=== PATIENT | female | born 1945 | race Caucasian/White ===

== ENCOUNTER 2016-04-30 20:26 | Emergency (ER) | payer OTHER, MEDICAID ==
[~2016-04-30] VITALS: Ht 157.5 cm; Wt 81.6 kg
[~2016-04-30 20:26] MED LIST: AMLO5TAB4 PO; ASPI-1047 PO; BUDE6HFA INH; CANA300T PO; COLC0.6T67 PO; CYAN10009 PO; DICL50TA9 PO; DICY10SO PO; ESOM40CA PO; FERR-57 PO; FURO20TA4 PO; GABA300S PO; GLIP10TA74 PO; INSU10VI2 SQ; LISI10TA PO; LORA-673 PO; MAGN400C PO; METF-305 PO; METO50TA3 PO; MONT10TA22 PO; MULT-1159 PO; ONDA8TAB9 SL; PRAV10TA37 PO
[2016-04-30 20:30] VITALS: BP 141/49; PULSE 76; RESP 16; TEMP 97.5; O2SAT 98
[2016-04-30] MEDS ORDERED: NACL 0.9% 1,000 ML IV ONE (21:06)
[2016-04-30] MEDS ORDERED: MAG HYDROX/AL HYDROX/SIMETH 30 ML, BELLADONNA ALKALOIDS/PHENOBARB 10 ML, LIDOCAINE VISC... PO ONE ×3 (21:15)
[2016-04-30] MEDS ORDERED: KETOROLAC TROMETHAMINE 30 MG VIAL IVP ONE (21:15)
[2016-04-30] MEDS ORDERED: ONDANSETRON HCL 4 MG/2 ML VIAL IVP ONE (21:15)
[2016-04-30 21:23] LABS: BILIRUBIN,URINE NEGATIVE (NEGATIVE); BLOOD, URINE NEGATIVE (NEGATIVE); CLARITY/URINE CLEAR (CLEAR); COLOR,URINE YELLOW (YELLOW); GLUCOSE,URINE 3+ (NEGATIVE); KETONES,URINE 1+ (NEGATIVE); LEUKOCYTE ESTERASE ,URINE NEGATIVE (NEGATIVE); NITRITE, URINE NEGATIVE (NEGATIVE); PH,URINE 5.5 (5.0-8.0); PROTEIN URINE NEGATIVE (NEGATIVE); UROBILINOGEN,URINE 0.2 (0.2-1.0)
[2016-04-30 21:29] LABS: BASOPHILS % (AUTO) 0.5 % (0.0-2.0); EOSINOPHILS # (AUTO) 0.1 K/uL (0.0-0.4); EOSINOPHILS % (AUTO) 1.6 % (0.0-4.0); HEMATOCRIT 32.8 % (36-48); HEMOGLOBIN 11.1 g/dL (12.0-16.0); LYMPHOCYTES # (AUTO) 1.4 K/uL (1.0-5.5); LYMPHOCYTES % (AUTO) 25.9 % (20.5-51.5); MEAN CORPUSCULAR HEMOGLOBIN 33 pg (27-31); MEAN CORPUSCULAR HGB CONC 34 % (32-36); MEAN CORPUSCULAR VOLUME 99 fL (79.0-98.0); MONOCYTES # (AUTO) 0.6 K/uL (0.0-1.0); MONOCYTES % (AUTO) 10.9 % (1.7-9.3); NEUTROPHILS # (AUTO) 3.4 K/uL (1.8-7.7); NEUTROPHILS % (AUTO) 61.1 % (40.0-70.0); PLATELET COUNT (AUTO) 222 K/uL (130-430); RED BLOOD CELL COUNT(AUTO) 3.33 MIL/uL (4.2-6.2); WHITE BLOOD COUNT (AUTO) 5.5 K/uL (4.8-10.8)
[2016-04-30 21:34] LABS: CALCIUM 8.5 mg/dL (8.4-11.0); CREATININE 0.78 mg/dL (0.55-1.30)
[2016-04-30 21:38] LABS: ALBUMIN 3.6 g/dL (3.4-4.8); TOTAL BILIRUBIN 0.6 mg/dL (0.0-1.0); TOTAL PROTEIN, SERUM 7.9 g/dL (6.4-8.3)
[2016-04-30 21:44] LABS: PROTHROMBIN TIME 11.2 SECS (9.5-12.5)
[2016-04-30 21:54] LABS: RBC,URINE 0-3 /HPF (0-3)
[2016-04-30 21:55] LABS: BACTERIA,URINE FEW /HPF (None Seen); MUCUS,URINE None Seen /LPF (None Seen); YEAST,URINE Moderate /HPF (None Seen)
[2016-04-30 22:30] VITALS: BP 125/50; PULSE 80; RESP 16; TEMP 97.5; O2SAT 98
== END 2016-04-30 22:30 | disposition home or self-care (01) ==
LOC: SED 20:26
DX: K29.70 Gastritis, unspecified, without bleeding (principal); J45.909 Unspecified asthma, uncomplicated; J44.9 Chronic obstructive pulmonary disease, unspecified; E11.9 Type 2 diabetes mellitus without complications; I10 Essential (primary) hypertension; E78.00 Pure hypercholesterolemia, unspecified; M10.9 Gout, unspecified; Z79.899 Other long term (current) drug therapy; Z95.9 Presence of cardiac and vascular implant and graft, unspecified; Z86.79 Personal history of other diseases of the circulatory system
CPT/HCPCS: 36415; 71010; 80053; 81000; 83690; 85025; 85610; 93005; 96361; 96374; 96375; 99285; J1885; J2001; J2405; J7030

== ENCOUNTER 2016-08-18 20:04 | Inpatient (IN) | payer OTHER, MEDICAID ==
[~2016-08-18] VITALS: Ht 162.6 cm; Wt 82.6 kg
[2016-08-18 20:05] VITALS: BP_SYST 178
--- NOTE | 2016-08-18 20:05 | NUR ---
ED MD Lucia at bedside for medical evaluation.
--- NOTE | 2016-08-18 20:05 | NUR ---
Placed in room 1. Placed on threat monitoring analyst, blood pressure machine and pulse oximeter. To gown for exam. Side rails up. Report given to Jasmeet TURNER.
--- NOTE | 2016-08-18 20:10 | NUR ---
Patient arrived to ED a/o x 4 with complaint of sharp chest pain radiating to the right shoulder and right side of back. Patient reports onset of pain occurred around 1800. Reports 8/10 sharp pain. Reports new onset nausea without vomiting. Skin warm, pink and dry. Denies SOB. Lung sounds clear bilaterally. SpO2 99% on room air. Patient appears in acute distress. Daughter at bedside. Will continue to monitor.
[2016-08-18] MEDS ORDERED: ASPIRIN 325 MG TABLET (ECOTRIN) PO ONE (20:15)
[2016-08-18] MEDS ORDERED: NITROGLYCERIN 0.4 MG TAB.SUBL SL ONE (20:15)
[2016-08-18 20:25] LABS: BASOPHILS # (AUTO) 0.1 K/uL (0.0-0.2); BASOPHILS % (AUTO) 0.4 % (0.0-2.0); EOSINOPHILS # (AUTO) 0.1 K/uL (0.0-0.4); EOSINOPHILS % (AUTO) 0.6 % (0.0-4.0); HEMATOCRIT 35.7 % (36-48); HEMOGLOBIN 12.1 g/dL (12.0-16.0); LYMPHOCYTES # (AUTO) 2.5 K/uL (1.0-5.5); LYMPHOCYTES % (AUTO) 16.8 % (20.5-51.5); MEAN CORPUSCULAR HEMOGLOBIN 32 pg (27-31); MEAN CORPUSCULAR HGB CONC 34 % (32-36); MEAN CORPUSCULAR VOLUME 94 fL (79.0-98.0); MONOCYTES # (AUTO) 1.2 K/uL (0.0-1.0); MONOCYTES % (AUTO) 8.2 % (1.7-9.3); PLATELET COUNT (AUTO) 209 K/uL (130-430); RED BLOOD CELL COUNT(AUTO) 3.82 MIL/uL (4.2-6.2); RED CELL DISTRIBUTION WIDTH 14.6 % (9.0-15.0); WHITE BLOOD COUNT (AUTO) 14.9 K/uL (4.8-10.8)
[2016-08-18] MEDS ORDERED: DIPH25TA62 PO (20:30)
[2016-08-18] MEDS ORDERED: CYAN100T PO (20:30)
[2016-08-18] MEDS ORDERED: [UNRECOGNIZED DRUG - CODE] MC (20:30)
[2016-08-18] MEDS ORDERED: INSU10VI2 SQ (20:30)
[2016-08-18] MEDS ORDERED: APIX5TAB PO (20:30)
[2016-08-18] MEDS ORDERED: PRAV10TA PO (20:30)
[2016-08-18] MEDS ORDERED: LEVO50TA77 PO (20:30)
[2016-08-18] MEDS ORDERED: MORPHINE 2 MG/ML INJ. SYRINGE IVP ONE (20:30)
[2016-08-18] MEDS ORDERED: OMEG300C3 PO (20:30)
[2016-08-18] MEDS ORDERED: LOSA1TAB36 PO (20:30)
[2016-08-18] MEDS ORDERED: ESCI10TA PO (20:30)
[2016-08-18] MEDS ORDERED: AMI200 PO (20:30)
--- NOTE | 2016-08-18 20:34 | NUR ---
Medication reconciliation completed with information provided by Daughter. Any prior medication reconciliation on file was reviewed and corrected.
[2016-08-18 20:35] LABS: CREATININE 0.97 mg/dL (0.55-1.30); POTASSIUM 4.2 mmol/L (3.5-5.1)
[2016-08-18 20:39] LABS: ALBUMIN 3.7 g/dL (3.4-4.8); TOTAL BILIRUBIN 1.8 mg/dL (0.0-1.0); TOTAL PROTEIN, SERUM 7.9 g/dL (6.4-8.3)
[2016-08-18] MEDS ORDERED: METOCLOPRAMIDE HCL 10 MG/2 ML VIAL IVP ONE (20:45)
[2016-08-18] MEDS ORDERED: PIPERACILLIN/TAZO 3.375 GM in NS 50 ML IV ONE (21:00)
[2016-08-18] MEDS ORDERED: VANCOMYCIN HCL 1,000 MG in NS 250 ML IV ONE (21:00)
[2016-08-18] MEDS ORDERED: NACL 0.9% 1,000 ML IV ONE ×2 (21:00→22:45)
[2016-08-18] MEDS ORDERED: PIPERACILLIN/TAZOBACTAM 3.375 GM/VIAL (ZOSYN) IV ONE (21:07)
[2016-08-18] MEDS ORDERED: VANCOMYCIN HCL 1000 MG/VIAL IV ONE (21:07)
[2016-08-18] MEDS ORDERED: roPINIRole HCL 0.25 MG ( REQUIP )TABLET PO ONE (21:15)
--- NOTE | 2016-08-18 21:30 | NUR ---
Patient transported off unit for CT via wheelchair by radiology staff.
[2016-08-18 21:43] LABS: BILIRUBIN,URINE NEGATIVE (NEGATIVE); BLOOD, URINE NEGATIVE (NEGATIVE); CLARITY/URINE SL HAZY (CLEAR); COLOR,URINE YELLOW (YELLOW); GLUCOSE,URINE 3+ (NEGATIVE); KETONES,URINE NEGATIVE (NEGATIVE); LEUKOCYTE ESTERASE ,URINE TRACE (NEGATIVE); NITRITE, URINE NEGATIVE (NEGATIVE); PROTEIN URINE NEGATIVE (NEGATIVE); UROBILINOGEN,URINE 0.2 (0.2-1.0)
[2016-08-18 21:52] LABS: BACTERIA,URINE FEW /HPF (None Seen); RBC,URINE NONE SEEN /HPF (0-3)
[2016-08-18 21:53] LABS: MUCUS,URINE None Seen /LPF (None Seen)
--- NOTE | 2016-08-18 22:00 | NUR ---
Patient returned to unit from CT. Patient stable. No acute distress noted at this time.
[2016-08-18] MEDS ORDERED: roPINIRole HCL 0.25 MG ( REQUIP )TABLET ONE (22:01)
[2016-08-18] MEDS ORDERED: IOHEXOL 100 ML IV ONE (22:10)
--- NOTE | 2016-08-18 22:40 | NUR ---
ED MD Lucia at bedside for reassessment.
[2016-08-18] MEDS ORDERED: ACETAMINOPHEN 325 MG TABLET PO PRN (22:45)
[2016-08-18] MEDS ORDERED: NS 250 ML IV ONE (22:45)
[2016-08-18] MEDS ORDERED: ONDANSETRON HCL 4 MG/2 ML VIAL IVP PRN (22:45)
--- NOTE | 2016-08-18 23:12 | NUR ---
ADMIT NOTE Received pt from ER to the floor with a diagnosis of sepsis. Admission process initiated. patient oriented to pain management, safety and call light-teach back done.
--- NOTE | 2016-08-18 23:20 | NUR ---
Patient will be admitted to care of Dr. Stephens. Admitted to telemetry unit. Will go to room 134A. Belongings list completed. Summary report printed. Report will be given at bedside. Transfer to telemetry via ACLS protocol. Licensed nurse present. IV present no signs or symptoms of infiltration.
[2016-08-18 23:33] VITALS: BP_SYST 145
[2016-08-18] MEDS: LR 1,000 ML IV SCH (23:42)
[2016-08-18] MEDS ORDERED: MORPHINE SULFATE 10 MG/ML VIAL IVP PRN (23:45)
--- NOTE | 2016-08-18 23:54 | NUR ---
BELONGINGS Pt.'s daughter Kirti states pt. only has upper partial dentures on, pair of black pants, underwear and brown slippers.
[2016-08-19] VITALS (8 sets, daily range): BP systolic 118–146
--- NOTE | 2016-08-19 00:05 | NUR ---
PAGING MD TO CLARIFY MORPHINE DOSE FOR SEVERE PAIN Paging Dr. Stephens to clarify Morphine dose. Will wait for MD to call back.
--- NOTE | 2016-08-19 00:08 | NUR ---
paged paged for Dr Stephens, dialed . s/w Kendrick.
--- NOTE | 2016-08-19 00:15 | NUR ---
SPOKE TO DR. WELLS Clarified current Morphine 12mg IVP every twelve hours as needed for severe "7-10" pain; Dr. Wells gave orders to change current order to Morphine 4mg IVP to be given every 4 hours as needed for severe "7-10" pain. Will carry out.
[2016-08-19] MEDS: MORPHINE 2 MG/ML INJ. SYRINGE IVP PRN ×2 (00:22→22:48)
--- NOTE | 2016-08-19 00:25 | NUR ---
PAIN Pt. c/o "08/18" pain to abdomen. Pt. medicated with Morphine 2mg IVP as ordered PRN for moderate pain. See EMAR. Educated pt. regarding medication and s/e. Encouraged pt. to use call light due to fall risk. Pt. verbalized understanding. Call light placed to right hand. Bed alarm on. Will continue to monitor.
--- NOTE | 2016-08-19 00:40 | NUR ---
paged paged for Dr Stephens, dialed . s/w Kendrick.
--- NOTE | 2016-08-19 01:12 | NUR ---
paged second page for Dr Stephens, dialed . s/w Kendrick.
--- NOTE | 2016-08-19 01:13 | NUR ---
SECOND PAGE TO DR. WELLS Paging Dr. Wells to clarify orders regarding IV antibiotics and to notify that pt. is requesting sleeping pill. Will wait for MD to call back.
--- NOTE | 2016-08-19 01:57 | NUR ---
THIRD PAGE OUT TO DR. WELLS Will wait for MD to call back.
--- NOTE | 2016-08-19 01:57 | NUR ---
paged third page for Dr Stephens, dialed . s/w Kendrick.
[2016-08-19] MEDS ORDERED: TEMAZEPAM 15 MG CAPSULE PO ONE (02:00)
--- NOTE | 2016-08-19 02:03 | NUR ---
SPOKE TO DR. WELLS Reported to Dr. Wells pt.'s requesting sleeping pill. Dr. Wells ordered Restoril 30mg PO QHS with one dose to be given now. Also reported to Dr. Wells pt. received vanco and zosyn in ER. Dr. Wells ordered to continue Zosyn 3.375mg IVPB every six hours. Will carry out.
[2016-08-19] MEDS ORDERED: PIPERACILLIN/TAZOBACTAM 3.375 GM/VIAL (ZOSYN) IV ONE (02:20)
[2016-08-19] MEDS: PIPERACILLIN/TAZO 3.375/DEX-IS 50 ML IV SCH ×5 (02:40→23:06)
--- NOTE | 2016-08-19 03:27 | NUR ---
RESTORIL/ZOSYN/RESTING Pt. appears to be resting quietly with eyes closed. Respirations are even and unlabored with visible chest rise and fall. No s/s of acute distress. Pt. was given Restoril and Zosyn dose by resource nurse, Shawn Bolaños RN. Safety and fall precautions in place. Bed alarm on. Will continue to monitor.
--- NOTE | 2016-08-19 04:23 | NUR ---
RESTING Pt. appears to be resting with her eyes closed. Respirations are even and unlabored with visible chest rise and fall. No s/s of acute distress. HR is 71 on tele monitor. Safety and fall precautions in place. Bed alarm on. Call light to right hand. Will continue to monitor.
--- NOTE | 2016-08-19 06:59 | NUR ---
ACCUCHECK/CLOSING NOTES Late entry due to pt. care. Blood sugar 142; no insulin was given per sliding scale order. IVF infusing as ordered to left a/c. All needs met throughout shift. Safety and fall precautions in place. Call light to right hand. Bed alarm on. Will endorse care to oncoming day shift nurse.
--- NOTE | 2016-08-19 08:00 | NUR ---
OPENING NOTE PT IS SITTING UP IN BED PREPARING TO EAT DINNER. SHE IS ALERT AND ORIENTED X 4 AND SPEAKS FLUENT LATVIAN (VERY LITTLE CROATIAN). PT VS ARE STABLE BUT SHE IS COMPLAINING OF PAIN 10/10, SO I WILL ADMINISTER PAIN MEDICATION MARCO ANTONIO. LUNG SOUNDS ARE CLEAR, PULSES PRESENT AND EQUAL, NO S/S OF DISORDER
[2016-08-19] MEDS: MORPHINE 4 MG/ML INJ. SYRINGE IVP PRN ×2 (08:18→15:16)
[2016-08-19] MEDS: LR 1,000 ML IV SCH ×2 (09:27→18:28)
--- NOTE | 2016-08-19 10:12 | NUR ---
ROUNDS PT IS SITTING UP IN BED AND STATES SHE IS COMFORTABLE. PT IS AT BEDSIDE
[2016-08-19 10:14] LABS: BASOPHILS % (AUTO) 0.5 % (0.0-2.0); EOSINOPHILS # (AUTO) 0.1 K/uL (0.0-0.4); HEMATOCRIT 29.2 % (36-48); HEMOGLOBIN 9.6 g/dL (12.0-16.0); LYMPHOCYTES # (AUTO) 1.9 K/uL (1.0-5.5); LYMPHOCYTES % (AUTO) 27.4 % (20.5-51.5); MEAN CORPUSCULAR HEMOGLOBIN 31 pg (27-31); MEAN CORPUSCULAR HGB CONC 33 % (32-36); MEAN CORPUSCULAR VOLUME 94 fL (79.0-98.0); MONOCYTES # (AUTO) 0.7 K/uL (0.0-1.0); MONOCYTES % (AUTO) 10.3 % (1.7-9.3); NEUTROPHILS # (AUTO) 4.3 K/uL (1.8-7.7); NEUTROPHILS % (AUTO) 59.8 % (40.0-70.0); PLATELET COUNT (AUTO) 171 K/uL (130-430); RED BLOOD CELL COUNT(AUTO) 3.12 MIL/uL (4.2-6.2); RED CELL DISTRIBUTION WIDTH 14.8 % (9.0-15.0)
[2016-08-19 10:23] LABS: POTASSIUM 4.3 mmol/L (3.5-5.1)
[2016-08-19 10:24] LABS: CALCIUM 8.2 mg/dL (8.4-11.0); CREATININE 0.69 mg/dL (0.55-1.30)
[2016-08-19 10:35] LABS: TOTAL BILIRUBIN 0.6 mg/dL (0.0-1.0)
[2016-08-19 10:36] LABS: ALBUMIN 2.9 g/dL (3.4-4.8); TOTAL PROTEIN, SERUM 6.3 g/dL (6.4-8.3)
[2016-08-19] MEDS: INSULIN REGULAR, HUMAN 100 UNITS/ML, 10 ML VIAL (novoLIN R) SUBCUT PRN ×2 (12:37→18:28)
--- NOTE | 2016-08-19 12:45 | NUR ---
consul was called doctor randall the reason for , cp and spoke with nash [phone]
[2016-08-19] MEDS ORDERED: DIPHENHYDRAMINE HCL 25 MG CAPSULE PO PRN (14:45)
[2016-08-19] MEDS ORDERED: IPRATROPIUM/ALBUTEROL SULFATE 3 ML AMPUL.NEB INH PRN (14:45)
[2016-08-19] MEDS ORDERED: ESCITALOPRAM OXALATE 10 MG TABLET PO SCH (14:45)
[2016-08-19] MEDS ORDERED: PRAVASTATIN SODIUM 10 MG TABLET (PRAVACHOL) PO SCH ×2 (14:45)
[2016-08-19] MEDS ORDERED: COLCHICINE 0.6 MG TABLET PO SCH (15:00)
[2016-08-19] MEDS ORDERED: INSULIN LISPRO SQ SCH ×2 (15:00)
[2016-08-19] MEDS ORDERED: INSULIN LISPRO PROTAMINE SQ SCH ×2 (15:00)
[2016-08-19] MEDS ORDERED: AMIODARONE HCL 200 MG TABLET PO ONE (15:00)
--- NOTE | 2016-08-19 15:13 | NUR ---
ENDOCRINE CONSULT Spoke with Kamilah regarding request for consultation with Dr. Kay ([phone]) for reason: DM
[2016-08-19] MEDS ORDERED: ASPIRIN 81 MG TABLET(ECOTRIN) PO ONE (15:15)
[2016-08-19] MEDS ORDERED: FERROUS SULFATE 325 MG TABLET.DR PO ONE (15:15)
--- NOTE | 2016-08-19 15:25 | NUR ---
complaint of chest pain Pt is complaining of new-onset pain 8/10 focussed on left lateral ribs at approximately T7 and mild shortness of breath. pt alert and oriented x 4 with equal, regular radial and pedal pulses. vs stable (T 98.3, BP 133/62, HR 63 RR 24. SPO2 97% room air). Pt is asymptomatic for angina/[place] at this time but I will continue to monitor. I administered 81 mg aspirin, the scheduled amiodarone, and 4mg morphine.
[2016-08-19] MEDS ORDERED: METOPROLOL TARTRATE 50 MG TABLET PO ONE (15:45)
[2016-08-19] MEDS ORDERED: FUROSEMIDE 20 MG TABLET PO ONE (15:45)
--- NOTE | 2016-08-19 15:45 | NUR ---
PAIN FOLLOW-UP PT IS RESTING IN BED AND STATES SHE IS COMFORTABLE AND FREE OF PAIN, VS STABLE, NO S/S OF DISTRESS. I WILL CONTINUE TO MONITOR
[2016-08-19] MEDS: COLCHICINE 0.6 MG TABLET PO SCH (15:59)
[2016-08-19] MEDS ORDERED: LISINOPRIL 10 MG TABLET (PRINIVIL) PO ONE (16:45)
[2016-08-19] MEDS: INSULIN NPH/REGULAR 70-30, 100 UNITS/ML, 10 ML VIAL SUBCUT SCH (16:59)
--- NOTE | 2016-08-19 18:00 | NUR ---
ROUNDS PT SITTING UP IN BED, EATING DINNER AND TALKING WITH HER SEVERAL FAMILY MEMBERS WHO ARE AT BED SIDE. PT IS IN GOOD SPIRITS AND SAID SHE IS HAPPY WITH THE CARE SHE HAS RECEIVED HERE BY BOTH HER NURSES WELL DR. WELLS.
[2016-08-19] MEDS: metFORMIN HCL 500 MG TABLET PO SCH (18:03)
[2016-08-19] MEDS: DICLOFENAC SODIUM 25 MG TABLET.DR PO SCH (18:04)
[2016-08-19] MEDS: SIMVASTATIN 10 MG TABLET PO SCH (18:04)
--- NOTE | 2016-08-19 19:00 | NUR ---
CLOSING NOTE PT IS RESTING IN BED AND STATES SHE IS COMFORTABLE AND FREE OF PAIN. VS STABLE, BED ALARM SET, AND REPORT ENDORSED AT BEDSIDE
--- NOTE | 2016-08-19 20:11 | NUR ---
OPENING NOTES PATIENT IS A/OX4. NO COMPLAINTS OF PAIN. VITAL SIGNS ARE STABLE. BREATHING IS ON LABORED. NO SIGNS OF DISTRESS. IV WAS SITE WAS CLEANED AND ASSESSED. IV IS PATENT AND SHOWS NO SIGNS OF COMPLICATIONS. PATIENT INSTRUCTED TO CALL FOR ASSISTED PATIENT VERBALIZED UNDERSTANDING THROUGH TRANSLATION OF DAUGHTER. PATIENT IS KYRGYZ SPEAKING. WILL CONTINUE TO MONITOR.
[2016-08-19] MEDS: GABAPENTIN 300 MG CAPSULE PO SCH (20:31)
[2016-08-19] MEDS: DICYCLOMINE HCL 10 MG CAPSULE PO SCH (20:31)
[2016-08-19] MEDS: TEMAZEPAM 15 MG CAPSULE PO SCH (20:31)
[2016-08-19] MEDS: MONTELUKAST 10 MG TABLET PO SCH (20:32)
[2016-08-19] MEDS: MAGNESIUM OXIDE 400 MG TABLET PO SCH (20:32)
--- NOTE | 2016-08-19 22:45 | NUR ---
PAIN PATIENT HAS COMPLAINTS OF PAIN. WILL GIVE PRN PAIN MEDICATION.
--- NOTE | 2016-08-20 00:35 | NUR ---
ROUNDS PATIENT IS IN BED SLEEPING. NO SIGNS OF DISTRESS. BREATHING IS NON LABORED. BED ALARM IS ON. WILL CONTINUE TO MONITOR.
[2016-08-20 01:27] VITALS: BP_SYST 108
--- NOTE | 2016-08-20 01:51 | NUR ---
PATIENT CARE PATIENT WAS ASSISTED ON AND OFF THE BEDSIDE COMMODE. PATIENT IS IN BED RESTING COMFORTABLY. BED ALARM IS ON. CALL LIGHT IS WITHIN REACH. WILL CONTINUE TO MONITOR.
--- NOTE | 2016-08-20 04:04 | NUR ---
ROUNDS PATIENT IS IN BED SLEEPING. NO SIGNS OF DISTRESS. BREATHING IS NON LABORED. BED ALARM IS ON. WILL CONTINUE TO MONITOR.
[2016-08-20 04:40] VITALS: BP_SYST 112
[2016-08-20] MEDS: LR 1,000 ML IV SCH ×2 (06:24→14:12)
[2016-08-20] MEDS: LEVOTHYROXINE SODIUM 0.05 MG TABLET PO SCH (06:25)
[2016-08-20] MEDS: PIPERACILLIN/TAZO 3.375/DEX-IS 50 ML IV SCH ×4 (06:25→23:34)
[2016-08-20] MEDS: MORPHINE 2 MG/ML INJ. SYRINGE IVP PRN ×4 (06:26→22:21)
[2016-08-20 06:35] LABS: BASOPHILS % (AUTO) 0.6 % (0.0-2.0); EOSINOPHILS # (AUTO) 0.2 K/uL (0.0-0.4); EOSINOPHILS % (AUTO) 2.5 % (0.0-4.0); HEMATOCRIT 29.2 % (36-48); HEMOGLOBIN 9.5 g/dL (12.0-16.0); LYMPHOCYTES # (AUTO) 2.4 K/uL (1.0-5.5); LYMPHOCYTES % (AUTO) 30.2 % (20.5-51.5); MEAN CORPUSCULAR HEMOGLOBIN 30 pg (27-31); MEAN CORPUSCULAR HGB CONC 32 % (32-36); MEAN CORPUSCULAR VOLUME 93 fL (79.0-98.0); MONOCYTES # (AUTO) 0.9 K/uL (0.0-1.0); MONOCYTES % (AUTO) 10.7 % (1.7-9.3); NEUTROPHILS # (AUTO) 4.6 K/uL (1.8-7.7); PLATELET COUNT (AUTO) 186 K/uL (130-430); RED BLOOD CELL COUNT(AUTO) 3.13 MIL/uL (4.2-6.2); RED CELL DISTRIBUTION WIDTH 15.3 % (9.0-15.0); WHITE BLOOD COUNT (AUTO) 8.1 K/uL (4.8-10.8)
[2016-08-20] MEDS: INSULIN NPH/REGULAR 70-30, 100 UNITS/ML, 10 ML VIAL SUBCUT SCH ×2 (06:41→17:05)
[2016-08-20] MEDS: ONDANSETRON 4 MG ODT TAB PO PRN (06:46)
[2016-08-20] MEDS ORDERED: CANAGLIFLOZIN 300 MG TABLET PO SCH (07:00)
[2016-08-20 07:01] LABS: CALCIUM 8.4 mg/dL (8.4-11.0); CREATININE 0.77 mg/dL (0.55-1.30); POTASSIUM 4.1 mmol/L (3.5-5.1)
--- NOTE | 2016-08-20 07:15 | NUR ---
CLOSING NOTES PATIENT IS IN BED RESTING COMFORTABLY. NO SIGNS OF DISTRESS. BREATHING IS NON LABORED. NO COMPLAINTS OF PAIN. IV IS PATENT. BED ALARM IS ON. REPORT GIVEN TO JOHNNY SHAVER.
--- NOTE | 2016-08-20 07:45 | NUR ---
AM ROUNDS PATIENT RESTING IN BED, AWAKE, ALERT AND ORIENTED X4, DENIES PAIN, EDUCATED AUTOMOTIVE FINANCE MANAGER LIGHT SYSTEM AND TO CALL FOR ANY ASSISTANCE, PATIENT VERBALIZED UNDERSTANDING, PATIENT DENIES DIFFICULTY BREATHING AT THIS TIME, BED IN LOWEST POSITION, THREE SIDE RAILS UP, BED ALARM ON, BED CLOSE TO NURSE'S STATION, FALL AND ASPIRATION PRECAUTIONS IN PLACE.
--- NOTE | 2016-08-20 08:03 | NUR ---
Nutrition Update David Scale 18 noted. Pt admitted for Sepsis. Diet: [facility] diet. BMI: 31.2 kg/m2 RD to follow per nutrition care standards.
[2016-08-20 08:11] VITALS: BP_SYST 120
[2016-08-20] MEDS: metFORMIN HCL 500 MG TABLET PO SCH ×2 (08:30→17:01)
[2016-08-20] MEDS ORDERED: CYANOCOBALAMIN 1000 MCG PO SCH (09:00)
[2016-08-20] MEDS ORDERED: NON-FORMULARY MEDICATION (Esomeprazole Mag Trihydrate (Nexium) 40 MG) PO SCH (09:00)
[2016-08-20] MEDS ORDERED: DEXTROSE 50% JECT 50 ML DISP.SYRIN IVP PRN (09:15)
--- NOTE | 2016-08-20 09:51 | NUR ---
ABDOMINAL ULTRASOUND AT THIS TIME, PATIENT IS TOLERATING WELL.
[2016-08-20] MEDS: FUROSEMIDE 20 MG TABLET PO SCH (10:23)
[2016-08-20] MEDS: AMIODARONE HCL 200 MG TABLET PO SCH (10:24)
[2016-08-20] MEDS: DICLOFENAC SODIUM 25 MG TABLET.DR PO SCH ×2 (10:24→17:15)
[2016-08-20] MEDS: LISINOPRIL 10 MG TABLET (PRINIVIL) PO SCH (10:26)
[2016-08-20] MEDS: LORATADINE 10 MG TABLET PO SCH (10:26)
[2016-08-20] MEDS: APIXABAN 2.5 MG TABLET PO SCH (10:26)
[2016-08-20] MEDS: DICYCLOMINE HCL 10 MG CAPSULE PO SCH ×2 (10:27→21:18)
[2016-08-20] MEDS: amLODIPine BESYLATE 5 MG TABLET PO SCH (10:27)
[2016-08-20] MEDS: FERROUS SULFATE 325 MG TABLET.DR PO SCH (10:27)
[2016-08-20] MEDS: MULTIVITS,CA,MINERALS/IRON/FA 1 TABLET PO SCH (10:27)
[2016-08-20] MEDS: ASPIRIN 81 MG TABLET(ECOTRIN) PO SCH (10:27)
[2016-08-20] MEDS: PANTOPRAZOLE SODIUM 40 MG TAB PO SCH (10:27)
[2016-08-20] MEDS: CITALOPRAM HYDROBROMIDE 20 MG TABLET PO SCH (10:27)
[2016-08-20] MEDS: MAGNESIUM OXIDE 400 MG TABLET PO SCH ×2 (10:27→21:17)
[2016-08-20] MEDS: CYANOCOBALAMIN 1000 mCg TABLET PO SCH (10:27)
[2016-08-20] MEDS: GABAPENTIN 300 MG CAPSULE PO SCH ×2 (10:27→21:17)
[2016-08-20] MEDS: METOPROLOL TARTRATE 50 MG TABLET PO SCH (10:28)
--- NOTE | 2016-08-20 10:30 | NUR ---
RN ROUNDS PATIENT SITTING AT BEDSIDE, FAMILY AT BEDSIDE, DISCUSSED PLAN OF CARE, EDUCATED THE PATIENT ON MEDICATIONS AND POTENTIAL SIDE EFFECTS, PATIENT VERBALIZED UNDERSTANDING AND TOLERATED WELL, NO OTHER NEEDS AT THIS TIME, BED IN LOWEST POSITION, THREE SIDE RAILS UP, BED ALARM ON, BED CLOSE TO NURSE'S STATION, FALL AND ASPIRATION PRECAUTIONS IN PLACE.
[2016-08-20] MEDS: INSULIN ASPART 100 UNITS/ML, 10 ML VIAL (NovoLOG) SUBCUT PRN (11:37)
--- NOTE | 2016-08-20 11:46 | NUR ---
RN ROUNDS PATIENT RESTING IN BED, DENIES PAIN, EDUCATED ON IV ANTIBIOTIC AND POTENTIAL SIDE EFFECTS, PATIENT VERBALIZED UNDERSTANDING, IV SITE IS PATENT AND INFUSING WELL, BLOOD GLUCOSE CHECK AND INSULIN ADMINISTRATION COMPLETE PER MD ORDERS, NO OTHER NEEDS AT THIS TIME, BED IN LOWEST POSITION, THREE SIDE RAILS UP, BED ALARM ON, BED CLOSE TO NURSE'S STATION, FALL AND ASPIRATION PRECAUTIONS IN PLACE.
[2016-08-20 12:28] VITALS: BP_SYST 130
--- NOTE | 2016-08-20 13:22 | NUR ---
RN ROUNDS PATIENT SITTING ON BEDSIDE, SPEAKING WITH FAMILY, PATIENT DENIES PAIN, NO OTHER NEEDS NEEDS AT THIS TIME, BED IN LOWEST POSITION, THREE SIDE RAILS UP, BED ALARM ON, CALL LIGHT IN THE PATIENT'S HAND, FALL PRECAUTIONS IN PLACE.
--- NOTE | 2016-08-20 13:45 | NUR ---
PAIN MEDICATION PATIENT CALLING AT THIS TIME, COMPLAINING OF 6/10 ABDOMINAL PAIN, EDUCATED ON PAIN MEDICATION AND POTENTIAL SIDE EFFECTS, PATIENT VERBALIZED UNDERSTANDING AND TOLERATED WELL, IV SITE IS PATENT WITH NO SIGNS OF INFILTRATION, BED IN LOWEST POSITION, THREE SIDE RAILS UP, BED ALARM ON, BED CLOSE TO NURSE'S STATION, CALL LIGHT IN THE PATIENT'S HAND, FALL AND ASPIRATION PRECAUTIONS IN PLACE.
--- NOTE | 2016-08-20 15:15 | NUR ---
RN ROUNDS PATIENT RESTING IN BED, EYES CLOSED, BREATHING IS EVEN AND UNLABORED, NO SIGNS OF DISTRESS, BED IN LOWEST POSITION, THREE SIDE RAILS UP, BED ALARM ON, BED CLOSE TO NURSE'S STATION, FALL PRECAUTIONS IN PLACE, CALL LIGHT NEXT TO THE PATIENT'S HAND.
[2016-08-20 16:18] VITALS: BP_SYST 109
--- NOTE | 2016-08-20 16:30 | NUR ---
RN ROUNDS ASSISTED PATIENT TO THE RESTROOM, PATIENT HAS STEADY GAIT WITH ASSISTANCE, ASSISTED BACK INTO BED, BED IN LOWEST POSITION, THREE SIDE RAILS UP, BED ALARM ON, CALL LIGHT WITHIN REACH, FAMILY IS AT BEDSIDE.
[2016-08-20] MEDS: SIMVASTATIN 10 MG TABLET PO SCH (17:01)
--- NOTE | 2016-08-20 17:20 | NUR ---
RN ROUNDS/BLOOD GLUCOSE PATIENT SITTING AT BEDSIDE, STATES PAIN LEVEL IS 6/10 ACHING ABDOMINAL PAIN AT THIS TIME, EDUCATED THE PATIENT AND FAMILY ON MEDICATION AND POTENTIAL SIDE EFFECTS, ALL VERBALIZED UNDERSTANDING, PATIENT TOLERATED WELL, IV SITE IS PATENT AND INFUSING WELL, EDUCATED THE PATIENT ON IV ANTIBIOTIC AND POTENTIAL SIDE EFFECTS, PATIENT AND FAMILY VERBALIZED UNDERSTANDING AT THIS TIME, BLOOD GLUCOSE CHECK AND SCHEDULED ADMINISTRATION OF INSULIN COMPLETE, PATIENT WAS ALSO GIVEN EVENING MEDICATIONS, EDUCATION WAS GIVEN ON MEDICATIONS AND POTENTIAL SIDE EFFECTS, PATIENT AND FAMILY VERBALIZED UNDERSTANDING, PATIENT TOLERATED WELL, NO OTHER NEEDS AT THIS TIME, BED IN LOWEST POSITION, TWO SIDE RAILS UP, BED ALAMRM ON, FALL PRECAUTIONS IN PLACE, CALL LIGHT ON BEDSIDE TABLE WITHIN REACH, FAMILY REMAINING AT BEDSIDE AT THIS TIME. Addendum: 08/20/16 at 1747 by Roscoe Gutierres RN INFORMED PATIENT AND FAMILY OF NEW ORDERS FOR STOOL SAMPLE, INSTRUCTED PATIENT TO CALL NURSE OR HOUSEHOLD REFRIGERATOR MECHANIC WHEN READY TO USE THE RESTROOM SO COLLECTION CAN BE MADE, PATIENT AND FAMILY VERBALIZED UNDERSTANDING.
--- NOTE | 2016-08-20 18:45 | NUR ---
CLOSING NOTES PATIENT RESTING IN BED, EYES CLOSED, BREATHING IS EVEN AND UNLABORED, NO SIGNS OF DISTRESS, FAMILY IS AT THE BEDSIDE, ALL NEEDS MET, WILL ENDORSE REPORT TO NOC SHIFT NURSE, BED IN LOWEST POSITION, THREE SIDE RAILS UP, BED CLOSE TO NURSE'S STATION, FALL AND ASPIRATION PRECAUTIONS IN PLACE, CALL LIGHT WITHIN REACH.
--- NOTE | 2016-08-20 20:00 | NUR ---
ROUNDS PATIENT RESTING COMFORTABLY IN BED, NOT IN DISTRESS, VITALS STABLE. DENIES ANY PAIN AND DISCOMFORT AT THIS TIME. ASSESSMENT DONE AND DOCUMENTED. SEE FLOWSHEET. NEEDS ATTENDED TO. SAFETY AND FALL PRECAUTION MEASURES IN PLACED. BED IN LOW AND LOCKED POSITION. BED ALARM ON . CALL LIGHT PLACED WITHIN REACH.
--- NOTE | 2016-08-20 21:15 | NUR ---
ACCU CHECK ACCU CHECK DONE, BLOOD SUGAR 126, NO INSULIN COVERAGE PER SLIDING SCALE. WILL CONTINUE TO MONITOR.
[2016-08-20] MEDS: MONTELUKAST 10 MG TABLET PO SCH (21:17)
[2016-08-20] MEDS: TEMAZEPAM 15 MG CAPSULE PO SCH (21:20)
--- NOTE | 2016-08-21 00:15 | NUR ---
PATIENT RESTING: Patient resting quietly. No acute distress noted. Vital signs within normal range.
[2016-08-21 01:32] VITALS: BP_SYST 112
--- NOTE | 2016-08-21 02:00 | NUR ---
ROUNDS ASLEEP, NO SOB NOTED, WILL CONTINUE TO MONITOR.
[2016-08-21] MEDS: MORPHINE 2 MG/ML INJ. SYRINGE IVP PRN ×4 (03:29→22:12)
[2016-08-21 04:00] VITALS: BP_SYST 114
--- NOTE | 2016-08-21 04:00 | NUR ---
PATIENT RESTING: Patient resting quietly. No acute distress noted. Vital signs within normal range.
[2016-08-21] MEDS: LEVOTHYROXINE SODIUM 0.05 MG TABLET PO SCH (06:08)
[2016-08-21] MEDS: PIPERACILLIN/TAZO 3.375/DEX-IS 50 ML IV SCH ×4 (06:08→23:15)
[2016-08-21] MEDS: INSULIN NPH/REGULAR 70-30, 100 UNITS/ML, 10 ML VIAL SUBCUT SCH ×2 (06:37→17:22)
--- NOTE | 2016-08-21 06:41 | NUR ---
CLOSING NOTES PATIENT AWAKE, VITALS STABLE, DENIES ANY PAIN AND DISCOMFORT AT THIS TIME. ALL NEEDS ATTENDED TO. SAFETY MEASURES MAINTAINED. CALL LIGHT PLACED WITH PATIENT.
[2016-08-21 07:32] LABS: BASOPHILS % (AUTO) 0.5 % (0.0-2.0); EOSINOPHILS # (AUTO) 0.3 K/uL (0.0-0.4); HEMATOCRIT 27.8 % (36-48); HEMOGLOBIN 9.2 g/dL (12.0-16.0); LYMPHOCYTES # (AUTO) 2.7 K/uL (1.0-5.5); LYMPHOCYTES % (AUTO) 33.5 % (20.5-51.5); MEAN CORPUSCULAR HEMOGLOBIN 31 pg (27-31); MEAN CORPUSCULAR HGB CONC 33 % (32-36); MEAN CORPUSCULAR VOLUME 93 fL (79.0-98.0); MONOCYTES # (AUTO) 0.8 K/uL (0.0-1.0); MONOCYTES % (AUTO) 9.4 % (1.7-9.3); NEUTROPHILS # (AUTO) 4.3 K/uL (1.8-7.7); NEUTROPHILS % (AUTO) 52.6 % (40.0-70.0); PLATELET COUNT (AUTO) 208 K/uL (130-430); RED BLOOD CELL COUNT(AUTO) 2.99 MIL/uL (4.2-6.2); RED CELL DISTRIBUTION WIDTH 15.1 % (9.0-15.0); WHITE BLOOD COUNT (AUTO) 8.1 K/uL (4.8-10.8)
[2016-08-21 07:50] LABS: CALCIUM 8.4 mg/dL (8.4-11.0); CREATININE 0.75 mg/dL (0.55-1.30); POTASSIUM 3.9 mmol/L (3.5-5.1); THYROID STIMULATING HORMONE 1.42 uIu/mL (0.34-4.82)
[2016-08-21 08:00] VITALS: BP_SYST 117
--- NOTE | 2016-08-21 08:00 | NUR ---
RN OPENING NOTE PATIENT LYING ON BED ALERT ORIENTED X4. AMBULATED FOR THE BATHROOM. VITAL SIGNS ARE STABLE, WILL BE GIVEN HER MED AND A STOOL SAMPLE WILL BE SENT FOR C.DIFF
[2016-08-21 09:13] LABS: IRON (SERUM) 84 mcg/dL (37-145); TOTAL IRON BIND. CAPACITY 282 ug/dL (250-450)
[2016-08-21] MEDS: amLODIPine BESYLATE 5 MG TABLET PO SCH (09:42)
[2016-08-21] MEDS: PANTOPRAZOLE SODIUM 40 MG TAB PO SCH (09:42)
[2016-08-21] MEDS: CYANOCOBALAMIN 1000 mCg TABLET PO SCH (09:42)
[2016-08-21] MEDS: CITALOPRAM HYDROBROMIDE 20 MG TABLET PO SCH (09:43)
[2016-08-21] MEDS: METOPROLOL TARTRATE 50 MG TABLET PO SCH (09:43)
[2016-08-21] MEDS: APIXABAN 2.5 MG TABLET PO SCH (09:44)
[2016-08-21] MEDS: MAGNESIUM OXIDE 400 MG TABLET PO SCH ×2 (09:44→21:42)
[2016-08-21] MEDS: LISINOPRIL 10 MG TABLET (PRINIVIL) PO SCH (09:44)
[2016-08-21] MEDS: MULTIVITS,CA,MINERALS/IRON/FA 1 TABLET PO SCH (09:45)
[2016-08-21] MEDS: GABAPENTIN 300 MG CAPSULE PO SCH ×2 (09:45→21:42)
[2016-08-21] MEDS: FERROUS SULFATE 325 MG TABLET.DR PO SCH (09:45)
[2016-08-21] MEDS: FUROSEMIDE 20 MG TABLET PO SCH (09:46)
[2016-08-21] MEDS: DICYCLOMINE HCL 10 MG CAPSULE PO SCH ×2 (09:46→21:41)
[2016-08-21] MEDS: AMIODARONE HCL 200 MG TABLET PO SCH (09:46)
[2016-08-21] MEDS: DICLOFENAC SODIUM 25 MG TABLET.DR PO SCH ×2 (09:46→17:32)
[2016-08-21] MEDS: ASPIRIN 81 MG TABLET(ECOTRIN) PO SCH (09:47)
[2016-08-21] MEDS: LORATADINE 10 MG TABLET PO SCH (09:47)
--- NOTE | 2016-08-21 10:00 | NUR ---
JOHNNY JOHNSTON STOOL SAMPLE WAS SENT TO THE LAB. BUT NOT ENOUGH TO CARRY BOTH C.DIFF AND WBC AND STOOL CULTURE, DR. WELLS WAS INFORMED AND WILL SEND THE REST OF THE STOOL WHEN THE PATIENT HAS ANOTHER BM.
[2016-08-21] MEDS: ONDANSETRON 4 MG ODT TAB PO PRN (10:13)
[2016-08-21] MEDS: metFORMIN HCL 500 MG TABLET PO SCH ×2 (10:15→17:33)
--- NOTE | 2016-08-21 12:00 | NUR ---
RN ROUNDS PATIENT LYING ON BED, DENIES PAIN OR DISCOMFORT. PATIENT WAS GIVEN HER MEDICATION. DR. WELLS WROTE FLAGYL P.O FOR THE PATIENT PATIENT DIDNT HAVE A BM YET.> PATIENT WAS COVERED FOR HER BLOOD SUGAR LEVEL OF 266
[2016-08-21 12:14] VITALS: BP_SYST 124
[2016-08-21] MEDS ORDERED: LOPERAMIDE HCL 2 MG CAPSULE PO PRN (12:15)
[2016-08-21] MEDS: INSULIN ASPART 100 UNITS/ML, 10 ML VIAL (NovoLOG) SUBCUT PRN ×3 (12:16→21:47)
--- NOTE | 2016-08-21 12:32 | NUR ---
CONSULT GI ABDOMINAL PAIN DR WHEATLEY [phone] DR TODD SCLEROSCOPE TESTER S/W ESME EXCHANGE @ [id number]
[2016-08-21] MEDS: COLCHICINE 0.6 MG TABLET PO SCH (15:45)
[2016-08-21] MEDS: metroNIDAZOLE 500 MG TABLET PO SCH ×2 (15:46→21:41)
--- NOTE | 2016-08-21 16:00 | NUR ---
RN ROUNDS PATIENT LYING ON BED, AMBULATING TO THE BATHROOM FOR VOIDING URINE, BUT NOT BM. THE GI DOCTOR WILL ORDER A COLONOSCOPY FOR THE PATIENT, WILL FOLLOW UP
[2016-08-21] MEDS ORDERED: BISACODYL 5 MG TABLET.DR (DULCOLAX) PO ONE (17:00)
[2016-08-21 17:01] VITALS: BP_SYST 117
[2016-08-21] MEDS: SIMVASTATIN 10 MG TABLET PO SCH (17:32)
[2016-08-21] MEDS ORDERED: GOLYTELY / COLYTE SOLUTION 4 LITERS PO ONE (18:00)
--- NOTE | 2016-08-21 18:00 | NUR ---
RN CLOSING NOTES PATIENT LYING ON BED, STARTED 2 CUPS OF HER GOLYTELY. BUT THE LAB CALLED THE PATIENT IS POSITIVE FOR STOOL C.DIFF. i STOPPED THE PREPARATION FOR TOMORROW COLONOSCOPY TRIED TO REACH BOTH DR. WELLS WELL DR. BRIAN WELLS REPLIED BY THE ORDER OF CANCELLING THE COLONOSCOPY IN AM. RESUME THE DIET ORDERS ON THE PATIENT. ORDERS WERE ENTERED AND PATIENT WAS INFORMED, MEANWHILE WE COULD NOT GET HOLD OF DR. TODD WILL ENDORSE THIS TO THE NEXT SHIFT TO FOLLOW UP
--- NOTE | 2016-08-21 19:10 | NUR ---
PAGED: I PAGED DR. TODD @ 1909 I SPOKE WITH SABINE TODD CALLED BACK @ 2024
--- NOTE | 2016-08-21 19:21 | NUR ---
PAGED: I PAGED DR. WELLS @ 1917 I SPOKE WITH TOMASZ WELLS CALLED BACK @ 1919
--- NOTE | 2016-08-21 21:00 | NUR ---
DR. FORD RETURNED CALL AWARE DR. WELLS CANCELED COLONOSCOPY DUE TO POSITIVE FOR C.DIFF. NO NEW ORDERS
[2016-08-21] MEDS: TEMAZEPAM 15 MG CAPSULE PO SCH (21:42)
[2016-08-21] MEDS: MONTELUKAST 10 MG TABLET PO SCH (21:42)
--- NOTE | 2016-08-21 21:45 | NUR ---
Endorsement of Patient Received endorsement of patient @ 2130. Received patient laying in bed, awake, alert, oriented, Lithuanian speaking, family at bedside. Patient denies any acute distress or pain at this time. Breathing is even and unlabored on room air. Re-educated patient and family on use of call light for assistance and fall precautions, both verbalized understanding. Call light in hand, will continue to monitor.
[2016-08-22] VITALS: BP_SYST 117
--- NOTE | 2016-08-22 | NUR ---
Rounds Patient resting in bed with eyes closed, easily aroused. Patient denies any acute distress or pain at this time. Breathing is even and unlabored. Needs addressed. Call light in hand, fall precautions in place. Will continue to monitor.
--- NOTE | 2016-08-22 02:00 | NUR ---
Rounds Patient resting in bed with eyes closed. No acute distress noted, breathing even and unlabored. Call light in hand, will continue to monitor.
[2016-08-22 04:00] VITALS: BP_SYST 118
--- NOTE | 2016-08-22 04:00 | NUR ---
Rounds Patient resting in bed, awake. Assisted patient to restroom. Patient denies any acute distress or pain at this time. Breathing is even and unlabored. Needs addressed. Will continue to monitor.
[2016-08-22] MEDS: LEVOTHYROXINE SODIUM 0.05 MG TABLET PO SCH (06:14)
[2016-08-22] MEDS: metroNIDAZOLE 500 MG TABLET PO SCH ×3 (06:14→22:04)
[2016-08-22] MEDS: PIPERACILLIN/TAZO 3.375/DEX-IS 50 ML IV SCH (06:14)
[2016-08-22] MEDS: INSULIN NPH/REGULAR 70-30, 100 UNITS/ML, 10 ML VIAL SUBCUT SCH ×2 (06:19→17:14)
--- NOTE | 2016-08-22 06:35 | NUR ---
Closing Notes Patient resting in bed, awake. Patient denies any acute distress or pain at this time. Breathing is even and unlabored. IV site patent/clean/dry, no S/S infection/infiltration noted. Needs addressed throughout shift. Call light in hand, fall precautions in place. Will continue to monitor for changes and safety, and endorse all patient care/needs to oncoming nurse.
[2016-08-22 07:51] LABS: BASOPHILS # (AUTO) 0.1 K/uL (0.0-0.2); BASOPHILS % (AUTO) 0.8 % (0.0-2.0); CALCIUM 8.4 mg/dL (8.4-11.0); CREATININE 0.79 mg/dL (0.55-1.30); EOSINOPHILS # (AUTO) 0.2 K/uL (0.0-0.4); EOSINOPHILS % (AUTO) 3.1 % (0.0-4.0); HEMATOCRIT 28.2 % (36-48); HEMOGLOBIN 9.3 g/dL (12.0-16.0); LYMPHOCYTES # (AUTO) 2.4 K/uL (1.0-5.5); LYMPHOCYTES % (AUTO) 33.1 % (20.5-51.5); MEAN CORPUSCULAR HEMOGLOBIN 31 pg (27-31); MEAN CORPUSCULAR HGB CONC 33 % (32-36); MEAN CORPUSCULAR VOLUME 94 fL (79.0-98.0); MONOCYTES # (AUTO) 0.6 K/uL (0.0-1.0); MONOCYTES % (AUTO) 8.9 % (1.7-9.3); NEUTROPHILS # (AUTO) 3.9 K/uL (1.8-7.7); NEUTROPHILS % (AUTO) 54.1 % (40.0-70.0); PLATELET COUNT (AUTO) 226 K/uL (130-430); POTASSIUM 3.8 mmol/L (3.5-5.1); RED BLOOD CELL COUNT(AUTO) 3.01 MIL/uL (4.2-6.2); RED CELL DISTRIBUTION WIDTH 15.3 % (9.0-15.0); WHITE BLOOD COUNT (AUTO) 7.2 K/uL (4.8-10.8)
[2016-08-22 08:00] VITALS: BP_SYST 135
--- NOTE | 2016-08-22 08:00 | NUR ---
NOTE PT SITTING ON SIDE OF BED AND EATING HER BREAKFAST. NO SOB/RESP DISCOMFORT NOTED AT THIS TIME. TELE UNIT ATTACHED AND INTACT AT THIS TIME. ABDOMINAL PAIN TOLERABLE AT THIS TIME. IV IN LEFT AC INTACT AND PATENT.
[2016-08-22 08:35] LABS: PROTHROMBIN TIME 10.7 SECS (9.5-12.5)
[2016-08-22] MEDS: GABAPENTIN 300 MG CAPSULE PO SCH ×2 (08:35→22:02)
[2016-08-22] MEDS: CYANOCOBALAMIN 1000 mCg TABLET PO SCH (08:35)
[2016-08-22] MEDS: CITALOPRAM HYDROBROMIDE 20 MG TABLET PO SCH (08:35)
[2016-08-22] MEDS: DICLOFENAC SODIUM 25 MG TABLET.DR PO SCH ×2 (08:35→17:35)
[2016-08-22] MEDS: ASPIRIN 81 MG TABLET(ECOTRIN) PO SCH (08:35)
[2016-08-22] MEDS: MAGNESIUM OXIDE 400 MG TABLET PO SCH ×2 (08:36→22:03)
[2016-08-22] MEDS: METOPROLOL TARTRATE 50 MG TABLET PO SCH (08:36)
[2016-08-22] MEDS: FERROUS SULFATE 325 MG TABLET.DR PO SCH (08:36)
[2016-08-22] MEDS: amLODIPine BESYLATE 5 MG TABLET PO SCH (08:36)
[2016-08-22] MEDS: PANTOPRAZOLE SODIUM 40 MG TAB PO SCH (08:36)
[2016-08-22] MEDS: DICYCLOMINE HCL 10 MG CAPSULE PO SCH ×2 (08:36→22:04)
[2016-08-22] MEDS: AMIODARONE HCL 200 MG TABLET PO SCH (08:37)
[2016-08-22] MEDS: LORATADINE 10 MG TABLET PO SCH (08:37)
[2016-08-22] MEDS: LISINOPRIL 10 MG TABLET (PRINIVIL) PO SCH (08:37)
[2016-08-22] MEDS: MULTIVITS,CA,MINERALS/IRON/FA 1 TABLET PO SCH (08:37)
[2016-08-22] MEDS: FUROSEMIDE 20 MG TABLET PO SCH (08:38)
[2016-08-22] MEDS: metFORMIN HCL 500 MG TABLET PO SCH ×2 (08:38→17:11)
--- NOTE | 2016-08-22 10:00 | NUR ---
NOTE PT RESTING IN BED. PT'S AT BEDSIDE AT THIS TIME. PT REQUESTING PAIN MEDICATION AT THIS TIME. NO SOB/RESP DISTRESS NOTED. CALL LIGHT WITHIN REACH.
[2016-08-22] MEDS: MORPHINE 2 MG/ML INJ. SYRINGE IVP PRN ×3 (10:16→22:11)
--- NOTE | 2016-08-22 11:06 | NUR ---
ID CONSULT Spoke with Lucy regarding request for consultation with Dr. Wilkinson ([phone]) for reason: C diff Dr. Burch is currently conventional machinist.
[2016-08-22 12:00] VITALS: BP_SYST 120
--- NOTE | 2016-08-22 12:00 | NUR ---
NOTE PT'S 2 DAUGHTERS AND AT BEDSIDE AT THIS TIME. PAIN MANAGEABLE AT THIS TIME. PT ENC. TO DEEP BREATHE AND WALK/SIT UP IN A CHAIR Q1' AND PRN TO KEEP LUNGS AND TEMPERATURE UNDER NORMAL LIMITS. PT DID GET OOB WITH MINIMAL ASSIST TO RESTROOM AT THIS TIME. NO NEEDS NOTED. CALL LIGHT WITHIN REACH.
[2016-08-22] MEDS: INSULIN ASPART 100 UNITS/ML, 10 ML VIAL (NovoLOG) SUBCUT PRN ×2 (12:17→17:16)
[2016-08-22] MEDS ORDERED: LACTOBACILLUS RHAMNOSUS GG 1 CAP CAPSULE PO ONE (14:00)
--- NOTE | 2016-08-22 14:00 | NUR ---
NOTE DR WELLS DID ROUNDS AND ORDERS GIVEN AND CARRIED OUT AT THIS TIME. FAMILY AT BEDSIDE ATTENDING TO PT'S NEEDS. CALL LIGHT WITHIN REACH. PT WAS SITTING UP IN BS CHAIR FOR AN HOUR.
[2016-08-22 16:00] VITALS: BP_SYST 136
--- NOTE | 2016-08-22 16:00 | NUR ---
NOTE PT RESTING IN BED. PT'S DAUGHTER AT BEDSIDE. NO NEEDS NOTED AT THIS TIME. CALL LIGHT WITHIN REACH.
[2016-08-22] MEDS: SIMVASTATIN 10 MG TABLET PO SCH (17:11)
--- NOTE | 2016-08-22 18:30 | NUR ---
NOTE PT SITTING ON SIDE OF BED EATING HER DINNER. PT'S DAUGHTERS ARE AT BEDSIDE ASSISTING PT WITH HER NEEDS. PT DENIES ANY PAIN/DISCOMFORT OR SOB/RESP DISTRESS AT THIS TIME. IV IN LEFT AC INTACT AND PATENT AT THIS TIME. NO NEEDS NOTED. CALL LIGHT WITHIN REACH.
--- NOTE | 2016-08-22 19:00 | NUR ---
NOTE STOOL SPECIMEN WAS SENT TO LAB FOR OCCULT BLOOD AND C-DIFF.
--- NOTE | 2016-08-22 19:30 | NUR ---
CHANGE OF SHIFT: pt. awake, alert , oriented with family at bedside. observed contact isolation for C. diff. pt. family aware of the isolation, instructed to wash hands when they leave the room. denies any discomfort. call light within reach.
[2016-08-22 20:13] VITALS: BP_SYST 126
--- NOTE | 2016-08-22 20:30 | NUR ---
NOTES: pt. resting watching tv. IV lock on left forearm. on room air, denies any shortness of breath, pt. mongolian speaking, with family interpreting. needs attended.
[2016-08-22] MEDS: TEMAZEPAM 15 MG CAPSULE PO SCH (22:03)
[2016-08-22] MEDS: LACTOBACILLUS RHAMNOSUS GG 1 CAP CAPSULE PO SCH (22:03)
[2016-08-22] MEDS: MONTELUKAST 10 MG TABLET PO SCH (22:04)
--- NOTE | 2016-08-22 22:15 | NUR ---
NOTES: scheduled meds and pain med given for c/o abdominal pain.pt. able to reposition herself and able to ambulate to restroom.
--- NOTE | 2016-08-22 23:15 | NUR ---
NOTES: pt. noted some relief of abdominal pain but remains awake. turned off light coz she is bothered , sleeping pill given earlier. will observe and monitor.
[2016-08-23 00:06] VITALS: BP_SYST 113
--- NOTE | 2016-08-23 00:15 | NUR ---
NOTES: charge nurse Shelli informed that pt. is now med-surg, checked order on day time.
--- NOTE | 2016-08-23 02:15 | NUR ---
NOTES: pt. up to the restroom. removed tele box. pt. informed of discontinuation.able to go back to bed.
[2016-08-23] MEDS: MORPHINE 4 MG/ML INJ. SYRINGE IVP PRN ×3 (02:44→11:58)
--- NOTE | 2016-08-23 02:45 | NUR ---
NOTES: pt. called and c/o abdominal pain and medicated as ordered. repositioned self and kept warm with blanket.
--- NOTE | 2016-08-23 03:21 | NUR ---
NOTES: pt. checked , noted relief of pain, sleeping. continue to monitor.
[2016-08-23 04:13] VITALS: BP_SYST 127
--- NOTE | 2016-08-23 04:54 | NUR ---
NOTES: pt. remain sleeping. continue to monitor.
--- NOTE | 2016-08-23 05:30 | NUR ---
NOTES: pt. called asking for pain med already, informed its not time yet and pt. agrees.
[2016-08-23] MEDS: LEVOTHYROXINE SODIUM 0.05 MG TABLET PO SCH (06:31)
[2016-08-23] MEDS: metroNIDAZOLE 500 MG TABLET PO SCH (06:31)
--- NOTE | 2016-08-23 06:55 | NUR ---
CLOSING NOTES: pt. medicated for c/o abdominal pain, abdomen remains distended but soft to touch, no bm. went back to sleep. for further assistance. IV lock intact on left forearm.
[2016-08-23] MEDS: INSULIN NPH/REGULAR 70-30, 100 UNITS/ML, 10 ML VIAL SUBCUT SCH (07:11)
--- NOTE | 2016-08-23 07:35 | NUR ---
AM ROUNDS PT A/O X3 ALGERIAN SPEAKING. AMBULATING IN ROOM...HL TO LAC FLUSHES WELL...PT COMFORTABLE AT THIS TIME...WILL CONT TO MONITOR
[2016-08-23 07:42] LABS: BASOPHILS % (AUTO) 0.4 % (0.0-2.0); EOSINOPHILS # (AUTO) 0.3 K/uL (0.0-0.4); EOSINOPHILS % (AUTO) 3.5 % (0.0-4.0); HEMATOCRIT 28.4 % (36-48); HEMOGLOBIN 9.3 g/dL (12.0-16.0); LYMPHOCYTES % (AUTO) 35.7 % (20.5-51.5); MEAN CORPUSCULAR HEMOGLOBIN 31 pg (27-31); MEAN CORPUSCULAR HGB CONC 33 % (32-36); MEAN CORPUSCULAR VOLUME 94 fL (79.0-98.0); MONOCYTES # (AUTO) 0.8 K/uL (0.0-1.0); NEUTROPHILS # (AUTO) 4.4 K/uL (1.8-7.7); NEUTROPHILS % (AUTO) 51.4 % (40.0-70.0); PLATELET COUNT (AUTO) 254 K/uL (130-430); RED BLOOD CELL COUNT(AUTO) 3.02 MIL/uL (4.2-6.2); RED CELL DISTRIBUTION WIDTH 16.1 % (9.0-15.0); WHITE BLOOD COUNT (AUTO) 8.5 K/uL (4.8-10.8)
--- NOTE | 2016-08-23 07:49 | NUR ---
endorsed pt. to incoming shift with nurse Sellers and also updated nurse Roscoe for coverage. pt. up and walking inside the room.
[2016-08-23 07:55] LABS: CALCIUM 8.3 mg/dL (8.4-11.0); CREATININE 0.9 mg/dL (0.55-1.30); POTASSIUM 4.1 mmol/L (3.5-5.1)
[2016-08-23] MEDS: FUROSEMIDE 20 MG TABLET PO SCH (09:00)
[2016-08-23] MEDS: AMIODARONE HCL 200 MG TABLET PO SCH (09:00)
[2016-08-23] MEDS: amLODIPine BESYLATE 5 MG TABLET PO SCH (09:00)
[2016-08-23] MEDS: LISINOPRIL 10 MG TABLET (PRINIVIL) PO SCH (09:00)
[2016-08-23] MEDS: METOPROLOL TARTRATE 50 MG TABLET PO SCH (09:00)
[2016-08-23] MEDS: LACTOBACILLUS RHAMNOSUS GG 1 CAP CAPSULE PO SCH (09:32)
[2016-08-23] MEDS: DICYCLOMINE HCL 10 MG CAPSULE PO SCH (09:32)
[2016-08-23] MEDS: PANTOPRAZOLE SODIUM 40 MG TAB PO SCH (09:32)
[2016-08-23] MEDS: ASPIRIN 81 MG TABLET(ECOTRIN) PO SCH (09:32)
[2016-08-23] MEDS: DICLOFENAC SODIUM 25 MG TABLET.DR PO SCH (09:32)
[2016-08-23] MEDS: CYANOCOBALAMIN 1000 mCg TABLET PO SCH (09:33)
[2016-08-23] MEDS: metFORMIN HCL 500 MG TABLET PO SCH (09:33)
[2016-08-23] MEDS: MAGNESIUM OXIDE 400 MG TABLET PO SCH (09:33)
[2016-08-23] MEDS: MULTIVITS,CA,MINERALS/IRON/FA 1 TABLET PO SCH (09:33)
[2016-08-23] MEDS: LORATADINE 10 MG TABLET PO SCH (09:33)
[2016-08-23] MEDS: CITALOPRAM HYDROBROMIDE 20 MG TABLET PO SCH (09:34)
[2016-08-23] MEDS: GABAPENTIN 300 MG CAPSULE PO SCH (09:34)
[2016-08-23] MEDS: FERROUS SULFATE 325 MG TABLET.DR PO SCH (09:34)
--- NOTE | 2016-08-23 09:43 | NUR ---
RN ROUNDS PATIENT RESTING IN BED, AWAKE, ALERT AND ORIENTED X4, STATES PAIN IS CONSTANT BUT BECOMES SHARP AND SEVERE AT TIMES, FAMILY IS AT BEDSIDE, ASSESSMENT COMPLETE, EDUCATION GIVEN TO PATIENT AND FAMILY REGARDING ISOLATION PRECAUTIONS, FAMILY AND PATIENT VERBALIZED UNDERSTANDING, EDUCATED ON HOW TO USE PPE AND TO USE HAND HYGIENE WITH SOAP AND WATER WHEN COMING INTO THE ROOM AND WHEN LEAVING THE ROOM, FAMILY VERBALIZED UNDERSTANDING, EDUCATED THE PATIENT ON USE OF CALL LIGHT SYSTEM AND TO CALL FOR ANY ASSISTANCE, PATIENT VERBALIZED UNDERSTANDING, BED IN LOWEST POSITION, TWO SIDE RAILS UP, PATIENT REFUSED BED ALARM ON, CALL LIGHT WITH IN REACH, WILL CONTINUE TO MONITOR.
[2016-08-23] MEDS ORDERED: metroNIDAZOLE 500 MG TABLET PO SCH (12:00)
--- NOTE | 2016-08-23 12:00 | NUR ---
RN ROUNDS/PAIN MEDICATION PATIENT SITTING AT BEDSIDE, STATES 8/10 ABDOMINAL PAIN, STATES THE PAIN IS CONSTANT BUT SHE HAS FLARE UPS OF PAIN, EDUCATED ON PAIN MANAGEMENT AND ON PAIN MEDICATION AND POTENTIAL SIDE EFFECTS, PATIENT VERBALIZED UNDERSTANDING, IV SITE IS PATENT WITH NO SIGNS OF INFILTRATION, BED IN LOWEST POSITION, TWO SIDE RAILS UP, CALL LIGHT WITHIN REACH, FALL PRECAUTIONS IN PLACE.
[2016-08-23] MEDS: INSULIN ASPART 100 UNITS/ML, 10 ML VIAL (NovoLOG) SUBCUT PRN (12:02)
--- NOTE | 2016-08-23 13:00 | NUR ---
PHYSICAL THERAPY CO-SIGN The Physical Therapy Progress Notes documented by Cereal Miller have been reviewed. Reviewed/Co-Signed by: Radha Navas,PT Documentation Done by: Eder Macario PTA I concur with the documentation of this CHIROPRACTIC ASSISTANT. Plan: continue PT as per plan of care if she remains in this hospital. Addendum: 08/23/16 at 1337 by Radha Navas PT Amended: Links added.
[2016-08-23] MEDS ORDERED: L.RH1CAP PO (14:25)
[2016-08-23] MEDS ORDERED: METR500T PO (14:25)
[2016-08-23] MEDS: COLCHICINE 0.6 MG TABLET PO SCH (15:20)
[2016-08-23 15:23] VITALS: BP_SYST 123
[2016-08-23 15:31] VITALS: BP_SYST 123
--- NOTE | 2016-08-23 16:00 | NUR ---
D/C Patient Patient given medication reconciliation form and D/C instructions. Exit Care provided. Patient verbalized understanding. MD discussed with patient the results and treatment provided. Ambulatory with steady gait for discharge to home. Patient in stable condition, ID band removed. IV catheter removed, intact and dressing applied, no active bleeding. Rx of FLAGYL given. Patient educated on pain management. All belongings sent with patient.
[2016-08-23] MEDS ORDERED: INSULIN NPH/REGULAR 70-30, 100 UNITS/ML, 10 ML VIAL SUBCUT SCH (17:00)
== END 2016-08-23 16:00 | disposition home or self-care (01) | DRG 871 ==
LOC: SED 20:04 → STU 22:54 → SMU 08-23 00:54
PROVIDERS: ADMIT Internal Medicine; ATTEND Internal Medicine
DX: A41.9 Sepsis, unspecified organism (principal); K85.90 Acute pancreatitis without necrosis or infection, unspecified; N39.0 Urinary tract infection, site not specified; A04.7 Enterocolitis due to Clostridium difficile; E44.1 Mild protein-calorie malnutrition; D68.59 Other primary thrombophilia; K92.2 Gastrointestinal hemorrhage, unspecified; R71.0 Precipitous drop in hematocrit; E03.9 Hypothyroidism, unspecified; E11.9 Type 2 diabetes mellitus without complications; E66.9 Obesity, unspecified; E78.5 Hyperlipidemia, unspecified; G47.33 Obstructive sleep apnea (adult) (pediatric); I10 Essential (primary) hypertension; E78.00 Pure hypercholesterolemia, unspecified; M10.9 Gout, unspecified; R07.89 Other chest pain; I25.10 Atherosclerotic heart disease of native coronary artery without angina pectoris; I48.0 Paroxysmal atrial fibrillation; J44.9 Chronic obstructive pulmonary disease, unspecified; M19.90 Unspecified osteoarthritis, unspecified site; D64.9 Anemia, unspecified; B95.5 Unspecified streptococcus as the cause of diseases classified elsewhere; Z79.899 Other long term (current) drug therapy; Z68.31 Body mass index [BMI] 31.0-31.9, adult; Z87.891 Personal history of nicotine dependence; Z79.4 Long term (current) use of insulin
CPT/HCPCS: 36415; 71010; 76700-TC; 80048; 80053; 80061; 81000-TC; 82272; 82962; 83036; 83540-TC; 83550-TC; 83605; 83690-TC; 83880; 84443-TC; 84484; 85025; 85610-TC; 87040-TC; 87045-TC; 87046; 87086; 87230-TC; 89055; 93005; 96361; 96365; 96367; 96368; 96375; 97110-GP; 97116-GP; 97530-GP; 99285; J1815; J2270; J2405; J2543; J2765; J3370; J7030; J7050; J7120; Q0162; Q9967

== ENCOUNTER 2016-09-28 14:44 | Emergency (ER) | payer OTHER, MEDICAID ==
[~2016-09-28] VITALS: Ht 160 cm; Wt 83.9 kg
[~2016-09-28 14:44] MED LIST changes: +AMI200 PO; -CANA300T PO; +CYAN100T PO; +DIPH25TA62 PO; +ESCI10TA PO; +L.RH1CAP PO; +LEVO50TA77 PO; +METR500T PO; +OMEG300C3 PO; +PRAV10TA PO; +[UNRECOGNIZED DRUG - CODE] MC
[2016-09-28 14:57] VITALS: BP_SYST 164
[2016-09-28] MEDS ORDERED: ONDANSETRON HCL 4 MG/2 ML VIAL IVP ONE (15:45)
[2016-09-28] MEDS ORDERED: MORPHINE 4 MG/ML INJ. SYRINGE IVP ONE ×2 (15:45→18:00)
[2016-09-28] MEDS ORDERED: NACL 0.9% 1,000 ML IV ONE (15:45)
[2016-09-28 16:08] LABS: BASOPHILS % (AUTO) 0.7 % (0.0-2.0); EOSINOPHILS # (AUTO) 0.1 K/uL (0.0-0.4); HEMATOCRIT 35.8 % (36-48); HEMOGLOBIN 12.1 g/dL (12.0-16.0); LYMPHOCYTES # (AUTO) 1.9 K/uL (1.0-5.5); LYMPHOCYTES % (AUTO) 27.2 % (20.5-51.5); MEAN CORPUSCULAR HEMOGLOBIN 32 pg (27-31); MEAN CORPUSCULAR HGB CONC 34 % (32-36); MEAN CORPUSCULAR VOLUME 94 fL (79.0-98.0); MONOCYTES # (AUTO) 0.6 K/uL (0.0-1.0); MONOCYTES % (AUTO) 9.1 % (1.7-9.3); NEUTROPHILS # (AUTO) 4.3 K/uL (1.8-7.7); RED BLOOD CELL COUNT(AUTO) 3.83 MIL/uL (4.2-6.2); RED CELL DISTRIBUTION WIDTH 13.7 % (9.0-15.0); WHITE BLOOD COUNT (AUTO) 6.9 K/uL (4.8-10.8)
[2016-09-28 16:13] LABS: INR 0.9 (0.8-1.2); PLATELET COUNT (AUTO) 227 K/uL (130-430); PROTHROMBIN TIME 10.3 SECS (9.5-12.5)
[2016-09-28 16:14] LABS: ANION GAP 8 (5-15); CALCIUM 8.6 mg/dL (8.4-11.0); CHLORIDE 97 mmol/L (98-107); GLUCOSE 216 mg/dL (70-99); POTASSIUM 3.7 mmol/L (3.5-5.1); SODIUM SERUM 136 mmol/L (136-145); UREA NITROGEN, BLOOD 11 mg/dL (8-21)
[2016-09-28 16:20] LABS: GFR AFRICAN AMERICAN 106 mL/min (>90)
[2016-09-28 16:22] LABS: ALANINE AMINOTRANSFERASE 55 U/L (12-78); ALBUMIN 3.8 g/dL (3.4-4.8); AMYLASE 31 U/L (0-100); ASPARTATE AMINOTRANSFERASE 49 U/L (10-37); LIPASE 112 U/L (73-393); TOTAL BILIRUBIN 0.3 mg/dL (0.0-1.0); TOTAL PROTEIN, SERUM 7.7 g/dL (6.4-8.3)
[2016-09-28] MEDS ORDERED: HYDROmorphone 1 MG INJ. 1 MG/ML AMPUL IVP ONE (17:45)
[2016-09-28] MEDS ORDERED: IOHEXOL 100 ML IV ONE (17:57)
[2016-09-28 18:05] LABS: BILIRUBIN,URINE NEGATIVE (NEGATIVE); BLOOD, URINE NEGATIVE (NEGATIVE); CLARITY/URINE CLEAR (CLEAR); COLOR,URINE YELLOW (YELLOW); GLUCOSE,URINE 1+ (NEGATIVE); KETONES,URINE NEGATIVE (NEGATIVE); LEUKOCYTE ESTERASE ,URINE TRACE (NEGATIVE); NITRITE, URINE NEGATIVE (NEGATIVE); PH,URINE 6.5 (5.0-8.0); PROTEIN URINE NEGATIVE (NEGATIVE); UROBILINOGEN,URINE 0.2 (0.2-1.0)
[2016-09-28 18:18] LABS: BACTERIA,URINE FEW /HPF (None Seen); MUCUS,URINE None Seen /LPF (None Seen); RBC,URINE 0-3 /HPF (0-3)
[2016-09-28] MEDS ORDERED: NA PHOS,M-B/NA PHOS,DI-BA 118 ML (FLEET ENEMA) RC ONE (19:00)
[2016-09-28 19:52] VITALS: BP_SYST 132
== END 2016-09-28 19:52 | disposition home or self-care (01) ==
LOC: SED 14:44
DX: K59.00 Constipation, unspecified (principal); R11.2 Nausea with vomiting, unspecified; J45.909 Unspecified asthma, uncomplicated; E11.9 Type 2 diabetes mellitus without complications; I10 Essential (primary) hypertension; E78.00 Pure hypercholesterolemia, unspecified; M10.9 Gout, unspecified; Z95.9 Presence of cardiac and vascular implant and graft, unspecified; Z87.891 Personal history of nicotine dependence; Z79.4 Long term (current) use of insulin; Z79.899 Other long term (current) drug therapy
CPT/HCPCS: 36415; 74177; 80053; 81000; 82150; 83605; 83690; 84484; 85025; 85610; 87040; 93005; 96361; 96374; 96375; 96376; 99285; J2270; J2405; J7030; Q9967

== ENCOUNTER 2016-10-14 05:43 | Emergency (ER) | payer OTHER, MEDICAID ==
[~2016-10-14] VITALS: Ht 160 cm; Wt 83.9 kg
[2016-10-14 05:43] VITALS: BP_SYST 165
[2016-10-14] MEDS ORDERED: FLUMAZENIL 0.1 MG/ML IVP ONE (06:15)
[2016-10-14 07:25] VITALS: BP_SYST 130
== END 2016-10-14 07:25 | disposition home or self-care (01) ==
LOC: SED 05:43
DX: S00.03XA Contusion of scalp, initial encounter (principal); T42.4X1A Poisoning by benzodiazepines, accidental (unintentional), initial encounter; J45.909 Unspecified asthma, uncomplicated; E78.00 Pure hypercholesterolemia, unspecified; E11.9 Type 2 diabetes mellitus without complications; I10 Essential (primary) hypertension; M10.9 Gout, unspecified; Z95.9 Presence of cardiac and vascular implant and graft, unspecified; Z79.4 Long term (current) use of insulin; Z79.82 Long term (current) use of aspirin; Z79.899 Other long term (current) drug therapy; W06.XXXA Fall from bed, initial encounter; Y93.89 Activity, other specified; Y92.89 Other specified places as the place of occurrence of the external cause; Y99.8 Other external cause status
CPT/HCPCS: 70450; 96374; 99284; J3490

== ENCOUNTER 2016-10-29 13:51 | Inpatient (IN) | payer OTHER, MEDICAID ==
[~2016-10-29] VITALS: Ht 157.5 cm; Wt 78.0 kg
[2016-10-29] VITALS: BP_SYST 130
[2016-10-29 14:04] VITALS: BP_SYST 137
--- NOTE | 2016-10-29 14:15 | NUR ---
Pt placed to ER bed 06, to gown, to manager monitoring. Pt c/o Left sided C/P, non-radiating, with nausea since last night. Pt also c/o generalized body aches. Denies SOB.
--- NOTE | 2016-10-29 14:30 | NUR ---
Dr. Hernandez at bedside to assess pt.
[2016-10-29 14:47] LABS: HEMOGLOBIN 11.5 g/dL (12.0-16.0); MEAN CORPUSCULAR HEMOGLOBIN 31 pg (27-31); MEAN CORPUSCULAR HGB CONC 34 % (32-36); MEAN CORPUSCULAR VOLUME 90 fL (79.0-98.0); PLATELET COUNT (AUTO) 147 K/uL (130-430); RED BLOOD CELL COUNT(AUTO) 3.76 MIL/uL (4.2-6.2); RED CELL DISTRIBUTION WIDTH 14.3 % (9.0-15.0); WHITE BLOOD COUNT (AUTO) 7.7 K/uL (4.8-10.8)
[2016-10-29 14:54] LABS: CALCIUM 8.8 mg/dL (8.4-11.0); CREATININE 0.83 mg/dL (0.55-1.30)
[2016-10-29 14:59] LABS: ALBUMIN 3.4 g/dL (3.4-4.8); TOTAL BILIRUBIN 0.8 mg/dL (0.0-1.0)
--- NOTE | 2016-10-29 15:00 | NUR ---
Pt resting quietly, family members at bedside. No needs verbalized at this time.
[2016-10-29 15:15] LABS: BASOPHILS % (MANUAL) 0 % (0-2); EOSINOPHILS % (MANUAL) 1 % (0-7); LYMPHOCYTES % (MANUAL) 38 % (20-46); MONOCYTES % (MANUAL) 11 % (0-11)
[2016-10-29] MEDS ORDERED: KETOROLAC TROMETHAMINE 30 MG VIAL IVP ONE (15:30)
[2016-10-29] MEDS ORDERED: NACL 0.9% 1,000 ML IV ONE (15:30)
--- NOTE | 2016-10-29 16:30 | NUR ---
Pt denies c/o C/P or SOB. Pt states that she has Nausea. Dr. Hernandez notified and pt to be medication prior to admit to floor.
[2016-10-29] MEDS ORDERED: ONDANSETRON HCL 4 MG/2 ML VIAL IVP ONE (16:45)
--- NOTE | 2016-10-29 16:49 | NUR ---
ADMISSION: Received from ER on a gurney with the diagnosis of CVA. Patient is alert and oriented. Nauruan speaking only. Patient's and daughter Bertha came with patient. No discomfort at this time.
--- NOTE | 2016-10-29 16:50 | NUR ---
Patient will be admitted to care of Dr. Stephens. Admitted to Tele unit. Will go to room 135. Belongings list completed. Summary report printed. Bedside report given to JOHNNY Miller.
[2016-10-29 17:00] VITALS: BP_SYST 136
--- NOTE | 2016-10-29 17:50 | NUR ---
New pt: Received report from Angela/JOHNNY. Pt was A/o x4, iv at left Ac/hL, skin intact, ambulated well, soft diet, BRP, ambulated with walker, bed at lowest position, call light within reach, family at bed side.
--- NOTE | 2016-10-29 19:15 | NUR ---
CLOSING NOTE: NEW PATIENT WAS RECEIVED FROM ER/HOME, PT IS ON STABLE CONDITION AT THIS TIME. ENDORSE TO METAL LATHER RN FOR CONTINUE CARE.
--- NOTE | 2016-10-29 19:31 | NUR ---
PM Shift Assessment Received patient sitting up in bed, AAO x4, no acute distress noted. Assisted to restroom with walker and 1 person assist, patient tolerated well, safely back to bed. Family members at the bedside. Plan of care discussed with patient, she verbalized understanding. Patient is verbally able to make needs known and encouraged to do so. Call light is within reach, all fall and safety precautions in place, will continue to monitor.
[2016-10-29 20:00] VITALS: BP_SYST 138
[2016-10-29] MEDS ORDERED: PRAVASTATIN SODIUM 10 MG TABLET (PRAVACHOL) PO SCH (21:00)
[2016-10-29 21:20] VITALS: BP_SYST 138
[2016-10-29] MEDS ORDERED: COLCHICINE 0.6 MG TABLET PO SCH (21:30)
[2016-10-29] MEDS ORDERED: ACETAMINOPHEN 325 MG TABLET PO PRN (22:00)
[2016-10-29] MEDS ORDERED: DEXTROSE 50% JECT 50 ML DISP.SYRIN IVP PRN (22:00)
[2016-10-29] MEDS ORDERED: MAGNESIUM CITRATE 300 ML ORAL SOLUTION PO ONE (22:00)
--- NOTE | 2016-10-29 22:08 | NUR ---
ILYA CONS PHY: DATE:10/30/16 TIME:0700 REASON FOR CONSULT:RONNIE PHY REQ:DR.HAKAK Lunsford:MARU
--- NOTE | 2016-10-29 22:11 | NUR ---
ILYA CONS PHY:DR.ARORAS DATE:10/30/16 TIME:0700 REASON FOR CONSULT:ABD PAIN PHY REQ:DR.HAKAK RoyW:MARNIE
[2016-10-29] MEDS ORDERED: MAG-AL HYDROX/SIMETH 30 ML UDC PO PRN (22:15)
[2016-10-29] MEDS ORDERED: BISACODYL 5 MG TABLET.DR (DULCOLAX) PO PRN (22:15)
--- NOTE | 2016-10-29 22:15 | NUR ---
RN Rounds Patient is resting quietly in bed, no acute distress noted, family members at the bedside. Ice packs given earlier for complain of mild shoulder pain, MD paged for PRN orders earlier as well. Dr Stephens is now here to see patient, new orders noted and to be carried out. Encouraged patient to call with all needs, she verbalized understanding. Call light is within reach, all fall and safety precautions in place, will continue to monitor.
--- NOTE | 2016-10-29 22:19 | NUR ---
PHY CONS PHY:Mary NEELY DATE:10/30/16 TIME:0700 REASON FOR CONSULT:SHOULDER PAIN PHY REQ:DR.HAKAK RoyW:MYRNA [phone]
[2016-10-29] MEDS: MINERAL OIL 30 ML UDC PO ONE ×2 (22:22→22:26)
[2016-10-29] MEDS: COLCHICINE 0.6 MG TABLET PO SCH (22:22)
[2016-10-29] MEDS: SIMVASTATIN 10 MG TABLET PO SCH (22:22)
[2016-10-29] MEDS: MORPHINE 2 MG/ML INJ. SYRINGE IVP PRN (23:00)
--- NOTE | 2016-10-29 23:25 | NUR ---
ILYA MARIEE PHY:Sugar KESSLER DATE:10/30/16 TIME:0700 REASON FOR CONSULT:DUANE PHY REQ:DR.HAKAK Lunsford:MARNIE
[2016-10-30] VITALS: BP_SYST 130
--- NOTE | 2016-10-30 00:35 | NUR ---
RN Rounds Patient is resting quietly in bed, no acute distress noted. PRN pain medication administered earlier for complain of shoulder pain, upon reassessment patient verbalized relief of pain to tolerable level on pain scale. Patient assisted up to bedside commode and safely back to bed. Bedtime snack provided. Encouraged patient to call with all needs. Call light is within reach, all fall and safety precautions in place, will continue to monitor.
--- NOTE | 2016-10-30 02:33 | NUR ---
RN Rounds Patient is sleeping, respirations are even and unlabored, no acute distress noted. No non-verbal signs of pain noted at this time. Call light is within reach, all fall and safety precautions in place, will continue to monitor.
[2016-10-30] MEDS: MORPHINE 2 MG/ML INJ. SYRINGE IVP PRN ×3 (02:58→18:35)
[2016-10-30 04:00] VITALS: BP_SYST 142
--- NOTE | 2016-10-30 04:42 | NUR ---
RN Rounds Patient is sleeping, respirations are even and unlabored, no acute distress noted. Sinus rhythm on the monitor. Assisted patient up to bedside commode earlier and safely back to bed. No non-verbal signs of pain noted at this time. Call light is within reach, all fall and safety precautions in place, will continue to monitor.
[2016-10-30] MEDS: LEVOTHYROXINE SODIUM 0.05 MG TABLET PO SCH (06:02)
[2016-10-30] MEDS: INSULIN REGULAR, HUMAN 100 UNITS/ML, 10 ML VIAL (novoLIN R) SUBCUT PRN ×2 (06:11→11:22)
[2016-10-30 06:50] LABS: BASOPHILS % (AUTO) 0.7 % (0.0-2.0); EOSINOPHILS # (AUTO) 0.1 K/uL (0.0-0.4); EOSINOPHILS % (AUTO) 1.6 % (0.0-4.0); HEMATOCRIT 30.4 % (36-48); HEMOGLOBIN 10.1 g/dL (12.0-16.0); LYMPHOCYTES % (AUTO) 30.1 % (20.5-51.5); MEAN CORPUSCULAR HEMOGLOBIN 30 pg (27-31); MEAN CORPUSCULAR HGB CONC 33 % (32-36); MEAN CORPUSCULAR VOLUME 91 fL (79.0-98.0); MONOCYTES # (AUTO) 0.7 K/uL (0.0-1.0); MONOCYTES % (AUTO) 10.9 % (1.7-9.3); NEUTROPHILS % (AUTO) 56.7 % (40.0-70.0); PLATELET COUNT (AUTO) 144 K/uL (130-430); RED BLOOD CELL COUNT(AUTO) 3.32 MIL/uL (4.2-6.2); RED CELL DISTRIBUTION WIDTH 14.4 % (9.0-15.0); WHITE BLOOD COUNT (AUTO) 6.8 K/uL (4.8-10.8)
--- NOTE | 2016-10-30 06:51 | NUR ---
Closing Notes Patient is sleeping but easily arousable, no acute distress noted or complain of pain at this time. Blood sugar was assessed and insulin provided per sliding scale, snack also provided. PRN pain medication was administered as ordered per MD for complain of shoulder pain, will reassess for relief of symptoms. Patient is stable, all needs met throughout shift. Will continue to monitor until endorsed to AM nurse at bedside.
[2016-10-30 07:01] LABS: TOTAL IRON BIND. CAPACITY 243 ug/dL (250-450)
[2016-10-30 07:07] LABS: ALBUMIN 2.9 g/dL (3.4-4.8); CALCIUM 8.4 mg/dL (8.4-11.0); CREATININE 0.86 mg/dL (0.55-1.30); POTASSIUM 4.1 mmol/L (3.5-5.1); THYROID STIMULATING HORMONE 0.4 uIu/mL (0.34-4.82)
[2016-10-30] MEDS: MINERAL OIL 30 ML UDC PO SCH ×2 (08:06→21:06)
[2016-10-30] MEDS: ENOXAPARIN SODIUM 40 MG/0.4 ML SYRINGE SUBCUT SCH (08:06)
[2016-10-30] MEDS: FERROUS SULFATE 325 MG TABLET.DR PO SCH (08:06)
[2016-10-30] MEDS: COLCHICINE 0.6 MG TABLET PO SCH ×2 (08:06→21:07)
[2016-10-30] MEDS: AMIODARONE HCL 200 MG TABLET PO SCH (08:07)
[2016-10-30] MEDS: LISINOPRIL 10 MG TABLET (PRINIVIL) PO SCH (08:07)
[2016-10-30] MEDS: ASPIRIN 81 MG TABLET(ECOTRIN) PO SCH (08:07)
[2016-10-30] MEDS: CITALOPRAM HYDROBROMIDE 20 MG TABLET PO SCH (08:08)
[2016-10-30] MEDS: metroNIDAZOLE 500 MG TABLET PO SCH ×3 (08:08→21:08)
[2016-10-30] MEDS: DICLOFENAC SODIUM 25 MG TABLET.DR PO SCH ×2 (08:08→17:18)
[2016-10-30] MEDS: amLODIPine BESYLATE 5 MG TABLET PO SCH (08:08)
[2016-10-30] MEDS: FUROSEMIDE 20 MG TABLET PO SCH (08:08)
--- NOTE | 2016-10-30 08:10 | NUR ---
AM Rounds Patient resting in bed, awake, alert and oriented x4, states mild but tolerable pain at this time, assessment complete at this time, educated conversion developer light system and to call for any assistance, patient verbalized understanding, educated the patient on morning medications and potential side effects, patient verbalized understanding and tolerated well at this time, assisted the patient to use the bedside commode, patient had one loose bowel movement at this, will continue to monitor this, assisted the patient back into bed, bed in lowest position, two side rails up, bed alarm on, call light placed in the patient's hand fall and aspiration precautions in place.
[2016-10-30 08:12] LABS: ERYTHROCYTE SEDIMENTATION RATE 27 MM/HR (0-20)
[2016-10-30 08:20] VITALS: BP_SYST 143
[2016-10-30] MEDS ORDERED: DICLOFENAC SODIUM 25 MG TABLET.DR PO SCH (08:30)
[2016-10-30] MEDS ORDERED: ESCITALOPRAM OXALATE 10 MG TABLET PO SCH (09:00)
[2016-10-30] MEDS ORDERED: PRAVASTATIN SODIUM 10 MG TABLET (PRAVACHOL) PO SCH (09:00)
[2016-10-30] MEDS ORDERED: METOPROLOL TARTRATE 50 MG TABLET PO SCH (09:00)
[2016-10-30] MEDS: MORPHINE 4 MG/ML INJ. SYRINGE IVP PRN ×3 (09:57→23:19)
--- NOTE | 2016-10-30 10:01 | NUR ---
RN Rounds Patient resting in bed, family at bedside, patient complaining of 10/10 abdominal pain, educated on pain medication and potential side effects, patient verbalized understanding, IV site is patent and infusing well. Bed in lowest position, call light in the patient's hand, fall and aspiration precautions in place, bed alarm on.
[2016-10-30 11:17] VITALS: BP_SYST 151
--- NOTE | 2016-10-30 11:31 | NUR ---
RN Rounds Patient resting in bed, awake, denies pain, family at bedside, updated with plan of care. Blood glucose checked and insulin administered as ordered by MD, no other needs at this time, bed in lowest position, three side rails up, bed alarm on, fall and aspiration precautions in place, call light in the patient's hand.
--- NOTE | 2016-10-30 14:11 | NUR ---
RN Rounds Patient calling at this time, complaining of severe abdominal pain, educated on pain medication and potential side effects, patient verbalized understanding, IV site is patent and infusing well. Also educated the patient on PO ATB and potential side effects, patient verbalized understanding and tolerated well. No other needs at this time, bed in lowest position, three side rails up, bed alarm on, call light within reach, family is at bedside, fall and aspiration precautions in place.
[2016-10-30 15:31] VITALS: BP_SYST 106
[2016-10-30] MEDS ORDERED: DIATR MEGLU/DIATRIZ SOD 30 ML SOLUTION PO ONE (16:34)
--- NOTE | 2016-10-30 16:40 | NUR ---
RN Rounds Patient resting in bed, awake, denies pain, informed of CT scan with oral contrast and instructed to not eat for now, patient verbalized understanding at this time, bed in lowest position, three side rails up, bed alarm on, call light in the patient's hand, fall and aspiration precautions in place.
--- NOTE | 2016-10-30 17:00 | NUR ---
Dr. No Here to see the patient, will follow up with any new orders.
[2016-10-30] MEDS: INSULIN ASPART 100 UNITS/ML, 10 ML VIAL (NovoLOG) SUBCUT PRN ×2 (17:27→21:19)
--- NOTE | 2016-10-30 18:42 | NUR ---
Closing Notes Patient resting in bed, awake, states moderate pain level, educated on pain medication and potential side effects, patient verbalized understanding, IV site is patent and infusing well. Patient and daughters requesting anti-nausea medication and anti-anxiety medication, paged Dr. Stephens for orders. No other needs at this time, bed in lowest position, three side rails up, bed alarm on, call light within reach, fall precautions in place, will endorse report to [facility] shift nurse. Addendum: 10/30/16 at 1847 by Roscoe Gutierres RN Dr. Stephens call back: Zofran 4mg IVP Q4 PRN, Ativan 1mg PO BID PRN.
[2016-10-30 19:30] VITALS: BP_SYST 117
--- NOTE | 2016-10-30 19:30 | NUR ---
notes received the pt from the day nurse.pt a/a/ox4 sitting up at the bedside family are at the bedside .pt speaks chadian only.monitor in place ,pt denies pain at this time.bed alarm is education analyst light within reachdr ali is here.iv to lt arm ,no redness or swelling noted.will continue to monitor.
[2016-10-30] MEDS: SIMVASTATIN 10 MG TABLET PO SCH (21:06)
[2016-10-30] MEDS: MONTELUKAST 10 MG TABLET PO SCH (21:07)
[2016-10-30] MEDS: TEMAZEPAM 15 MG CAPSULE PO SCH (21:07)
[2016-10-30] MEDS: METOPROLOL TARTRATE 50 MG TABLET PO SCH (21:08)
--- NOTE | 2016-10-30 21:49 | NUR ---
NOTES PT WATCHING TV WITH NO COMPLAINTS,FAMILY ARE AT THE BEDSIDE.
--- NOTE | 2016-10-30 23:10 | NUR ---
NOTES PT AWAKE AND ASKING FOR PAIN AND NAUSEA MEDICATION,rn WAS NOTIFIED.
[2016-10-30] MEDS: ONDANSETRON HCL 4 MG/2 ML VIAL IVP PRN (23:19)
--- NOTE | 2016-10-30 23:34 | NUR ---
NOTES PT WAS MEDICATED BY THE RN AND IS FEELING BETTER.
[2016-10-31] VITALS (9 sets, daily range): BP systolic 105–152
--- NOTE | 2016-10-31 01:30 | NUR ---
notes pt sleeping,call light within reach,continue to monitor.
--- NOTE | 2016-10-31 03:15 | NUR ---
NOTES PT SLEEPING,NO DISTRESS NOTED.CONTINUE TO MONITOR.
--- NOTE | 2016-10-31 04:01 | NUR ---
notes pt awake and c/o pain RN was notified.
[2016-10-31] MEDS: MORPHINE 2 MG/ML INJ. SYRINGE IVP PRN ×4 (04:04→21:27)
[2016-10-31] MEDS: ONDANSETRON HCL 4 MG/2 ML VIAL IVP PRN ×3 (04:04→21:26)
--- NOTE | 2016-10-31 05:47 | NUR ---
NOTES RESTING QUIETLY ,NO C/O PAIN AT THIS TIME.CONTINUE TO MONITOR.
[2016-10-31] MEDS: LEVOTHYROXINE SODIUM 0.05 MG TABLET PO SCH (06:09)
[2016-10-31] MEDS: INSULIN ASPART 100 UNITS/ML, 10 ML VIAL (NovoLOG) SUBCUT PRN ×4 (06:19→21:35)
--- NOTE | 2016-10-31 06:32 | NUR ---
CLOSING NOTES ACCUCHECK WAS 214 INSULIN GIVEN PER S/S.WILL ENDORSE THE CARE OF THE PT TO THE DAY NURSE.
[2016-10-31] MEDS ORDERED: INSULIN NPH/REGULAR 70-30, 100 UNITS/ML, 10 ML VIAL SUBCUT SCH (07:00)
[2016-10-31 07:19] LABS: BASOPHILS % (AUTO) 0.7 % (0.0-2.0); EOSINOPHILS # (AUTO) 0.2 K/uL (0.0-0.4); EOSINOPHILS % (AUTO) 3.3 % (0.0-4.0); HEMATOCRIT 29.7 % (36-48); LYMPHOCYTES # (AUTO) 1.7 K/uL (1.0-5.5); LYMPHOCYTES % (AUTO) 26.5 % (20.5-51.5); MEAN CORPUSCULAR HEMOGLOBIN 31 pg (27-31); MEAN CORPUSCULAR HGB CONC 34 % (32-36); MEAN CORPUSCULAR VOLUME 90 fL (79.0-98.0); MONOCYTES # (AUTO) 0.8 K/uL (0.0-1.0); NEUTROPHILS # (AUTO) 3.6 K/uL (1.8-7.7); NEUTROPHILS % (AUTO) 57.5 % (40.0-70.0); PLATELET COUNT (AUTO) 137 K/uL (130-430); RED BLOOD CELL COUNT(AUTO) 3.29 MIL/uL (4.2-6.2); RED CELL DISTRIBUTION WIDTH 14.6 % (9.0-15.0)
[2016-10-31 07:32] LABS: POTASSIUM 4.6 mmol/L (3.5-5.1)
[2016-10-31 07:48] LABS: BILIRUBIN,DIRECT 0.3 mg/dL (0.0-0.3); CALCIUM 8.1 mg/dL (8.4-11.0); CREATININE 1.04 mg/dL (0.55-1.30); TOTAL BILIRUBIN 0.8 mg/dL (0.0-1.0); URIC ACID 7.2 mg/dL (2.4-7.0)
[2016-10-31 08:23] LABS: WHITE BLOOD COUNT (AUTO) 6.3 K/uL (4.8-10.8)
[2016-10-31] MEDS: LISINOPRIL 10 MG TABLET (PRINIVIL) PO SCH (08:54)
[2016-10-31] MEDS: metroNIDAZOLE 500 MG TABLET PO SCH ×3 (08:55→21:22)
[2016-10-31] MEDS: COLCHICINE 0.6 MG TABLET PO SCH ×2 (08:55→21:22)
[2016-10-31] MEDS: AMIODARONE HCL 200 MG TABLET PO SCH ×2 (08:55→09:00)
[2016-10-31] MEDS: METOPROLOL TARTRATE 50 MG TABLET PO SCH ×3 (08:56→21:25)
[2016-10-31] MEDS: CITALOPRAM HYDROBROMIDE 20 MG TABLET PO SCH (08:57)
[2016-10-31] MEDS: ASPIRIN 81 MG TABLET(ECOTRIN) PO SCH (08:58)
[2016-10-31] MEDS: amLODIPine BESYLATE 5 MG TABLET PO SCH (08:58)
[2016-10-31] MEDS: FERROUS SULFATE 325 MG TABLET.DR PO SCH (08:58)
[2016-10-31] MEDS: ENOXAPARIN SODIUM 40 MG/0.4 ML SYRINGE SUBCUT SCH (08:59)
[2016-10-31] MEDS ORDERED: PANTOPRAZOLE SODIUM 40 MG TAB PO SCH (09:00)
[2016-10-31] MEDS: MINERAL OIL 30 ML UDC PO SCH ×2 (09:00→21:00)
--- NOTE | 2016-10-31 09:06 | NUR ---
Nutrition Update David Scale 18 noted. Pt admitted for Possible Cerebrovascular Accident Diet: Mechanical Soft diet BMI: 31.5 kg/m2 RD to follow per nutrition care standards
[2016-10-31] MEDS: FUROSEMIDE 20 MG TABLET PO SCH (09:08)
[2016-10-31] MEDS: DICLOFENAC SODIUM 25 MG TABLET.DR PO SCH ×2 (12:00→17:11)
[2016-10-31] MEDS: LORazepam 1 MG TABLET PO PRN ×2 (14:09→23:19)
[2016-10-31 16:32] LABS: FOLATE (FOLIC ACID) >20.0 ng/mL (>3.0)
[2016-10-31] MEDS ORDERED: INSULIN Aspart Prota/Aspar MIX 70-30, 100 UNITS/ML, 10 ML VIAL SUBCUT SCH (17:00)
[2016-10-31] MEDS: INSULIN NPH/REGULAR 70-30, 100 UNITS/ML, 10 ML VIAL SUBCUT SCH (17:00)
--- NOTE | 2016-10-31 20:00 | NUR ---
Initial PM Notes Pt was received lying in bed fully AAO x4. Speech is clear and pt is able to make her needs known. No neurological deficits noted. Pt is moving all her extremities freely and has good bilateral hand can stacker. Pt is mostly Kosovan speaking, but speaks and understands little Tongan. Pt's daughter is visiting at the bedside. Pt was instructed on nothing by mouth after midnight for Nuclear Medicine Gastric Emptying and EGD and pt/her daughter verbalized understanding. Both pt and her daughter stated MD has not explained the procedures to them, therefore, consents can not be signed tonight. Pt's skin is warm and dry to touch. No signs or symptoms of hypoglycemia or hyperglycemia noted. No c/o pain or discomfort at this time and no acute distress noted. Saline lock is patent in LAC without any signs of infiltration. Call light is with pt and bed alarm is on. Pt was instructed to call for assistance as needed and pt verbalized understanding. Will continue to monitor pt.
[2016-10-31] MEDS: TEMAZEPAM 15 MG CAPSULE PO SCH (21:22)
[2016-10-31] MEDS: MONTELUKAST 10 MG TABLET PO SCH (21:22)
[2016-10-31] MEDS: SIMVASTATIN 10 MG TABLET PO SCH (21:25)
--- NOTE | 2016-10-31 21:27 | NUR ---
Pain Medication Morphine 2mg was given IV per pt's request for c/o abdominal pain with relief.
--- NOTE | 2016-10-31 21:35 | NUR ---
Blood Sugar Accucheck 245 and 4 units NovoLog Insulin was given SQ. Skin remains warm and dry to touch. Pt was offered HS snacks, but pt declined. Pt's daughter is still visiting at the bedside.
--- NOTE | 2016-10-31 23:19 | NUR ---
Anxiety Ativan 1mg was given po per pt's request for c/o anxiety with relief.
--- NOTE | 2016-11-01 02:00 | NUR ---
Rounds Pt is sleeping without any distress noted. Fall and safety precautions are in place.
[2016-11-01 03:36] VITALS: BP_SYST 121
[2016-11-01] MEDS: INSULIN NPH/REGULAR 70-30, 100 UNITS/ML, 10 ML VIAL SUBCUT SCH ×2 (07:00→17:23)
[2016-11-01] MEDS: LEVOTHYROXINE SODIUM 0.05 MG TABLET PO SCH (07:00)
[2016-11-01 08:00] VITALS: BP_SYST 117
[2016-11-01] MEDS: DICLOFENAC SODIUM 25 MG TABLET.DR PO SCH ×2 (08:00→17:16)
--- NOTE | 2016-11-01 08:00 | NUR ---
OPENING NOTE AM MEDICATIONS HELD PENDING PROCEDURES. EGD AND GASTRIC EMPTYING W NUCLEAR MED
[2016-11-01 08:01] LABS: INR 1.1 (0.8-1.2); PROTHROMBIN TIME 12.1 SECS (9.5-12.5)
[2016-11-01] MEDS: ONDANSETRON HCL 4 MG/2 ML VIAL IVP PRN (08:45)
[2016-11-01] MEDS: amLODIPine BESYLATE 5 MG TABLET PO SCH (09:00)
[2016-11-01] MEDS: METOPROLOL TARTRATE 50 MG TABLET PO SCH ×2 (09:00→21:37)
[2016-11-01] MEDS: metroNIDAZOLE 500 MG TABLET PO SCH ×3 (09:00→21:38)
[2016-11-01] MEDS: ASPIRIN 81 MG TABLET(ECOTRIN) PO SCH (09:00)
[2016-11-01] MEDS: AMIODARONE HCL 200 MG TABLET PO SCH (09:00)
[2016-11-01] MEDS: POLYETHYLENE GLYCOL 3350, 17 GM/ POWD.PACK PO SCH (09:00)
[2016-11-01] MEDS: LISINOPRIL 10 MG TABLET (PRINIVIL) PO SCH (09:00)
[2016-11-01] MEDS: FUROSEMIDE 20 MG TABLET PO SCH (09:00)
[2016-11-01] MEDS: MINERAL OIL 30 ML UDC PO SCH ×2 (09:00→21:00)
--- NOTE | 2016-11-01 10:00 | NUR ---
patient medicated for anxiety, scheduled for egd later today, will have gastric emptying test tomorrow.
[2016-11-01] MEDS: ENOXAPARIN SODIUM 40 MG/0.4 ML SYRINGE SUBCUT SCH (10:02)
[2016-11-01] MEDS: LORazepam 1 MG TABLET PO PRN ×3 (10:02→21:37)
[2016-11-01 10:37] LABS: HEMOGLOBIN A1C 6.9 % (4.8-5.6)
--- NOTE | 2016-11-01 11:30 | NUR ---
PATIENT AWOKE FROM NAP, REPORTS SUSTAINED ANXIETY. REPORTS NAUSEA. STATES SHE NEEDS TO USE RESTROOM. ASSISTED PT TO RESTROOM WITH WALKER, BG 217, WILL COVER WITH SHORT ACTING INSULIN ORDERED.
[2016-11-01 12:28] VITALS: BP_SYST 120
[2016-11-01] MEDS: INSULIN ASPART 100 UNITS/ML, 10 ML VIAL (NovoLOG) SUBCUT PRN ×2 (12:28→21:33)
--- NOTE | 2016-11-01 14:30 | NUR ---
PHYSICAL THERAPY CO-SIGN The Physical Therapy Progress Notes documented by Beam Carrier Hauler Pusher have been reviewed. I CONCUR W/TWISTING FRAME CHANGER NOTE; CONT PER TX PLAN Reviewed/Co-Signed by: Jovanna Verma PT Documentation Done by: ASHLEE STEVEN TWISTING FRAME CHANGER Addendum: 11/01/16 at 1431 by Jovanna Verma PT Amended: Links added.
[2016-11-01] MEDS ORDERED: fentaNYL CITRATE/PF 100 MCG/2 ML AMP ONE (14:57)
[2016-11-01] MEDS ORDERED: MIDAZOLAM HCL 5 MG/5 ML VIAL ONE (14:58)
[2016-11-01] MEDS ORDERED: SIMETHICONE 40 MG/0.6 ML ML ONE (14:58)
[2016-11-01] MEDS ORDERED: fentaNYL CITRATE/PF 100 MCG/2 ML AMP IVP ONE ×2 (15:38→15:42)
[2016-11-01] MEDS ORDERED: MIDAZOLAM HCL 5 MG/5 ML VIAL IVP ONE ×2 (15:40→15:44)
--- NOTE | 2016-11-01 16:28 | NUR ---
PATIENT RETURNED FROM GI LA. AWAKE, FAMILY AT BEDSIDE. PATIENT VERBALIZED UNDERSTANDING OF RESULTS AND VERBALIZED UNDERSTANDING OF PROCEDURE SCHEDULED FOR TOMORROW-GASTRIC EMPTYING. AM MEDS HELD GIVEN ONCE NPO STATUS LIFTED.
[2016-11-01 16:33] VITALS: BP_SYST 116
[2016-11-01] MEDS: FERROUS SULFATE 325 MG TABLET.DR PO SCH (16:33)
[2016-11-01] MEDS: COLCHICINE 0.6 MG TABLET PO SCH ×2 (16:35→21:34)
[2016-11-01] MEDS: CITALOPRAM HYDROBROMIDE 20 MG TABLET PO SCH (17:17)
[2016-11-01] MEDS: MORPHINE 2 MG/ML INJ. SYRINGE IVP PRN (18:31)
--- NOTE | 2016-11-01 20:00 | NUR ---
NOTES; Seen Pt sitting up in bed, A/A/O x4, no acute distress noted. Vital signs stable, afebrile. Family at the bedside with good support. IV saline lock to the left AC, patent. No signs of infection noted on IV site. Instructed Pt on the use of call light to call for any need to assist. pt verbalized understanding. Bed locked and in low position, side rails up x3, call light within reach. will continue to monitor.
[2016-11-01 20:02] VITALS: BP_SYST 126
--- NOTE | 2016-11-01 21:34 | NUR ---
NOTES; PT REFUSED SCHEDULED MINERAL OIL FOR CONSTIPATION. INFORMED PT ABOUT THE IMPORTANCE OF THE MEDICATION. PT STILL REFUSED.
[2016-11-01] MEDS: SIMVASTATIN 10 MG TABLET PO SCH (21:35)
[2016-11-01] MEDS: PANTOPRAZOLE SODIUM 40 MG TAB PO SCH (21:36)
[2016-11-01] MEDS: TEMAZEPAM 15 MG CAPSULE PO SCH (21:36)
[2016-11-01] MEDS: MONTELUKAST 10 MG TABLET PO SCH (21:38)
[2016-11-01] MEDS: MORPHINE 4 MG/ML INJ. SYRINGE IVP PRN (22:54)
[2016-11-02] VITALS (7 sets, daily range): BP systolic 106–131
--- NOTE | 2016-11-02 | NUR ---
NOTES; PT APPEARED TO BE SLEEPING, EYES CLOSED. RESPIRATION EVEN AND NONLABORED. SAFETY MEASURES IN PROGRESS.
--- NOTE | 2016-11-02 02:00 | NUR ---
NOTES; PT APPEARED TO BE SLEEPING, EYES CLOSED. RESPIRATION EVEN AND NONLABORED. SAFETY MEASURES IN PROGRESS.
--- NOTE | 2016-11-02 04:15 | NUR ---
NOTES; PT APPEARED TO BE SLEEPING, EYES CLOSED. RESPIRATION EVEN AND NONLABORED. SAFETY MEASURES IN PROGRESS.
[2016-11-02] MEDS: LEVOTHYROXINE SODIUM 0.05 MG TABLET PO SCH (06:43)
[2016-11-02] MEDS ORDERED: D5/0.45 NS 1,000 ML IV SCH ×2 (06:45→20:45)
--- NOTE | 2016-11-02 06:45 | NUR ---
NOTES; BLOOD SUGAR FOUND TO BE 78. PT IS NPO AT THIS TIME FOR NM GASTRIC EMPTYING TEST. PT IS NOT ON ANY IVF, PT IS ALSO ON SCHEDULED NOVOLIN 70/[address] BARRIENTOS CALLED,SPOKE WITH MD AND INFORMED HIM ABOUT PT BLOOD SUGAR LEVEL, NPO, SCHEDULED NOVOLIN 70-30 AT 7AM, AND PT NOT ON IVF. ID DR. BARRIENTOS" OK GIVE THE SCHEDULED INSULIN WHEN THE TEST IS DONE.
--- NOTE | 2016-11-02 07:04 | NUR ---
NOTES; DR. BARRIENTOS CALLED BACK AND GAVE ORDERS FOR D51/2 NS AT 50ML/HR WHILE PT IS NPO. ORDERS ENTERED. WILL ENDORSE TO AM NURSE.
--- NOTE | 2016-11-02 07:55 | NUR ---
NOTES PT WENT TO NUCLEAR MEDS AT THIS TIME.
[2016-11-02] MEDS: DICLOFENAC SODIUM 25 MG TABLET.DR PO SCH ×2 (08:00→17:58)
--- NOTE | 2016-11-02 08:10 | NUR ---
CONSENT; BLUE PHONE WAS USED FOR INTERPRETATION FOR CONSENT FOR GASTRIC EMPTYING WITH SANDI, NM GUARD SERGEANT EXPLANATION, AND NURSE EXPLAINED AND RECEIVED CONSENT FROM PT. ADJUNCT WRITING INSTRUCTOR NUMBER [id number].
[2016-11-02] MEDS: MORPHINE 2 MG/ML INJ. SYRINGE IVP PRN ×3 (08:15→16:14)
[2016-11-02] MEDS: ONDANSETRON HCL 4 MG/2 ML VIAL IVP PRN ×3 (08:19→16:06)
--- NOTE | 2016-11-02 10:04 | NUR ---
notes- back from nuclear meds. will order breakfast and will give morning meds and insulin as ordered.
[2016-11-02] MEDS: COLCHICINE 0.6 MG TABLET PO SCH ×2 (10:25→21:32)
[2016-11-02] MEDS: ASPIRIN 81 MG TABLET(ECOTRIN) PO SCH (10:25)
[2016-11-02] MEDS: ENOXAPARIN SODIUM 40 MG/0.4 ML SYRINGE SUBCUT SCH (10:25)
[2016-11-02] MEDS: FERROUS SULFATE 325 MG TABLET.DR PO SCH (10:25)
[2016-11-02] MEDS: FUROSEMIDE 20 MG TABLET PO SCH (10:26)
[2016-11-02] MEDS: PANTOPRAZOLE SODIUM 40 MG TAB PO SCH ×2 (10:26→21:33)
[2016-11-02] MEDS: metroNIDAZOLE 500 MG TABLET PO SCH ×3 (10:27→21:33)
[2016-11-02] MEDS: METOPROLOL TARTRATE 50 MG TABLET PO SCH ×2 (10:27→21:35)
[2016-11-02] MEDS: CITALOPRAM HYDROBROMIDE 20 MG TABLET PO SCH (10:27)
[2016-11-02] MEDS: AMIODARONE HCL 200 MG TABLET PO SCH (10:28)
[2016-11-02] MEDS: amLODIPine BESYLATE 5 MG TABLET PO SCH (10:28)
[2016-11-02] MEDS: LISINOPRIL 10 MG TABLET (PRINIVIL) PO SCH (10:28)
[2016-11-02] MEDS: POLYETHYLENE GLYCOL 3350, 17 GM/ POWD.PACK PO SCH (10:30)
[2016-11-02] MEDS: MINERAL OIL 30 ML UDC PO SCH ×2 (10:30→21:39)
[2016-11-02] MEDS: INSULIN NPH/REGULAR 70-30, 100 UNITS/ML, 10 ML VIAL SUBCUT SCH ×2 (10:38→16:53)
--- NOTE | 2016-11-02 12:20 | NUR ---
Pain- complain of abdominal pain and nauseated. Medicated as ordered. family at bedside. will monitor.
[2016-11-02] MEDS: INSULIN ASPART 100 UNITS/ML, 10 ML VIAL (NovoLOG) SUBCUT PRN ×2 (12:27→16:53)
--- NOTE | 2016-11-02 16:22 | NUR ---
notes- in bed awake, daughter at bedside. complain of abdominal pain and nauseated. medicated as ordered.
[2016-11-02] MEDS ORDERED: BISACODYL 5 MG TABLET.DR (DULCOLAX) PO ONE (17:00)
--- NOTE | 2016-11-02 17:06 | NUR ---
PHYSICAL THERAPY CO-SIGN The Physical Therapy Progress Notes documented by Bone Drier Operator have been reviewed. Reviewed/Co-Signed by: Verónica Hickey PT Documentation Done by:MIGUELANGEL SALDAÑA SURGICAL SCHEDULER POC REVIEWED W/ SURGICAL SCHEDULER; PROGRESSING W/ GAIT ENDURANCE; 11/02/16 GASTRIC EMPTYING SCAN PER CHART; 11/01/16 EGD, BIOPSY; WILL BENEFIT W/ P.T., EMPHASIS ON SAFE GAIT PROGRESSION, HEP, STRENGTHENING PROGRAM, FALL PREVENTION TECH. Addendum: 11/02/16 at 1707 by Verónica Hickey PT Amended: Links added.
[2016-11-02] MEDS ORDERED: GOLYTELY / COLYTE SOLUTION 4 LITERS PO ONE (18:00)
--- NOTE | 2016-11-02 18:21 | NUR ---
Notes- in bed, family at bedside. Instructed patient and family about golytely to be taken starting now until midnight. Bedside commode provided. Pt and family verbalize understanding. no distress noted. All needs meet through out shift. will endorse
--- NOTE | 2016-11-02 19:30 | NUR ---
NOTES; NM GASTRIC EMPTYING STUDY RESULTS CALLED TO DR MICHAEL AYALA FOR DR. TEAGUE. NO NEW ORDERS RECEIVED.
--- NOTE | 2016-11-02 20:00 | NUR ---
NOTES; Seen Pt sitting up in bed, A/A/O x4, no acute distress noted. Vital signs stable, afebrile. Family at the bedside with good support. Prep for colonoscopy in AM on going, Pt is drinking golytle and tolerating well. IV saline lock to the left AC, patent. No signs of infection noted on IV site. Instructed Pt on the use of call light to call for any need to assist. Pt verbalized understanding. Bed locked and in low position, side rails up x3, bed alarm on, call light within reach. will continue to monitor.
--- NOTE | 2016-11-02 20:49 | NUR ---
NOTES; BLOOD SUGAR FOUND TO BE 116. PT WILL BE NPO AFTER MIDNIGHT FOR COLONOSCOPY IN AM. PT IS NOT ON ANY IVF. DR. BARRIENTOS CALLED,SPOKE WITH MD AND INFORMED HIM ABOUT PT BLOOD SUGAR LEVEL AT THIS TIME, NPO AFTER MIDNIGHT, PT IS NOT ON ANY IVF, AND SCHEDULED NOVOLIN 70-30 FOR 11/03/16,AT 0700. ORDERS RECEIVED TO INFUSE D51/2 NS AT 50ML/HR WHILE PT IS NPO. OK TO GIVE SCHEDULED NOVOLIN 70-30 AT 0700, AND STOP IVF WHEN DIET ORDER RESUME. RN COVERING AND CHARGE NURSE INFORMED.
[2016-11-02] MEDS: SIMVASTATIN 10 MG TABLET PO SCH (21:34)
[2016-11-02] MEDS: MONTELUKAST 10 MG TABLET PO SCH (21:35)
[2016-11-02] MEDS: LORazepam 1 MG TABLET PO PRN (21:36)
--- NOTE | 2016-11-02 21:54 | NUR ---
BLUE PHONE; BLUE PHONE USED. INTERPRETER AND TRANSLATOR CHANTALE # [phone] TO EXPLAIN PLAN OF CARE, ADMINISTRATION OF MEDICATION AND SIDE EFFECTS . SAFETY, CALL LIGHT USE. PT VERBALIZED UNDERSTANDING. Addendum: 11/03/16 at 0452 by Johanny Martinez LVN INTERPRETER AND TRANSLATOR ALSO EXPLAINED TO PT THAT SHE CAN NOT EAT ANY FOOD OR DRINK ANY FLUID AFTER MIDNIGHT FOR COLONOSCOPY TEST.
--- NOTE | 2016-11-02 21:57 | NUR ---
MEDS; PT REFUSED RESTORIL AT THIS TIME. PER PT, SHE WILL LIKE TO TAKE RESTORIL FOR INSOMNIA LATER. ALL SCHEDULED PO MEDICATION ADMINISTERED. PT TOLERATED MEDS WELL.
[2016-11-02] MEDS: TEMAZEPAM 15 MG CAPSULE PO SCH (23:43)
--- NOTE | 2016-11-02 23:46 | NUR ---
NOTES; RESTORIL 15MG PO ADMINISTERED FOR INSOMNIA.
--- NOTE | 2016-11-03 | NUR ---
NOTES; PT COMPLETED GOLYTELY, NPO AT THIS TIME. STOOL ALREADY CLEAR. DENIES ANY PAIN AT THIS TIME. SAFETY MEASURES IN PROGRESS.
--- NOTE | 2016-11-03 02:15 | NUR ---
NOTES; PT APPEARED TO BE SLEEPING, EYES CLOSED. RESPIRATION EVEN AND NONLABORED. SAFETY MEASURES IN PROGRESS.
[2016-11-03 03:06] VITALS: BP_SYST 131
--- NOTE | 2016-11-03 04:05 | NUR ---
NOTES; PT APPEARED TO BE SLEEPING, EYES CLOSED. RESPIRATION EVEN AND NONLABORED. SAFETY MEASURES IN PROGRESS.
[2016-11-03] MEDS: INSULIN NPH/REGULAR 70-30, 100 UNITS/ML, 10 ML VIAL SUBCUT SCH (06:31)
[2016-11-03] MEDS: LEVOTHYROXINE SODIUM 0.05 MG TABLET PO SCH (06:33)
--- NOTE | 2016-11-03 06:54 | NUR ---
NOTES; NPO MAINTAINED. STOOL CLEAR. AWAKE, IN BED. NO ACUTE DISTRESS NOTED. DENIES ANY PAIN AT THIS TIME. ALL NEEDS ATTENDED, SAFETY MEASURES MAINTAINED.
[2016-11-03] MEDS ORDERED: fentaNYL CITRATE/PF 100 MCG/2 ML AMP ONE (07:01)
[2016-11-03] MEDS ORDERED: MIDAZOLAM HCL 5 MG/5 ML VIAL ONE (07:01)
[2016-11-03] MEDS ORDERED: SIMETHICONE 40 MG/0.6 ML ML ONE (07:02)
--- NOTE | 2016-11-03 07:20 | NUR ---
Report: Patient was taken to GI lab for colonoscopy.
[2016-11-03 07:25] LABS: INR 1.2 (0.8-1.2); PROTHROMBIN TIME 12.7 SECS (9.5-12.5)
[2016-11-03] MEDS ORDERED: fentaNYL CITRATE/PF 100 MCG/2 ML AMP IVP ONE ×2 (07:42→07:46)
[2016-11-03] MEDS ORDERED: MIDAZOLAM HCL 5 MG/5 ML VIAL IVP ONE ×2 (07:44→07:48)
[2016-11-03] MEDS: DICLOFENAC SODIUM 25 MG TABLET.DR PO SCH ×2 (08:00→17:49)
[2016-11-03] MEDS: ASPIRIN 81 MG TABLET(ECOTRIN) PO SCH (09:00)
[2016-11-03] MEDS: POLYETHYLENE GLYCOL 3350, 17 GM/ POWD.PACK PO SCH (09:00)
[2016-11-03] MEDS: PANTOPRAZOLE SODIUM 40 MG TAB PO SCH ×2 (09:00→21:07)
[2016-11-03] MEDS: AMIODARONE HCL 200 MG TABLET PO SCH (09:00)
[2016-11-03] MEDS: METOPROLOL TARTRATE 50 MG TABLET PO SCH ×2 (09:00→21:06)
[2016-11-03] MEDS: FERROUS SULFATE 325 MG TABLET.DR PO SCH (09:00)
[2016-11-03] MEDS: CITALOPRAM HYDROBROMIDE 20 MG TABLET PO SCH (09:00)
[2016-11-03] MEDS: COLCHICINE 0.6 MG TABLET PO SCH ×2 (09:00→21:06)
[2016-11-03] MEDS: FUROSEMIDE 20 MG TABLET PO SCH (09:00)
[2016-11-03] MEDS: MINERAL OIL 30 ML UDC PO SCH ×2 (09:00→21:00)
[2016-11-03] MEDS: amLODIPine BESYLATE 5 MG TABLET PO SCH (09:00)
[2016-11-03] MEDS: LISINOPRIL 10 MG TABLET (PRINIVIL) PO SCH (09:00)
[2016-11-03] MEDS: metroNIDAZOLE 500 MG TABLET PO SCH ×3 (09:00→21:05)
--- NOTE | 2016-11-03 09:00 | NUR ---
S/P COLONOSCOPY: Received from GI lab s/p colonoscopy. Awake, denies any discomfort.
[2016-11-03 09:05] VITALS: BP_SYST 135
--- NOTE | 2016-11-03 09:30 | NUR ---
Rounds: Patient is asleep. Will give am meds when patient wakes up.
[2016-11-03] MEDS: ENOXAPARIN SODIUM 40 MG/0.4 ML SYRINGE SUBCUT SCH (10:42)
[2016-11-03] MEDS ORDERED: GASTROGRAFIN 120 ML ONE (10:53)
--- NOTE | 2016-11-03 10:58 | NUR ---
NPO status: Seen by Dr. Stephens, stated to continue on clear liquid. Will keep NPO for now for small bowel follow through. AM PO meds held.
[2016-11-03 11:26] VITALS: BP_SYST 158
--- NOTE | 2016-11-03 11:40 | NUR ---
Accucheck: BS=60mg/dl. Patient is awake but NPO for Small Bowel Follow through. Dt. Stephens is aware. Dextrose 50% 1 amp IVP given Blood sugar recheck is 292. Patient is on D5 1/2NS at 50cc/hr.
--- NOTE | 2016-11-03 13:40 | NUR ---
SBFT Result: Reported to Dr. Stephens, started on [facility] diet, only wanted apple juice and sugar free jelo at this time. Family at bedside.
--- NOTE | 2016-11-03 15:00 | NUR ---
IV fluids: IV fluids of D5 1/2 NS stopped. Patient had a cup of fruits, apple juice and water melon juice.
[2016-11-03] MEDS: MORPHINE 4 MG/ML INJ. SYRINGE IVP PRN (15:28)
[2016-11-03 15:29] VITALS: BP_SYST 148
[2016-11-03] MEDS: ONDANSETRON HCL 4 MG/2 ML VIAL IVP PRN ×2 (15:31→20:26)
--- NOTE | 2016-11-03 15:32 | NUR ---
Nausea: Medicated with Zofran 4mg for nausea and morphine 4 mg for abdominal pain.
[2016-11-03 15:36] VITALS: BP_SYST 148
[2016-11-03] MEDS ORDERED: INSULIN NPH/REGULAR 70-30, 100 UNITS/ML, 10 ML VIAL SUBCUT SCH (17:00)
[2016-11-03] MEDS: INSULIN ASPART 100 UNITS/ML, 10 ML VIAL (NovoLOG) SUBCUT PRN ×2 (17:51→21:10)
--- NOTE | 2016-11-03 18:08 | NUR ---
Diabetic Meds: Novolin 7-/30 and glipizide held per Dr. Carpenter due to poor intake. Patient only had two spoons of mashed potato. Ambulated to the bathroom with family assist.
[2016-11-03 19:44] VITALS: BP_SYST 126
--- NOTE | 2016-11-03 20:00 | NUR ---
NOTES; Seen Pt sitting up in bed, A/A/O x4, no acute distress noted. Vital signs stable, afebrile. Family at bedside with good support. IV saline lock to the left AC, patent. No signs of infection noted on IV site. Instructed Pt on the use of call light to call for any need to assist. pt verbalized understanding. Bed locked and in low position, side rails up x3, call light within reach. will continue to monitor.
[2016-11-03] MEDS: MORPHINE 2 MG/ML INJ. SYRINGE IVP PRN (20:26)
[2016-11-03] MEDS: SIMVASTATIN 10 MG TABLET PO SCH (21:07)
[2016-11-03] MEDS: MONTELUKAST 10 MG TABLET PO SCH (21:07)
[2016-11-03] MEDS: TEMAZEPAM 15 MG CAPSULE PO SCH (21:07)
--- NOTE | 2016-11-03 21:25 | NUR ---
BLUE PHONE; BLUE PHONE USED. ESTATE ATTORNEY RENÉ # [id number] EXPLAINED TO PT PLAN OF CARE, ADMINISTRATION OF MEDICATION AND SIDE EFFECTS . SAFETY, CALL LIGHT USE. PT VERBALIZED UNDERSTANDING.
[2016-11-04 00:16] VITALS: BP_SYST 104
--- NOTE | 2016-11-04 01:21 | NUR ---
NOTES; PT APPEARED TO BE SLEEPING, EYES CLOSED. RESPIRATION EVEN AND NONLABORED. SAFETY MEASURES IN PROGRESS.
[2016-11-04] MEDS: ONDANSETRON HCL 4 MG/2 ML VIAL IVP PRN ×2 (01:50→08:50)
--- NOTE | 2016-11-04 01:54 | NUR ---
NAUSEA PATIENT HAD COMPLAINTS OF NAUSEA. GAVE PRN ZOFRAN. CALL LIGHT IS WITHIN REACH. BED ALARM IS ON. INFORMED CAROLEE YANES.
--- NOTE | 2016-11-04 03:00 | NUR ---
NOTES; Pt appeared to be sleeping, eyes closed. respiration even and unlabored. No acute distress noted. Safety measures in progress.
[2016-11-04 03:14] VITALS: BP_SYST 134
--- NOTE | 2016-11-04 05:26 | NUR ---
NOTES; Pt appeared to be sleeping, eyes closed. respiration even and unlabored. No acute distress noted. Safety measures in progress.
[2016-11-04] MEDS: LEVOTHYROXINE SODIUM 0.05 MG TABLET PO SCH (06:06)
--- NOTE | 2016-11-04 06:38 | NUR ---
NOTES; BLOOD SUGAR FOUND TO 107. NO SIGNS OR SYMPTOMS OF HYPOGLYCEMIA NOTED. PT IS NOT DRINKING OR EATING WELL. PER MD ORDER HOLD INSULIN IF PT IS NOT EATING WELL. SCHEDULED INSULIN HELD. ALL NEEDS ATTENDED. SAFETY MEASURES MAINTAINED.
[2016-11-04] MEDS ORDERED: INSULIN NPH/REGULAR 70-30, 100 UNITS/ML, 10 ML VIAL SUBCUT SCH (07:00)
--- NOTE | 2016-11-04 07:05 | NUR ---
OPENING NOTE RECEIVED REPORT FROM FLEXOGRAPHIC PRESS OPERATOR NURSE. PATIENT RESTING COMFORTABLY, PAIN IS AT A TOLERABLE LEVEL PER PATIENT. PATIENT IS NAUSEATED, WOULD LIKE NAUSEA MEDICATION WHEN AVAILABLE. PATIENT HAS IV RUNNING PER MD ORDERS. PATIENTS BED IN LOWEST POSITION, CALL LIGHT WITHIN REACH, AND SIDE RAILS ARE UP FOR SAFETY. WILL BE EVALUATING EATING STATUS, DISCHARGE ORDERS: MAY DISCHARGE HOME IF TOLERATING DIET WELL.
[2016-11-04] MEDS: PANTOPRAZOLE SODIUM 40 MG TAB PO SCH (08:44)
[2016-11-04] MEDS: COLCHICINE 0.6 MG TABLET PO SCH (08:44)
[2016-11-04] MEDS: metroNIDAZOLE 500 MG TABLET PO SCH (08:44)
[2016-11-04] MEDS: FUROSEMIDE 20 MG TABLET PO SCH (08:45)
[2016-11-04] MEDS: METOPROLOL TARTRATE 50 MG TABLET PO SCH (08:45)
[2016-11-04] MEDS: FERROUS SULFATE 325 MG TABLET.DR PO SCH (08:46)
[2016-11-04] MEDS: LISINOPRIL 10 MG TABLET (PRINIVIL) PO SCH (08:46)
[2016-11-04] MEDS: CITALOPRAM HYDROBROMIDE 20 MG TABLET PO SCH (08:46)
[2016-11-04] MEDS: AMIODARONE HCL 200 MG TABLET PO SCH (08:47)
[2016-11-04] MEDS: amLODIPine BESYLATE 5 MG TABLET PO SCH (08:48)
[2016-11-04] MEDS: ASPIRIN 81 MG TABLET(ECOTRIN) PO SCH (08:48)
[2016-11-04] MEDS: POLYETHYLENE GLYCOL 3350, 17 GM/ POWD.PACK PO SCH (08:49)
[2016-11-04] MEDS: MINERAL OIL 30 ML UDC PO SCH ×2 (08:49→09:00)
[2016-11-04] MEDS: MORPHINE 2 MG/ML INJ. SYRINGE IVP PRN ×2 (08:50→13:47)
[2016-11-04] MEDS: ENOXAPARIN SODIUM 40 MG/0.4 ML SYRINGE SUBCUT SCH (08:50)
--- NOTE | 2016-11-04 08:55 | NUR ---
NOTE VOLTAREN IS UNAVAILABLE AT THIS TIME. NOTIFIED PHARMACY REGARDING MEDICATION. WILL ADMINISTER WHEN AVAILABLE.
[2016-11-04 08:58] VITALS: BP_SYST 141
[2016-11-04] MEDS: DICLOFENAC SODIUM 25 MG TABLET.DR PO SCH (11:27)
--- NOTE | 2016-11-04 11:28 | NUR ---
NOTE VOLTAREN NOT GIVEN, PATIENT STATES SHE IS HAVING NAUSEA AT THIS TIME, SHE WILL WAIT UNTIL NEXT DOSE. PATIENT MEDICATED WITH ZOFRAN WITH MORNING MEDICATION AND PAIN MEDICATION ADMINISTRATION PREVIOUSLY. WILL CONTINUE TO MONITOR.
[2016-11-04] MEDS: INSULIN ASPART 100 UNITS/ML, 10 ML VIAL (NovoLOG) SUBCUT PRN (11:33)
[2016-11-04 12:25] VITALS: BP_SYST 130
--- NOTE | 2016-11-04 13:50 | NUR ---
1400 NOTE PATIENT MEDICATED FOR PAIN, PATIENTS DAUGHTER CONCERNED REGARDING PAIN MANAGEMENT AT HOME. DISCUSSED THAT MD WILL SEND HOME PATIENT WITH NECESSARY PRESCRIPTIONS TO CONTINUE TREATMENT UNTIL FOLLOW UP WITH PCP. DISCHARGE ORDER PLACED IN COMPUTER.
[2016-11-04] MEDS ORDERED: PRO40 PO (14:49)
[2016-11-04] MEDS ORDERED: METO-290 PO (14:51)
[2016-11-04] MEDS ORDERED: TYC3 PO ×2 (14:52→14:53)
[2016-11-04] MEDS ORDERED: LORA-259 PO (14:54)
[2016-11-04 16:01] VITALS: BP_SYST 130
[2016-11-04 16:02] VITALS: BP_SYST 130
--- NOTE | 2016-11-04 16:18 | NUR ---
1600 NOTE PATIENT RESTING COMFORTABLY, FAMILY IS AT BEDSIDE. PATIENT AWAITING DISCHARGE HOME. WILL COMPLETE PAPERWORK FOR DISCHARGE, DISCONTINUE IV, AND PROVIDE EDUCATION. WILL CONTINUE TO MONITOR PATIENT FOR CHANGES IN STATUS.
[2016-11-04] MEDS ORDERED: SUCRALFATE 1 GM TABLET PO SCH (17:00)
--- NOTE | 2016-11-04 17:15 | NUR ---
D/C Patient Patient given medication reconciliation form and D/C instructions. Exit Care provided. Patient verbalized understanding, family verbalized understanding of instructions. MD discussed with patient the results and treatment provided. Ambulatory with steady gait for discharge to home. Patient in stable condition, ID band removed. IV catheter removed, intact and dressing applied, no active bleeding. Rx of protonix, ativan, tylenol #3, reglan given. Patient educated on pain management. All belongings sent with patient. Patient taken to [facility] via wheelchair, placed in personal vehicle for transportation.
--- NOTE | 2016-11-13 11:21 | NUR ---
Discharge Follow Up Phone Call PROJECT COORDINATOR phoned patient, , on 11/06/16, 11/08/16 and 11/13/16 and left voicemail messages with offer of assistance and Social Service contact information. No other phone numbers were available for patient or family. No other calls will be made.
== END 2016-11-04 17:15 | disposition home or self-care (01) | DRG 866 ==
LOC: SED 13:51 → STU 16:09 → SMU 10-31 16:52
PROVIDERS: ADMIT Internal Medicine; ATTEND Internal Medicine
PROC: 0DB68ZX Excision of Stomach, Via Natural or Artificial Opening Endoscopic, Diagnostic (ICD-10-PCS; principal; 2016-11-01 15:46)
PROC: 0DJD8ZZ Inspection of Lower Intestinal Tract, Via Natural or Artificial Opening Endoscopic (ICD-10-PCS; 2016-11-03)
DX: B34.9 Viral infection, unspecified (principal); E11.649 Type 2 diabetes mellitus with hypoglycemia without coma; E11.65 Type 2 diabetes mellitus with hyperglycemia; G45.9 Transient cerebral ischemic attack, unspecified; E03.9 Hypothyroidism, unspecified; E66.01 Morbid (severe) obesity due to excess calories; E78.00 Pure hypercholesterolemia, unspecified; G89.4 Chronic pain syndrome; I48.0 Paroxysmal atrial fibrillation; D63.8 Anemia in other chronic diseases classified elsewhere; K59.09 Other constipation; R07.89 Other chest pain; K29.00 Acute gastritis without bleeding; F41.9 Anxiety disorder, unspecified; I25.10 Atherosclerotic heart disease of native coronary artery without angina pectoris; I10 Essential (primary) hypertension; M19.90 Unspecified osteoarthritis, unspecified site; Z79.01 Long term (current) use of anticoagulants; J44.9 Chronic obstructive pulmonary disease, unspecified; M10.9 Gout, unspecified; K44.9 Diaphragmatic hernia without obstruction or gangrene; K64.8 Other hemorrhoids; Z79.84 Long term (current) use of oral hypoglycemic drugs; Z91.11 Patient's noncompliance with dietary regimen; Z86.73 Personal history of transient ischemic attack (TIA), and cerebral infarction without residual deficits; Z87.891 Personal history of nicotine dependence; Z68.31 Body mass index [BMI] 31.0-31.9, adult
CPT/HCPCS: 36415; 43239; 45378; 70450-TC; 70551; 71010; 73030; 74250-TC; 78264-TC; 80048; 80053; 80076; 82607; 82746; 82962; 83036; 83540-TC; 83550-TC; 84439; 84443-TC; 84484; 84550-TC; 85007; 85025; 85027; 85610-TC; 85651-TC; 85730-TC; 87081; 88305; 88312; 88313; 93005; 96361; 96374; 96375; 97110-GP; 97116-GP; 97530-GP; 99285; A9541; J1650; J1815; J1885; J2250; J2270; J2405; J3010; J7030; Q9963; Q9964

== ENCOUNTER 2016-11-21 13:16 | Inpatient (IN) | payer OTHER, MEDICAID ==
[~2016-11-21] VITALS: Ht 162.6 cm; Wt 78.0 kg
[~2016-11-21 13:16] MED LIST changes: +LORA-259 PO; +METO-290 PO; +PRO40 PO; +TYC3 PO
[2016-11-21 13:25] VITALS: BP_SYST 163
[2016-11-21] MEDS ORDERED: NACL 0.9% 1,000 ML IV ONE (13:49)
[2016-11-21] MEDS ORDERED: ASPIRIN 81 MG TAB.CHEW PO ONE (14:00)
[2016-11-21] MEDS ORDERED: LORazepam 2 MG/ML VIAL IVP ONE (14:00)
[2016-11-21] MEDS ORDERED: LORazepam 2 MG/ML VIAL (FOR ER USE) IVP ONE (14:30)
[2016-11-21 14:38] LABS: BASOPHILS # (AUTO) 0.1 K/uL (0.0-0.2); BASOPHILS % (AUTO) 0.5 % (0.0-2.0); EOSINOPHILS # (AUTO) 0.1 K/uL (0.0-0.4); EOSINOPHILS % (AUTO) 1.3 % (0.0-4.0); HEMATOCRIT 25.3 % (36-48); HEMOGLOBIN 8.5 g/dL (12.0-16.0); LYMPHOCYTES # (AUTO) 2.5 K/uL (1.0-5.5); MEAN CORPUSCULAR HEMOGLOBIN 34 pg (27-31); MEAN CORPUSCULAR HGB CONC 34 % (32-36); MEAN CORPUSCULAR VOLUME 101 fL (79.0-98.0); MONOCYTES % (AUTO) 9.7 % (1.7-9.3); NEUTROPHILS # (AUTO) 6.7 K/uL (1.8-7.7); NEUTROPHILS % (AUTO) 64.5 % (40.0-70.0); PLATELET COUNT (AUTO) 254 K/uL (130-430); RED BLOOD CELL COUNT(AUTO) 2.51 MIL/uL (4.2-6.2); RED CELL DISTRIBUTION WIDTH 18.9 % (9.0-15.0); WHITE BLOOD COUNT (AUTO) 10.4 K/uL (4.8-10.8)
[2016-11-21 14:43] LABS: ANION GAP 11 (5-15); CALCIUM 8.5 mg/dL (8.4-11.0); CHLORIDE 96 mmol/L (98-107); CREATININE 0.73 mg/dL (0.55-1.30); GLUCOSE 177 mg/dL (70-99); POTASSIUM 4.5 mmol/L (3.5-5.1); SODIUM SERUM 132 mmol/L (136-145); UREA NITROGEN, BLOOD 8 mg/dL (8-21)
[2016-11-21 14:45] LABS: GFR AFRICAN AMERICAN 101 mL/min (>90); PROTHROMBIN TIME 10.7 SECS (9.5-12.5)
[2016-11-21 14:51] LABS: ALANINE AMINOTRANSFERASE 25 U/L (12-78); ALBUMIN 3.7 g/dL (3.4-4.8); ASPARTATE AMINOTRANSFERASE 35 U/L (10-37); TOTAL BILIRUBIN 0.5 mg/dL (0.0-1.0)
[2016-11-21 17:03] VITALS: BP_SYST 141
[2016-11-21] MEDS ORDERED: FLU VACC QS 2017-18(36MOS+)/PF 0.5 ML/SYR SYRINGE I.M. PRN (17:15)
[2016-11-21] MEDS ORDERED: DEXTROSE 50% JECT 50 ML DISP.SYRIN IVP PRN (17:30)
[2016-11-21] MEDS ORDERED: ACETAMINOPHEN/CODEINE 300 MG-30 MG TABLET PO PRN (17:30)
[2016-11-21] MEDS ORDERED: LORazepam 1 MG TABLET PO PRN (17:30)
[2016-11-21] MEDS: DICLOFENAC SODIUM 25 MG TABLET.DR PO SCH (19:04)
[2016-11-21] MEDS: LORazepam 1 MG TABLET PO PRN (19:06)
[2016-11-21 20:00] VITALS: BP_SYST 145
[2016-11-21] MEDS ORDERED: metroNIDAZOLE 500 MG TABLET PO SCH (21:00)
[2016-11-21] MEDS ORDERED: BUDESONIDE/FORMOTEROL 160-4.5 mCg, 6 GM INHALER INH SCH (21:00)
[2016-11-21] MEDS: MONTELUKAST 10 MG TABLET PO SCH (21:44)
[2016-11-21] MEDS: DOCUSATE SODIUM 250 MG CAPSULE PO SCH (21:44)
[2016-11-21] MEDS: METOCLOPRAMIDE HCL 10 MG TABLET PO SCH (21:47)
[2016-11-21] MEDS: TEMAZEPAM 15 MG CAPSULE PO PRN (22:42)
[2016-11-22] VITALS: BP_SYST 139
[2016-11-22] MEDS: MORPHINE 2 MG/ML INJ. SYRINGE IVP PRN ×5 (00:56→22:19)
[2016-11-22] MEDS: ACETAMINOPHEN/CODEINE 300 MG-30 MG TABLET PO PRN (03:37)
[2016-11-22 04:00] VITALS: BP_SYST 131
[2016-11-22] MEDS: LEVOTHYROXINE SODIUM 0.05 MG TABLET PO SCH (06:29)
[2016-11-22] MEDS: METOCLOPRAMIDE HCL 10 MG TABLET PO SCH ×4 (06:29→21:53)
[2016-11-22 06:43] LABS: BASOPHILS # (AUTO) 0.1 K/uL (0.0-0.2); BASOPHILS % (AUTO) 0.7 % (0.0-2.0); EOSINOPHILS # (AUTO) 0.4 K/uL (0.0-0.4); EOSINOPHILS % (AUTO) 3.4 % (0.0-4.0); HEMATOCRIT 24.5 % (36-48); HEMOGLOBIN 8.3 g/dL (12.0-16.0); LYMPHOCYTES # (AUTO) 3.4 K/uL (1.0-5.5); LYMPHOCYTES % (AUTO) 32.1 % (20.5-51.5); MEAN CORPUSCULAR HEMOGLOBIN 34 pg (27-31); MEAN CORPUSCULAR HGB CONC 34 % (32-36); MEAN CORPUSCULAR VOLUME 101 fL (79.0-98.0); MONOCYTES # (AUTO) 0.8 K/uL (0.0-1.0); MONOCYTES % (AUTO) 7.9 % (1.7-9.3); NEUTROPHILS % (AUTO) 55.9 % (40.0-70.0); PLATELET COUNT (AUTO) 262 K/uL (130-430); RED BLOOD CELL COUNT(AUTO) 2.42 MIL/uL (4.2-6.2); RED CELL DISTRIBUTION WIDTH 18.6 % (9.0-15.0); WHITE BLOOD COUNT (AUTO) 10.7 K/uL (4.8-10.8)
[2016-11-22 07:08] LABS: ANION GAP 10 (5-15); CALCIUM 8.6 mg/dL (8.4-11.0); CHLORIDE 98 mmol/L (98-107); GLUCOSE 58 mg/dL (70-99); POTASSIUM 4.5 mmol/L (3.5-5.1); SODIUM SERUM 134 mmol/L (136-145); UREA NITROGEN, BLOOD 10 mg/dL (8-21)
[2016-11-22 07:38] LABS: ALANINE AMINOTRANSFERASE 30 U/L (12-78); ALBUMIN 3.4 g/dL (3.4-4.8); ASPARTATE AMINOTRANSFERASE 37 U/L (10-37); TOTAL BILIRUBIN 0.7 mg/dL (0.0-1.0)
[2016-11-22 07:53] LABS: GFR AFRICAN AMERICAN 106 mL/min (>90)
[2016-11-22 08:00] VITALS: BP_SYST 121
[2016-11-22 08:29] LABS: ERYTHROCYTE SEDIMENTATION RATE 63 MM/HR (0-20)
[2016-11-22] MEDS: FERROUS SULFATE 325 MG TABLET.DR PO SCH (08:59)
[2016-11-22] MEDS: CITALOPRAM HYDROBROMIDE 20 MG TABLET PO SCH (08:59)
[2016-11-22] MEDS: DOCUSATE SODIUM 250 MG CAPSULE PO SCH ×2 (08:59→21:54)
[2016-11-22] MEDS ORDERED: ASPIRIN 81 MG TABLET(ECOTRIN) PO SCH (09:00)
[2016-11-22] MEDS ORDERED: AMIODARONE HCL 200 MG TABLET PO SCH (09:00)
[2016-11-22] MEDS ORDERED: PANTOPRAZOLE SODIUM 40 MG TAB PO SCH (09:00)
[2016-11-22] MEDS ORDERED: ESCITALOPRAM OXALATE 10 MG TABLET PO SCH (09:00)
[2016-11-22] MEDS ORDERED: PRAVASTATIN SODIUM 10 MG TABLET (PRAVACHOL) PO SCH ×2 (09:00)
[2016-11-22] MEDS ORDERED: COLCHICINE 0.6 MG TABLET PO SCH (09:00)
[2016-11-22] MEDS: METOPROLOL TARTRATE 50 MG TABLET PO SCH (09:02)
[2016-11-22] MEDS: amLODIPine BESYLATE 5 MG TABLET PO SCH (09:03)
[2016-11-22] MEDS: FUROSEMIDE 20 MG TABLET PO SCH (09:04)
[2016-11-22] MEDS: LISINOPRIL 10 MG TABLET (PRINIVIL) PO SCH (09:04)
[2016-11-22] MEDS: ONDANSETRON HCL 4 MG/2 ML VIAL IVP PRN ×2 (09:10→13:12)
[2016-11-22] MEDS: DICLOFENAC SODIUM 25 MG TABLET.DR PO SCH (09:12)
[2016-11-22] MEDS: SIMVASTATIN 10 MG TABLET PO SCH (09:17)
[2016-11-22 10:46] LABS: CHOLESTEROL 90 mg/dL (<200)
[2016-11-22 10:47] LABS: HDL CHOLESTEROL 12 mg/dL (>55); LDL CHOLESTEROL 55 mg/dL (<100); TRIGLYCERIDES 201 mg/dL (30-150)
[2016-11-22] MEDS: FLUTICASONE/VILANTEROL 1 EACH BLST.W.DEV INH SCH (11:08)
[2016-11-22] MEDS: INSULIN REGULAR, HUMAN 100 UNITS/ML, 10 ML VIAL (novoLIN R) SUBCUT PRN ×2 (12:33→17:55)
[2016-11-22 12:54] VITALS: BP_SYST 127
[2016-11-22] MEDS: LORazepam 1 MG TABLET PO PRN (15:57)
[2016-11-22 16:34] VITALS: BP_SYST 131
[2016-11-22 17:30] LABS: BASOPHILS # (AUTO) 0.1 K/uL (0.0-0.2); BASOPHILS % (AUTO) 0.8 % (0.0-2.0); EOSINOPHILS # (AUTO) 0.5 K/uL (0.0-0.4); EOSINOPHILS % (AUTO) 4.7 % (0.0-4.0); HEMATOCRIT 25.9 % (36-48); HEMOGLOBIN 8.9 g/dL (12.0-16.0); LYMPHOCYTES # (AUTO) 2.2 K/uL (1.0-5.5); LYMPHOCYTES % (AUTO) 22.7 % (20.5-51.5); MEAN CORPUSCULAR HEMOGLOBIN 34 pg (27-31); MEAN CORPUSCULAR HGB CONC 34 % (32-36); MEAN CORPUSCULAR VOLUME 100 fL (79.0-98.0); MONOCYTES # (AUTO) 0.8 K/uL (0.0-1.0); MONOCYTES % (AUTO) 8.5 % (1.7-9.3); NEUTROPHILS # (AUTO) 6.3 K/uL (1.8-7.7); NEUTROPHILS % (AUTO) 63.3 % (40.0-70.0); PLATELET COUNT (AUTO) 289 K/uL (130-430); RED BLOOD CELL COUNT(AUTO) 2.58 MIL/uL (4.2-6.2); RED CELL DISTRIBUTION WIDTH 18.2 % (9.0-15.0); WHITE BLOOD COUNT (AUTO) 9.9 K/uL (4.8-10.8)
[2016-11-22] MEDS ORDERED: PANTOPRAZOLE SODIUM 40 MG in NS 50 ML IV SCH (17:30)
[2016-11-22] MEDS ORDERED: PANTOPRAZOLE SODIUM 80 MG in NS 100 ML IV ONE (17:30)
[2016-11-22 20:00] VITALS: BP_SYST 142
[2016-11-22] MEDS: MONTELUKAST 10 MG TABLET PO SCH (21:54)
[2016-11-22] MEDS: INSULIN ASPART 100 UNITS/ML, 10 ML VIAL (NovoLOG) SUBCUT PRN (22:28)
[2016-11-23] VITALS (8 sets, daily range): BP systolic 142–159
[2016-11-23] MEDS: ONDANSETRON HCL 4 MG/2 ML VIAL IVP PRN ×2 (00:01→10:03)
[2016-11-23] MEDS: TEMAZEPAM 15 MG CAPSULE PO PRN ×2 (01:40→23:03)
[2016-11-23] MEDS: LORazepam 1 MG TABLET PO PRN (01:40)
[2016-11-23] MEDS: LEVOTHYROXINE SODIUM 0.05 MG TABLET PO SCH (06:46)
[2016-11-23] MEDS: METOCLOPRAMIDE HCL 10 MG TABLET PO SCH ×4 (06:46→21:14)
[2016-11-23] MEDS: INSULIN NPH/REGULAR 70-30, 100 UNITS/ML, 10 ML VIAL SUBCUT SCH ×2 (06:50→17:50)
[2016-11-23] MEDS ORDERED: INSULIN Aspart Prota/Aspar MIX 70-30, 100 UNITS/ML, 10 ML VIAL SUBCUT SCH (07:00)
[2016-11-23] MEDS ORDERED: MIDAZOLAM HCL 5 MG/5 ML VIAL ONE (08:10)
[2016-11-23] MEDS ORDERED: fentaNYL CITRATE/PF 100 MCG/2 ML AMP ONE (08:10)
[2016-11-23] MEDS: LISINOPRIL 10 MG TABLET (PRINIVIL) PO SCH (09:00)
[2016-11-23] MEDS: FUROSEMIDE 20 MG TABLET PO SCH (09:00)
[2016-11-23] MEDS: FLUTICASONE/VILANTEROL 1 EACH BLST.W.DEV INH SCH ×2 (09:00→11:46)
[2016-11-23] MEDS: METOPROLOL TARTRATE 50 MG TABLET PO SCH (09:00)
[2016-11-23] MEDS: SIMVASTATIN 10 MG TABLET PO SCH (09:00)
[2016-11-23] MEDS: DOCUSATE SODIUM 250 MG CAPSULE PO SCH ×2 (09:00→21:13)
[2016-11-23] MEDS: amLODIPine BESYLATE 5 MG TABLET PO SCH (09:00)
[2016-11-23] MEDS: CITALOPRAM HYDROBROMIDE 20 MG TABLET PO SCH (09:00)
[2016-11-23] MEDS: FERROUS SULFATE 325 MG TABLET.DR PO SCH (09:00)
[2016-11-23] MEDS ORDERED: traMADol HCL HCL 50 MG TABLET (ULTRAM) PO PRN (15:45)
[2016-11-23] MEDS: DICYCLOMINE HCL 10 MG CAPSULE PO SCH ×2 (15:50→21:13)
[2016-11-23] MEDS: guaiFENesin/D-METHORPHAN HB 118 ML SUGAR FREE PO PRN ×2 (15:51→21:26)
[2016-11-23] MEDS: ALPRAZolam 0.25 MG TABLET PO PRN (16:05)
[2016-11-23 16:32] LABS: BASOPHILS # (AUTO) 0.1 K/uL (0.0-0.2); BASOPHILS % (AUTO) 0.8 % (0.0-2.0); EOSINOPHILS # (AUTO) 0.2 K/uL (0.0-0.4); EOSINOPHILS % (AUTO) 2.3 % (0.0-4.0); HEMATOCRIT 35.2 % (36-48); HEMOGLOBIN 11.9 g/dL (12.0-16.0); LYMPHOCYTES # (AUTO) 1.8 K/uL (1.0-5.5); LYMPHOCYTES % (AUTO) 25.1 % (20.5-51.5); MEAN CORPUSCULAR HEMOGLOBIN 33 pg (27-31); MEAN CORPUSCULAR HGB CONC 34 % (32-36); MONOCYTES # (AUTO) 0.6 K/uL (0.0-1.0); MONOCYTES % (AUTO) 8.3 % (1.7-9.3); NEUTROPHILS # (AUTO) 4.3 K/uL (1.8-7.7); NEUTROPHILS % (AUTO) 63.5 % (40.0-70.0); PLATELET COUNT (AUTO) 292 K/uL (130-430); RED BLOOD CELL COUNT(AUTO) 3.64 MIL/uL (4.2-6.2); RED CELL DISTRIBUTION WIDTH 18.6 % (9.0-15.0)
[2016-11-23 16:34] LABS: MEAN CORPUSCULAR VOLUME 97 fL (79.0-98.0)
[2016-11-23] MEDS: INSULIN ASPART 100 UNITS/ML, 10 ML VIAL (NovoLOG) SUBCUT PRN ×2 (17:58→21:17)
[2016-11-23] MEDS: PANTOPRAZOLE SODIUM 40 MG TAB PO SCH (21:14)
[2016-11-23] MEDS: MONTELUKAST 10 MG TABLET PO SCH (21:14)
[2016-11-23] MEDS: ACETAMINOPHEN/CODEINE 300 MG-30 MG TABLET PO PRN (21:26)
[2016-11-23 23:23] LABS: BILIRUBIN,URINE NEGATIVE (NEGATIVE); BLOOD, URINE NEGATIVE (NEGATIVE); CLARITY/URINE CLEAR (CLEAR); COLOR,URINE YELLOW (YELLOW); GLUCOSE,URINE TRACE (NEGATIVE); KETONES,URINE NEGATIVE (NEGATIVE); LEUKOCYTE ESTERASE ,URINE TRACE (NEGATIVE); NITRITE, URINE NEGATIVE (NEGATIVE); PROTEIN URINE NEGATIVE (NEGATIVE)
[2016-11-23 23:29] LABS: BACTERIA,URINE FEW /HPF (None Seen); RBC,URINE 0-3 /HPF (0-3); WBC,URINE 0-3 /HPF (0-3)
[2016-11-24 03:21] VITALS: BP_SYST 129
[2016-11-24 06:44] LABS: BASOPHILS # (AUTO) 0.1 K/uL (0.0-0.2); BASOPHILS % (AUTO) 0.8 % (0.0-2.0); EOSINOPHILS # (AUTO) 0.2 K/uL (0.0-0.4); EOSINOPHILS % (AUTO) 2.5 % (0.0-4.0); HEMATOCRIT 34.6 % (36-48); HEMOGLOBIN 11.7 g/dL (12.0-16.0); LYMPHOCYTES # (AUTO) 2.7 K/uL (1.0-5.5); LYMPHOCYTES % (AUTO) 33.1 % (20.5-51.5); MEAN CORPUSCULAR HEMOGLOBIN 33 pg (27-31); MEAN CORPUSCULAR HGB CONC 34 % (32-36); MEAN CORPUSCULAR VOLUME 97 fL (79.0-98.0); MONOCYTES # (AUTO) 0.9 K/uL (0.0-1.0); MONOCYTES % (AUTO) 10.6 % (1.7-9.3); NEUTROPHILS # (AUTO) 4.2 K/uL (1.8-7.7); PLATELET COUNT (AUTO) 265 K/uL (130-430); RED BLOOD CELL COUNT(AUTO) 3.56 MIL/uL (4.2-6.2); RED CELL DISTRIBUTION WIDTH 18.6 % (9.0-15.0); WHITE BLOOD COUNT (AUTO) 8.1 K/uL (4.8-10.8)
[2016-11-24] MEDS: METOCLOPRAMIDE HCL 10 MG TABLET PO SCH ×2 (06:49→11:30)
[2016-11-24] MEDS: LEVOTHYROXINE SODIUM 0.05 MG TABLET PO SCH (06:49)
[2016-11-24] MEDS: guaiFENesin/D-METHORPHAN HB 118 ML SUGAR FREE PO PRN (06:49)
[2016-11-24] MEDS: INSULIN NPH/REGULAR 70-30, 100 UNITS/ML, 10 ML VIAL SUBCUT SCH (06:52)
[2016-11-24 06:55] LABS: CALCIUM 8.9 mg/dL (8.4-11.0); CREATININE 0.82 mg/dL (0.55-1.30); POTASSIUM 4.1 mmol/L (3.5-5.1)
[2016-11-24 08:00] VITALS: BP_SYST 123
[2016-11-24] MEDS: ONDANSETRON HCL 4 MG/2 ML VIAL IVP PRN (08:26)
[2016-11-24] MEDS: PANTOPRAZOLE SODIUM 40 MG TAB PO SCH (08:27)
[2016-11-24] MEDS: CITALOPRAM HYDROBROMIDE 20 MG TABLET PO SCH (08:27)
[2016-11-24] MEDS: ALPRAZolam 0.25 MG TABLET PO PRN (08:27)
[2016-11-24] MEDS: FLUTICASONE/VILANTEROL 1 EACH BLST.W.DEV INH SCH (08:27)
[2016-11-24] MEDS: DICYCLOMINE HCL 10 MG CAPSULE PO SCH (08:27)
[2016-11-24] MEDS: FERROUS SULFATE 325 MG TABLET.DR PO SCH (08:28)
[2016-11-24] MEDS: SIMVASTATIN 10 MG TABLET PO SCH (08:28)
[2016-11-24] MEDS: DOCUSATE SODIUM 250 MG CAPSULE PO SCH (08:28)
[2016-11-24] MEDS: amLODIPine BESYLATE 5 MG TABLET PO SCH (08:36)
[2016-11-24] MEDS: LISINOPRIL 10 MG TABLET (PRINIVIL) PO SCH (08:36)
[2016-11-24] MEDS: FUROSEMIDE 20 MG TABLET PO SCH (08:36)
[2016-11-24] MEDS: METOPROLOL TARTRATE 50 MG TABLET PO SCH (08:37)
[2016-11-24] MEDS ORDERED: BISACODYL 10 MG/SUPPOSITORY RC ONE (09:00)
[2016-11-24] MEDS ORDERED: MINERAL OIL 133 ML ENEMA RC ONE (09:00)
[2016-11-24] MEDS ORDERED: POLYETHYLENE GLYCOL 3350, 17 GM/ POWD.PACK PO SCH (09:00)
[2016-11-24 11:02] VITALS: BP_SYST 123
[2016-11-24] MEDS: INSULIN ASPART 100 UNITS/ML, 10 ML VIAL (NovoLOG) SUBCUT PRN (11:22)
[2016-11-24 13:16] VITALS: BP_SYST 129
== END 2016-11-24 12:47 | disposition home or self-care (01) | DRG 183 ==
LOC: SED 13:16 → STU 16:10 → SMU 11-23 18:20
PROVIDERS: ADMIT Internal Medicine; ATTEND Internal Medicine
PROC: 30233N1 Transfusion of Nonautologous Red Blood Cells into Peripheral Vein, Percutaneous Approach (ICD-10-PCS; principal; 2016-11-22)
PROC: 30233N1 Transfusion of Nonautologous Red Blood Cells into Peripheral Vein, Percutaneous Approach (ICD-10-PCS; 2016-11-23)
DX: S22.49XA Multiple fractures of ribs, unspecified side, initial encounter for closed fracture (principal); K25.0 Acute gastric ulcer with hemorrhage; J44.9 Chronic obstructive pulmonary disease, unspecified; I48.0 Paroxysmal atrial fibrillation; I10 Essential (primary) hypertension; E03.9 Hypothyroidism, unspecified; E11.9 Type 2 diabetes mellitus without complications; D50.9 Iron deficiency anemia, unspecified; G25.81 Restless legs syndrome; R07.89 Other chest pain; I25.10 Atherosclerotic heart disease of native coronary artery without angina pectoris; K58.9 Irritable bowel syndrome, unspecified; E78.5 Hyperlipidemia, unspecified; M19.90 Unspecified osteoarthritis, unspecified site; G89.29 Other chronic pain; K29.50 Unspecified chronic gastritis without bleeding; K59.09 Other constipation; M10.9 Gout, unspecified; D63.8 Anemia in other chronic diseases classified elsewhere; K64.8 Other hemorrhoids; K44.9 Diaphragmatic hernia without obstruction or gangrene; E66.9 Obesity, unspecified; Z68.29 Body mass index [BMI] 29.0-29.9, adult; Z79.899 Other long term (current) drug therapy; Z95.5 Presence of coronary angioplasty implant and graft; Z86.73 Personal history of transient ischemic attack (TIA), and cerebral infarction without residual deficits
CPT/HCPCS: 36415; 71010; 71100; 80048; 80053; 80061; 81000-TC; 82272; 82728; 82962; 83735-TC; 83880; 84484; 85025; 85044-TC; 85379; 85610-TC; 85651-TC; 85730-TC; 86886; 86900; 86901; 86920; 87081; 93005; 96361; 96374; 99285; C9113; J1815; J2060; J2250; J2270; J2405; J3010; J7030; J7050; J8597; P9021; Q2037

== ENCOUNTER 2016-11-26 16:41 | Emergency (ER) | payer OTHER, MEDICAID ==
[~2016-11-26] VITALS: Ht 167.6 cm; Wt 78.5 kg
[~2016-11-26 16:41] MED LIST changes: -DICY10SO PO; -LORA-259 PO
[2016-11-26 16:43] VITALS: BP_SYST 193
[2016-11-26] MEDS ORDERED: DIPHENHYDRAMINE INJ 50 MG/ML VIAL IVP ONE (17:15)
[2016-11-26] MEDS ORDERED: HYDROmorphone 1 MG INJ. 1 MG/ML AMPUL IVP ONE ×2 (17:15→20:30)
[2016-11-26] MEDS ORDERED: NACL 0.9% 1,000 ML IV ONE (17:15)
[2016-11-26 17:21] LABS: BASOPHILS % (AUTO) 0.6 % (0.0-2.0); EOSINOPHILS # (AUTO) 0.2 K/uL (0.0-0.4); EOSINOPHILS % (AUTO) 2.4 % (0.0-4.0); HEMOGLOBIN 12.6 g/dL (12.0-16.0); LYMPHOCYTES # (AUTO) 2.1 K/uL (1.0-5.5); LYMPHOCYTES % (AUTO) 31.3 % (20.5-51.5); MEAN CORPUSCULAR HEMOGLOBIN 33 pg (27-31); MEAN CORPUSCULAR HGB CONC 34 % (32-36); MEAN CORPUSCULAR VOLUME 98 fL (79.0-98.0); MONOCYTES # (AUTO) 0.7 K/uL (0.0-1.0); MONOCYTES % (AUTO) 10.1 % (1.7-9.3); NEUTROPHILS # (AUTO) 3.8 K/uL (1.8-7.7); NEUTROPHILS % (AUTO) 55.6 % (40.0-70.0); PLATELET COUNT (AUTO) 274 K/uL (130-430); RED BLOOD CELL COUNT(AUTO) 3.79 MIL/uL (4.2-6.2); RED CELL DISTRIBUTION WIDTH 17.7 % (9.0-15.0); WHITE BLOOD COUNT (AUTO) 6.8 K/uL (4.8-10.8)
[2016-11-26 17:29] LABS: CALCIUM 8.7 mg/dL (8.4-11.0); CREATININE 0.72 mg/dL (0.55-1.30); POTASSIUM 4.3 mmol/L (3.5-5.1)
[2016-11-26 17:34] LABS: ALBUMIN 3.6 g/dL (3.4-4.8)
[2016-11-26] MEDS ORDERED: MAGNESIUM CITRATE 300 ML ORAL SOLUTION PO ONE (17:45)
[2016-11-26] MEDS ORDERED: MINERAL OIL 133 ML ENEMA RC ONE (19:00)
[2016-11-26] MEDS ORDERED: ONDANSETRON HCL 4 MG/2 ML VIAL IVP ONE (19:00)
[2016-11-26 20:45] VITALS: BP_SYST 165
== END 2016-11-26 20:45 | disposition home or self-care (01) ==
LOC: SED 16:41
DX: K56.41 Fecal impaction (principal); I10 Essential (primary) hypertension; E11.9 Type 2 diabetes mellitus without complications; J45.909 Unspecified asthma, uncomplicated; E78.00 Pure hypercholesterolemia, unspecified; M10.9 Gout, unspecified; Z95.9 Presence of cardiac and vascular implant and graft, unspecified; Z79.4 Long term (current) use of insulin; Z79.899 Other long term (current) drug therapy
CPT/HCPCS: 36415; 74176; 80053; 85025; 96361; 96374; 96375; 96376; 99285; J1170; J1200; J2405; J7030

== ENCOUNTER 2017-04-07 21:00 | Emergency (ER) | payer OTHER, MEDICAID ==
[~2017-04-07] VITALS: Ht 157.5 cm; Wt 74.4 kg
[2017-04-07 21:00] VITALS: BP_SYST 142
[~2017-04-07 21:00] MED LIST changes: -AMLO5TAB4 PO; +CALCIUM PO; -COLC0.6T67 PO; -CYAN10009 PO; -DICL50TA9 PO; +DOCU250C PO; -ESCI10TA PO; -ESOM40CA PO; -FURO20TA4 PO; +GABA-531 PO; -GABA300S PO; +HYDR-1189 PO; +ICOS1CAP PO; -INSU10VI2 SQ; +INSU10VI4 SUBCUT; -L.RH1CAP PO; -LISI10TA PO; -LORA-673 PO; +LORA1TAB PO; +LOSA1TAB35 PO; +MAGN250T31 PO; -MAGN400C PO; +MAGNESIUM PO; -METO50TA3 PO; -METR500T PO; +NIAC250T25 PO; -OMEG300C3 PO; +ONDA4TAB22 PO; -ONDA8TAB9 SL; -PRAV10TA PO; +ROPI0.5T PO; -TYC3 PO; -[UNRECOGNIZED DRUG - CODE] MC
--- NOTE | 2017-04-07 21:45 | NUR ---
Patient to ER bed 3 to gown for evaluation. Side rails up. Report given to CONCEPCION TURNER.
--- NOTE | 2017-04-07 21:50 | NUR ---
Pt brought by daughter,A&Ox3,pt presents to ER with weakness,cough ,congestion and bodyaches, afebrile , skin pink and warm, cap refill <3,respirations even and unlabored, pt states she was recently discharged from [facility] for syncope episode.
--- NOTE | 2017-04-07 22:15 | NUR ---
Dr Allison at bedside examining patient
[2017-04-07 22:44] LABS: HEMATOCRIT 26.2 % (36-48); HEMOGLOBIN 8.7 g/dL (12.0-16.0); MEAN CORPUSCULAR HEMOGLOBIN 32 pg (27-31); MEAN CORPUSCULAR HGB CONC 33 % (32-36); MEAN CORPUSCULAR VOLUME 97 fL (79.0-98.0); PLATELET COUNT (AUTO) 173 K/uL (130-430); RED CELL DISTRIBUTION WIDTH 15.1 % (9.0-15.0); WHITE BLOOD COUNT (AUTO) 6.4 K/uL (4.8-10.8)
--- NOTE | 2017-04-07 22:59 | NUR ---
Pt on stable condition, report given to Narcisa TURNER
[2017-04-07 23:11] LABS: BAND % (MANUAL) 5 % (0-6); LYMPHOCYTES % (MANUAL) 23 % (20-46)
[2017-04-07 23:12] LABS: BASOPHILS % (MANUAL) 0 % (0-2); EOSINOPHILS % (MANUAL) 2 % (0-7); MONOCYTES % (MANUAL) 9 % (0-11)
[2017-04-07 23:15] VITALS: BP_SYST 118
--- NOTE | 2017-04-07 23:15 | NUR ---
Patient given written and verbal discharge instructions and verbalizes understanding. ER MD discussed with patient the results and treatment provided. Patient in stable condition. ID arm band removed. Rx of Levaquin and Albuterol given. Patient educated on pain management and to follow up with PMD. Pain Scale 0/10. Opportunity for questions provided and answered.
== END 2017-04-07 23:15 | disposition home or self-care (01) ==
LOC: SED 21:00
DX: J20.9 Acute bronchitis, unspecified (principal); N39.0 Urinary tract infection, site not specified; I10 Essential (primary) hypertension; J45.909 Unspecified asthma, uncomplicated; E11.9 Type 2 diabetes mellitus without complications; E78.00 Pure hypercholesterolemia, unspecified; M10.9 Gout, unspecified; Z95.9 Presence of cardiac and vascular implant and graft, unspecified; Z79.4 Long term (current) use of insulin; Z79.899 Other long term (current) drug therapy
CPT/HCPCS: 36415; 71045; 85007; 85027; 86710; 99285

== ENCOUNTER 2017-04-15 19:19 | Emergency (ER) | payer OTHER, MEDICAID ==
[~2017-04-15] VITALS: Ht 160 cm; Wt 75.3 kg
[2017-04-15 19:20] VITALS: BP_SYST 139
--- NOTE | 2017-04-15 21:26 | NUR ---
Patient to ER bed 8 to gown for evaluation. Side rails up. Report given to JOHNNY HOOPER.
--- NOTE | 2017-04-15 21:28 | NUR ---
Pt ambulated into ED c/o excessive cough x 2 weeks. No cough present during interview. 97% SaO2 vicenta. Daughter at bedside states that they came to the ED last Saturday and was prescribed Albuterol and ABX which has not relieved coughing symptoms. Pt denies N/V/D. No other injuries/complaints per pt/noted.
--- NOTE | 2017-04-15 21:38 | NUR ---
OTIS Hernandez at bedside examining patient.
--- NOTE | 2017-04-15 21:48 | NUR ---
Radiology at bedside
[2017-04-15 22:10] LABS: BASOPHILS # (AUTO) 0.1 K/uL (0.0-0.2); EOSINOPHILS # (AUTO) 0.3 K/uL (0.0-0.4); HEMOGLOBIN 8.8 g/dL (12.0-16.0); MONOCYTES # (AUTO) 0.6 K/uL (0.0-1.0)
[2017-04-15 22:12] LABS: BASOPHILS % (AUTO) 0.7 % (0.0-2.0); EOSINOPHILS % (AUTO) 3.7 % (0.0-4.0); LYMPHOCYTES # (AUTO) 2.5 K/uL (1.0-5.5); LYMPHOCYTES % (AUTO) 30.5 % (20.5-51.5); MEAN CORPUSCULAR HEMOGLOBIN 33 pg (27-31); MEAN CORPUSCULAR HGB CONC 34 % (32-36); MEAN CORPUSCULAR VOLUME 97 fL (79.0-98.0); MONOCYTES % (AUTO) 7.5 % (1.7-9.3); NEUTROPHILS # (AUTO) 4.9 K/uL (1.8-7.7); NEUTROPHILS % (AUTO) 57.6 % (40.0-70.0); PLATELET COUNT (AUTO) 285 K/uL (130-430); RED BLOOD CELL COUNT(AUTO) 2.69 MIL/uL (4.2-6.2); RED CELL DISTRIBUTION WIDTH 14.3 % (9.0-15.0); WHITE BLOOD COUNT (AUTO) 8.4 K/uL (4.8-10.8)
[2017-04-15 22:18] LABS: BILIRUBIN,URINE NEGATIVE (NEGATIVE); BLOOD, URINE NEGATIVE (NEGATIVE); CLARITY/URINE CLEAR (CLEAR); COLOR,URINE YELLOW (YELLOW); GLUCOSE,URINE 1+ (NEGATIVE); KETONES,URINE NEGATIVE (NEGATIVE); LEUKOCYTE ESTERASE ,URINE TRACE (NEGATIVE); NITRITE, URINE NEGATIVE (NEGATIVE); PH,URINE 5.5 (5.0-8.0); PROTEIN URINE NEGATIVE (NEGATIVE); UROBILINOGEN,URINE 0.2 (0.2-1.0)
[2017-04-15 22:29] LABS: BACTERIA,URINE FEW /HPF (None Seen); MUCUS,URINE 1+ /LPF (None Seen); RBC,URINE 0-3 /HPF (0-3)
--- NOTE | 2017-04-15 22:41 | NUR ---
Pt provided water per request.
[2017-04-15 22:43] LABS: CALCIUM 8.8 mg/dL (8.4-11.0); CREATININE 0.74 mg/dL (0.55-1.30); POTASSIUM 4.2 mmol/L (3.5-5.1)
[2017-04-15 22:48] LABS: TOTAL BILIRUBIN 0.2 mg/dL (0.0-1.0)
--- NOTE | 2017-04-15 23:00 | NUR ---
ER Dr. Hernandez at bedside updating patient.
--- NOTE | 2017-04-15 23:13 | NUR ---
Patient given written and verbal discharge instructions and verbalizes understanding. ER MD Hernandez discussed with patient the results and treatment provided. Patient in stable condition. ID arm band removed. Rx of Macrobid, Prednisone given. Patient educated on pain management and to follow up with PMD. Pain Scale 0. Opportunity for questions provided and answered.
[2017-04-15 23:15] VITALS: BP_SYST 135
== END 2017-04-15 23:15 | disposition home or self-care (01) ==
LOC: SED 19:19
DX: J40 Bronchitis, not specified as acute or chronic (principal); D64.9 Anemia, unspecified; N39.0 Urinary tract infection, site not specified; J44.9 Chronic obstructive pulmonary disease, unspecified; E11.9 Type 2 diabetes mellitus without complications; I10 Essential (primary) hypertension; R07.9 Chest pain, unspecified; M19.90 Unspecified osteoarthritis, unspecified site; E78.00 Pure hypercholesterolemia, unspecified; M10.9 Gout, unspecified; Z79.82 Long term (current) use of aspirin; Z79.899 Other long term (current) drug therapy
CPT/HCPCS: 36415; 71045; 80053; 81000-TC; 83880; 85025; 86710; 87086; 99285

== ENCOUNTER 2017-04-29 12:28 | Emergency (ER) | payer OTHER, MEDICAID ==
[~2017-04-29] VITALS: Ht 160 cm; Wt 75.3 kg
[2017-04-29 12:34] VITALS: BP_SYST 144
[2017-04-29 13:40] VITALS: BP_SYST 136
== END 2017-04-29 18:40 | disposition home or self-care (01) ==
LOC: SED 12:28
DX: S60.042A Contusion of left ring finger without damage to nail, initial encounter (principal); J45.909 Unspecified asthma, uncomplicated; I10 Essential (primary) hypertension; E11.40 Type 2 diabetes mellitus with diabetic neuropathy, unspecified; M10.9 Gout, unspecified; E78.00 Pure hypercholesterolemia, unspecified; Z95.9 Presence of cardiac and vascular implant and graft, unspecified; Z79.82 Long term (current) use of aspirin; Z79.899 Other long term (current) drug therapy; W23.1XXA Caught, crushed, jammed, or pinched between stationary objects, initial encounter; Y93.89 Activity, other specified; Y92.89 Other specified places as the place of occurrence of the external cause; Y99.8 Other external cause status
CPT/HCPCS: 99284

== ENCOUNTER 2017-05-26 16:51 | Emergency (ER) | payer OTHER, MEDICAID ==
[~2017-05-26] VITALS: Ht 160 cm; Wt 78.5 kg
[2017-05-26 16:59] VITALS: BP_SYST 165
[2017-05-26] MEDS: MORPHINE 4 MG/ML INJ. SYRINGE IM ONE ×2 (17:05→18:20)
[2017-05-26 17:17] LABS: BILIRUBIN,URINE NEGATIVE (NEGATIVE); CLARITY/URINE CLEAR (CLEAR); COLOR,URINE YELLOW (YELLOW); GLUCOSE,URINE 3+ (NEGATIVE); KETONES,URINE NEGATIVE (NEGATIVE); LEUKOCYTE ESTERASE ,URINE 1+ (NEGATIVE); NITRITE, URINE NEGATIVE (NEGATIVE); PROTEIN URINE NEGATIVE (NEGATIVE); UROBILINOGEN,URINE 0.2 (0.2-1.0)
[2017-05-26 17:18] LABS: BLOOD, URINE TRACE (NEGATIVE)
[2017-05-26 17:32] LABS: BACTERIA,URINE MODERATE /HPF (None Seen); MUCUS,URINE 1+ /LPF (None Seen)
[2017-05-26] MEDS: DIAZEPAM 10 MG/2 ML DISP.SYRIN IM ONE (17:46)
[2017-05-26 18:35] VITALS: BP_SYST 148
== END 2017-05-26 18:35 | disposition home or self-care (01) ==
LOC: SED 16:51
DX: M54.30 Sciatica, unspecified side (principal); N39.0 Urinary tract infection, site not specified; E78.00 Pure hypercholesterolemia, unspecified; J45.909 Unspecified asthma, uncomplicated; E11.40 Type 2 diabetes mellitus with diabetic neuropathy, unspecified; I10 Essential (primary) hypertension; M10.9 Gout, unspecified; Z95.5 Presence of coronary angioplasty implant and graft; Z79.4 Long term (current) use of insulin; Z79.899 Other long term (current) drug therapy
CPT/HCPCS: 81000; 87086; 96372; 99284; J2270; J3360

== ENCOUNTER 2017-05-27 23:56 | Emergency (ER) | payer OTHER, MEDICAID ==
[~2017-05-27] VITALS: Ht 160 cm; Wt 78.5 kg
[2017-05-28 00:30] VITALS: BP_SYST 164
[2017-05-28] MEDS: MORPHINE SULFATE 10 MG/ML VIAL IM ONE (02:11)
[2017-05-28 03:01] VITALS: BP_SYST 164
== END 2017-05-28 03:01 | disposition home or self-care (01) ==
LOC: SED 23:56
DX: M54.30 Sciatica, unspecified side (principal); E11.9 Type 2 diabetes mellitus without complications; I10 Essential (primary) hypertension; E78.00 Pure hypercholesterolemia, unspecified; M10.9 Gout, unspecified; J44.9 Chronic obstructive pulmonary disease, unspecified; E11.40 Type 2 diabetes mellitus with diabetic neuropathy, unspecified; Z86.73 Personal history of transient ischemic attack (TIA), and cerebral infarction without residual deficits; Z95.5 Presence of coronary angioplasty implant and graft; Z79.4 Long term (current) use of insulin; Z79.82 Long term (current) use of aspirin; Z79.899 Other long term (current) drug therapy
CPT/HCPCS: 96372; 99283; J2270

== ENCOUNTER 2017-06-22 23:45 | Emergency (ER) | payer OTHER, MEDICAID ==
[~2017-06-22] VITALS: Ht 162.6 cm; Wt 79.4 kg
[~2017-06-22 23:45] MED LIST changes: +DICL75TA5 PO; -GABA-531 PO; +LYR50 PO; +METH500T PO
[2017-06-22 23:50] VITALS: BP_SYST 177
[2017-06-23] MEDS ORDERED: fentaNYL CITRATE/PF 100 MCG/2 ML AMP IVP ONE (00:15)
[2017-06-23] MEDS ORDERED: ONDANSETRON HCL 4 MG/2 ML VIAL IVP ONE (00:15)
[2017-06-23] MEDS ORDERED: MORPHINE 4 MG/ML INJ. SYRINGE IVP ONE (00:15)
[2017-06-23 01:01] VITALS: BP_SYST 168
== END 2017-06-23 01:01 | disposition home or self-care (01) ==
LOC: SED 23:45
DX: M54.40 Lumbago with sciatica, unspecified side (principal); J45.909 Unspecified asthma, uncomplicated; E11.9 Type 2 diabetes mellitus without complications; I10 Essential (primary) hypertension; E78.00 Pure hypercholesterolemia, unspecified; M10.9 Gout, unspecified; E11.40 Type 2 diabetes mellitus with diabetic neuropathy, unspecified; Z79.4 Long term (current) use of insulin; Z86.79 Personal history of other diseases of the circulatory system; Z79.82 Long term (current) use of aspirin; Z79.899 Other long term (current) drug therapy
CPT/HCPCS: 96374; 96375; 99284; J2270; J2405; J3010

== ENCOUNTER 2017-06-24 07:03 | Emergency (ER) | payer OTHER, MEDICAID ==
[~2017-06-24] VITALS: Ht 167.6 cm; Wt 76.2 kg
[~2017-06-24 07:03] MED LIST changes: -AMI200 PO; -CALCIUM PO; -LOSA1TAB35 PO; -MAGN250T31 PO; -MAGNESIUM PO; -NIAC250T25 PO; -PRAV10TA37 PO
[2017-06-24 07:08] VITALS: BP_SYST 151
[2017-06-24] MEDS ORDERED: MORPHINE 2 MG/ML INJ. SYRINGE IVP ONE (07:45)
[2017-06-24] MEDS ORDERED: ONDANSETRON HCL 4 MG/2 ML VIAL IVP ONE (07:45)
[2017-06-24] MEDS ORDERED: NACL 0.9% 1,000 ML IV ONE (07:45)
[2017-06-24 07:47] LABS: BASOPHILS % (AUTO) 0.5 % (0.0-2.0); EOSINOPHILS # (AUTO) 0.2 K/uL (0.0-0.4); EOSINOPHILS % (AUTO) 2.6 % (0.0-4.0); HEMATOCRIT 26.4 % (36-48); HEMOGLOBIN 8.7 g/dL (12.0-16.0); LYMPHOCYTES # (AUTO) 1.5 K/uL (1.0-5.5); LYMPHOCYTES % (AUTO) 23.5 % (20.5-51.5); MEAN CORPUSCULAR HEMOGLOBIN 32 pg (27-31); MEAN CORPUSCULAR HGB CONC 33 % (32-36); MEAN CORPUSCULAR VOLUME 96 fL (79.0-98.0); MONOCYTES # (AUTO) 0.7 K/uL (0.0-1.0); MONOCYTES % (AUTO) 10.3 % (1.7-9.3); NEUTROPHILS # (AUTO) 3.9 K/uL (1.8-7.7); NEUTROPHILS % (AUTO) 63.1 % (40.0-70.0); PLATELET COUNT (AUTO) 237 K/uL (130-430); RED BLOOD CELL COUNT(AUTO) 2.75 MIL/uL (4.2-6.2); RED CELL DISTRIBUTION WIDTH 13.8 % (9.0-15.0); WHITE BLOOD COUNT (AUTO) 6.4 K/uL (4.8-10.8)
[2017-06-24] MEDS ORDERED: MORPHINE 4 MG/ML INJ. SYRINGE ONE (07:57)
[2017-06-24 08:13] LABS: CREATININE 0.9 mg/dL (0.55-1.30)
[2017-06-24 08:17] LABS: ALBUMIN 3.3 g/dL (3.4-4.8); TOTAL BILIRUBIN 0.5 mg/dL (0.0-1.0)
[2017-06-24] MEDS ORDERED: fentaNYL CITRATE/PF 100 MCG/2 ML AMP IVP ONE ×2 (08:45→10:15)
[2017-06-24] MEDS ORDERED: KETOROLAC TROMETHAMINE 30 MG VIAL IVP ONE (09:45)
[2017-06-24 10:48] VITALS: BP_SYST 129
== END 2017-06-24 10:48 | disposition home or self-care (01) ==
LOC: SED 07:03
DX: M54.30 Sciatica, unspecified side (principal)
CPT/HCPCS: 36415; 74018; 80053; 85025; 96361; 96374; 96375; 99285; J1885; J2270; J2405; J3010; J7030

== ENCOUNTER 2017-06-25 23:35 | Emergency (ER) | payer OTHER, MEDICAID ==
[~2017-06-25] VITALS: Ht 157.5 cm; Wt 76.2 kg
[2017-06-25 23:53] VITALS: BP_SYST 152
[2017-06-26 01:20] LABS: BILIRUBIN,URINE NEGATIVE (NEGATIVE); BLOOD, URINE NEGATIVE (NEGATIVE); CLARITY/URINE CLEAR (CLEAR); COLOR,URINE YELLOW (YELLOW); GLUCOSE,URINE 3+ (NEGATIVE); KETONES,URINE NEGATIVE (NEGATIVE); LEUKOCYTE ESTERASE ,URINE 2+ (NEGATIVE); NITRITE, URINE NEGATIVE (NEGATIVE); PH,URINE 5.5 (5.0-8.0); PROTEIN URINE NEGATIVE (NEGATIVE); UROBILINOGEN,URINE 0.2 (0.2-1.0)
[2017-06-26] MEDS ORDERED: MORPHINE 4 MG/ML INJ. SYRINGE IVP ONE (01:45)
[2017-06-26] MEDS ORDERED: cefTRIAXone 1 GM in D5W 50 ML IV ONE (01:45)
[2017-06-26] MEDS ORDERED: ONDANSETRON HCL 4 MG/2 ML VIAL IVP ONE (01:45)
[2017-06-26] MEDS ORDERED: cefTRIAXone 1 GM VIAL ONE (01:57)
[2017-06-26 01:58] LABS: BACTERIA,URINE MODERATE /HPF (None Seen); MUCUS,URINE 1+ /LPF (None Seen); RBC,URINE 0-3 /HPF (0-3)
[2017-06-26] MEDS ORDERED: fentaNYL CITRATE/PF 100 MCG/2 ML AMP IVP ONE (02:30)
[2017-06-26 03:15] VITALS: BP_SYST 146
== END 2017-06-26 03:15 | disposition home or self-care (01) ==
LOC: SED 23:35
DX: M54.40 Lumbago with sciatica, unspecified side (principal); N39.0 Urinary tract infection, site not specified; J45.909 Unspecified asthma, uncomplicated; J44.9 Chronic obstructive pulmonary disease, unspecified; I10 Essential (primary) hypertension; E07.9 Disorder of thyroid, unspecified; E78.00 Pure hypercholesterolemia, unspecified; E11.40 Type 2 diabetes mellitus with diabetic neuropathy, unspecified; Z79.4 Long term (current) use of insulin; Z95.5 Presence of coronary angioplasty implant and graft
CPT/HCPCS: 81000; 87086; 96365; 96375; 99284; J0696; J2270; J2405; J3010; J7060

== ENCOUNTER 2017-07-03 03:27 | Emergency (ER) | payer OTHER, MEDICAID ==
[~2017-07-03] VITALS: Ht 157.5 cm; Wt 77.1 kg
[~2017-07-03 03:27] MED LIST changes: +MORP15TA60 PO
[2017-07-03 03:30] VITALS: BP_SYST 151
[2017-07-03] MEDS ORDERED: MORPHINE 4 MG/ML INJ. SYRINGE IM ONE (04:15)
[2017-07-03 04:23] LABS: BILIRUBIN,URINE NEGATIVE (NEGATIVE); BLOOD, URINE NEGATIVE (NEGATIVE); CLARITY/URINE CLEAR (CLEAR); COLOR,URINE YELLOW (YELLOW); GLUCOSE,URINE 3+ (NEGATIVE); KETONES,URINE NEGATIVE (NEGATIVE); LEUKOCYTE ESTERASE ,URINE NEGATIVE (NEGATIVE); NITRITE, URINE NEGATIVE (NEGATIVE); PH,URINE 6.5 (5.0-8.0); PROTEIN URINE NEGATIVE (NEGATIVE); UROBILINOGEN,URINE 0.2 (0.2-1.0)
[2017-07-03 05:09] LABS: BACTERIA,URINE FEW /HPF (None Seen); RBC,URINE 0-3 /HPF (0-3); WBC,URINE 0-3 /HPF (0-3)
[2017-07-03 05:30] VITALS: BP_SYST 137
== END 2017-07-03 05:30 | disposition home or self-care (01) ==
LOC: SED 03:27
DX: N39.0 Urinary tract infection, site not specified (principal); R06.02 Shortness of breath; J44.9 Chronic obstructive pulmonary disease, unspecified; I10 Essential (primary) hypertension; M10.9 Gout, unspecified; E78.00 Pure hypercholesterolemia, unspecified; E11.40 Type 2 diabetes mellitus with diabetic neuropathy, unspecified; Z95.5 Presence of coronary angioplasty implant and graft; Z79.4 Long term (current) use of insulin; Z79.82 Long term (current) use of aspirin; Z79.899 Other long term (current) drug therapy
CPT/HCPCS: 81000; 96372; 99283; J2270

== ENCOUNTER 2017-08-10 19:37 | Emergency (ER) | payer OTHER, MEDICAID ==
[~2017-08-10] VITALS: Ht 157.5 cm; Wt 83.9 kg
[2017-08-10 19:37] VITALS: BP_SYST 134
[~2017-08-10 19:37] MED LIST changes: -DICL75TA5 PO; -DIPH25TA62 PO; +DOCU-144 PO; -DOCU250C PO; +FENO48TA4 PO; +FURO-150 PO; +HYDR-3610 PO; +METO25TA6 PO; -MORP15TA60 PO; +SPIR25TA4 PO
[2017-08-10] MEDS ORDERED: NACL 0.9% 1,000 ML IV ONE (20:00)
[2017-08-10] MEDS ORDERED: KETOROLAC TROMETHAMINE 30 MG VIAL IVP ONE (20:00)
[2017-08-10 20:21] LABS: BASOPHILS # (AUTO) 0.1 K/uL (0.0-0.2); BASOPHILS % (AUTO) 1.4 % (0.0-2.0); EOSINOPHILS # (AUTO) 0.2 K/uL (0.0-0.4); EOSINOPHILS % (AUTO) 4.2 % (0.0-4.0); HEMATOCRIT 26.7 % (36-48); HEMOGLOBIN 9.1 g/dL (12.0-16.0); LYMPHOCYTES # (AUTO) 1.4 K/uL (1.0-5.5); LYMPHOCYTES % (AUTO) 32.5 % (20.5-51.5); MEAN CORPUSCULAR HEMOGLOBIN 32 pg (27-31); MEAN CORPUSCULAR HGB CONC 34 % (32-36); MEAN CORPUSCULAR VOLUME 93 fL (79.0-98.0); MONOCYTES # (AUTO) 0.5 K/uL (0.0-1.0); MONOCYTES % (AUTO) 12.8 % (1.7-9.3); NEUTROPHILS # (AUTO) 2.1 K/uL (1.8-7.7); NEUTROPHILS % (AUTO) 49.1 % (40.0-70.0); PLATELET COUNT (AUTO) 434 K/uL (130-430); RED BLOOD CELL COUNT(AUTO) 2.88 MIL/uL (4.2-6.2); RED CELL DISTRIBUTION WIDTH 15.7 % (9.0-15.0); WHITE BLOOD COUNT (AUTO) 4.3 K/uL (4.8-10.8)
[2017-08-10 20:26] LABS: ANION GAP 8 (5-15); CALCIUM 8.4 mg/dL (8.4-11.0); CHLORIDE 88 mmol/L (98-107); CREATININE 1.08 mg/dL (0.55-1.30); GLUCOSE 232 mg/dL (70-99); SODIUM SERUM 121 mmol/L (136-145); UREA NITROGEN, BLOOD 23 mg/dL (8-21)
[2017-08-10 20:31] LABS: ALANINE AMINOTRANSFERASE 19 U/L (12-78); ALBUMIN 3.4 g/dL (3.4-4.8); ASPARTATE AMINOTRANSFERASE 30 U/L (10-37); TOTAL BILIRUBIN 0.3 mg/dL (0.0-1.0)
[2017-08-10 20:33] LABS: POTASSIUM 5.8 mmol/L (3.5-5.1)
[2017-08-10] MEDS ORDERED: CALCIUM CHLORIDE 1 GM in NS 100 ML IV ONE (20:45)
[2017-08-10] MEDS ORDERED: INSULIN REGULAR, HUMAN 10 UNITS/0.1 ML INJ SUBCUT ONE (20:45)
[2017-08-10] MEDS ORDERED: SODIUM POLYSTYRENE SULFONATE 15 GM/60 ML UDBTL PO ONE (20:45)
[2017-08-10 22:21] VITALS: BP_SYST 138
== END 2017-08-10 22:21 | disposition home or self-care (01) ==
LOC: SED 19:37
DX: F41.9 Anxiety disorder, unspecified (principal); E87.1 Hypo-osmolality and hyponatremia; E87.5 Hyperkalemia; J44.9 Chronic obstructive pulmonary disease, unspecified; I10 Essential (primary) hypertension; E11.40 Type 2 diabetes mellitus with diabetic neuropathy, unspecified; M10.9 Gout, unspecified; E78.00 Pure hypercholesterolemia, unspecified; M54.30 Sciatica, unspecified side; Z95.9 Presence of cardiac and vascular implant and graft, unspecified; Z79.4 Long term (current) use of insulin; Z79.899 Other long term (current) drug therapy
CPT/HCPCS: 36415; 80053; 85025; 93005; 96361; 96365; 96375; 99285; J1885; J1815

== ENCOUNTER 2017-09-08 07:43 | Inpatient (IN) | payer OTHER, MEDICAID ==
[~2017-09-08] VITALS: Ht 162.6 cm; Wt 64.0 kg
[2017-09-08] VITALS (9 sets, daily range): BP systolic 103–161
[2017-09-08] MEDS ORDERED: NACL 0.9% 1,000 ML IV ONE (08:15)
[2017-09-08 08:20] LABS: BASOPHILS % (AUTO) 0.4 % (0.0-2.0); EOSINOPHILS # (AUTO) 0.1 K/uL (0.0-0.4); EOSINOPHILS % (AUTO) 0.5 % (0.0-4.0); HEMATOCRIT 32.6 % (36-48); HEMOGLOBIN 11.2 g/dL (12.0-16.0); LYMPHOCYTES # (AUTO) 1.6 K/uL (1.0-5.5); LYMPHOCYTES % (AUTO) 14.7 % (20.5-51.5); MEAN CORPUSCULAR HEMOGLOBIN 32 pg (27-31); MEAN CORPUSCULAR HGB CONC 34 % (32-36); MEAN CORPUSCULAR VOLUME 93 fL (79.0-98.0); MONOCYTES # (AUTO) 0.5 K/uL (0.0-1.0); MONOCYTES % (AUTO) 4.7 % (1.7-9.3); NEUTROPHILS # (AUTO) 8.6 K/uL (1.8-7.7); NEUTROPHILS % (AUTO) 79.7 % (40.0-70.0); PLATELET COUNT (AUTO) 258 K/uL (130-430); RED BLOOD CELL COUNT(AUTO) 3.52 MIL/uL (4.2-6.2); RED CELL DISTRIBUTION WIDTH 15.7 % (9.0-15.0); WHITE BLOOD COUNT (AUTO) 10.8 K/uL (4.8-10.8)
[2017-09-08 08:30] LABS: INR 1.1 (0.8-1.2); PROTHROMBIN TIME 10.8 SECS (9.5-12.5)
[2017-09-08 08:40] LABS: ANION GAP 6 (5-15); CALCIUM 9.5 mg/dL (8.4-11.0); CHLORIDE 97 mmol/L (98-107); CREATININE 1.27 mg/dL (0.55-1.30); GLUCOSE 263 mg/dL (70-99); POTASSIUM 4.5 mmol/L (3.5-5.1); SODIUM SERUM 132 mmol/L (136-145); UREA NITROGEN, BLOOD 29 mg/dL (8-21)
[2017-09-08 08:45] LABS: ALANINE AMINOTRANSFERASE 23 U/L (12-78); ALBUMIN 3.5 g/dL (3.4-4.8); ASPARTATE AMINOTRANSFERASE 19 U/L (10-37); TOTAL BILIRUBIN 0.6 mg/dL (0.0-1.0)
[2017-09-08 09:09] LABS: BILIRUBIN,URINE NEGATIVE (NEGATIVE); BLOOD, URINE NEGATIVE (NEGATIVE); CLARITY/URINE HAZY (CLEAR); COLOR,URINE YELLOW (YELLOW); GLUCOSE,URINE NEGATIVE (NEGATIVE); KETONES,URINE NEGATIVE (NEGATIVE); LEUKOCYTE ESTERASE ,URINE 2+ (NEGATIVE); NITRITE, URINE NEGATIVE (NEGATIVE); PH,URINE 7.5 (5.0-8.0); PROTEIN URINE NEGATIVE (NEGATIVE); UROBILINOGEN,URINE 0.2 (0.2-1.0)
[2017-09-08 09:43] LABS: RBC,URINE 0-3 /HPF (0-3)
[2017-09-08 09:44] LABS: BACTERIA,URINE MANY /HPF (None Seen); WBC,URINE 20-50 /HPF (0-3)
[2017-09-08] MEDS ORDERED: CLINDAMYCIN 900 mg/50mL D5W 50 ML IV ONE (09:45)
[2017-09-08] MEDS ORDERED: ACETAMINOPHEN 500 MG TABLET PO ONE (09:45)
[2017-09-08] MEDS ORDERED: ASPIRIN 81 MG TAB.CHEW PO ONE (10:15)
[2017-09-08] MEDS ORDERED: ICOS1CAP PO (10:16)
[2017-09-08] MEDS ORDERED: LYR50 PO (10:23)
[2017-09-08] MEDS ORDERED: BACL10TA PO (10:23)
[2017-09-08] MEDS ORDERED: MONT10TA22 (10:23)
[2017-09-08] MEDS ORDERED: MORPHINE 2 MG/ML INJ. SYRINGE IVP PRN ×2 (12:00→22:45)
[2017-09-08] MEDS ORDERED: DEXTROSE 50%-WATER 50 ML DISP.SYRIN IVP PRN ×2 (13:00)
[2017-09-08] MEDS ORDERED: GLUCOSE 15 GM GEL (in 37.5 GM TUBE) PO PRN ×2 (13:00)
[2017-09-08] MEDS ORDERED: cefTRIAXone 1 GM in D5W 50 ML IV ONE (15:15)
[2017-09-08] MEDS ORDERED: DOCUSATE SODIUM 100 MG CAPSULE PO ONE (15:15)
[2017-09-08] MEDS ORDERED: BACLOFEN 10 MG TABLET PO ONE (15:15)
[2017-09-08] MEDS ORDERED: ONDANSETRON 4 MG ODT TAB PO ONE (15:30)
[2017-09-08] MEDS ORDERED: PREGABALIN 25 MG CAPSULE (LYRICA) PO ONE (15:30)
[2017-09-08] MEDS ORDERED: SPIRONOLACTONE 25 MG TABLET (ALDACTONE) PO ONE (15:30)
[2017-09-08] MEDS ORDERED: PANTOPRAZOLE SODIUM 40 MG TAB PO ONE (15:30)
[2017-09-08] MEDS ORDERED: ACETAMINOPHEN 325 MG TABLET PO PRN (15:45)
[2017-09-08] MEDS ORDERED: LEVOFLOXACIN 500 MG/D5W 100 ML IV ONE (16:00)
[2017-09-08 16:26] LABS: THYROID STIMULATING HORMONE 1.22 uIu/mL (0.36-3.74)
[2017-09-08] MEDS: NACL 0.9% 1,000 ML IV SCH (17:13)
[2017-09-08] MEDS: INSULIN REGULAR, HUMAN 100 UNITS/ML, 10 ML VIAL (novoLIN R) SUBCUT PRN ×2 (17:16→21:33)
[2017-09-08] MEDS: HYDROcodone/ACETAMIN 10-325 MG TAB PO PRN (18:07)
[2017-09-08] MEDS: SPIRONOLACTONE 25 MG TABLET (ALDACTONE) PO SCH (21:19)
[2017-09-08] MEDS: DOCUSATE SODIUM 100 MG CAPSULE PO SCH (21:20)
[2017-09-08] MEDS: BACLOFEN 10 MG TABLET PO SCH (21:20)
[2017-09-08] MEDS: roPINIRole HCL 0.25 MG ( REQUIP )TABLET PO SCH (21:20)
[2017-09-08] MEDS: METOPROLOL TARTRATE 25 MG TABLET PO SCH (21:34)
[2017-09-08] MEDS ORDERED: MORPHINE 4 MG/ML INJ. SYRINGE IVP PRN (22:30)
[2017-09-09 00:06] VITALS: BP_SYST 106
[2017-09-09] MEDS: HYDROcodone/ACETAMIN 10-325 MG TAB PO PRN ×2 (00:55→13:53)
[2017-09-09] MEDS: LORazepam 1 MG TABLET PO PRN ×2 (00:55→18:59)
[2017-09-09] MEDS: MORPHINE 4 MG/ML INJ. SYRINGE IVP PRN ×4 (04:10→22:45)
[2017-09-09] MEDS: METOPROLOL TARTRATE 25 MG TABLET PO SCH ×3 (06:00→21:40)
[2017-09-09 06:25] LABS: ALANINE AMINOTRANSFERASE 16 U/L (12-78); ALBUMIN 2.8 g/dL (3.4-4.8); ANION GAP 6 (5-15); ASPARTATE AMINOTRANSFERASE 15 U/L (10-37); CALCIUM 8.6 mg/dL (8.4-11.0); CHLORIDE 103 mmol/L (98-107); CREATININE 0.89 mg/dL (0.55-1.30); GLUCOSE 83 mg/dL (70-99); POTASSIUM 3.8 mmol/L (3.5-5.1); SODIUM SERUM 137 mmol/L (136-145); TOTAL BILIRUBIN 0.4 mg/dL (0.0-1.0); UREA NITROGEN, BLOOD 24 mg/dL (8-21)
[2017-09-09 06:37] LABS: BASOPHILS % (AUTO) 0.6 % (0.0-2.0); EOSINOPHILS # (AUTO) 0.1 K/uL (0.0-0.4); EOSINOPHILS % (AUTO) 1.9 % (0.0-4.0); HEMATOCRIT 25.8 % (36-48); HEMOGLOBIN 8.9 g/dL (12.0-16.0); LYMPHOCYTES % (AUTO) 33.1 % (20.5-51.5); MEAN CORPUSCULAR HEMOGLOBIN 32 pg (27-31); MEAN CORPUSCULAR HGB CONC 34 % (32-36); MEAN CORPUSCULAR VOLUME 92 fL (79.0-98.0); MONOCYTES # (AUTO) 0.7 K/uL (0.0-1.0); NEUTROPHILS # (AUTO) 3.4 K/uL (1.8-7.7); NEUTROPHILS % (AUTO) 52.4 % (40.0-70.0); PLATELET COUNT (AUTO) 222 K/uL (130-430); RED CELL DISTRIBUTION WIDTH 15.9 % (9.0-15.0); WHITE BLOOD COUNT (AUTO) 6.2 K/uL (4.8-10.8)
[2017-09-09 08:00] VITALS: BP_SYST 115
[2017-09-09] MEDS: PREGABALIN 25 MG CAPSULE (LYRICA) PO SCH ×2 (08:51→20:50)
[2017-09-09] MEDS: DOCUSATE SODIUM 100 MG CAPSULE PO SCH ×2 (08:51→20:49)
[2017-09-09] MEDS: ASPIRIN 81 MG TABLET(ECOTRIN) PO SCH (08:51)
[2017-09-09] MEDS: ONDANSETRON 4 MG ODT TAB PO SCH (08:52)
[2017-09-09] MEDS: PANTOPRAZOLE SODIUM 40 MG TAB PO SCH (08:52)
[2017-09-09] MEDS: FENOFIBRATE NANOCRYSTALLIZED 48 MG TABLET (TRICOR) PO SCH (08:52)
[2017-09-09] MEDS: BACLOFEN 10 MG TABLET PO SCH ×2 (08:52→20:50)
[2017-09-09] MEDS: cefTRIAXone 1 GM in D5W 50 ML IV SCH (08:53)
[2017-09-09] MEDS: SPIRONOLACTONE 25 MG TABLET (ALDACTONE) PO SCH ×2 (08:53→20:49)
[2017-09-09] MEDS: FERROUS SULFATE 325 MG TABLET.DR PO SCH (08:53)
[2017-09-09] MEDS: NACL 0.9% 1,000 ML IV SCH (09:04)
[2017-09-09] MEDS: LEVOFLOXACIN 500 MG/D5W 100 ML IV SCH (11:08)
[2017-09-09] MEDS: INSULIN REGULAR, HUMAN 100 UNITS/ML, 10 ML VIAL (novoLIN R) SUBCUT PRN (11:14)
[2017-09-09 12:00] VITALS: BP_SYST 112
[2017-09-09 15:16] VITALS: BP_SYST 106
[2017-09-09] MEDS: INSULIN ASPART 100 UNITS/ML, 10 ML VIAL (NovoLOG) SUBCUT PRN ×2 (17:04→20:57)
[2017-09-09 20:10] VITALS: BP_SYST 115
[2017-09-09] MEDS: roPINIRole HCL 0.25 MG ( REQUIP )TABLET PO SCH (20:49)
[2017-09-10 00:20] VITALS: BP_SYST 120
[2017-09-10] MEDS: LORazepam 1 MG TABLET PO PRN ×2 (05:03→23:30)
[2017-09-10] MEDS: INSULIN ASPART 100 UNITS/ML, 10 ML VIAL (NovoLOG) SUBCUT PRN ×3 (06:24→21:47)
[2017-09-10] MEDS: LEVOTHYROXINE SODIUM 0.05 MG TABLET PO SCH (06:24)
[2017-09-10] MEDS: METOPROLOL TARTRATE 25 MG TABLET PO SCH ×3 (06:26→21:32)
[2017-09-10 06:45] LABS: BASOPHILS % (AUTO) 0.6 % (0.0-2.0); EOSINOPHILS # (AUTO) 0.2 K/uL (0.0-0.4); EOSINOPHILS % (AUTO) 2.7 % (0.0-4.0); HEMATOCRIT 26.7 % (36-48); HEMOGLOBIN 9.1 g/dL (12.0-16.0); LYMPHOCYTES # (AUTO) 1.8 K/uL (1.0-5.5); LYMPHOCYTES % (AUTO) 28.9 % (20.5-51.5); MEAN CORPUSCULAR HEMOGLOBIN 31 pg (27-31); MEAN CORPUSCULAR HGB CONC 34 % (32-36); MEAN CORPUSCULAR VOLUME 92 fL (79.0-98.0); MONOCYTES # (AUTO) 0.7 K/uL (0.0-1.0); MONOCYTES % (AUTO) 10.8 % (1.7-9.3); NEUTROPHILS # (AUTO) 3.4 K/uL (1.8-7.7); PLATELET COUNT (AUTO) 245 K/uL (130-430); RED CELL DISTRIBUTION WIDTH 16.4 % (9.0-15.0); WHITE BLOOD COUNT (AUTO) 6.1 K/uL (4.8-10.8)
[2017-09-10 07:42] LABS: ANION GAP 7 (5-15); CALCIUM 8.9 mg/dL (8.4-11.0); CHLORIDE 103 mmol/L (98-107); CREATININE 0.92 mg/dL (0.55-1.30); GLUCOSE 166 mg/dL (70-99); POTASSIUM 4.2 mmol/L (3.5-5.1); SODIUM SERUM 137 mmol/L (136-145); UREA NITROGEN, BLOOD 17 mg/dL (8-21)
[2017-09-10 07:45] VITALS: BP_SYST 124
[2017-09-10] MEDS: POLYETHYLENE GLYCOL 3350, 17 GM/ POWD.PACK PO SCH ×2 (08:50)
[2017-09-10] MEDS: PREGABALIN 25 MG CAPSULE (LYRICA) PO SCH ×2 (08:50→21:26)
[2017-09-10] MEDS: PANTOPRAZOLE SODIUM 40 MG TAB PO SCH (08:51)
[2017-09-10] MEDS: ASPIRIN 81 MG TABLET(ECOTRIN) PO SCH (08:51)
[2017-09-10] MEDS: BACLOFEN 10 MG TABLET PO SCH ×2 (08:51→21:26)
[2017-09-10] MEDS: FENOFIBRATE NANOCRYSTALLIZED 48 MG TABLET (TRICOR) PO SCH (08:51)
[2017-09-10] MEDS: ONDANSETRON 4 MG ODT TAB PO SCH (08:51)
[2017-09-10] MEDS: FERROUS SULFATE 325 MG TABLET.DR PO SCH (08:51)
[2017-09-10] MEDS: SPIRONOLACTONE 25 MG TABLET (ALDACTONE) PO SCH ×2 (08:52→21:32)
[2017-09-10] MEDS: DOCUSATE SODIUM 100 MG CAPSULE PO SCH ×2 (08:52→21:26)
[2017-09-10] MEDS: cefTRIAXone 1 GM in D5W 50 ML IV SCH (08:53)
[2017-09-10] MEDS: MORPHINE 4 MG/ML INJ. SYRINGE IVP PRN ×3 (10:25→21:29)
[2017-09-10] MEDS: LEVOFLOXACIN 500 MG/D5W 100 ML IV SCH (10:26)
[2017-09-10 12:56] VITALS: BP_SYST 118
[2017-09-10] MEDS: FLUCONAZOLE 100 MG TABLET (DIFLUCAN) PO SCH (14:45)
[2017-09-10] MEDS ORDERED: FLUCONAZOLE 100 MG TABLET (DIFLUCAN) PO ONE (16:00)
[2017-09-10 16:06] VITALS: BP_SYST 116
[2017-09-10] MEDS: CLOTRIMAZOLE/BETAMET DIPROP 15 GM TUBE TP SCH ×2 (17:20→21:41)
[2017-09-10] MEDS: HYDROcodone/ACETAMIN 10-325 MG TAB PO PRN (19:35)
[2017-09-10 20:15] VITALS: BP_SYST 111
[2017-09-10] MEDS: roPINIRole HCL 0.25 MG ( REQUIP )TABLET PO SCH (21:27)
[2017-09-10] MEDS ORDERED: KETOROLAC TROMETHAMINE 15 MG VIAL IVP ONE (23:30)
[2017-09-11 00:08] VITALS: BP_SYST 131
[2017-09-11] MEDS: METOPROLOL TARTRATE 25 MG TABLET PO SCH ×3 (06:21→22:35)
[2017-09-11] MEDS: LEVOTHYROXINE SODIUM 0.05 MG TABLET PO SCH (06:22)
[2017-09-11] MEDS: INSULIN ASPART 100 UNITS/ML, 10 ML VIAL SUBCUT SCH ×2 (06:34→11:34)
[2017-09-11] MEDS: HYDROcodone/ACETAMIN 10-325 MG TAB PO PRN ×2 (06:41→12:30)
[2017-09-11 09:00] VITALS: BP_SYST 123
[2017-09-11] MEDS: MORPHINE 4 MG/ML INJ. SYRINGE IVP PRN ×3 (09:54→22:37)
[2017-09-11] MEDS: FENOFIBRATE NANOCRYSTALLIZED 48 MG TABLET (TRICOR) PO SCH (09:58)
[2017-09-11] MEDS: cefTRIAXone 1 GM in D5W 50 ML IV SCH (09:58)
[2017-09-11] MEDS: FERROUS SULFATE 325 MG TABLET.DR PO SCH (09:59)
[2017-09-11] MEDS: BACLOFEN 10 MG TABLET PO SCH ×2 (09:59→20:49)
[2017-09-11] MEDS: PREGABALIN 25 MG CAPSULE (LYRICA) PO SCH ×2 (09:59→21:00)
[2017-09-11] MEDS: FLUCONAZOLE 100 MG TABLET (DIFLUCAN) PO SCH (09:59)
[2017-09-11] MEDS: SPIRONOLACTONE 25 MG TABLET (ALDACTONE) PO SCH ×2 (10:00→20:49)
[2017-09-11] MEDS: DOCUSATE SODIUM 100 MG CAPSULE PO SCH ×2 (10:01→20:47)
[2017-09-11] MEDS: PANTOPRAZOLE SODIUM 40 MG TAB PO SCH (10:01)
[2017-09-11] MEDS: ASPIRIN 81 MG TABLET(ECOTRIN) PO SCH (10:01)
[2017-09-11] MEDS: LEVOFLOXACIN 500 MG/D5W 100 ML IV SCH (10:01)
[2017-09-11] MEDS: POLYETHYLENE GLYCOL 3350, 17 GM/ POWD.PACK PO SCH (10:01)
[2017-09-11] MEDS: ONDANSETRON 4 MG ODT TAB PO SCH (10:12)
[2017-09-11] MEDS: CLOTRIMAZOLE/BETAMET DIPROP 15 GM TUBE TP SCH ×2 (10:12→21:00)
[2017-09-11] MEDS: INSULIN ASPART 100 UNITS/ML, 10 ML VIAL (NovoLOG) SUBCUT PRN ×3 (11:32→21:06)
[2017-09-11 11:57] VITALS: BP_SYST 105
[2017-09-11] MEDS: LORazepam 1 MG TABLET PO PRN (13:28)
[2017-09-11 16:15] VITALS: BP_SYST 103
[2017-09-11] MEDS ORDERED: PREGABALIN 25 MG CAPSULE (LYRICA) PO ONE (16:52)
[2017-09-11] MEDS ORDERED: INSULIN NPH/REGULAR 70-30, 100 UNITS/ML, 10 ML VIAL SUBCUT SCH (17:00)
[2017-09-11] MEDS ORDERED: CILOSTAZOL 50 MG TABLET (PLETAL) PO ONE (17:00)
[2017-09-11 19:05] VITALS: BP_SYST 114
[2017-09-11] MEDS: roPINIRole HCL 0.25 MG ( REQUIP )TABLET PO SCH (20:48)
[2017-09-11] MEDS ORDERED: PREGABALIN 25 MG CAPSULE (LYRICA) ONE ×2 (21:03→22:33)
[2017-09-12 00:16] VITALS: BP_SYST 105
[2017-09-12] MEDS ORDERED: MINERAL OIL 30 ML UDC PO PRN (01:15)
[2017-09-12] MEDS: MORPHINE 4 MG/ML INJ. SYRINGE IVP PRN (04:00)
[2017-09-12] MEDS: LORazepam 1 MG TABLET PO PRN (04:22)
[2017-09-12 06:00] VITALS: BP_SYST 110
[2017-09-12] MEDS: LEVOTHYROXINE SODIUM 0.05 MG TABLET PO SCH (06:10)
[2017-09-12] MEDS: METOPROLOL TARTRATE 25 MG TABLET PO SCH ×3 (06:11→21:14)
[2017-09-12] MEDS: INSULIN ASPART 100 UNITS/ML, 10 ML VIAL (NovoLOG) SUBCUT PRN ×3 (06:51→17:05)
[2017-09-12] MEDS ORDERED: INSULIN NPH/REGULAR 70-30, 100 UNITS/ML, 10 ML VIAL SUBCUT SCH ×2 (07:00→17:00)
[2017-09-12 07:07] LABS: BASOPHILS % (AUTO) 0.6 % (0.0-2.0); EOSINOPHILS # (AUTO) 0.1 K/uL (0.0-0.4); EOSINOPHILS % (AUTO) 1.9 % (0.0-4.0); HEMATOCRIT 25.2 % (36-48); HEMOGLOBIN 8.4 g/dL (12.0-16.0); LYMPHOCYTES # (AUTO) 2.1 K/uL (1.0-5.5); LYMPHOCYTES % (AUTO) 36.3 % (20.5-51.5); MEAN CORPUSCULAR HEMOGLOBIN 31 pg (27-31); MEAN CORPUSCULAR HGB CONC 33 % (32-36); MEAN CORPUSCULAR VOLUME 92 fL (79.0-98.0); MONOCYTES # (AUTO) 0.5 K/uL (0.0-1.0); NEUTROPHILS % (AUTO) 52.2 % (40.0-70.0); PLATELET COUNT (AUTO) 230 K/uL (130-430); RED BLOOD CELL COUNT(AUTO) 2.75 MIL/uL (4.2-6.2); RED CELL DISTRIBUTION WIDTH 16.2 % (9.0-15.0); WHITE BLOOD COUNT (AUTO) 5.7 K/uL (4.8-10.8)
[2017-09-12 07:22] LABS: ANION GAP 9 (5-15); CALCIUM 8.3 mg/dL (8.4-11.0); CHLORIDE 103 mmol/L (98-107); CREATININE 1.07 mg/dL (0.55-1.30); GLUCOSE 224 mg/dL (70-99); POTASSIUM 4.2 mmol/L (3.5-5.1); SODIUM SERUM 137 mmol/L (136-145); UREA NITROGEN, BLOOD 20 mg/dL (8-21)
[2017-09-12 09:00] VITALS: BP_SYST 109
[2017-09-12] MEDS: FENOFIBRATE NANOCRYSTALLIZED 48 MG TABLET (TRICOR) PO SCH (09:00)
[2017-09-12] MEDS ORDERED: CILOSTAZOL 50 MG TABLET (PLETAL) PO SCH (09:00)
[2017-09-12] MEDS: CLOTRIMAZOLE/BETAMET DIPROP 15 GM TUBE TP SCH ×2 (09:04→20:07)
[2017-09-12] MEDS: cefTRIAXone 1 GM in D5W 50 ML IV SCH (09:04)
[2017-09-12] MEDS: DOCUSATE SODIUM 100 MG CAPSULE PO SCH ×2 (09:04→20:04)
[2017-09-12] MEDS: POLYETHYLENE GLYCOL 3350, 17 GM/ POWD.PACK PO SCH (09:04)
[2017-09-12] MEDS: PANTOPRAZOLE SODIUM 40 MG TAB PO SCH (09:04)
[2017-09-12] MEDS: SPIRONOLACTONE 25 MG TABLET (ALDACTONE) PO SCH ×2 (09:05→20:05)
[2017-09-12] MEDS: ASPIRIN 81 MG TABLET(ECOTRIN) PO SCH (09:05)
[2017-09-12] MEDS: FLUCONAZOLE 100 MG TABLET (DIFLUCAN) PO SCH (09:05)
[2017-09-12] MEDS: PREGABALIN 25 MG CAPSULE (LYRICA) PO SCH ×2 (09:05→14:48)
[2017-09-12] MEDS: ONDANSETRON 4 MG ODT TAB PO SCH (09:05)
[2017-09-12] MEDS: FERROUS SULFATE 325 MG TABLET.DR PO SCH (09:05)
[2017-09-12] MEDS: BACLOFEN 10 MG TABLET PO SCH ×3 (09:06→20:04)
[2017-09-12] MEDS ORDERED: LORazepam 2 MG/ML VIAL IVP ONE (10:00)
[2017-09-12 12:38] VITALS: BP_SYST 126
[2017-09-12] MEDS ORDERED: VANCOMYCIN HCL 1,000 MG in NS 250 ML IV SCH (13:00)
[2017-09-12] MEDS: HYDROcodone/ACETAMIN 10-325 MG TAB PO PRN ×2 (16:21→22:23)
[2017-09-12 16:30] VITALS: BP_SYST 113
[2017-09-12] MEDS ORDERED: COMMUNICATION ORDER XX ONE (19:00)
[2017-09-12 20:00] VITALS: BP_SYST 118
[2017-09-12] MEDS: CILOSTAZOL 50 MG TABLET (PLETAL) PO SCH (20:06)
[2017-09-12] MEDS: roPINIRole HCL 0.25 MG ( REQUIP )TABLET PO SCH (20:06)
[2017-09-12] MEDS ORDERED: PREGABALIN 75 MG CAPSULE (LYRICA) PO SCH (21:00)
[2017-09-13 00:40] VITALS: BP_SYST 127
[2017-09-13] MEDS: LEVOTHYROXINE SODIUM 0.05 MG TABLET PO SCH (06:19)
[2017-09-13] MEDS: METOPROLOL TARTRATE 25 MG TABLET PO SCH (06:20)
[2017-09-13] MEDS: HYDROcodone/ACETAMIN 10-325 MG TAB PO PRN ×2 (06:47→12:35)
[2017-09-13] MEDS ORDERED: INSULIN NPH/REGULAR 70-30, 100 UNITS/ML, 10 ML VIAL SUBCUT SCH (07:00)
[2017-09-13] MEDS: PANTOPRAZOLE SODIUM 40 MG TAB PO SCH (08:17)
[2017-09-13] MEDS: SPIRONOLACTONE 25 MG TABLET (ALDACTONE) PO SCH (08:17)
[2017-09-13] MEDS: CILOSTAZOL 50 MG TABLET (PLETAL) PO SCH (08:17)
[2017-09-13] MEDS: ONDANSETRON 4 MG ODT TAB PO SCH (08:17)
[2017-09-13] MEDS: cefTRIAXone 1 GM in D5W 50 ML IV SCH (08:18)
[2017-09-13] MEDS: ASPIRIN 81 MG TABLET(ECOTRIN) PO SCH (08:18)
[2017-09-13] MEDS: POLYETHYLENE GLYCOL 3350, 17 GM/ POWD.PACK PO SCH (08:18)
[2017-09-13] MEDS: FENOFIBRATE NANOCRYSTALLIZED 48 MG TABLET (TRICOR) PO SCH (08:18)
[2017-09-13] MEDS: BACLOFEN 10 MG TABLET PO SCH (08:18)
[2017-09-13] MEDS: FERROUS SULFATE 325 MG TABLET.DR PO SCH (08:18)
[2017-09-13] MEDS: DOCUSATE SODIUM 100 MG CAPSULE PO SCH (08:18)
[2017-09-13] MEDS: CLOTRIMAZOLE/BETAMET DIPROP 15 GM TUBE TP SCH (08:18)
[2017-09-13 08:50] VITALS: BP_SYST 118
[2017-09-13] MEDS ORDERED: ASPIRIN 81 MG TABLET(ECOTRIN) PO SCH (09:00)
[2017-09-13] MEDS ORDERED: PREGABALIN 25 MG CAPSULE (LYRICA) PO SCH (09:00)
[2017-09-13 10:32] LABS: BASOPHILS % (AUTO) 0.6 % (0.0-2.0); EOSINOPHILS # (AUTO) 0.1 K/uL (0.0-0.4); EOSINOPHILS % (AUTO) 1.8 % (0.0-4.0); HEMATOCRIT 26.1 % (36-48); HEMOGLOBIN 8.8 g/dL (12.0-16.0); LYMPHOCYTES # (AUTO) 1.6 K/uL (1.0-5.5); LYMPHOCYTES % (AUTO) 27.3 % (20.5-51.5); MEAN CORPUSCULAR HEMOGLOBIN 31 pg (27-31); MEAN CORPUSCULAR HGB CONC 34 % (32-36); MEAN CORPUSCULAR VOLUME 92 fL (79.0-98.0); MONOCYTES # (AUTO) 0.6 K/uL (0.0-1.0); MONOCYTES % (AUTO) 9.8 % (1.7-9.3); NEUTROPHILS # (AUTO) 3.7 K/uL (1.8-7.7); NEUTROPHILS % (AUTO) 60.5 % (40.0-70.0); PLATELET COUNT (AUTO) 235 K/uL (130-430); RED BLOOD CELL COUNT(AUTO) 2.84 MIL/uL (4.2-6.2); RED CELL DISTRIBUTION WIDTH 16.3 % (9.0-15.0)
[2017-09-13] MEDS: INSULIN ASPART 100 UNITS/ML, 10 ML VIAL (NovoLOG) SUBCUT PRN (12:02)
[2017-09-13 12:40] VITALS: BP_SYST 119
[2017-09-13 14:09] VITALS: BP_SYST 122
== END 2017-09-13 14:40 | disposition home or self-care (01) | DRG 872 ==
LOC: SED 07:43 → STU 09:48 → SMU 09-12 22:33
PROVIDERS: ADMIT Internal Medicine; ATTEND Internal Medicine
DX: A41.9 Sepsis, unspecified organism (principal); N39.0 Urinary tract infection, site not specified; N13.30 Unspecified hydronephrosis; E88.81 Metabolic syndrome and other insulin resistance; E11.42 Type 2 diabetes mellitus with diabetic polyneuropathy; D46.9 Myelodysplastic syndrome, unspecified; E03.9 Hypothyroidism, unspecified; I50.9 Heart failure, unspecified; I11.0 Hypertensive heart disease with heart failure; M10.9 Gout, unspecified; M47.896 Other spondylosis, lumbar region; I48.0 Paroxysmal atrial fibrillation; K57.90 Diverticulosis of intestine, part unspecified, without perforation or abscess without bleeding; D63.8 Anemia in other chronic diseases classified elsewhere; B96.1 Klebsiella pneumoniae [K. pneumoniae] as the cause of diseases classified elsewhere; M16.12 Unilateral primary osteoarthritis, left hip; M54.32 Sciatica, left side; M54.31 Sciatica, right side; G96.19 Other disorders of meninges, not elsewhere classified; R07.89 Other chest pain; J44.9 Chronic obstructive pulmonary disease, unspecified; M43.16 Spondylolisthesis, lumbar region; M51.36 Other intervertebral disc degeneration, lumbar region; G89.4 Chronic pain syndrome; G25.81 Restless legs syndrome; E78.5 Hyperlipidemia, unspecified; Z87.440 Personal history of urinary (tract) infections; Z79.899 Other long term (current) drug therapy; Z79.82 Long term (current) use of aspirin; Z95.5 Presence of coronary angioplasty implant and graft
CPT/HCPCS: 36415; 70450-TC; 71045; 72148; 73700-TC; 74018; 80048; 80053; 81000-TC; 82272; 82962; 83036; 83605; 84443-TC; 84484; 85025; 85610-TC; 85730-TC; 86886; 86900; 86901; 87040-TC; 87086; 87186-TC; 93005; 96365; 97110-GP; 97116-GP; 97530-GP; 99285; J0696; J1815; J1885; J1956; J2060; J2270; J3370; J3490; J7030; J7050; J7060; Q0162

== ENCOUNTER 2017-09-17 08:45 | Inpatient (IN) | payer OTHER, MEDICAID ==
[~2017-09-17] VITALS: Ht 152.4 cm; Wt 72.6 kg
[~2017-09-17 08:45] MED LIST changes: +BACL10TA PO; -BUDE6HFA INH; -CYAN100T PO; -FURO-150 PO; -HYDR-1189 PO; -ICOS1CAP PO; -INSU10VI4 SUBCUT; -LEVO50TA77 PO; -METH500T PO; -METO-290 PO; +MONT10TA22; -MONT10TA22 PO; -MULT-1159 PO
[2017-09-17 08:55] VITALS: BP_SYST 140
[2017-09-17] MEDS ORDERED: ONDANSETRON 4 MG ODT TAB PO ONE (09:30)
[2017-09-17] MEDS ORDERED: MORPHINE 2 MG/ML INJ. SYRINGE IM ONE (09:30)
[2017-09-17 10:02] LABS: HEMOGLOBIN 8.4 g/dL (12.0-16.0)
[2017-09-17 10:18] LABS: HEMATOCRIT 24.6 % (36-48); MEAN CORPUSCULAR HEMOGLOBIN 32 pg (27-31); MEAN CORPUSCULAR HGB CONC 34 % (32-36); MEAN CORPUSCULAR VOLUME 93 fL (79.0-98.0); PLATELET COUNT (AUTO) 350 K/uL (130-430); RED CELL DISTRIBUTION WIDTH 17.1 % (9.0-15.0); WHITE BLOOD COUNT (AUTO) 8.8 K/uL (4.8-10.8)
[2017-09-17 10:22] LABS: RED BLOOD CELL COUNT(AUTO) 2.67 MIL/uL (4.2-6.2)
[2017-09-17] MEDS ORDERED: MECLIZINE HCL 25 MG TABLET (ANITVERT) PO ONE (10:45)
[2017-09-17] MEDS ORDERED: NACL 0.9% 1,000 ML IV ONE (11:45)
[2017-09-17] MEDS ORDERED: MORPHINE 2 MG/ML INJ. SYRINGE IVP ONE (12:15)
[2017-09-17 12:38] VITALS: BP_SYST 146
[2017-09-17 12:43] VITALS: BP_SYST 146
[2017-09-17 14:15] LABS: ATYPICAL LYMPHOCYTES % 0 % (0-0); BAND % (MANUAL) 6 % (0-6); BASOPHILS % (MANUAL) 0 % (0-2); EOSINOPHILS % (MANUAL) 2 % (0-7); LYMPHOCYTES % (MANUAL) 30 % (20-46); MONOCYTES % (MANUAL) 2 % (0-11)
[2017-09-17] MEDS ORDERED: ONDANSETRON HCL 4 MG/2 ML VIAL IVP PRN (14:15)
[2017-09-17] MEDS: MORPHINE 4 MG/ML INJ. SYRINGE IVP PRN (14:29)
[2017-09-17] MEDS ORDERED: CEPH250C PO (14:56)
[2017-09-17] MEDS ORDERED: HYDROcodone/ACETAMIN 10-325 MG TAB PO PRN (15:00)
[2017-09-17] MEDS ORDERED: BACLOFEN 10 MG TABLET PO ONE (16:00)
[2017-09-17] MEDS ORDERED: PREGABALIN 25 MG CAPSULE (LYRICA) PO ONE (16:00)
[2017-09-17 16:09] VITALS: BP_SYST 112
[2017-09-17] MEDS: INSULIN ASPART 100 UNITS/ML, 10 ML VIAL (NovoLOG) SUBCUT PRN ×2 (17:08→21:55)
[2017-09-17] MEDS: INSULIN NPH/REGULAR 70-30, 100 UNITS/ML, 10 ML VIAL SUBCUT SCH (17:10)
[2017-09-17 19:35] LABS: BASOPHILS % (AUTO) 0.6 % (0.0-2.0); EOSINOPHILS # (AUTO) 0.1 K/uL (0.0-0.4); EOSINOPHILS % (AUTO) 1.3 % (0.0-4.0); HEMATOCRIT 27.4 % (36-48); HEMOGLOBIN 9.4 g/dL (12.0-16.0); LYMPHOCYTES # (AUTO) 2.2 K/uL (1.0-5.5); LYMPHOCYTES % (AUTO) 31.2 % (20.5-51.5); MEAN CORPUSCULAR HEMOGLOBIN 32 pg (27-31); MEAN CORPUSCULAR HGB CONC 34 % (32-36); MEAN CORPUSCULAR VOLUME 92 fL (79.0-98.0); MONOCYTES # (AUTO) 0.7 K/uL (0.0-1.0); MONOCYTES % (AUTO) 10.2 % (1.7-9.3); NEUTROPHILS # (AUTO) 3.9 K/uL (1.8-7.7); NEUTROPHILS % (AUTO) 56.7 % (40.0-70.0); PLATELET COUNT (AUTO) 271 K/uL (130-430); RED BLOOD CELL COUNT(AUTO) 2.97 MIL/uL (4.2-6.2); WHITE BLOOD COUNT (AUTO) 6.9 K/uL (4.8-10.8)
[2017-09-17 21:16] LABS: ANION GAP 8 (5-15); CALCIUM 8.7 mg/dL (8.4-11.0); CHLORIDE 108 mmol/L (98-107); CREATININE 0.91 mg/dL (0.55-1.30); GLUCOSE 152 mg/dL (70-99); POTASSIUM 5.3 mmol/L (3.5-5.1); SODIUM SERUM 141 mmol/L (136-145); UREA NITROGEN, BLOOD 20 mg/dL (8-21)
[2017-09-17] MEDS: PREGABALIN 25 MG CAPSULE (LYRICA) PO SCH (21:50)
[2017-09-17] MEDS: DOCUSATE SODIUM 100 MG CAPSULE PO SCH (21:50)
[2017-09-17] MEDS: SPIRONOLACTONE 25 MG TABLET (ALDACTONE) PO SCH (21:50)
[2017-09-17] MEDS: BACLOFEN 10 MG TABLET PO SCH (21:51)
[2017-09-17] MEDS: roPINIRole HCL 0.25 MG ( REQUIP )TABLET PO SCH (21:51)
[2017-09-17] MEDS: METOPROLOL TARTRATE 25 MG TABLET PO SCH (21:52)
[2017-09-18 00:10] VITALS: BP_SYST 150
[2017-09-18] MEDS: LORazepam 1 MG TABLET PO PRN (01:02)
[2017-09-18 01:36] LABS: BILIRUBIN,URINE NEGATIVE (NEGATIVE); BLOOD, URINE NEGATIVE (NEGATIVE); CLARITY/URINE CLEAR (CLEAR); COLOR,URINE YELLOW (YELLOW); GLUCOSE,URINE NEGATIVE (NEGATIVE); KETONES,URINE NEGATIVE (NEGATIVE); LEUKOCYTE ESTERASE ,URINE NEGATIVE (NEGATIVE); NITRITE, URINE NEGATIVE (NEGATIVE); PH,URINE 6.5 (5.0-8.0); PROTEIN URINE NEGATIVE (NEGATIVE); UROBILINOGEN,URINE 0.2 (0.2-1.0)
[2017-09-18] MEDS: METOPROLOL TARTRATE 25 MG TABLET PO SCH ×3 (06:00→22:00)
[2017-09-18] MEDS: PANTOPRAZOLE SODIUM 40 MG TAB PO SCH (06:45)
[2017-09-18] MEDS: LEVOTHYROXINE SODIUM 0.05 MG TABLET PO SCH (06:45)
[2017-09-18 07:25] LABS: BASOPHILS # (AUTO) 0.1 K/uL (0.0-0.2); BASOPHILS % (AUTO) 0.6 % (0.0-2.0); EOSINOPHILS # (AUTO) 0.1 K/uL (0.0-0.4); EOSINOPHILS % (AUTO) 1.1 % (0.0-4.0); HEMATOCRIT 28.4 % (36-48); HEMOGLOBIN 9.5 g/dL (12.0-16.0); LYMPHOCYTES # (AUTO) 2.1 K/uL (1.0-5.5); LYMPHOCYTES % (AUTO) 25.5 % (20.5-51.5); MEAN CORPUSCULAR HEMOGLOBIN 31 pg (27-31); MEAN CORPUSCULAR HGB CONC 33 % (32-36); MEAN CORPUSCULAR VOLUME 92 fL (79.0-98.0); MONOCYTES # (AUTO) 0.7 K/uL (0.0-1.0); MONOCYTES % (AUTO) 8.7 % (1.7-9.3); NEUTROPHILS # (AUTO) 5.4 K/uL (1.8-7.7); NEUTROPHILS % (AUTO) 64.1 % (40.0-70.0); PLATELET COUNT (AUTO) 277 K/uL (130-430); RED CELL DISTRIBUTION WIDTH 17.2 % (9.0-15.0); WHITE BLOOD COUNT (AUTO) 8.4 K/uL (4.8-10.8)
[2017-09-18 07:53] LABS: ALANINE AMINOTRANSFERASE 20 U/L (12-78); ALBUMIN 2.8 g/dL (3.4-4.8); ANION GAP 8 (5-15); ASPARTATE AMINOTRANSFERASE 28 U/L (10-37); CHLORIDE 110 mmol/L (98-107); CREATININE 0.78 mg/dL (0.55-1.30); GLUCOSE 127 mg/dL (70-99); POTASSIUM 5.5 mmol/L (3.5-5.1); SODIUM SERUM 143 mmol/L (136-145); TOTAL BILIRUBIN 0.6 mg/dL (0.0-1.0); UREA NITROGEN, BLOOD 17 mg/dL (8-21)
[2017-09-18] MEDS: INSULIN NPH/REGULAR 70-30, 100 UNITS/ML, 10 ML VIAL SUBCUT SCH ×2 (07:59→17:07)
[2017-09-18 08:00] VITALS: BP_SYST 113
[2017-09-18] MEDS: FERROUS SULFATE 325 MG TABLET.DR PO SCH (08:43)
[2017-09-18] MEDS: DOCUSATE SODIUM 100 MG CAPSULE PO SCH ×2 (08:43→22:19)
[2017-09-18] MEDS: ONDANSETRON 4 MG ODT TAB PO SCH (08:44)
[2017-09-18] MEDS: ASPIRIN 81 MG TABLET(ECOTRIN) PO SCH (08:44)
[2017-09-18] MEDS: FENOFIBRATE NANOCRYSTALLIZED 48 MG TABLET (TRICOR) PO SCH (08:44)
[2017-09-18] MEDS: SPIRONOLACTONE 25 MG TABLET (ALDACTONE) PO SCH ×2 (08:45→22:19)
[2017-09-18] MEDS: PREGABALIN 25 MG CAPSULE (LYRICA) PO SCH (08:45)
[2017-09-18] MEDS: BACLOFEN 10 MG TABLET PO SCH ×2 (08:45→22:12)
[2017-09-18] MEDS: HYDROcodone/ACETAMIN 10-325 MG TAB PO PRN ×2 (13:13→22:11)
[2017-09-18 13:22] VITALS: BP_SYST 120
[2017-09-18] MEDS: MORPHINE 2 MG/ML INJ. SYRINGE IVP PRN (16:51)
[2017-09-18 16:57] VITALS: BP_SYST 117
[2017-09-18] MEDS: INSULIN ASPART 100 UNITS/ML, 10 ML VIAL (NovoLOG) SUBCUT PRN ×2 (17:09→22:39)
[2017-09-18 18:37] LABS: ANION GAP 8 (5-15); CALCIUM 9.2 mg/dL (8.4-11.0); CHLORIDE 103 mmol/L (98-107); CREATININE 1.02 mg/dL (0.55-1.30); GLUCOSE 250 mg/dL (70-99); POTASSIUM 5.4 mmol/L (3.5-5.1); SODIUM SERUM 137 mmol/L (136-145); UREA NITROGEN, BLOOD 17 mg/dL (8-21)
[2017-09-18] MEDS: MORPHINE 4 MG/ML INJ. SYRINGE IVP PRN ×2 (18:59→23:26)
[2017-09-18 19:00] VITALS: BP_SYST 117
[2017-09-18 20:00] VITALS: BP_SYST 117
[2017-09-18] MEDS: PREGABALIN 75 MG CAPSULE (LYRICA) PO SCH (22:13)
[2017-09-18] MEDS: roPINIRole HCL 0.25 MG ( REQUIP )TABLET PO SCH (22:19)
[2017-09-19] MEDS ORDERED: SODIUM POLYSTYRENE SULFONATE 15 GM/60 ML UDBTL PO ONE (00:15)
[2017-09-19 00:58] VITALS: BP_SYST 122
[2017-09-19] MEDS: MORPHINE 4 MG/ML INJ. SYRINGE IVP PRN ×4 (03:00→20:39)
[2017-09-19 06:30] VITALS: BP_SYST 120
[2017-09-19] MEDS: METOPROLOL TARTRATE 25 MG TABLET PO SCH ×3 (06:52→21:59)
[2017-09-19] MEDS: PANTOPRAZOLE SODIUM 40 MG TAB PO SCH (06:52)
[2017-09-19] MEDS: LEVOTHYROXINE SODIUM 0.05 MG TABLET PO SCH (06:53)
[2017-09-19] MEDS: INSULIN NPH/REGULAR 70-30, 100 UNITS/ML, 10 ML VIAL SUBCUT SCH ×2 (06:58→17:32)
[2017-09-19] MEDS: INSULIN ASPART 100 UNITS/ML, 10 ML VIAL (NovoLOG) SUBCUT PRN ×4 (06:59→21:50)
[2017-09-19] MEDS: HYDROcodone/ACETAMIN 10-325 MG TAB PO PRN ×2 (07:01→23:35)
[2017-09-19 07:10] LABS: ANION GAP 6 (5-15); CALCIUM 9.1 mg/dL (8.4-11.0); CHLORIDE 102 mmol/L (98-107); CREATININE 1.02 mg/dL (0.55-1.30); GLUCOSE 206 mg/dL (70-99); POTASSIUM 4.4 mmol/L (3.5-5.1); SODIUM SERUM 137 mmol/L (136-145); UREA NITROGEN, BLOOD 19 mg/dL (8-21)
[2017-09-19 08:00] VITALS: BP_SYST 122
[2017-09-19] MEDS: BACLOFEN 10 MG TABLET PO SCH ×3 (09:56→21:42)
[2017-09-19] MEDS: ASPIRIN 81 MG TABLET(ECOTRIN) PO SCH (09:56)
[2017-09-19] MEDS: DOCUSATE SODIUM 100 MG CAPSULE PO SCH ×2 (09:58→21:42)
[2017-09-19] MEDS: PREGABALIN 25 MG CAPSULE (LYRICA) PO SCH ×2 (09:58→16:03)
[2017-09-19] MEDS: SPIRONOLACTONE 25 MG TABLET (ALDACTONE) PO SCH (09:59)
[2017-09-19] MEDS: ONDANSETRON 4 MG ODT TAB PO SCH (09:59)
[2017-09-19] MEDS: FERROUS SULFATE 325 MG TABLET.DR PO SCH (09:59)
[2017-09-19] MEDS: FENOFIBRATE NANOCRYSTALLIZED 48 MG TABLET (TRICOR) PO SCH (10:09)
[2017-09-19 12:20] VITALS: BP_SYST 114
[2017-09-19 16:15] VITALS: BP_SYST 111
[2017-09-19] MEDS ORDERED: NA PHOS,M-B/NA PHOS,DI-BA 118 ML (FLEET ENEMA) RC PRN (17:15)
[2017-09-19] MEDS ORDERED: BISACODYL 5 MG TABLET.DR (DULCOLAX) PO PRN (17:15)
[2017-09-19] MEDS ORDERED: BISACODYL 5 MG TABLET.DR (DULCOLAX) PO ONE (18:00)
[2017-09-19] MEDS: LORazepam 1 MG TABLET PO PRN (18:57)
[2017-09-19 20:00] VITALS: BP_SYST 125
[2017-09-19] MEDS: PREGABALIN 75 MG CAPSULE (LYRICA) PO SCH (21:42)
[2017-09-19] MEDS: roPINIRole HCL 0.25 MG ( REQUIP )TABLET PO SCH (21:47)
[2017-09-20 00:03] VITALS: BP_SYST 118
[2017-09-20] MEDS: MORPHINE 2 MG/ML INJ. SYRINGE IVP PRN (02:29)
[2017-09-20] MEDS: METOPROLOL TARTRATE 25 MG TABLET PO SCH ×2 (06:00→14:43)
[2017-09-20] MEDS: LEVOTHYROXINE SODIUM 0.05 MG TABLET PO SCH (06:52)
[2017-09-20] MEDS: PANTOPRAZOLE SODIUM 40 MG TAB PO SCH (06:53)
[2017-09-20] MEDS: INSULIN NPH/REGULAR 70-30, 100 UNITS/ML, 10 ML VIAL SUBCUT SCH (06:55)
[2017-09-20 07:04] LABS: BASOPHILS % (AUTO) 0.5 % (0.0-2.0); EOSINOPHILS # (AUTO) 0.2 K/uL (0.0-0.4); EOSINOPHILS % (AUTO) 2.7 % (0.0-4.0); HEMATOCRIT 28.1 % (36-48); HEMOGLOBIN 9.5 g/dL (12.0-16.0); LYMPHOCYTES # (AUTO) 2.2 K/uL (1.0-5.5); LYMPHOCYTES % (AUTO) 28.1 % (20.5-51.5); MEAN CORPUSCULAR HEMOGLOBIN 31 pg (27-31); MEAN CORPUSCULAR HGB CONC 34 % (32-36); MEAN CORPUSCULAR VOLUME 93 fL (79.0-98.0); MONOCYTES # (AUTO) 0.8 K/uL (0.0-1.0); MONOCYTES % (AUTO) 10.7 % (1.7-9.3); NEUTROPHILS # (AUTO) 4.5 K/uL (1.8-7.7); PLATELET COUNT (AUTO) 244 K/uL (130-430); RED BLOOD CELL COUNT(AUTO) 3.04 MIL/uL (4.2-6.2); RED CELL DISTRIBUTION WIDTH 17.7 % (9.0-15.0); WHITE BLOOD COUNT (AUTO) 7.7 K/uL (4.8-10.8)
[2017-09-20 07:15] LABS: ANION GAP 6 (5-15); CALCIUM 8.5 mg/dL (8.4-11.0); CHLORIDE 106 mmol/L (98-107); CREATININE 0.86 mg/dL (0.55-1.30); GLUCOSE 172 mg/dL (70-99); POTASSIUM 4.5 mmol/L (3.5-5.1); SODIUM SERUM 140 mmol/L (136-145); UREA NITROGEN, BLOOD 19 mg/dL (8-21)
[2017-09-20 08:02] VITALS: BP_SYST 126
[2017-09-20] MEDS: ONDANSETRON 4 MG ODT TAB PO SCH (08:13)
[2017-09-20] MEDS: DOCUSATE SODIUM 100 MG CAPSULE PO SCH (08:14)
[2017-09-20] MEDS: BACLOFEN 10 MG TABLET PO SCH ×2 (08:14→14:37)
[2017-09-20] MEDS: FERROUS SULFATE 325 MG TABLET.DR PO SCH (08:14)
[2017-09-20] MEDS: ASPIRIN 81 MG TABLET(ECOTRIN) PO SCH (08:14)
[2017-09-20] MEDS: HYDROcodone/ACETAMIN 10-325 MG TAB PO PRN ×2 (08:14→16:28)
[2017-09-20] MEDS: PREGABALIN 25 MG CAPSULE (LYRICA) PO SCH ×2 (08:15→14:37)
[2017-09-20] MEDS: FENOFIBRATE NANOCRYSTALLIZED 48 MG TABLET (TRICOR) PO SCH (08:17)
[2017-09-20] MEDS: INSULIN ASPART 100 UNITS/ML, 10 ML VIAL (NovoLOG) SUBCUT PRN ×2 (11:30→17:42)
[2017-09-20 12:00] VITALS: BP_SYST 107
[2017-09-20] MEDS: MORPHINE 4 MG/ML INJ. SYRINGE IVP PRN ×2 (13:08→17:41)
[2017-09-20] MEDS ORDERED: CLOTRIMAZOLE/BETAMETHASONE 45 GM TOPICAL CREAM TP SCH (15:15)
[2017-09-20 16:31] VITALS: BP_SYST 116
[2017-09-20] MEDS ORDERED: INSULIN NPH/REGULAR 70-30, 100 UNITS/ML, 10 ML VIAL SUBCUT SCH (17:00)
[2017-09-20 18:34] VITALS: BP_SYST 116
[2017-09-21] MEDS ORDERED: INSULIN NPH/REGULAR 70-30, 100 UNITS/ML, 10 ML VIAL SUBCUT SCH (07:00)
== END 2017-09-20 19:35 | DRG 69 ==
LOC: SED 08:45 → SMU 11:43
PROVIDERS: ADMIT Internal Medicine; ATTEND Internal Medicine
PROC: 30233N1 Transfusion of Nonautologous Red Blood Cells into Peripheral Vein, Percutaneous Approach (ICD-10-PCS; principal; 2017-09-17)
DX: G45.9 Transient cerebral ischemic attack, unspecified (principal); N39.0 Urinary tract infection, site not specified; R33.9 Retention of urine, unspecified; K57.90 Diverticulosis of intestine, part unspecified, without perforation or abscess without bleeding; E03.9 Hypothyroidism, unspecified; E78.5 Hyperlipidemia, unspecified; D46.9 Myelodysplastic syndrome, unspecified; D63.8 Anemia in other chronic diseases classified elsewhere; G89.4 Chronic pain syndrome; I11.0 Hypertensive heart disease with heart failure; I50.9 Heart failure, unspecified; J44.9 Chronic obstructive pulmonary disease, unspecified; E11.42 Type 2 diabetes mellitus with diabetic polyneuropathy; M47.896 Other spondylosis, lumbar region; I48.2 Chronic atrial fibrillation; J45.909 Unspecified asthma, uncomplicated; E66.9 Obesity, unspecified; G25.81 Restless legs syndrome; K59.00 Constipation, unspecified; Z79.4 Long term (current) use of insulin; Z79.890 Hormone replacement therapy; Z79.899 Other long term (current) drug therapy; Z68.31 Body mass index [BMI] 31.0-31.9, adult
CPT/HCPCS: 36415; 70450-TC; 80048; 80053; 81003; 82962; 85007; 85025; 85027; 86886; 86900; 86901; 86920; 87081; 87086; 93005; 96372; 96374; 97116-GP; 97530-GP; 99285; J1815; J2270; J7030; J7040; J8597; P9021; Q0162

== ENCOUNTER 2017-10-15 00:13 | Inpatient (IN) | payer OTHER, MEDICAID ==
[2017-10-15] VITALS (8 sets, daily range): BP systolic 109–145
[~2017-10-15] VITALS: Ht 157.5 cm; Wt 88.9 kg
[~2017-10-15 00:13] MED LIST changes: +CEPH250C PO; +GLIP10TA3 PO; -GLIP10TA74 PO; -METF-305 PO; +METF10004 PO; -SPIR25TA4 PO; +SPIR25TA6 PO
--- NOTE | 2017-10-15 00:13 | NUR ---
Patient to ER bed 1 to gown for evaluation. Side rails up. Report given to JOHNNY YUNG.
--- NOTE | 2017-10-15 00:15 | NUR ---
Patient arrived private auto with family. Patient is unable to respond to verbal stimuli. Patient assisted to wheelchair from vehicle. Daughter reports that patient was discharged from [facility] this morning with diagnosis of Diverticulitis and discharged with levaquin PO. Daughter reports that patient has been running low grade fevers and blood sugar has been in the 70s. Patient arrives diaphoretic and pale. Denies any pain at this time. Patient also arrives with elena catheter and leg bag in place. Family states that it was changed on Saturday. Abdomen is round and distended with purple discoloration on abdomen. Bilateral lower extremity edema noted. No other complaints per patient or family or as noted. Will continue to monitor.
--- NOTE | 2017-10-15 00:30 | NUR ---
# 20 gauge angiocath placed to RAC and #18 guage angiocath placed in LAC. Use of asceptic technique. Opsite placed over site. Blood return noted. Blood for lab drawn from site. Flushed with 10 cc of normal saline. No evidence of infiltration noted. Patient tolerated well.
--- NOTE | 2017-10-15 00:32 | NUR ---
Blood cultures drawn, prior to administration of antibiotic.
--- NOTE | 2017-10-15 00:40 | NUR ---
ER Dr. Joyce at bedside examining patient.
[2017-10-15] MEDS ORDERED: ACETAMINOPHEN 500 MG TABLET PO ONE (00:45)
[2017-10-15] MEDS ORDERED: PIPERACILLIN/TAZO 3.375 GM in NS 50 ML IV ONE (00:45)
[2017-10-15] MEDS ORDERED: NACL 0.9% 2,400 ML IV ONE (00:45)
[2017-10-15] MEDS ORDERED: PIPERACILLIN/TAZOBACTAM 3.375 GM/VIAL (ZOSYN) IV ONE (00:50)
[2017-10-15 00:56] LABS: WHITE BLOOD COUNT (AUTO) 7.7 K/uL (4.8-10.8)
--- NOTE | 2017-10-15 01:00 | NUR ---
Medicated per MD orders. IVF infusing with no s/s of infiltration at this time. Will cont to monitor
[2017-10-15 01:04] LABS: HEMATOCRIT 34.5 % (36-48); HEMOGLOBIN 11.8 g/dL (12.0-16.0); MEAN CORPUSCULAR HEMOGLOBIN 31 pg (27-31); MEAN CORPUSCULAR HGB CONC 34 % (32-36); MEAN CORPUSCULAR VOLUME 90 fL (79.0-98.0); RED BLOOD CELL COUNT(AUTO) 3.85 MIL/uL (4.2-6.2); RED CELL DISTRIBUTION WIDTH 17.6 % (9.0-15.0)
[2017-10-15 01:27] LABS: ANION GAP 10 (5-15); CALCIUM 8.5 mg/dL (8.4-11.0); CHLORIDE 107 mmol/L (98-107); CREATININE 0.81 mg/dL (0.55-1.30); GLUCOSE 83 mg/dL (70-99); POTASSIUM 4.9 mmol/L (3.5-5.1); SODIUM SERUM 138 mmol/L (136-145); UREA NITROGEN, BLOOD 12 mg/dL (8-21)
[2017-10-15 01:33] LABS: ALANINE AMINOTRANSFERASE 16 U/L (12-78); ALBUMIN 2.3 g/dL (3.4-4.8); ASPARTATE AMINOTRANSFERASE 57 U/L (10-37); TOTAL BILIRUBIN 2.9 mg/dL (0.0-1.0)
[2017-10-15 01:34] LABS: PLATELET COUNT (AUTO) 76 K/uL (130-430)
[2017-10-15 01:42] LABS: INR 1.2 (0.8-1.2); PROTHROMBIN TIME 12.1 SECS (9.5-12.5)
[2017-10-15 02:03] LABS: ATYPICAL LYMPHOCYTES % 0 % (0-0); BAND % (MANUAL) 7 % (0-6); LYMPHOCYTES % (MANUAL) 10 % (20-46)
[2017-10-15 02:04] LABS: BASOPHILS % (MANUAL) 0 % (0-2); EOSINOPHILS % (MANUAL) 0 % (0-7); MONOCYTES % (MANUAL) 4 % (0-11)
--- NOTE | 2017-10-15 02:11 | NUR ---
# 16 FR Elena catheter with use of sterile technique. Immediate return of 30 cc clear yellow urine noted. Bedside drainage bag placed below level of bladder. Urine sample collected and sent to lab. Pt tolerated procedure well. Patient arrived with elena in place, changed due to standard of practice prior to admission. Patient unable to toilet self.
--- NOTE | 2017-10-15 02:29 | NUR ---
Patient's code status is Full code paperwork completed and placed in chart.
[2017-10-15 02:45] LABS: BILIRUBIN,URINE NEGATIVE (NEGATIVE); BLOOD, URINE 2+ (NEGATIVE); CLARITY/URINE CLEAR (CLEAR); COLOR,URINE YELLOW (YELLOW); GLUCOSE,URINE NEGATIVE (NEGATIVE); KETONES,URINE NEGATIVE (NEGATIVE); LEUKOCYTE ESTERASE ,URINE TRACE (NEGATIVE); NITRITE, URINE NEGATIVE (NEGATIVE); PH,URINE 5.5 (5.0-8.0); PROTEIN URINE TRACE (NEGATIVE); UROBILINOGEN,URINE 0.2 (0.2-1.0)
[2017-10-15 02:54] LABS: AMYLASE 23 U/L (0-100); LIPASE 113 U/L (73-393)
[2017-10-15] MEDS ORDERED: BACL10TA PO (03:02)
--- NOTE | 2017-10-15 03:03 | NUR ---
Medication reconciliation completed with information provided by Patient. Any prior medication reconciliation on file was reviewed and corrected.
--- NOTE | 2017-10-15 03:04 | NUR ---
Patient will be admitted to care of Dr. Stephens. Admitted to Telemetry unit. Will go to room 121 A. Belongings list completed. Summary report printed. Report will be given at bedside.
[2017-10-15 03:09] LABS: BACTERIA,URINE FEW /HPF (None Seen); MUCUS,URINE 1+ /LPF (None Seen); RBC,URINE 20-50 /HPF (0-3)
[2017-10-15] MEDS ORDERED: MAGNESIUM CITRATE 300 ML ORAL SOLUTION PO ONE (03:15)
--- NOTE | 2017-10-15 03:21 | NUR ---
ADMISSION NOTE Received patient from ER via gurney. Patient admitted with diagnosis ALOC. Patient oriented to hospital room, call light, toileting, pain management and safety-teach back done. Patient informed that Liliana will be her nurse and that their room number is 121A. Personal belongings checked and Belongings List documented. Call light within reach. Bed alarm on. Bed is locked and at lowest position.
[2017-10-15 03:56] LABS: BILIRUBIN,URINE NEGATIVE (NEGATIVE); BLOOD, URINE 3+ (NEGATIVE); CLARITY/URINE CLEAR (CLEAR); COLOR,URINE YELLOW (YELLOW); GLUCOSE,URINE NEGATIVE (NEGATIVE); KETONES,URINE NEGATIVE (NEGATIVE); LEUKOCYTE ESTERASE ,URINE NEGATIVE (NEGATIVE); NITRITE, URINE NEGATIVE (NEGATIVE); PH,URINE 5.5 (5.0-8.0); PROTEIN URINE NEGATIVE (NEGATIVE); UROBILINOGEN,URINE 0.2 (0.2-1.0)
[2017-10-15 04:14] LABS: BACTERIA,URINE RARE /HPF (None Seen); RBC,URINE 20-50 /HPF (0-3); WBC,URINE 0-3 /HPF (0-3)
[2017-10-15 04:15] LABS: MUCUS,URINE 1+ /LPF (None Seen)
--- NOTE | 2017-10-15 04:21 | NUR ---
Patient is sleeping, resting comfortably in bed. No SOB, no acute distress, no complaints of pain at this time. Call light is within reach. Daughter is at the bedside. Bed is locked, in the lowest position, 2x side rails up, bed alarm is on.
[2017-10-15] MEDS ORDERED: PIPERACILLIN/TAZOBACTAM 2.25 GM in NS 50 ML IV SCH (06:00)
[2017-10-15] MEDS ORDERED: PIPERACILLIN/TAZOBACTAM 2.25 GM VIAL IV ONE (06:19)
--- NOTE | 2017-10-15 07:40 | NUR ---
AM ROUNDS: PATIENT ON THE BED,STEAM TUNNEL FEEDER CLEANING ,WITH DAUGHTER AT THE BEDSIDE. REPORT GIVEN BY NIGHT NURSE MICHELINE.IV SALINE LOCK AT LEFT ARM,CLEAN AND DRY.NO DISTRESS. CONTINUE TO MONITOR. BED LOCKED AT LOWEST POSITION. BED ALARM ON. Addendum: 10/15/17 at 1500 by Azucena Steward RN DOUBLE CHARTING: DISREGARD ABOVE NOTES.
--- NOTE | 2017-10-15 07:45 | NUR ---
AM ROUNDS; PATIENT AWAKE AND DAUGHTER AT THE BEDSIDE. BEDSIDE REPORT GIVEN BY NIGHT NURSE MICHELINE.CALL LIGHT WITH IN REACH. BED LOCKED AT LOWEST POSITION. BED ALARM ON. COMMISSIONED DEFENCE FORCE OFFICER CLEANING THE PATIENT. Addendum: 10/15/17 at 1501 by Azucnea Steward RN CORRECTED ABOVE NOTES: DISREGARD ABOVE NOTES.
--- NOTE | 2017-10-15 08:00 | NUR ---
Paged Dr Stephens for orders. Spoke to exchange. Awaiting call back. Patients latest blood glucose level is 62 after providing orange juice. Patient does not have any sliding scale orders. Also, family is requesting for a breathing treatment.
--- NOTE | 2017-10-15 08:06 | NUR ---
Closing Notes Handoff report given to Lilo-RN at the bedside. Patient is awake and alert, resting comfortably in bed eating breakfast. Daughter at the bedside to assist in feeding the patient. No SOB, no acute distress. Bed is locked, in the lowest position, 2x side rails up, bed alarm is on. Call light is within reach. Fall and safety precautions maintained. All needs have been met during this shift.
--- NOTE | 2017-10-15 08:06 | NUR ---
Nutrition Update David Scale 17 noted. Pt admitted for Sepsis Diet: clear liquid diet BMI: 35.9 kg/m2 RD to follow per nutrition care standards.
[2017-10-15] MEDS: ACETAMINOPHEN 325 MG TABLET PO PRN ×3 (08:26→20:16)
--- NOTE | 2017-10-15 08:44 | NUR ---
BLOOD SUGAR: BLOOD SUGAR RECHECKED 91MG/DL AFTER BREAKFAST,VERY SLEEPY BUT AROUSED,DAUGHTER AT THE BEDSIDE.
[2017-10-15] MEDS ORDERED: PREGABALIN 25 MG CAPSULE (LYRICA) PO ONE (11:45)
[2017-10-15] MEDS ORDERED: PANTOPRAZOLE SODIUM 40 MG TAB PO ONE (11:45)
--- NOTE | 2017-10-15 11:45 | NUR ---
PAGED: SPOKE WITH DR WELLS AND MEDS RECONCILED EXCEPT FOR GLIPIZIDE AND AWARE BLOOD SUGAR WAS 69MG/DL THEN 75MG/DL TODAY.
[2017-10-15] MEDS ORDERED: FUROSEMIDE 40 MG/4 ML VIAL IVP ONE (12:15)
--- NOTE | 2017-10-15 12:27 | NUR ---
Discharge Planning Discharge Plan Assessment completed. CLINICAL TRIAL HEAD met with patient's daughter, Shanna, at bedside. Other family members were present. Patient was coughing frequently. Patient had just been discharged from [facility] unit yesterday, 10/14/17. Patient was ALOC and brought to [facility] ED. Bertha stated they want to bring patient back home upon dc where she lives with her daughters and has a lot of family support. She does not want to continue home health services with [facility] as it seems not much is done, but they will accept if Dr Stephens orders it. Shanna stated they have all needed DME. CLINICAL TRIAL HEAD has discussed [facility] in the past with the family. They have not signed up yet. CLINICAL TRIAL HEAD provided paper with [facility] details and contact information. Patient attended the previously scheduled appointment with a neurologist at [facility] on 09/23/17; surgery and intervention was not recommended as per Shanna. Seismometer Operator/Case Management will remain available.
[2017-10-15] MEDS ORDERED: cefTRIAXone 1 GM in D5W 50 ML IV ONE (12:30)
--- NOTE | 2017-10-15 13:06 | NUR ---
RECHECKED BLOOD SUGAR: AFTER TAKING 1 CUP OF ORANGE JUICE BLOOD SUGAR TO 75MG//DL.DAUGHTER GAVE JELLO FOR ADDITIONAL SUGAR AND ORANGE JUICE WELL.
[2017-10-15] MEDS ORDERED: metroNIDAZOLE 250 mg/NS 50 ML IV SCH (14:00)
--- NOTE | 2017-10-15 14:25 | NUR ---
RN ROUNDS: PO MEDS GIVEN FOR TEMP 100.5 FAHRENHEIT,COOLING MEASURES RENDERED BY REAL TIME TRADER.DUE IV ANTIBIOTICS GIVEN BY DEJA AN.NO COMPLICATIONS NOTED.
[2017-10-15] MEDS ORDERED: BACLOFEN 10 MG TABLET PO ONE (14:30)
[2017-10-15] MEDS: METOPROLOL TARTRATE 25 MG TABLET PO SCH ×2 (14:30→21:40)
--- NOTE | 2017-10-15 15:12 | NUR ---
DC Planing: Refer to EMISSIONS REPAIR TECHNICIAN note by Kirti: SERVANDO met with pt's dtr/Bertha regarding dc plan. Bertha requested out patient PT for more aggressive therapy rather than home PT. She will requested the service from dr. Stephens's office. Bertha agreed with snf transfer as needed and will let me know about the snf of choice tomorrow.
[2017-10-15] MEDS ORDERED: IPRATROPIUM/ALBUTEROL SULFATE 3 ML AMPUL.NEB INH PRN (16:45)
--- NOTE | 2017-10-15 16:55 | NUR ---
Hematology consult: for Dr. Anaya, regarding thrombocytopenia, ordered by Dr. Stephens, spoke with Kenya.
--- NOTE | 2017-10-15 16:56 | NUR ---
GI consult called: for Dr. Rodríguez (Dr. Culp ammunition assembly laborer), regarding abnormal LFT, ordered by Dr. Stephens, spoke with Ellie.
--- NOTE | 2017-10-15 17:00 | NUR ---
SCD'S: PATIENT'S FAMILY REFUSED SCD'S ON LE AND DR WELLS AWARE.
--- NOTE | 2017-10-15 17:02 | NUR ---
Pain consult called: for Dr. Dooley, regarding pain, ordered by Dr. Stephens, spoke Faby.
--- NOTE | 2017-10-15 17:04 | NUR ---
Pulmo consult called: for Dr. Sr (Dr. Black oracle ascp consultant), regarding SOB, ordered by Dr. Stephens, spoke with Richelle.
--- NOTE | 2017-10-15 17:15 | NUR ---
Endocrine consult called: for Dr. No, regarding DM, ordered by Dr. Stephens, spoke with Yenny.
[2017-10-15 17:18] LABS: LYMPHOCYTES # (AUTO) 1.7 K/uL (1.0-5.5); MEAN CORPUSCULAR VOLUME 89 fL (79.0-98.0); MONOCYTES # (AUTO) 0.6 K/uL (0.0-1.0); WHITE BLOOD COUNT (AUTO) 6.2 K/uL (4.8-10.8)
--- NOTE | 2017-10-15 17:20 | NUR ---
Cardiac consult called: for Dr. Matthews (Dr. Stokes subcontracts manager), regarding tachycardia, ordered by Dr. Stephens, spoke with Richelle.
[2017-10-15 17:22] LABS: BASOPHILS % (AUTO) 0.3 % (0.0-2.0); EOSINOPHILS # (AUTO) 0.1 K/uL (0.0-0.4); EOSINOPHILS % (AUTO) 0.9 % (0.0-4.0); HEMATOCRIT 30.3 % (36-48); HEMOGLOBIN 10.2 g/dL (12.0-16.0); LYMPHOCYTES % (AUTO) 27.5 % (20.5-51.5); MEAN CORPUSCULAR HEMOGLOBIN 30 pg (27-31); MEAN CORPUSCULAR HGB CONC 34 % (32-36); MONOCYTES % (AUTO) 9.5 % (1.7-9.3); NEUTROPHILS # (AUTO) 3.8 K/uL (1.8-7.7); NEUTROPHILS % (AUTO) 61.8 % (40.0-70.0); RED BLOOD CELL COUNT(AUTO) 3.42 MIL/uL (4.2-6.2); RED CELL DISTRIBUTION WIDTH 18.3 % (9.0-15.0)
--- NOTE | 2017-10-15 17:22 | NUR ---
BLOOD SUGAR: BLOOD SUGAR TAKEN,NO INSULIN COVERAGE GIVEN PER SLIDING SCALE.
[2017-10-15 17:29] LABS: ANION GAP 9 (5-15); CALCIUM 8.1 mg/dL (8.4-11.0); CHLORIDE 105 mmol/L (98-107); CREATININE 0.71 mg/dL (0.55-1.30); GLUCOSE 112 mg/dL (70-99); POTASSIUM 4.3 mmol/L (3.5-5.1); SODIUM SERUM 134 mmol/L (136-145); UREA NITROGEN, BLOOD 11 mg/dL (8-21)
--- NOTE | 2017-10-15 17:30 | NUR ---
GI: SPOKE WITH DR TEAGUE AND AWARE OF THE CONSULTS,ORDERED LFT'S IN AM.
[2017-10-15 17:33] LABS: ALANINE AMINOTRANSFERASE 12 U/L (12-78); ALBUMIN 1.9 g/dL (3.4-4.8); ASPARTATE AMINOTRANSFERASE 42 U/L (10-37); PHOSPHORUS 3.2 mg/dL (2.7-4.5); TOTAL BILIRUBIN 0.5 mg/dL (0.0-1.0); URIC ACID 3.7 mg/dL (2.4-7.0)
[2017-10-15 17:35] LABS: PLATELET COUNT (AUTO) 82 K/uL (130-430)
--- NOTE | 2017-10-15 17:55 | NUR ---
PULMO ROUNDS: DR DOWNEY SEEN PATIENT AND SAW ABG RESULTS.
[2017-10-15] MEDS: metroNIDAZOLE 250 MG TABLET PO SCH ×2 (18:28→23:42)
--- NOTE | 2017-10-15 18:37 | NUR ---
END OF SHIFT: PATIENT MORE AWAKE,FAMILY AT THE BEDSIDE. NEEDS ATTENDED BY THERAPIST RESPIRATORY. CALL LIGHT WITH IN REACH. BED LOCKED AT LOWEST POSITION.BED ALARM ON.
--- NOTE | 2017-10-15 19:54 | NUR ---
INITIAL NOTES RECEIVED HANDOFF REPORT FROM OFFGOING NURSE AT THE BEDSIDE. PATIENT IS AWAKE AND ALERT, RESTING COMFORTABLY IN BED. NO SOB, NO ACUTE DISTRESS. CALL LIGHT IS WITHIN REACH. FAMILY IS AT THE BEDSIDE. BED IS LOCKED, IN THE LOWEST POSITION, 2X SIDE RAILS UP, BED ALARM IS ON. ENCOURAGED PATIENT AND FAMILY TO CALL FOR ASSISTANCE. WILL CONTINUE WITH PLAN OF CARE.
--- NOTE | 2017-10-15 20:04 | NUR ---
FAMILY AND PATIENT REFUSES TO APPLY SCDS ON BILATERAL LOWER EXTREMITIES. EXPLAINED RISKS AND BENEFITS. PATIENT STILL REFUSES.
[2017-10-15] MEDS: IPRATROPIUM/ALBUTEROL SULFATE 3 ML AMPUL.NEB INH SCH ×2 (20:08→23:46)
[2017-10-15] MEDS: PREGABALIN 25 MG CAPSULE (LYRICA) PO SCH (20:14)
[2017-10-15] MEDS: DOCUSATE SODIUM 100 MG CAPSULE PO SCH (20:15)
[2017-10-15] MEDS: roPINIRole HCL 0.25 MG ( REQUIP )TABLET PO SCH (20:15)
[2017-10-15] MEDS: BACLOFEN 10 MG TABLET PO SCH (20:16)
[2017-10-15] MEDS: SPIRONOLACTONE 25 MG TABLET (ALDACTONE) PO SCH (20:16)
[2017-10-15] MEDS: DULoxetine HCL 30 MG CAPSULE.DR (CYMBALTA) PO SCH (20:17)
--- NOTE | 2017-10-15 21:17 | NUR ---
FAMILY IS COMPLAINING THAT THE PATIENT HAS A FEVER. PREVIOUS TEMPERATURE TAKEN AT 1999 WAS 99.1F, SEE SPREADSHEETS. CURRENTLY, THE TEMPERATURE IS STILL 99.1. TYLENOL HAS ALREADY BEEN GIVEN PREVIOUSLY, SEE EMAR. PROVIDED COOLING MEASURES, ICE PACKS, WET CLOTHS FOR THE PATIENT. WILL REEVALUATE TEMPERATURE.
[2017-10-15] MEDS: PROMETHAZINE 6.25 MG/ CODEINE 10 MG/ 5 ML PO PRN (21:40)
--- NOTE | 2017-10-15 21:40 | NUR ---
Patient is complaining of a dry cough. Provided phenergan PRN per MD order, see eMAR for details.
--- NOTE | 2017-10-15 22:26 | NUR ---
Patient had BM. SKEIN WINDING OPERATOR at the bedside to assist patient with incontinence care. Stool sample collected for occult blood testing.
--- NOTE | 2017-10-16 00:09 | NUR ---
Patient is awake and alert, resting comfortably in bed. No SOB, no acute distress, no complaints of pain at this time. Daughter is at the bedside sleeping. Call light is within reach. Encouraged patient to call for assistance.
[2017-10-16 01:13] VITALS: BP_SYST 116
--- NOTE | 2017-10-16 02:58 | NUR ---
Patient is resting comfortably in bed with eyes closed. Daughter is at the bedside sleeping. No SOB, no acute distress, no signs of pain. call light is within reach. encouraged patient to call for assistance.
[2017-10-16] MEDS: IPRATROPIUM/ALBUTEROL SULFATE 3 ML AMPUL.NEB INH SCH ×5 (03:00→21:22)
--- NOTE | 2017-10-16 04:27 | NUR ---
Patient is resting comfortably in bed with eyes closed. No sob, no acute distress, no signs of pain or facial grimacing. Breathing even and unlabored with visible chest rise and fall noted. Call light is within reach. Bed is locked, in the lowest position, 3x side rails are up, bed alarm is on. Call light is within reach. Daughter is at the bedside sleeping.
--- NOTE | 2017-10-16 05:03 | NUR ---
Patient stated that she doesnt feel comfortably, assisted patient to reposition. Patient also stated that she is thirsty, provided orange juice.
--- NOTE | 2017-10-16 06:00 | NUR ---
Patient is complaining of nausea. Dr Stephens called and notified. Dr Stephens ordered Zofran 4mg IVP Q4h PRN for N/V. Also notified Dr Stephens that the patient has had a bowel movement today, since he asked.
[2017-10-16] MEDS: PANTOPRAZOLE SODIUM 40 MG TAB PO SCH (06:11)
[2017-10-16] MEDS: ONDANSETRON HCL 4 MG/2 ML VIAL IVP PRN (06:11)
[2017-10-16] MEDS: metroNIDAZOLE 250 MG TABLET PO SCH ×3 (06:11→17:38)
[2017-10-16] MEDS: METOPROLOL TARTRATE 25 MG TABLET PO SCH (06:12)
[2017-10-16] MEDS: INSULIN REGULAR, HUMAN 100 UNITS/ML, 10 ML VIAL (novoLIN R) SUBCUT PRN ×2 (06:18→12:05)
[2017-10-16 06:36] LABS: ANION GAP 9 (5-15); CHLORIDE 107 mmol/L (98-107); CREATININE 0.74 mg/dL (0.55-1.30); GLUCOSE 207 mg/dL (70-99); POTASSIUM 4.5 mmol/L (3.5-5.1); SODIUM SERUM 137 mmol/L (136-145); UREA NITROGEN, BLOOD 14 mg/dL (8-21)
[2017-10-16 06:43] LABS: EOSINOPHILS % (AUTO) 0.5 % (0.0-4.0); LYMPHOCYTES # (AUTO) 1.4 K/uL (1.0-5.5); MONOCYTES # (AUTO) 0.7 K/uL (0.0-1.0)
[2017-10-16 06:47] LABS: ALANINE AMINOTRANSFERASE 12 U/L (12-78); ASPARTATE AMINOTRANSFERASE 39 U/L (10-37); LIPASE 92 U/L (73-393); TOTAL BILIRUBIN 0.6 mg/dL (0.0-1.0)
[2017-10-16 06:54] LABS: BASOPHILS % (AUTO) 0.3 % (0.0-2.0); HEMATOCRIT 30.9 % (36-48); HEMOGLOBIN 10.5 g/dL (12.0-16.0); INR 1.2 (0.8-1.2); LYMPHOCYTES % (AUTO) 23.7 % (20.5-51.5); MEAN CORPUSCULAR HEMOGLOBIN 30 pg (27-31); MEAN CORPUSCULAR HGB CONC 34 % (32-36); MEAN CORPUSCULAR VOLUME 89 fL (79.0-98.0); MONOCYTES % (AUTO) 11.3 % (1.7-9.3); NEUTROPHILS # (AUTO) 3.7 K/uL (1.8-7.7); NEUTROPHILS % (AUTO) 64.2 % (40.0-70.0); PLATELET COUNT (AUTO) 97 K/uL (130-430); PROTHROMBIN TIME 12.1 SECS (9.5-12.5); RED BLOOD CELL COUNT(AUTO) 3.47 MIL/uL (4.2-6.2); RED CELL DISTRIBUTION WIDTH 18.4 % (9.0-15.0); WHITE BLOOD COUNT (AUTO) 5.8 K/uL (4.8-10.8)
[2017-10-16 07:24] LABS: TOTAL IRON BIND. CAPACITY 175 ug/dL (250-450)
--- NOTE | 2017-10-16 07:37 | NUR ---
Closing Notes Handoff report given to Carrie at the bedside. Patient is awake and alert, resting comfortably in bed. No SOB, no acute distress, no complaints of pain. Bed is locked, in the lowest position, 2x side rails up, bed alarm is on. Call light is within reach. Fall and safety precautions maintained. All needs have been met during this shift. Assisted patient to turn and reposition for comfort.
[2017-10-16 08:00] VITALS: BP_SYST 121
--- NOTE | 2017-10-16 08:00 | NUR ---
AM NOTES Pt in bed, awake. family at bedside. Pain is controlled at this time. denies any chest pain or shortness of breath. Plan of care discussed with family Dave) at bedside. safety precaution observed. will monitor.
[2017-10-16] MEDS ORDERED: METOPROLOL SUCCINATE 50 MG TAB.SR.24H (TOPROL XL) PO ONE (10:00)
[2017-10-16] MEDS: FERROUS SULFATE 325 MG TABLET.DR PO SCH (10:09)
[2017-10-16] MEDS: PREGABALIN 25 MG CAPSULE (LYRICA) PO SCH ×2 (10:09→22:49)
[2017-10-16] MEDS: LUBIPROSTONE 24 MCG CAPSULE PO SCH ×4 (10:09→23:00)
[2017-10-16] MEDS: BACLOFEN 10 MG TABLET PO SCH ×2 (10:10→22:47)
[2017-10-16] MEDS: POLYETHYLENE GLYCOL 3350, 17 GM/ POWD.PACK PO SCH (10:11)
[2017-10-16] MEDS: FENOFIBRATE NANOCRYSTALLIZED 48 MG TABLET (TRICOR) PO SCH (10:11)
[2017-10-16] MEDS: DOCUSATE SODIUM 100 MG CAPSULE PO SCH ×2 (10:12→22:47)
[2017-10-16] MEDS: SPIRONOLACTONE 25 MG TABLET (ALDACTONE) PO SCH ×2 (10:12→22:43)
--- NOTE | 2017-10-16 10:29 | NUR ---
notes pt went to Cat scan
[2017-10-16] MEDS: ONDANSETRON 4 MG ODT TAB PO SCH (10:36)
[2017-10-16] MEDS: cefTRIAXone 1 GM in D5W 50 ML IV SCH (10:36)
[2017-10-16] MEDS: ACETAMINOPHEN 325 MG TABLET PO PRN ×2 (10:37→17:50)
--- NOTE | 2017-10-16 11:24 | NUR ---
notes Resting at this time. family at bedside. no acute distress noted.
--- NOTE | 2017-10-16 11:45 | NUR ---
Dietitian Recommendations *Recommend continuing clear liquid diet per MD orders. *Recommend advance diet when medically appropriate. (CCHO 2gm Na High fiber diet) Please see Nutritional Assessment for details. GWEN, RD
--- NOTE | 2017-10-16 12:15 | NUR ---
notes- Patient's daughter wants to re take patient temperature again. PT'S body feel warm. oral temperature done and its 98.1
[2017-10-16 12:39] VITALS: BP_SYST 111
--- NOTE | 2017-10-16 14:30 | NUR ---
Notes- Has an incontinent of stool. Cleaned and changedm patient. repositioned for comfort. no distress noted.
[2017-10-16 16:22] VITALS: BP_SYST 113
[2017-10-16] MEDS: INSULIN ASPART 100 UNITS/ML, 10 ML VIAL (NovoLOG) SUBCUT PRN ×2 (17:40→23:02)
--- NOTE | 2017-10-16 22:30 | NUR ---
REPORT report received from Sabino TURNER. patient awake, alert oriented x4, patient's daughter at bedside. IV on right antecubital 20G, flushed with NS, no infiltration noted. IV on left antecubital, 18G, patient complains of pain when flushed with NS. physical assessment performed. plan of care discussed and advised to call PRN. patient verbalized understanding. call light within reach, bed alarm on. will continue to monitor.
[2017-10-16 22:35] VITALS: BP_SYST 108
[2017-10-16] MEDS: METOPROLOL SUCCINATE 50 MG TAB.SR.24H (TOPROL XL) PO SCH (22:50)
[2017-10-16] MEDS: roPINIRole HCL 0.25 MG ( REQUIP )TABLET PO SCH (22:50)
[2017-10-16] MEDS: DULoxetine HCL 30 MG CAPSULE.DR (CYMBALTA) PO SCH (22:50)
[2017-10-16] MEDS: PROMETHAZINE 6.25 MG/ CODEINE 10 MG/ 5 ML PO PRN (22:51)
[2017-10-17 00:14] VITALS: BP_SYST 121
--- NOTE | 2017-10-17 00:15 | NUR ---
ROUNDS patient sleeping comfortably, no distress noted. will continue to monitor.
[2017-10-17] MEDS: IPRATROPIUM/ALBUTEROL SULFATE 3 ML AMPUL.NEB INH SCH ×7 (00:31→23:13)
[2017-10-17] MEDS: metroNIDAZOLE 250 MG TABLET PO SCH ×5 (00:52→23:50)
--- NOTE | 2017-10-17 01:55 | NUR ---
MD ARINA arango for clarification on order. need to clarify if he wanted patient to have colonoscopy done, or why patient needs tap water enema. Addendum: 10/17/17 at 0245 by Monse Rincon RN per clay house worker, no scheduled colonoscopy for patient. has not spoken with material crew supervisor regarding scheduling patient for GI service. there is also no order for consent. will endorse to dayshift to clarify with Dr. Herman.
--- NOTE | 2017-10-17 02:20 | NUR ---
ROUNDS patient sleeping, easily aroused. no distress noted. will continue to monitor.
[2017-10-17] MEDS: ACETAMINOPHEN 325 MG TABLET PO PRN ×2 (04:43→15:01)
--- NOTE | 2017-10-17 04:45 | NUR ---
ROUNDS patient complaining of headache and leg pain, administered Tylenol per order. advised patient to call PRN. patient verbalized understanding. will continue to monitor.
--- NOTE | 2017-10-17 05:55 | NUR ---
ENEMA tap water enema performed until stool clear. patient tolerated well. will continue to monitor.
[2017-10-17] MEDS: INSULIN ASPART 100 UNITS/ML, 10 ML VIAL (NovoLOG) SUBCUT PRN ×4 (06:25→21:33)
[2017-10-17] MEDS: LORazepam 1 MG TABLET PO PRN (06:26)
[2017-10-17] MEDS: LEVOTHYROXINE SODIUM 0.05 MG TABLET PO SCH (06:26)
[2017-10-17] MEDS: PANTOPRAZOLE SODIUM 40 MG TAB PO SCH (06:26)
[2017-10-17 06:44] LABS: BASOPHILS % (AUTO) 0.6 % (0.0-2.0); EOSINOPHILS # (AUTO) 0.1 K/uL (0.0-0.4); HEMATOCRIT 29.2 % (36-48); HEMOGLOBIN 9.7 g/dL (12.0-16.0); LYMPHOCYTES # (AUTO) 1.3 K/uL (1.0-5.5); MEAN CORPUSCULAR HEMOGLOBIN 30 pg (27-31); MEAN CORPUSCULAR HGB CONC 33 % (32-36); MEAN CORPUSCULAR VOLUME 90 fL (79.0-98.0); MONOCYTES # (AUTO) 0.7 K/uL (0.0-1.0); NEUTROPHILS # (AUTO) 3.1 K/uL (1.8-7.7); NEUTROPHILS % (AUTO) 60.4 % (40.0-70.0); PLATELET COUNT (AUTO) 114 K/uL (130-430); RED BLOOD CELL COUNT(AUTO) 3.26 MIL/uL (4.2-6.2); RED CELL DISTRIBUTION WIDTH 18.6 % (9.0-15.0); WHITE BLOOD COUNT (AUTO) 5.2 K/uL (4.8-10.8)
--- NOTE | 2017-10-17 07:05 | NUR ---
MD CALLED Dr. Herman returned call. asked if he wanted patient to have enema for colonoscopy. he states that he was doing it because patient was constipated. informed him that patient has refused Amitiza due to having loose stool and informed him that enema was performed. order received for KUB. order read back and verified.
[2017-10-17 07:18] LABS: ANION GAP 7 (5-15); CALCIUM 8.3 mg/dL (8.4-11.0); CHLORIDE 105 mmol/L (98-107); CREATININE 0.68 mg/dL (0.55-1.30); GLUCOSE 205 mg/dL (70-99); POTASSIUM 4.2 mmol/L (3.5-5.1); SODIUM SERUM 134 mmol/L (136-145); UREA NITROGEN, BLOOD 11 mg/dL (8-21)
--- NOTE | 2017-10-17 07:39 | NUR ---
END OF SHIFT care endorsed to dayshift RN. no distress noted with patient.
--- NOTE | 2017-10-17 07:45 | NUR ---
AM rounds patient resting in bed, a/ox3-4 periods of forgetfulness, denies pain, assessment complete, educated the patient and her , on plan of care and car light system and to call for any assistance, they verbalized understanding, IV line is patent and infusing well, bed in lowest position, three side rails up, bed alarm on, bed close to nurse's station, fall and aspiration precautions in place, call light placed within reach.
[2017-10-17 08:11] VITALS: BP_SYST 119
[2017-10-17] MEDS: cefTRIAXone 1 GM in D5W 50 ML IV SCH (08:43)
[2017-10-17] MEDS: POLYETHYLENE GLYCOL 3350, 17 GM/ POWD.PACK PO SCH (08:43)
[2017-10-17] MEDS: FENOFIBRATE NANOCRYSTALLIZED 48 MG TABLET (TRICOR) PO SCH (08:44)
[2017-10-17] MEDS: PREGABALIN 25 MG CAPSULE (LYRICA) PO SCH ×2 (08:44→21:26)
[2017-10-17] MEDS: LUBIPROSTONE 24 MCG CAPSULE PO SCH ×4 (08:45→21:00)
[2017-10-17] MEDS: BACLOFEN 10 MG TABLET PO SCH ×2 (08:45→21:23)
[2017-10-17] MEDS: FERROUS SULFATE 325 MG TABLET.DR PO SCH (08:45)
[2017-10-17] MEDS: DOCUSATE SODIUM 100 MG CAPSULE PO SCH ×2 (08:45→21:00)
[2017-10-17] MEDS: METOPROLOL SUCCINATE 50 MG TAB.SR.24H (TOPROL XL) PO SCH ×2 (08:45→21:26)
--- NOTE | 2017-10-17 08:45 | NUR ---
Medications patient resting in bed, awake, denies pain, educated on all medications, uses and potential side effects, patient and her verbalized understanding, patient tolerated well, continuing to monitor her, no other needs at this time, bed in lowest position, three side rails up, bed alarm on, bed close to nurse's station, fall and aspiration precautions in place.
[2017-10-17] MEDS: ONDANSETRON 4 MG ODT TAB PO SCH (08:46)
[2017-10-17] MEDS: SPIRONOLACTONE 25 MG TABLET (ALDACTONE) PO SCH ×2 (08:46→21:23)
[2017-10-17 09:15] LABS: HEPATITIS A AB, IgM Negative (Negative); HEPATITIS B CORE AB, IgM Negative (Negative); HEPATITIS B SURFACE AG Negative (Negative)
--- NOTE | 2017-10-17 09:15 | NUR ---
Dr. Herman rounds assessed patient at bedside, will follow up with any new orders.
--- NOTE | 2017-10-17 10:32 | NUR ---
RN rounds patient in bed, experiencing frequent stools due to medication, patient being assisted by CLINICAL EDUCATION CONSULTANT and family at this time, patient in stable condition, PT waiting to work with the patient, continuing to monitor her.
--- NOTE | 2017-10-17 10:45 | NUR ---
Dr. Guillen rounds assessed patient at bedside, spoke with him regarding patient's Abraham Catheter, recommended to monitor urine output for a few hours and if there is minimal drainage keep the Abraham if not remove and speak with Dr. Stephens regarding this, will follow up.
--- NOTE | 2017-10-17 10:46 | NUR ---
Dr. Anaya rounds assessed patient at bedside, will follow up with any new orders.
[2017-10-17 11:07] LABS: FOLATE (FOLIC ACID) 8.9 ng/mL (>3.0)
--- NOTE | 2017-10-17 11:40 | NUR ---
Physical therapy/Blood glucose patient out of bed with PT in wheelchair at this time, patient is tolerating well so far, bed linen changed by Liseth HOWARD as well, patient continuing to have multiple loose BM's, continuing to monitor this, blood glucose checked and insulin coverage provided per MD orders, continuing to monitor the patient.
[2017-10-17] MEDS ORDERED: FUROSEMIDE 20 MG/2 ML VIAL IVP ONE (11:45)
--- NOTE | 2017-10-17 12:00 | NUR ---
Dr. Stephens rounds assessed patient at bedside, will follow up with any new orders.
[2017-10-17 13:17] VITALS: BP_SYST 153
--- NOTE | 2017-10-17 13:39 | NUR ---
IV lasix patient resting in bed, eyes closed, breathing is even and unlabored, no signs of distress, easy to wake, educated the patient and family on IV lasix, uses and potential side effects and expected outcomes, they verbalized understanding, IV line is patent and infusing well, continuing to monitor the patient, bed in lowest position, two side rails up, bed alarm on, bed close to nurse's station, fall and aspiration precautions in place, continuing to monitor.
--- NOTE | 2017-10-17 13:50 | NUR ---
Dr. Sr rounds assessed patient at bedside, will follow up with any new orders.
--- NOTE | 2017-10-17 14:35 | NUR ---
PHYSICAL THERAPY CO-SIGN The Physical Therapy Progress Notes documented by Group Exercise Manager have been reviewed. I concur with the documentation of this TRANSCRIBING OPERATOR HEAD. Patient made some slight improvement today with ability to make steps. Plan: continue as per plan of care if she remains in this hospital. Reviewed/Co-Signed by: Radha NavasPT Documentation Done by: Brett Terry PTA Addendum: 10/17/17 at 1439 by Radha Navas PT Amended: Links added.
--- NOTE | 2017-10-17 15:03 | NUR ---
Tylenol patient complaining of feeling warm, temperature checked, 98.4 at this time, patient also complaining of generalized pain, mild pain level, patient tolerated well, aspiration precautions in place, bed in lowest position, three side rails up, bed alarm on, bed close to nursing station, fall precautions also in place, call light within reach, patient's daughter at bedside.
--- NOTE | 2017-10-17 16:15 | NUR ---
Fever cooling measures applied, Tylenol administered already, patient denies pain however, continuing to monitor.
[2017-10-17 16:44] VITALS: BP_SYST 116
[2017-10-17] MEDS: EPOETIN ALFA 10,000 UNITS/ML VIAL SUBCUT SCH (17:14)
--- NOTE | 2017-10-17 17:37 | NUR ---
Blood glucose/Rounds patient resting in bed, being assisted by CARAMEL CANDY MAKER, patient had multiple BM's today, patient tolerated cleaning well, educated the patient and her daughter on new medication uses and potential side effects, they verbalized understanding, blood glucose checked and insulin administered per MD orders, patient tolerated all medications well, no other needs at this time, bed in lowest position, three side rails up, bed alarm on, bed close to nursing station, fall and aspiration precautions in place, call light within reach. Addendum: 10/17/17 at 1740 by Roscoe Gutierres RN patient temperature now 99.2, cooling measures still in place.
--- NOTE | 2017-10-17 18:15 | NUR ---
Closing note patient resting in bed, assisted FORM GRADER to clean the patient again, patient had BM, all needs met, will endorse report to NOC shift nurse, patient bed in lowest position, three side rails up, bed alarm on, bed close to nursing station, call light within reach, fall and aspiration precautions in place, patient's daughter is at bedside.
[2017-10-17 20:00] VITALS: BP_SYST 128
--- NOTE | 2017-10-17 20:00 | NUR ---
OPENING SHIFT NOTE patient is alert oriented x4. IV on right antecubital 20G, flushed with NS, no infiltration noted. Abraham catheter secured on leg, draining yellow urine to gravity. patient's daughters and son at bedside. plan of care discussed and advised to call PRN. call light within reach, bed alarm on. bed in lowest position. will continue to monitor.
[2017-10-17] MEDS: DULoxetine HCL 30 MG CAPSULE.DR (CYMBALTA) PO SCH (21:24)
[2017-10-17] MEDS: roPINIRole HCL 0.25 MG ( REQUIP )TABLET PO SCH (21:26)
--- NOTE | 2017-10-17 21:30 | NUR ---
ROUNDS Patient sleeping but easily aroused. administered scheduled medications. patient denies pain or shortness of breath. will continue to monitor.
[2017-10-18 00:37] VITALS: BP_SYST 128
--- NOTE | 2017-10-18 00:38 | NUR ---
ROUNDS patient sleeping comfortably, no distress noted. will continue to monitor.
--- NOTE | 2017-10-18 01:44 | NUR ---
ROUNDS patient sleeping but easily aroused. patient denies pain or shortness of breath. patient turned to her left side. will continue to monitor.
[2017-10-18] MEDS: IPRATROPIUM/ALBUTEROL SULFATE 3 ML AMPUL.NEB INH SCH ×6 (03:18→23:15)
[2017-10-18 03:45] VITALS: BP_SYST 133
[2017-10-18] MEDS: ACETAMINOPHEN 325 MG TABLET PO PRN ×3 (03:49→21:57)
[2017-10-18] MEDS: ONDANSETRON HCL 4 MG/2 ML VIAL IVP PRN (04:20)
--- NOTE | 2017-10-18 04:22 | NUR ---
ROUNDS patient complaining of nausea, administered Zofran per order. patient turned to her right side. patient tolerated well. will continue to monitor.
[2017-10-18] MEDS: PANTOPRAZOLE SODIUM 40 MG TAB PO SCH (06:05)
[2017-10-18] MEDS: LEVOTHYROXINE SODIUM 0.05 MG TABLET PO SCH (06:05)
[2017-10-18] MEDS: INSULIN ASPART 100 UNITS/ML, 10 ML VIAL (NovoLOG) SUBCUT PRN ×4 (06:05→21:37)
[2017-10-18] MEDS: metroNIDAZOLE 250 MG TABLET PO SCH ×4 (06:09→23:36)
--- NOTE | 2017-10-18 06:10 | NUR ---
ROUNDS patient sleeping, easily aroused. patient denies pain or shortness of breath. will continue to monitor.
[2017-10-18 06:50] LABS: ANION GAP 9 (5-15); CALCIUM 8.2 mg/dL (8.4-11.0); CHLORIDE 102 mmol/L (98-107); CREATININE 0.63 mg/dL (0.55-1.30); GLUCOSE 165 mg/dL (70-99); SODIUM SERUM 133 mmol/L (136-145); UREA NITROGEN, BLOOD 10 mg/dL (8-21)
[2017-10-18 06:58] LABS: HEMATOCRIT 27.4 % (36-48); HEMOGLOBIN 9.2 g/dL (12.0-16.0); MEAN CORPUSCULAR HEMOGLOBIN 30 pg (27-31); MEAN CORPUSCULAR HGB CONC 34 % (32-36); MEAN CORPUSCULAR VOLUME 89 fL (79.0-98.0); PLATELET COUNT (AUTO) 111 K/uL (130-430); RED BLOOD CELL COUNT(AUTO) 3.09 MIL/uL (4.2-6.2); RED CELL DISTRIBUTION WIDTH 18.7 % (9.0-15.0); WHITE BLOOD COUNT (AUTO) 5.1 K/uL (4.8-10.8)
--- NOTE | 2017-10-18 07:22 | NUR ---
END OF SHIFT care endorsed to dayshift RN. no distress noted with patient.
[2017-10-18 08:28] VITALS: BP_SYST 113
[2017-10-18] MEDS: ONDANSETRON 4 MG ODT TAB PO SCH (09:00)
[2017-10-18] MEDS: LUBIPROSTONE 24 MCG CAPSULE PO SCH ×4 (09:00→21:28)
[2017-10-18] MEDS: POLYETHYLENE GLYCOL 3350, 17 GM/ POWD.PACK PO SCH (09:00)
[2017-10-18 09:30] LABS: BAND % (MANUAL) 0 % (0-6); BASOPHILS % (MANUAL) 0 % (0-2); EOSINOPHILS % (MANUAL) 4 % (0-7); LYMPHOCYTES % (MANUAL) 18 % (20-46); MONOCYTES % (MANUAL) 15 % (0-11)
[2017-10-18] MEDS: cefTRIAXone 1 GM in D5W 50 ML IV SCH (09:43)
[2017-10-18] MEDS: DOCUSATE SODIUM 100 MG CAPSULE PO SCH ×2 (09:43→21:28)
[2017-10-18] MEDS: METOPROLOL SUCCINATE 50 MG TAB.SR.24H (TOPROL XL) PO SCH ×2 (09:44→21:30)
[2017-10-18] MEDS: FERROUS SULFATE 325 MG TABLET.DR PO SCH (09:44)
[2017-10-18] MEDS: PREGABALIN 25 MG CAPSULE (LYRICA) PO SCH ×2 (09:45→21:30)
[2017-10-18] MEDS: BACLOFEN 10 MG TABLET PO SCH ×2 (09:46→21:30)
[2017-10-18] MEDS: SPIRONOLACTONE 25 MG TABLET (ALDACTONE) PO SCH ×2 (09:47→21:28)
[2017-10-18] MEDS: FENOFIBRATE NANOCRYSTALLIZED 48 MG TABLET (TRICOR) PO SCH (09:47)
--- NOTE | 2017-10-18 09:50 | NUR ---
Medications patient resting in recliner chair, post PT, awake, denies pain, educated on all medications, uses and potential side effects, patient and her verbalized understanding, patient tolerated well, temperature assessed to be 99.9 at this time, cooling measures applied at this time, continuing to monitor her, no other needs at this time, bed in lowest position, three side rails up, bed alarm on, bed close to nurse's station, fall and aspiration precautions in place.
--- NOTE | 2017-10-18 11:19 | NUR ---
RN rounds/Blood glucose patient resting in bed, being assisted by MICROGRAPHICS SERVICES SUPERVISOR, no temp at this time, 98.4, blood glucose checked and insulin coverage provided per MD orders, no other needs at this time, bed in lowest position, three side rails up, bed alarm on, bed close to nurse's station, fall and aspiration precautions in place, call light within reach.
--- NOTE | 2017-10-18 12:30 | NUR ---
Dr. Stephens rounds assessed patient at bedside, will follow up with any new orders.
[2017-10-18 12:40] VITALS: BP_SYST 111
[2017-10-18] MEDS ORDERED: FUROSEMIDE 20 MG TABLET PO ONE (13:00)
[2017-10-18] MEDS ORDERED: POLYETHYLENE GLYCOL 3350, 17 GM/ POWD.PACK PO PRN (13:30)
--- NOTE | 2017-10-18 13:54 | NUR ---
DISCHARGE PLANNING - Outpatient PT Spoke with daughter Shanna @ bedside. She wants pt/mother discharged home and not SNF. She did not want Home PT, she wants pt/mom to have Outpt PT because "they do more". She is requesting PT with [facility] They used them 3 months ago and her mom did better with. C/S @[facility] ph: [phone]. . Confirmed pt has been there for PT and his Physical Therapist is Jasmeet. All they need is a PT order from the Physician faxed to them and they will continue her therapy. An appoint was made in anticipation of pt's discharge. Appt scheduled : October 23, @ 7535. [place] : [place] [address].
--- NOTE | 2017-10-18 14:27 | NUR ---
RN rounds/medication patient resting in bed, complaining of 3/10 pain, Tylenol administered, temp check, afebrile at this time, educated the patient and family on Lasix Po uses, potential side effects and expected outcomes, they verbalized understanding, patient tolerated well, no other needs at this time, bed in lowest position, three side rails up, bed alarm on, family at bedside, continuing to monitor, call light within reach, fall and aspiration precautions in place.
--- NOTE | 2017-10-18 16:16 | NUR ---
Family education family wants patient to walk to restroom, educated them that the patient requires 2-3 person assist and is not very successful with physical therapy still at this time, they are insisting to at least get her up to sit in a chair, ADVERTISING EDITOR stood by for assistance, family got the patient up out of bed, patient in stable condition, fall precautions in place.
--- NOTE | 2017-10-18 16:16 | NUR ---
Dr. Wilmer mobley assessed patient at bedside, updates given.
[2017-10-18 16:40] VITALS: BP_SYST 108
[2017-10-18] MEDS: PROMETHAZINE 6.25 MG/ CODEINE 10 MG/ 5 ML PO PRN ×2 (17:00→21:33)
--- NOTE | 2017-10-18 17:16 | NUR ---
RN rounds/Medication patient resting in bed, provided ice packs to help with pain per patient request, patient requested cough medication, medication was scanned but patient changed her mind and said that she wants it tonight instead, will inform NOC shift nurse, educated the patient on PO antibiotic, uses and potential side effects, patient verbalized understanding and tolerated well, blood glucose assessed and insulin coverage provided per MD orders, continuing to monitor, bed in lowest position, two side rails up, call light within reach, fall and aspiration precautions in place, her family is at bedside.
--- NOTE | 2017-10-18 18:47 | NUR ---
Closing note patient resting in bed, stable condition, family is at bedside, all needs met, will endorse report to NOC shift nurse, patient bed in lowest position, three side rails up, bed alarm on, bed close to nursing station, call light within reach, fall and aspiration precautions in place.
[2017-10-18 20:00] VITALS: BP_SYST 133
--- NOTE | 2017-10-18 20:00 | NUR ---
Initial PM Note: Late Entry due to Pt Care Pt was received lying in bed fully awake, alert and oriented x4. Pt is Beninese Speaking and able to make her needs known in Beninese. Speech is clear. No c/o of pain or discomfort at this time and several family members are visiting at the bedside. Saline lock in RAC is without any signs of infiltration. Skin is warm and dry to touch. No signs or symptoms of hypoglycemia or hyperglycemia noted. Abraham Cath to gravity drainage is patent with clear yellowish urine. Fall and safety precautions are in place. Call light is with pt and bed alarm is on.
[2017-10-18] MEDS: roPINIRole HCL 0.25 MG ( REQUIP )TABLET PO SCH (21:27)
[2017-10-18] MEDS: DULoxetine HCL 30 MG CAPSULE.DR (CYMBALTA) PO SCH (21:28)
--- NOTE | 2017-10-18 21:33 | NUR ---
Cough Medication Pt c/o coughing and was given Phenergan W/ Codeine 5ml po per her request with good effect. Call light is with pt and bed alarm is on. Pt's daughter is at the bedside.
--- NOTE | 2017-10-18 21:37 | NUR ---
Blood Sugar Accucheck 221 and 4 units NovoLog Insulin was given SQ. Skin remains warm and dry to touch. Pt was offered HS snacks, but pt declined.
[2017-10-18] MEDS: FUROSEMIDE 20 MG TABLET PO SCH (21:53)
--- NOTE | 2017-10-18 21:57 | NUR ---
Pain Medication Pt c/o generalized body aches and was given Tylenol 650mg po per her request with good relief.
--- NOTE | 2017-10-19 | NUR ---
Rounds Pt is sleeping comfortably in bed. Pt's daughter is sleeping at the bedside. Call light is with pt and bed alarm is on.
[2017-10-19] MEDS: LORazepam 1 MG TABLET PO PRN (00:16)
--- NOTE | 2017-10-19 00:20 | NUR ---
ATIVAN: NOTICED THAT PT IS VERY ANXIOUS , MEDICATED WITH ATIVAN PER ORDER , PT SWALLOWED MEDICATION , NO S/S OF ANY ASPIRATION NOTED ; FAMILY AT BEDSIDE .
[2017-10-19 00:30] VITALS: BP_SYST 116
--- NOTE | 2017-10-19 01:15 | NUR ---
ROUND Patient resting on the bed with eyes closed. No acute distress. Daughter at bedside. F/C intact, drain gravity with yellow urine. Safety measure maintained. Call light within reached. Bed locked in low position, side rail up, bed alarm on. Continue to monitor. Addendum: 10/20/17 at 0519 by Savita Garrido RN WRONG DATE SHOULD BE 10/20/17
--- NOTE | 2017-10-19 02:00 | NUR ---
Rounds Pt is sleeping comfortably in bed without any distress noted. Pt's daughter is sleeping at the bedside. Call light is with pt and bed alarm is on.
[2017-10-19] MEDS: IPRATROPIUM/ALBUTEROL SULFATE 3 ML AMPUL.NEB INH SCH ×6 (03:00→23:00)
--- NOTE | 2017-10-19 04:00 | NUR ---
Rounds Pt is sleeping without any respiratory distress noted. Call light is with pt and bed alarm is on. Daughter is sleeping at the bedside. Will continue to monitor pt.
[2017-10-19 06:32] LABS: ANION GAP 7 (5-15); CALCIUM 7.9 mg/dL (8.4-11.0); CHLORIDE 99 mmol/L (98-107); CREATININE 0.65 mg/dL (0.55-1.30); GLUCOSE 155 mg/dL (70-99); POTASSIUM 3.6 mmol/L (3.5-5.1); SODIUM SERUM 133 mmol/L (136-145); UREA NITROGEN, BLOOD 7 mg/dL (8-21)
[2017-10-19 06:33] LABS: BASOPHILS % (AUTO) 0.5 % (0.0-2.0); EOSINOPHILS # (AUTO) 0.1 K/uL (0.0-0.4); EOSINOPHILS % (AUTO) 1.2 % (0.0-4.0); HEMATOCRIT 29.4 % (36-48); LYMPHOCYTES # (AUTO) 1.5 K/uL (1.0-5.5); LYMPHOCYTES % (AUTO) 28.6 % (20.5-51.5); MEAN CORPUSCULAR HEMOGLOBIN 30 pg (27-31); MEAN CORPUSCULAR HGB CONC 34 % (32-36); MEAN CORPUSCULAR VOLUME 89 fL (79.0-98.0); MONOCYTES # (AUTO) 0.7 K/uL (0.0-1.0); MONOCYTES % (AUTO) 12.7 % (1.7-9.3); NEUTROPHILS # (AUTO) 2.9 K/uL (1.8-7.7); PLATELET COUNT (AUTO) 122 K/uL (130-430); RED BLOOD CELL COUNT(AUTO) 3.31 MIL/uL (4.2-6.2); RED CELL DISTRIBUTION WIDTH 18.8 % (9.0-15.0); WHITE BLOOD COUNT (AUTO) 5.2 K/uL (4.8-10.8)
[2017-10-19] MEDS: PANTOPRAZOLE SODIUM 40 MG TAB PO SCH (06:47)
[2017-10-19] MEDS: LEVOTHYROXINE SODIUM 0.05 MG TABLET PO SCH (06:47)
[2017-10-19] MEDS: metroNIDAZOLE 250 MG TABLET PO SCH ×3 (06:47→18:04)
--- NOTE | 2017-10-19 06:50 | NUR ---
Closing Note Pt is resting comfortably in bed. Accucheck 149 this AM and pt's daughter wants Levemir Insulin given after breakfast. Pt's skin remains warm and dry to touch. No acute distress noted at this time. Will endorse to day shift nurse.
--- NOTE | 2017-10-19 07:25 | NUR ---
AM ROUNDS: PATIENT LYING ON THE BED SLEEPING. DAUGHTER AND AT THE BEDSIDE. NO DISTRESS. CALL LIGHT WITH IN REACH. BED LOCKED AT LOWEST POSITION. HUYNH DRAINING TO YELLOW URINE.NO NEEDS THIS TIME.
--- NOTE | 2017-10-19 08:00 | NUR ---
LEVEMIR: PATIENT'S DAUGHTER NOT WANTING LEVEMIR GIVEN AT 7AM EARLIER WITHOUT BREAKFAST.
[2017-10-19] MEDS: ONDANSETRON HCL 4 MG/2 ML VIAL IVP PRN ×2 (08:03→18:21)
[2017-10-19] MEDS: cefTRIAXone 1 GM in D5W 50 ML IV SCH (08:11)
[2017-10-19 08:15] VITALS: BP_SYST 125
[2017-10-19 08:35] VITALS: BP_SYST 125
[2017-10-19] MEDS: LUBIPROSTONE 24 MCG CAPSULE PO SCH ×4 (09:00→21:00)
[2017-10-19] MEDS: ONDANSETRON 4 MG ODT TAB PO SCH (09:00)
--- NOTE | 2017-10-19 09:00 | NUR ---
REFUSED LEVEMIR: PATIENT'S DAUGHTER REFUSED LEVEMIR TO BE GIVEN THIS TIME BECAUSE PATIENT ONLY EAT LITTLE,WANTS TO WAIT LATER WHEN EAT ENOUGH MEAL.WILL NOTIFY ENDO. Addendum: 10/19/17 at 1604 by Azucena Steward RN NOTIFIED.
[2017-10-19] MEDS: METOCLOPRAMIDE HCL 10 MG/2 ML VIAL IVP SCH ×2 (09:45→21:01)
[2017-10-19] MEDS: DOCUSATE SODIUM 100 MG CAPSULE PO SCH ×2 (09:46→20:59)
[2017-10-19] MEDS: PREGABALIN 25 MG CAPSULE (LYRICA) PO SCH ×2 (09:46→21:01)
[2017-10-19] MEDS: FERROUS SULFATE 325 MG TABLET.DR PO SCH (09:47)
[2017-10-19] MEDS: SPIRONOLACTONE 25 MG TABLET (ALDACTONE) PO SCH ×2 (09:47→21:06)
[2017-10-19] MEDS: FENOFIBRATE NANOCRYSTALLIZED 48 MG TABLET (TRICOR) PO SCH (09:48)
[2017-10-19] MEDS: METOPROLOL SUCCINATE 50 MG TAB.SR.24H (TOPROL XL) PO SCH ×2 (09:49→20:59)
[2017-10-19] MEDS: BACLOFEN 10 MG TABLET PO SCH ×2 (09:50→21:00)
[2017-10-19] MEDS: FUROSEMIDE 20 MG TABLET PO SCH ×2 (09:50→21:00)
[2017-10-19 11:10] VITALS: BP_SYST 123
--- NOTE | 2017-10-19 11:25 | NUR ---
LEVEMIR: PATIENT'S DAUGHTER AGREED TO GIVE LEVEMIR SUBQ THIS TIME.NO COMPLICATIONS NOTED.
--- NOTE | 2017-10-19 11:30 | NUR ---
BLOOD SUGAR: BLOOD SUGAR TAKEN,WITH INSULIN COVERAGE GIVEN PER SLIDING SCALE.NO COMPLICATIONS NOTED.
[2017-10-19] MEDS: ACETAMINOPHEN 325 MG TABLET PO PRN ×2 (11:41→21:06)
[2017-10-19] MEDS: INSULIN ASPART 100 UNITS/ML, 10 ML VIAL (NovoLOG) SUBCUT PRN (11:44)
[2017-10-19] MEDS ORDERED: POTASSIUM CHLORIDE 10 MEQ TAB.PRT.SR PO ONE (14:00)
--- NOTE | 2017-10-19 14:30 | NUR ---
RN ROUNDS: PATIENT ASSISTED TO SIT AT THE EDGE OF THE BED,DANGLED HER FEET,DAUGHTER AND AT THE BEDSIDE. CONTINUE TO MONITOR.
[2017-10-19 15:15] VITALS: BP_SYST 110
--- NOTE | 2017-10-19 15:22 | NUR ---
PHYSICAL THERAPY CO-SIGN The Physical Therapy Progress Notes documented by Psychology Associate have been reviewed. I CONCUR W/HYDRAULIC MINER BLASTING NOTE; CONT PER TX PLAN Reviewed/Co-Signed by: Jovanna Verma PT Documentation Done by: SAMUEL BENEDICT PTA Addendum: 10/19/17 at 1522 by Jovanna Verma PT Amended: Links added.
--- NOTE | 2017-10-19 15:27 | NUR ---
Nutrition F/U Admitting Diagnosis Sepsis Reviewed Pertinent Medical/Surgical Hx Medical Record Patient Family Member Medical History Comment: Pt found w/: Sepsis, serocolitis, acute asthmatic bronchitis, MDS w/ anemia ant thrombocytopenia, old CVA, urinary retention, neurogenic bladder, DM-II, Diabetic polyneuropathy, B/L sciatica and lumbago, DJD of the lumbar spine, moderate DJD of L hip, chronic pain syndrome, asthma, constipation, Tarlov cysts, hyperbilirubinemia per MD notes. Per Pulmonology Consultation notes: Anasarca, COPD. Subjective Information Pt seen sleeping w/ daughter and at bedside. Family reports that pt continues w/ poor appetite, but that she seemed to eat a little bit more when food from home was provided yesterday. Pt has been having diarrhea. Evidence of lunch tray untouched at bedside. RD encouraged family to continue to offer foods to pt when she is awake and alert. Pt is not meeting optimal nutritional needs. Current Diet Order/Nutrition Support CCHO, Durga BID x1 day Patient/Significant Other Able To Verbalize Education Provided Not Indicated Pertinent Medications Reviewed Pertinent Labs Na 133 L, BG 155 H, ALB 2 L, H/H 10 L/29.4 L, Ca 7.9 L Height (Feet) 5 feet Height (Inches) 2.00 inches Weight (Pounds) 196 pounds (10/16/17) Weight (Calculated Kilograms) 88.181027 kilograms Patient Weight 88.904 kg Body Mass Index 35.84 kg/m2 %IBW 178 [place]/Adjusted Body Weight 110 lb, 50 kg; Adj IBW Obesity 132 lb, 60 kg Recent Weight Change No - per pt Weight Status Obese Gastrointestinal Symptoms None Last BM 10/19/17 -- x7 (diarrhea) Difficulty With: Swallowing Food Allergies No - per daughter Usual Diet At Home Low carb, home cooked meals, chicken and vegetables per daughter Skin Integrity Comment: David scale: 16; per nursing notes, perineal: denuded Current % PO Negligible <25% Estimated Energy Expenditure (kcals/day) 9625-0568 kcal/day (30-35 kcal/kg Adj IBW for Sepsis) Estimated Protein Required (g/day) 90-120 g/day (1.5-2g/kg Adj IBW for Sepsis) Estimated Fluid Required (l/day) 1.5 L/day (25ml/kg Adj IBW for Geriatric maintenance) Problem/Etiology/Signs/Symptoms Increased nutritional needs related to metabolic demands as evidenced by estimated calorie and protein needs for Sepsis. *ongoing Altered nutrition-related labs related to endocrine dysfunction as evidenced by elevated BG lab values. *ongoing Compromised GI function related to BM irregularity as evidenced by family report of chronic constipation. *not applicable Expected Outcomes/Goals Monitor advancement of diet and PO intake w/ goal of pt meeting at least 75% of estimated nutritional needs, labs trending WNL, normal GI function, skin integrity/wt maintenance. Dietitian Recommendations * Recommend CCHO diet, Glucerna TID (oral supplement provides an additional 660 kcal/day and 30 gm protein/day) Follow Up High Risk: F/U in 2-3 days
--- NOTE | 2017-10-19 15:33 | NUR ---
Dietitian Recommendations * Recommend CCHO diet, Glucerna TID (oral supplement provides an additional 660 kcal/day and 30 gm protein/day) LP, RD Please refer to Nutrition F/U for details.
[2017-10-19] MEDS: EPOETIN ALFA 10,000 UNITS/ML VIAL SUBCUT SCH (17:05)
--- NOTE | 2017-10-19 17:14 | NUR ---
BLOOD SUGAR: BLOOD [id number]/DL,NO INSULIN COVERAGE PER SLIDING SCALE.
--- NOTE | 2017-10-19 18:25 | NUR ---
NAUSEA/VOMITING: PATIENT C/O NAUSEA AND DUE IV ZOFRAN GIVEN PER REQUEST. NO COMPLICATIONS NOTED.
--- NOTE | 2017-10-19 18:57 | NUR ---
end of shift: patient resting. family at the bedside. elena intact. continue to monitor. no distress.
--- NOTE | 2017-10-19 19:25 | NUR ---
INITIAL NOTE Patient resting on the bed. No acute distress. Respiration even and unlabored. Denied of pain at this time. Skin warm and dry to touch. SL intact to RAC, no redness, no swelling, patent. Family at bedside. Discussed the safety issue, use call light when needs help, and plan of care, verbally understanding. F/C intact, drain gravity with yellow urine, no hematuria noted. Safety measure maintained. Bed locked in low position, side rails up. Call light within reached. Will continue to monitor.
[2017-10-19 19:55] VITALS: BP_SYST 117
[2017-10-19] MEDS: DULoxetine HCL 30 MG CAPSULE.DR (CYMBALTA) PO SCH (21:00)
[2017-10-19] MEDS: POTASSIUM CHLORIDE 10 MEQ TAB.PRT.SR PO SCH (21:00)
[2017-10-19] MEDS: roPINIRole HCL 0.25 MG ( REQUIP )TABLET PO SCH (21:01)
--- NOTE | 2017-10-19 21:08 | NUR ---
TYLENOL GIVEN Patient c/o bilateral foot pain 05/18, Tylenol 650mg PO given as ordered. No acute distress. Daughter at bedside. Safety measure maintained. Bed locked in low position, side rails up, bed alarm on. Call light within reached. Continue to monitor.
[2017-10-19] MEDS: PROMETHAZINE 6.25 MG/ CODEINE 10 MG/ 5 ML PO PRN (21:28)
--- NOTE | 2017-10-19 23:00 | NUR ---
ROUND Patient resting on the bed with eyes closed. No acute distress. Respiration even and unlabored. F/C intact, drain gravity. Safety measure maintained. Bed locked in low position, side rails up, bed alarm on. Call light within reached. Continue to monitor.
[2017-10-20] MEDS: metroNIDAZOLE 250 MG TABLET PO SCH ×5 (00:20→22:47)
[2017-10-20 00:30] VITALS: BP_SYST 112
--- NOTE | 2017-10-20 01:15 | NUR ---
ROUND Patient resting on the bed with eyes closed. No acute distress. Daughter at bedside. F/C intact, drain gravity with yellow urine. Safety measure maintained. Call light within reached. Bed locked in low position, side rail up, bed alarm on. Continue to monitor.
[2017-10-20] MEDS: IPRATROPIUM/ALBUTEROL SULFATE 3 ML AMPUL.NEB INH SCH ×6 (03:00→23:23)
--- NOTE | 2017-10-20 03:30 | NUR ---
ROUND Patient resting on the bed with eyes closed. No acute distress. No SOB. Daughter at bedside. F/C intact, drain gravity. Safety measure maintained. Call light within reached. Bed locked in low position, side rail up, bed alarm on. Continue to monitor.
[2017-10-20] MEDS: ACETAMINOPHEN 325 MG TABLET PO PRN ×3 (04:51→16:42)
--- NOTE | 2017-10-20 04:51 | NUR ---
TYLENOL GIVEN Patient c/o headache 05/18, Tylenol 650mg PO given as ordered. No acute distress. Daughter at bedside. Safety measure maintained. Bed locked in low position, side rails up, bed alarm on. Call light within reached. Continue to monitor.
[2017-10-20] MEDS: PANTOPRAZOLE SODIUM 40 MG TAB PO SCH (06:11)
--- NOTE | 2017-10-20 06:38 | NUR ---
CLOSING NOTE Patient resting on the bed. No acute distress. Respiration even and unlabored. No c/o pain at this time. Skin warm and dry to touch. SL intact to RAC, no redness, no swelling, patent. Daughter at bedside. F/C intact, drain gravity with yellow urine, no hematuria noted. All needs met. Hourly rounding during shift. Safety measure maintained. Bed locked in low position, side rails up, bed alarm on. Call light within reached. Will endorse to morning shift nurse.
[2017-10-20] MEDS: LEVOTHYROXINE SODIUM 0.05 MG TABLET PO SCH (06:56)
--- NOTE | 2017-10-20 07:41 | NUR ---
Opening note pt and report received from NOC shift nurse, Pt resting in bed, breathing even and unlabored, family at bedside. Abraham draining to gravity, bed and safety check completed, bed alarm on and bed in low position. Call light within reach.
[2017-10-20 08:01] VITALS: BP_SYST 125
[2017-10-20] MEDS: PREGABALIN 25 MG CAPSULE (LYRICA) PO SCH ×3 (09:34→22:25)
[2017-10-20] MEDS: FENOFIBRATE NANOCRYSTALLIZED 48 MG TABLET (TRICOR) PO SCH (09:35)
[2017-10-20] MEDS: LUBIPROSTONE 24 MCG CAPSULE PO SCH ×2 (09:36→22:22)
[2017-10-20] MEDS: SPIRONOLACTONE 25 MG TABLET (ALDACTONE) PO SCH ×2 (09:37→22:21)
[2017-10-20] MEDS: FERROUS SULFATE 325 MG TABLET.DR PO SCH (09:38)
[2017-10-20] MEDS: DOCUSATE SODIUM 100 MG CAPSULE PO SCH ×2 (09:38→22:23)
[2017-10-20] MEDS: ONDANSETRON 4 MG ODT TAB PO SCH (09:38)
[2017-10-20] MEDS: POTASSIUM CHLORIDE 10 MEQ TAB.PRT.SR PO SCH ×2 (09:38→22:24)
[2017-10-20] MEDS: FUROSEMIDE 20 MG TABLET PO SCH ×2 (09:39→22:25)
[2017-10-20] MEDS: METOPROLOL SUCCINATE 50 MG TAB.SR.24H (TOPROL XL) PO SCH ×2 (09:39→22:27)
[2017-10-20] MEDS: METOCLOPRAMIDE HCL 10 MG/2 ML VIAL IVP SCH (09:40)
[2017-10-20] MEDS: BACLOFEN 10 MG TABLET PO SCH ×3 (09:40→22:23)
[2017-10-20] MEDS: cefTRIAXone 1 GM in D5W 50 ML IV SCH (09:41)
--- NOTE | 2017-10-20 10:16 | NUR ---
Rounding note Pt resting in bed with family at bedside, no issues with taking medication, no s/s of SOB or distress, c/o mild pain, family refused medication at this time, will check back in a bit to reassess pain.
[2017-10-20 12:00] VITALS: BP_SYST 129
--- NOTE | 2017-10-20 12:05 | NUR ---
Rounding pt resting in bed, daughter feeding her, no s/s of SOB or distress, pt refuses to eat independently although able.
--- NOTE | 2017-10-20 14:30 | NUR ---
Rounding Pt sitting in bed, visiting w/ a lot of family members, no s/s of SOB or distress, no c/o pain at this time. pt refused turning earlier. bed in low locked position with call light wtihin reach.
--- NOTE | 2017-10-20 15:11 | NUR ---
DISCHARGE PLANNING - Per dgShanna felipe, they want to continue Outpt PT with [facility] ph: [phone]. . Pt's Physical Therapist is Jasmeet. Faxed PT order from . An appoint was made in anticipation of pt's discharge. Appt scheduled : October 23, @ 6592. Address : [address] [place] [id number].
--- NOTE | 2017-10-20 15:38 | NUR ---
Spoke with pt's daughters, Bertha and Charles at the bedside. They refused HH for Disease Management. They want the Outpt PT. A schedule has been made with [facility]. They have been with them and like their services. They stated HH with nurse do not help their mom/pt because they can also do what they do - take BP/check pulse and respiration, give her baths, give her meds, and everything else. Received call from Shanna singh. She affirms to her sisters' decision. She also thinks her mom will not benefit much from HH vs Outpt PT. Assured her that she can refuse HH and that is okay. Her mom still can have Outpt PT. She was thankful.
[2017-10-20 16:00] VITALS: BP_SYST 122
--- NOTE | 2017-10-20 16:03 | NUR ---
Rounding Pt sitting in bed, visiting w/ family at bedside, no s/s of SOB or distress, no c/o pain or discomfort at this time. Addendum: 10/20/17 at 1605 by Divine Becerra RN Pt self turned when asked
[2017-10-20] MEDS: INSULIN ASPART 100 UNITS/ML, 10 ML VIAL (NovoLOG) SUBCUT PRN ×2 (16:52→22:29)
--- NOTE | 2017-10-20 17:45 | NUR ---
Pyxis issue/pt rounding/difficulty managing pain Administered flagyl due at 1800, not listed in pyxis for that time but listed in profile meds, to be given Q hours, last administration 1220. Pain reassessment completed pt family c/o pain although pt sleeping soundly. Family indicates that Dr Parsons discussed pain management previously with them during this stay. Pt resting, breathing even and unlabored, aroused only to administer medication. Pt awaiting dinner tray when I left the room.
[2017-10-20 19:00] VITALS: BP_SYST 119
--- NOTE | 2017-10-20 19:20 | NUR ---
change of shift.pt.presents language barrier;divehi.dtr:@bedside;fluent ghanaian.pt.presents hx;chronic pain;hips/lower extremities.pt.is bedrest.pt.presents activity;bedrest.pt.presents elena catheter,.general; status stable.respiratory status stable@seema air.call light/telephone w/in the pt's reach:dtr presents 24hs.
--- NOTE | 2017-10-20 19:37 | NUR ---
Physician changed medication schedule/order entered Dr Herman asked to have reglan switched from schedule every 12 hours to a prn as needed BID/entered and checked by charge
--- NOTE | 2017-10-20 19:38 | NUR ---
Closing note Pt lying in bed, visiting with family at bedside. Pt care and report given to NOC shift nurse. Asked NOC shift to check with day shift tomorrow for clarification about possible nystatin for pt. Noted in additional nursing orders but not in pharmacy orders. Also endorsed that pain management has been challenging intermittently over the shift. Physician not called as he has discussed this with family. Bed and safety check completed, bed in low locked position with bed alarm on and call light within reach. Pt located adjacent to nurses station for ease in monitoring.
--- NOTE | 2017-10-20 20:10 | NUR ---
pt.assessed.v/s assessed.values w/in normal;limits.pt.presents hsx;chronic pain:lower extremities/hips. i inquired if the pt. pain level pt.states the pain is present but comfortable/tolerable.pt.repositioned.language barrier extant.general status stable.respiratory status stable.call light/telephone w/in the pt's reach.
[2017-10-20] MEDS ORDERED: METOCLOPRAMIDE HCL 10 MG/2 ML VIAL IVP SCH (21:00)
[2017-10-20] MEDS ORDERED: METOCLOPRAMIDE HCL 10 MG/2 ML VIAL IVP PRN (21:00)
--- NOTE | 2017-10-20 21:00 | NUR ---
i inquired if i could administer the pt's medications.pt.stated she preferred the medication administration@2200p. dtr.presents/agreed w/pt.i inquired if the pt.presents additional requests pt.stated no she is fine@the moment.call light/telephone placed w/in the pt's reach.
[2017-10-20] MEDS: DULoxetine HCL 30 MG CAPSULE.DR (CYMBALTA) PO SCH (22:23)
--- NOTE | 2017-10-20 22:25 | NUR ---
the 2100p medications administered per the pt's requests@this hour.i have assessed the blood glucose;value;154mg/dl. i have administered 2units;novolog insulin.pt.has been cleaned.pt,has been repositioned.i inquired if the pt. presents requests pt.stated a blanket.i have provided the blanket;warmed.call light/telephone placed w/in the pt's reach.
[2017-10-20] MEDS: roPINIRole HCL 0.25 MG ( REQUIP )TABLET PO SCH (22:26)
[2017-10-21] MEDS: LORazepam 1 MG TABLET PO PRN
[2017-10-21] MEDS: ACETAMINOPHEN 325 MG TABLET PO PRN ×4 (00:06→20:29)
--- NOTE | 2017-10-21 00:15 | NUR ---
pt.assessed.v/s assessed.values w/in normal limits.pt.requested ativan;i have administered ativan:1mg po.dtr apprised me that the pt.should receive the administration of tylenol:q-4hrs.tylenol 650mg po q-4hrs/p:i have administered the tylenol:650mg po per the dtr's requests.pt.cleaned,pt.repositioned.call light/telephone placed w/in the pt's reach.
[2017-10-21 00:30] VITALS: BP_SYST 130
--- NOTE | 2017-10-21 02:00 | NUR ---
pt.assessed.pt.presents quiescent affect;calm,somnolent.general status stable.respiratory status stable.pt.repositioned.call light/telephone placed w/in the pt's reach.
[2017-10-21] MEDS: IPRATROPIUM/ALBUTEROL SULFATE 3 ML AMPUL.NEB INH SCH ×6 (03:00→22:30)
--- NOTE | 2017-10-21 04:15 | NUR ---
p.assessed.pt.presents quiescent affect;calm somnolent,general status stable.respiratory status stable. pt.repositioned.no requests.no c/o pain,nausea.call light/telephone placed w/in the pt's reach.
--- NOTE | 2017-10-21 06:30 | NUR ---
pt.assessed.blood glucose assessed;value;169mg/dl.i have administered the 0700a medications;protonix,synthroid,flagyl. i have administer tylenol;650mg po per the requests dtr.i have administered levemir;15-units;scheduled dose.i have administered 2-units;novolog insulin per the sliding scale. @bedside inquired of the medications i have administered i have provided the indications of the respective medications;libyan.pt.repositioned.call light/telephone placed w/in the pt's reach.
[2017-10-21] MEDS: metroNIDAZOLE 250 MG TABLET PO SCH ×4 (06:31→22:23)
[2017-10-21] MEDS: PANTOPRAZOLE SODIUM 40 MG TAB PO SCH (06:31)
[2017-10-21] MEDS: LEVOTHYROXINE SODIUM 0.05 MG TABLET PO SCH (06:32)
[2017-10-21] MEDS: INSULIN ASPART 100 UNITS/ML, 10 ML VIAL (NovoLOG) SUBCUT PRN ×2 (06:43→18:35)
[2017-10-21 06:57] LABS: BASOPHILS % (AUTO) 0.6 % (0.0-2.0); EOSINOPHILS % (AUTO) 0.6 % (0.0-4.0); HEMATOCRIT 29.9 % (36-48); HEMOGLOBIN 10.4 g/dL (12.0-16.0); LYMPHOCYTES # (AUTO) 1.5 K/uL (1.0-5.5); LYMPHOCYTES % (AUTO) 25.5 % (20.5-51.5); MEAN CORPUSCULAR HEMOGLOBIN 31 pg (27-31); MEAN CORPUSCULAR HGB CONC 35 % (32-36); MEAN CORPUSCULAR VOLUME 90 fL (79.0-98.0); MONOCYTES # (AUTO) 0.8 K/uL (0.0-1.0); MONOCYTES % (AUTO) 13.5 % (1.7-9.3); NEUTROPHILS # (AUTO) 3.6 K/uL (1.8-7.7); NEUTROPHILS % (AUTO) 59.8 % (40.0-70.0); PLATELET COUNT (AUTO) 146 K/uL (130-430); RED BLOOD CELL COUNT(AUTO) 3.34 MIL/uL (4.2-6.2); RED CELL DISTRIBUTION WIDTH 18.7 % (9.0-15.0); WHITE BLOOD COUNT (AUTO) 5.9 K/uL (4.8-10.8)
[2017-10-21 07:01] LABS: ANION GAP 8 (5-15); CALCIUM 8.3 mg/dL (8.4-11.0); CHLORIDE 97 mmol/L (98-107); CREATININE 0.62 mg/dL (0.55-1.30); GLUCOSE 179 mg/dL (70-99); POTASSIUM 3.3 mmol/L (3.5-5.1); SODIUM SERUM 131 mmol/L (136-145); UREA NITROGEN, BLOOD 6 mg/dL (8-21)
[2017-10-21 07:41] VITALS: BP_SYST 131
--- NOTE | 2017-10-21 07:47 | NUR ---
Opening notes, Received pt in bed, pt is aaox3, family at bedside. denies pain, no sob, no respiratory distress. breathing even and unlabored, no fever. if access on r. ac intact and patent, saline lock. no s/s of infiltration and swelling. safety precaution in place. bed alarm on room near nurse station. pt and family encouraged to call for assist and pain medications or any concerns. will cont to monitor.
--- NOTE | 2017-10-21 08:07 | NUR ---
Nutrition Update David Scale 15 noted. Pt admitted for Sepsis Diet: [facility] diet BMI: 35.8 kg/m2 RD to follow per nutrition care standards.
[2017-10-21] MEDS: cefTRIAXone 1 GM in D5W 50 ML IV SCH (09:00)
[2017-10-21] MEDS: SPIRONOLACTONE 25 MG TABLET (ALDACTONE) PO SCH ×2 (09:00→22:14)
[2017-10-21] MEDS: BACLOFEN 10 MG TABLET PO SCH ×3 (09:00→22:18)
[2017-10-21] MEDS: FUROSEMIDE 20 MG TABLET PO SCH ×2 (09:01→22:20)
[2017-10-21] MEDS: LUBIPROSTONE 24 MCG CAPSULE PO SCH ×2 (09:02→22:18)
[2017-10-21] MEDS: FENOFIBRATE NANOCRYSTALLIZED 48 MG TABLET (TRICOR) PO SCH (09:02)
[2017-10-21] MEDS: DOCUSATE SODIUM 100 MG CAPSULE PO SCH ×2 (09:02→22:18)
[2017-10-21] MEDS: METOPROLOL SUCCINATE 50 MG TAB.SR.24H (TOPROL XL) PO SCH ×2 (09:02→22:22)
[2017-10-21] MEDS: POTASSIUM CHLORIDE 10 MEQ TAB.PRT.SR PO SCH ×2 (09:02→21:00)
[2017-10-21] MEDS: FERROUS SULFATE 325 MG TABLET.DR PO SCH (09:03)
[2017-10-21] MEDS: PREGABALIN 25 MG CAPSULE (LYRICA) PO SCH ×3 (09:03→22:21)
[2017-10-21] MEDS: ONDANSETRON 4 MG ODT TAB PO SCH (09:08)
[2017-10-21] MEDS ORDERED: POTASSIUM CHLORIDE 20 MEQ TAB.PRT.SR PO ONE (10:15)
--- NOTE | 2017-10-21 11:30 | NUR ---
pt blood sugar was 147. no coverage needed. pt in bed, no c/o pain.
[2017-10-21 12:34] VITALS: BP_SYST 130
--- NOTE | 2017-10-21 12:39 | NUR ---
pt given tylenol for pain, pt c/o of pain after walking with P.T., family at bedside. pt sitting on chair. will cont to monitor.
--- NOTE | 2017-10-21 14:52 | NUR ---
PHYSICAL THERAPY CO-SIGN The Physical Therapy Progress Notes documented by Pluck Trimmer have been reviewed. I CONCUR W/DAIRY NUTRITIONIST NOTE; Pt CONT TO REQUIRE 2PA FOR ALL MOBILITY DUE TO WEAKNESS, CONT PER TX PLAN Reviewed/Co-Signed by: Jovanna Verma, PT Documentation Done by: ASHLEE STEVEN, DAIRY NUTRITIONIST Addendum: 10/21/17 at 1453 by Jovanna Verma PT Amended: Links added.
--- NOTE | 2017-10-21 15:05 | NUR ---
pt in bed, aao, denies pain, given 1500 medications. family at bedside. safety precaution in place.
--- NOTE | 2017-10-21 15:25 | NUR ---
DC PLANNING Per ID progress notes pt needs IV abx x7d. Spoke w dtr Shanna @ bedside states prefers no home health taking pt outpt rehab, if can be po abx. States does not want SNF. Called & verified w Dr Nolasco, pt needs 7days IV Rocephin 1gm, cannot be po. If family insist on no HH can go to outpt infusions center in [place] daily. Called & informed Shanna, states agreeable w home health for IV abx & for home PT, wants [facility] who was following pt in past. Called & informed Dr Stephens, gave ph order for dc plan for home w HH w IV abx & PT.
--- NOTE | 2017-10-21 15:44 | NUR ---
Discharge Planning: SERVANDO asked [facility] to fax pt's home health order to [facility] ([phone] f.[phone]). [facility] has faxed order for IV antibiotics and home PT to [facility]. Addendum: 10/21/17 at 1633 by Josefina Varela LCSW ENVIRONMENTAL DIRECTOR received call from Santiago at [facility] who states that [facility] cannot accommodate pt due to pt not having PICC or Midline. [facility] has faxed the order to [facility] ([phone] p.[phone]) to see if they can accommodate pt.
--- NOTE | 2017-10-21 15:46 | NUR ---
pt receiving breathing treatment, no c/o pain. no sob. family at bedside. safety precaution in place. will cont to monitor.
[2017-10-21 16:08] VITALS: BP_SYST 120
--- NOTE | 2017-10-21 18:50 | NUR ---
Closing notes, Pt has been stable the whole shift, tylenol given prn for pain, all med offered and taken. pt walked with PT for s short distance. DC planning for home. order for midline for home antibiotics. order given to house sup. safety precaution in place at all times, will endorse to night rn.
[2017-10-21 19:00] VITALS: BP_SYST 119
--- NOTE | 2017-10-21 19:00 | NUR ---
change of shift.pt.presents stable status.pt.presents general status stable.respiratory status stable@room air.dtr@bedside. i was apprised that the pt.is scheduled for mid-line placement:11/01/17.consent signed per the dtr:day shift nsg requested if could attempt a peripheral iv access.call light/telephone w/in the pt's reach.
--- NOTE | 2017-10-21 19:27 | NUR ---
DAUGHTER YEISON BUNN SIGNED CONSENT FOR PICC/MIDLINE INSERTION.
--- NOTE | 2017-10-21 19:55 | NUR ---
pt.assessed.v/s assessed;values w/in normal limits.pt.has requested medication;pain.i am to f/u review emar. pt.has requested repositioning .pt.repositioned.pt.presents elena catheter.general status stable.respiratory status call light/telephone placed w/in the pt's reach.
[2017-10-21 20:00] VITALS: BP_SYST 118
--- NOTE | 2017-10-21 20:30 | NUR ---
i have administered tylenol:650mg pop.to f/u re;pain efficacy.per pain mgx protocol. no additional requests.
--- NOTE | 2017-10-21 21:00 | NUR ---
i have assessed the blood glucose;value;143mg/dl.pt.has requested 2100p medications to be administered @2200p. to aquiesce to pt's requests.pt.requested repositioning;pt.repositioned.
[2017-10-21] MEDS: DULoxetine HCL 30 MG CAPSULE.DR (CYMBALTA) PO SCH (22:19)
[2017-10-21] MEDS: roPINIRole HCL 0.25 MG ( REQUIP )TABLET PO SCH (22:21)
--- NOTE | 2017-10-21 22:25 | NUR ---
2100p medications administered per the pt's requests.i have re-established the iv access line;located rt.hand;#24g. pt.requested re-positioning.pt.repositioned.no additional requests.call light/telephone placed w/in the pt's reach.
[2017-10-21] MEDS: POTASSIUM CHLORIDE 20 MEQ TAB.PRT.SR PO SCH (22:30)
--- NOTE | 2017-10-22 | NUR ---
pt.assessed.v/s assessed;values w/in normal limits.pt.presents quiescent affect;calm,somnolent. general status stable.respiratory status stable.pt.repositioned.call light/telephone placed w/in the pt's reach.
[2017-10-22 01:00] VITALS: BP_SYST 106
--- NOTE | 2017-10-22 02:10 | NUR ---
pt.assessed.pt.presents quiesen5 affect;calm,somnolent.pt.repositioned.general status stable. respiratory status stable.call light/telephone placed w/in the pt's reach.
[2017-10-22] MEDS: IPRATROPIUM/ALBUTEROL SULFATE 3 ML AMPUL.NEB INH SCH ×6 (03:00→23:00)
--- NOTE | 2017-10-22 04:05 | NUR ---
pt.assessed.pt.presents quiescent,affect;calm,somnolent.pt.repositioned.no requests@this hour.call light/telephone placed w/in the pt's reach.
[2017-10-22] MEDS: ACETAMINOPHEN 325 MG TABLET PO PRN ×3 (04:30→14:18)
--- NOTE | 2017-10-22 04:30 | NUR ---
pt.requested pain medication.i have administered tylenol;650mg po.i inquired if the pt.requires stronger dose medication;pain.dtr stated is recluctant;to order pt.becomes very somnolent receiving stronger medication;pain.
[2017-10-22 06:22] LABS: ANION GAP 6 (5-15); CALCIUM 8.2 mg/dL (8.4-11.0); CHLORIDE 97 mmol/L (98-107); CREATININE 0.71 mg/dL (0.55-1.30); GLUCOSE 94 mg/dL (70-99); POTASSIUM 4.3 mmol/L (3.5-5.1); SODIUM SERUM 129 mmol/L (136-145); UREA NITROGEN, BLOOD 7 mg/dL (8-21)
--- NOTE | 2017-10-22 06:31 | NUR ---
pty.aassessed.pt.presents quiescent affect;calm,somnolent.i have administered the 0700a medication.i have assessed the blood glucose. pt.repositioned.no c/o pain/nausea.call light/telephone placed w/in the pt's reach.general status stable.respiratory status stable.
[2017-10-22 06:36] LABS: BASOPHILS % (AUTO) 0.5 % (0.0-2.0); EOSINOPHILS % (AUTO) 0.7 % (0.0-4.0); HEMATOCRIT 34.1 % (36-48); HEMOGLOBIN 11.5 g/dL (12.0-16.0); LYMPHOCYTES # (AUTO) 1.8 K/uL (1.0-5.5); MEAN CORPUSCULAR HEMOGLOBIN 30 pg (27-31); MEAN CORPUSCULAR HGB CONC 34 % (32-36); MEAN CORPUSCULAR VOLUME 90 fL (79.0-98.0); MONOCYTES # (AUTO) 0.9 K/uL (0.0-1.0); MONOCYTES % (AUTO) 12.8 % (1.7-9.3); PLATELET COUNT (AUTO) 158 K/uL (130-430); RED BLOOD CELL COUNT(AUTO) 3.81 MIL/uL (4.2-6.2); RED CELL DISTRIBUTION WIDTH 19.2 % (9.0-15.0); WHITE BLOOD COUNT (AUTO) 6.7 K/uL (4.8-10.8)
[2017-10-22] MEDS: PANTOPRAZOLE SODIUM 40 MG TAB PO SCH (06:43)
[2017-10-22] MEDS: metroNIDAZOLE 250 MG TABLET PO SCH ×2 (06:43→14:14)
[2017-10-22] MEDS: LEVOTHYROXINE SODIUM 0.05 MG TABLET PO SCH (06:44)
--- NOTE | 2017-10-22 06:51 | NUR ---
blood glucose;value;94mg/dl.i havehedl the levemir;15 units insulin./i have administer synthroid,protonix,flagyl po w/aple juice to raise the blood glucose.
--- NOTE | 2017-10-22 07:50 | NUR ---
OPENING NOTES, RECEIVED PT IN BED, PT IS SLEEPY BUT WAKES UP TO VOICE, DENIES PAIN, NO SOB, NO RESP DISTRESS. VITALS WNL. AFEBRILE. SL ON R. HAND #24, INTACT AND PATENT, NO S/S OF INFILTRATION. SAFETY PRECAUTION IN PLACE. FAMILY AT BEDSIDE. BED ALARM ON. CALL LIGHT IN REACH. ENCOURAGED TO CALL FOR ASSIST AND PAIN MEDS AND ANY CONCERNS. WILL CONT TO MONITOR.
[2017-10-22 08:09] VITALS: BP_SYST 120
[2017-10-22] MEDS: FERROUS SULFATE 325 MG TABLET.DR PO SCH (08:53)
[2017-10-22] MEDS: BACLOFEN 10 MG TABLET PO SCH ×3 (08:53→22:26)
[2017-10-22] MEDS: LUBIPROSTONE 24 MCG CAPSULE PO SCH ×2 (08:54→22:24)
[2017-10-22] MEDS: FENOFIBRATE NANOCRYSTALLIZED 48 MG TABLET (TRICOR) PO SCH (08:54)
[2017-10-22] MEDS: SPIRONOLACTONE 25 MG TABLET (ALDACTONE) PO SCH ×2 (08:55→22:26)
[2017-10-22] MEDS: FUROSEMIDE 20 MG TABLET PO SCH ×2 (08:56→22:26)
[2017-10-22] MEDS: PREGABALIN 25 MG CAPSULE (LYRICA) PO SCH ×3 (08:56→22:25)
[2017-10-22] MEDS: POTASSIUM CHLORIDE 20 MEQ TAB.PRT.SR PO SCH ×2 (08:57→22:26)
[2017-10-22] MEDS: METOPROLOL SUCCINATE 50 MG TAB.SR.24H (TOPROL XL) PO SCH ×2 (08:57→22:25)
[2017-10-22] MEDS: DOCUSATE SODIUM 100 MG CAPSULE PO SCH ×2 (08:58→22:25)
[2017-10-22] MEDS ORDERED: cefTRIAXone 1 GM in D5W 50 ML IV SCH (09:00)
[2017-10-22] MEDS: POTASSIUM CHLORIDE 10 MEQ TAB.PRT.SR PO SCH ×2 (09:00→22:26)
[2017-10-22] MEDS: ONDANSETRON 4 MG ODT TAB PO SCH (09:01)
--- NOTE | 2017-10-22 09:47 | NUR ---
ALBERTO PLANNING Late Entry-10/21/17: Per Josefina HAQUE [facility] cannot follow pt, need different HH. Called & left msg for dtr Shanna, , need different HH company that [facility] cannot follow. 10/22/17--Called & spoke w Shanna, siennaable w different home health no preference, agreeable w [email or web address].
--- NOTE | 2017-10-22 10:04 | NUR ---
PT GIVEN TYLENOL FOR PAIN AFTER WORKING WITH P.T. FAMILY AT BEDSIDE. PT ASSISTED BACK TO BED BY PHector AND KIAH HONG. SAFETY PRECAUTION IN PLACE. WILL CONT TO MONITOR.
--- NOTE | 2017-10-22 11:22 | NUR ---
Discharge Planning: GARLAND spoke to Guille from [facility] ([phone]); [facility] has given the case to [facility] ([phone]); start of care will be tomorrow, 10/23/17. Guille is asking for a time when pt will be at home for the antibiotics to be delivered; GARLAND will check with pt's family and call Guille back. Addendum: 10/22/17 at 1139 by Josefina Varela LCSW GARLAND received a call from Damian at [facility] who states that she has spoken to pt's dtr and confirmed the delivery arrangements. GARLAND spoke with Guille to let him know that the delivery of antibiotics has been confirmed with the pt's dtr and pharmacy.
--- NOTE | 2017-10-22 12:00 | NUR ---
PHYSICAL THERAPY CO-SIGN The Physical Therapy Progress Notes documented by Surgical Coordinator have been reviewed. I concur with the documentation of this YIELD IMPROVEMENT ENGINEER. Plan: continue as per plan of care as she continues to make some slow but good and steady progress with PT. Reviewed/Co-Signed by: Radha Navas, PT Documentation Done by: Eder Macario, YIELD IMPROVEMENT ENGINEER Addendum: 10/22/17 at 1316 by Radha Navas PT Amended: Links added.
--- NOTE | 2017-10-22 12:10 | NUR ---
Nutrition F/U Admitting Diagnosis Sepsis Reviewed Pertinent Medical/Surgical Hx Medical Record Patient Family Member Medical History Comment: Pt found w/: Sepsis, serocolitis, acute asthmatic bronchitis, MDS w/ anemia ant thrombocytopenia, old CVA, urinary retention, neurogenic bladder, DM-II, Diabetic polyneuropathy, B/L sciatica and lumbago, DJD of the lumbar spine, moderate DJD of L hip, chronic pain syndrome, asthma, constipation, Tarlov cysts, hyperbilirubinemia per MD notes. Per Pulmonology Consultation notes: Anasarca, COPD. Subjective Information Pt seen sleeping w/ daughter and at bedside. Pt's daughter reported that her sister continues to bring home-cooked soups for pt such as lentil soup and chicken noodle soup, but that pt drinks less than 20-30% of each. Pt also continues w/ loose stool. RD educated pt's family about affects of banana flakes (Banatrol) provided daily as ordered by attending MD. Pt does not have any IVF orders. Pt is not meeting optimal nutritional needs. Current Diet Order/Nutrition Support CCHO, Banana Flakes daily x0 days Patient/Significant Other Able To Verbalize Education Provided Not Indicated Pertinent Medications k-dur, lasix, synthroid, insulin aspart, amitiza, zofran, ferrous sulfate, zofran, protonix, aldactone, flagyl Pertinent Labs Na 129 L, BG 94 WNL, POC BG 94 WNL, ALB 2 L, H/H 11.5 L/34.1 L, Ca 8.2 L Height (Feet) 5 feet Height (Inches) 2.00 inches Weight (Pounds) 196 pounds (10/16/17) Weight (Calculated Kilograms) 88.598498 kilograms Patient Weight 88.904 kg Body Mass Index 35.84 kg/m2 %IBW 178 [place]/Adjusted Body Weight 110 lb, 50 kg; Adj IBW Obesity 132 lb, 60 kg Recent Weight Change No - per pt Weight Status Obese Gastrointestinal Symptoms None Last BM 10/22/17 -- x9 (diarrhea); abd is soft w/ active bowel sounds per EMR Difficulty With: Swallowing Food Allergies No - per daughter Usual Diet At Home Low carb, home cooked meals, chicken and vegetables per daughter Skin Integrity Comment: David scale: 13; per nursing notes, perineal w/ intertriginous dermatitis/redness; generalized 1+ pitting edema Current % PO Poor -- 26% average x5 meals Estimated Energy Expenditure (kcals/day) 1329-8522 kcal/day (30-35 kcal/kg Adj IBW for Sepsis) Estimated Protein Required (g/day) 90-120 g/day (1.5-2g/kg Adj IBW for Sepsis) Estimated Fluid Required (l/day) 1.5 L/day (25ml/kg Adj IBW for Geriatric maintenance) Problem/Etiology/Signs/Symptoms (modified) Increased nutritional needs related to metabolic demands as evidenced by estimated calorie and protein needs for Sepsis. *ongoing Altered nutrition-related labs related to endocrine dysfunction as evidenced by elevated BG lab values. *ongoing Compromised GI function related to BM irregularity as evidenced by diarrhea. *ongoing Expected Outcomes/Goals Monitor advancement of diet and PO intake w/ goal of pt meeting at least 75% of estimated nutritional needs, labs trending WNL, normal GI function, skin integrity/wt maintenance. Dietitian Recommendations * Recommend CCHO diet, Banatrol daily * Consider IVF w/ dextrose Follow Up High Risk: F/U in 2-3 days
--- NOTE | 2017-10-22 12:21 | NUR ---
Dietitian Recommendations * [facility], Banatrol daily * Consider IVF w/ dextrose JASMIN JONAS Please refer to Nutrition Assessment for details. Addendum: 10/22/17 at [address] CORRECTION: Please refer to Nutrition F/U for details.
[2017-10-22] MEDS ORDERED: LOPERAMIDE HCL 2 MG CAPSULE PO ONE ×2 (13:45→15:45)
[2017-10-22] MEDS ORDERED: cefTRIAXone 1 GM in D5W 50 ML IV ONE (14:00)
[2017-10-22 15:33] VITALS: BP_SYST 121
[2017-10-22] MEDS ORDERED: LOPERAMIDE HCL 2 MG CAPSULE PO PRN (15:45)
--- NOTE | 2017-10-22 16:10 | NUR ---
DC PLANNING Discussed dc planning w Dr Stephens in [facility], states pt having diarrhea that will need LTAC. Discussed w Cindy, CM Director, & ON AWAKE COUNSELOR Dr Sands. Discussed again w Dr Stephens in [facility] & ordering SNF. Spoke w dtr Bertha @ bedside & informed, then we discussed w Dr Stephens in [facility]. Family prefers home w IV abx, have plenty of help @ home & can handle her care @ home. Dr Stephens plans for dc home tomorrow w IV abx as already set up along w po prescription. Dr Stephens states discussed w Dr Sands. Addendum: 10/22/17 at 1614 by Monica Ramsey RN Updated pt's nurse Calvin
[2017-10-22] MEDS ORDERED: MEGESTROL ACETATE 400 MG/10 ML UDC PO ONE (16:15)
[2017-10-22] MEDS: metroNIDAZOLE 500 mg/NS 100 ML IV SCH ×2 (17:15→22:27)
[2017-10-22] MEDS: EPOETIN ALFA 10,000 UNITS/ML VIAL SUBCUT SCH (17:23)
[2017-10-22] MEDS: INSULIN ASPART 100 UNITS/ML, 10 ML VIAL (NovoLOG) SUBCUT PRN ×2 (17:35→22:39)
--- NOTE | 2017-10-22 19:39 | NUR ---
CLOSING NOTES, PT HAS BEEN STABLE, PT WORKED WITH PT. PT STILL HAS POOR PO INTAKE, MD AWARE, MEGACE ORDERED. PT HAS DIARRHEA 6X, MD ORDERED IMODIUM. MID LINE PLACED ORDERED FOR HOME IV ABX. PT'S DTR AT BEDSIDE. DTR IS AWARE THAT PT IS GOING HOME IN THE MORNING. HUYNH HAS BEEN INTACT. DR WELLS ORDERED NOT TO DC HUYNH FOR NEUROGENIC BLADDER. PT ENDORSED TO NIGHT JOHNNY FRAGA.
[2017-10-22 21:00] VITALS: BP_SYST 135
[2017-10-22] MEDS ORDERED: MIRTAZAPINE 15 MG TABLET PO SCH (21:00)
--- NOTE | 2017-10-22 21:55 | NUR ---
DIABETES MELLITUS DM BSG @ 269 MG DL , 6 UNITS OF NOVOLOG INSULIN SUB Q. ADMINISTER PER SLIDING SCALE .
[2017-10-22] MEDS: DULoxetine HCL 30 MG CAPSULE.DR (CYMBALTA) PO SCH (22:26)
[2017-10-22] MEDS: roPINIRole HCL 0.25 MG ( REQUIP )TABLET PO SCH (22:26)
--- NOTE | 2017-10-22 23:35 | NUR ---
APPLE SAUCE PO GIVEN WITH MEDICATION , PATIENT KEPT UP RIGHT POSITION & TOLERATED / .
--- NOTE | 2017-10-23 | NUR ---
HUYNH CATHETER FOR URINE PATENT FREE FLOW OF YELLOW CLEAR URINE NOTED TO BSDB SIPS OF WATER ALSO TOLERATED / .
[2017-10-23 00:20] VITALS: BP_SYST 135
--- NOTE | 2017-10-23 02:52 | NUR ---
Hourly Rounding patient resting assist for position change family @ the bedside call posada with patient no complaints made .
[2017-10-23] MEDS: IPRATROPIUM/ALBUTEROL SULFATE 3 ML AMPUL.NEB INH SCH ×4 (03:00→15:33)
--- NOTE | 2017-10-23 06:17 | NUR ---
Resting this hour family @ the bedside fall measures effective assist as needed .
[2017-10-23] MEDS: metroNIDAZOLE 500 mg/NS 100 ML IV SCH ×2 (06:36→13:05)
[2017-10-23] MEDS: LEVOTHYROXINE SODIUM 0.05 MG TABLET PO SCH (06:36)
[2017-10-23] MEDS: PANTOPRAZOLE SODIUM 40 MG TAB PO SCH (06:37)
[2017-10-23] MEDS: INSULIN ASPART 100 UNITS/ML, 10 ML VIAL (NovoLOG) SUBCUT PRN ×3 (06:39→18:11)
[2017-10-23 06:45] LABS: HEMATOCRIT 33.5 % (36-48); MEAN CORPUSCULAR HEMOGLOBIN 31 pg (27-31); WHITE BLOOD COUNT (AUTO) 5.3 K/uL (4.8-10.8)
[2017-10-23 06:57] LABS: ANION GAP 10 (5-15); CALCIUM 8.6 mg/dL (8.4-11.0); CHLORIDE 98 mmol/L (98-107); CREATININE 0.85 mg/dL (0.55-1.30); GLUCOSE 266 mg/dL (70-99); HEMOGLOBIN 11.5 g/dL (12.0-16.0); MEAN CORPUSCULAR HGB CONC 34 % (32-36); MEAN CORPUSCULAR VOLUME 90 fL (79.0-98.0); PLATELET COUNT (AUTO) 179 K/uL (130-430); POTASSIUM 4.3 mmol/L (3.5-5.1); RED BLOOD CELL COUNT(AUTO) 3.72 MIL/uL (4.2-6.2); RED CELL DISTRIBUTION WIDTH 19.3 % (9.0-15.0); SODIUM SERUM 133 mmol/L (136-145); UREA NITROGEN, BLOOD 10 mg/dL (8-21)
--- NOTE | 2017-10-23 07:45 | NUR ---
INITIAL NOTE RECEIVED PATIENT FROM COSMETIC SALES ASSISTANT. PATIENT SITTING UP IN BED RECEIVING BREATHING TREATMENT, NILE WELL. NO ACUTE DISTRESS. NO SOB. RESPIRATION EVEN AND UNLABORED. SKIN WARM AND DRY TO TOUCH. IV INTACT AND PATENT. BED IN LOW AND LOCKED POSITION. SIDERAIL UP x3. BED ALARM ON. FAMILY AT BEDSIDE. ORIENTED PATIENT AND FAMILY TO CALL LIGHT TO USE FOR ASSIST; VERBALIZED UNDERSTANDING. ROOM NEAR NURSES STATION. ALL NEEDS MET. CALL LIGHT IN REACH. CONT TO MONITOR.
[2017-10-23 08:00] VITALS: BP_SYST 113
[2017-10-23 08:31] LABS: BAND % (MANUAL) 1 % (0-6); LYMPHOCYTES % (MANUAL) 27 % (20-46); MONOCYTES % (MANUAL) 8 % (0-11)
[2017-10-23 08:32] LABS: BASOPHILS % (MANUAL) 0 % (0-2); EOSINOPHILS % (MANUAL) 1 % (0-7)
[2017-10-23] MEDS ORDERED: MEGESTROL ACETATE 400 MG/10 ML UDC PO SCH (09:00)
[2017-10-23] MEDS ORDERED: cefTRIAXone 1 GM in D5W 50 ML IV SCH (09:00)
--- NOTE | 2017-10-23 09:00 | NUR ---
PT SEEN BY PHYSICAL THERAPY. PHYSICAL THERAPY ASSISTED PATIENT TO RECLINING CHAIR, NILE WELL. ALL NEEDS MET. CONT TO MONITOR. CALL LIGHT IN REACH.
[2017-10-23] MEDS: ACETAMINOPHEN 325 MG TABLET PO PRN ×2 (09:02→16:36)
[2017-10-23] MEDS: LUBIPROSTONE 24 MCG CAPSULE PO SCH (09:05)
[2017-10-23] MEDS: FENOFIBRATE NANOCRYSTALLIZED 48 MG TABLET (TRICOR) PO SCH (09:05)
[2017-10-23] MEDS: METOPROLOL SUCCINATE 50 MG TAB.SR.24H (TOPROL XL) PO SCH (09:06)
[2017-10-23] MEDS: FERROUS SULFATE 325 MG TABLET.DR PO SCH (09:06)
[2017-10-23] MEDS: FUROSEMIDE 20 MG TABLET PO SCH (09:06)
[2017-10-23] MEDS: ONDANSETRON 4 MG ODT TAB PO SCH (09:06)
[2017-10-23] MEDS: DOCUSATE SODIUM 100 MG CAPSULE PO SCH (09:06)
[2017-10-23] MEDS: BACLOFEN 10 MG TABLET PO SCH ×2 (09:07→14:53)
[2017-10-23] MEDS: PREGABALIN 25 MG CAPSULE (LYRICA) PO SCH ×2 (09:07→14:53)
[2017-10-23] MEDS: SPIRONOLACTONE 25 MG TABLET (ALDACTONE) PO SCH (09:07)
[2017-10-23] MEDS: POTASSIUM CHLORIDE 10 MEQ TAB.PRT.SR PO SCH (10:12)
--- NOTE | 2017-10-23 11:00 | NUR ---
NOTES PATIENT RESTING IN BED. PAIN IS MANAGEABLE AT THIS TIME AND DOES NOT WANT ANYTHING AT THIS TIME. NO ACUTE DISTRESS. NO SOB. RESPIRATION EVEN AND UNLABORED. SKIN WARM AND DRY TO TOUCH. ALL NEEDS MET. CONT TO MONITOR. CALL LIGHT IN REACH. ROOM NEAR NURSES STATION.
[2017-10-23 11:15] VITALS: BP_SYST 118
--- NOTE | 2017-10-23 13:07 | NUR ---
blood sugar PATIENT BLOOD SUGAR WAS 333 WITH 8 UNITS OF INSULIN ADMINISTERED ORDERED, NILE WELL. NO S/SX HYPERGLYCEMIA NOTED. DIABETIC TEACHING DONE. FAMILY AT BEDSIDE. ALL NEEDS MET. CONT TO MONITOR.
--- NOTE | 2017-10-23 15:00 | NUR ---
NOTES PATIENT RESTING. VITAL SIGN STABLE. NOTED RISE AND FALL OF CHEST. ALL NEEDS MET. CONT TO MONITOR. CALL LIGHT IN REACH.
[2017-10-23 15:01] VITALS: BP_SYST 125
--- NOTE | 2017-10-23 15:30 | NUR ---
PHYSICAL THERAPY CO-SIGN The Physical Therapy Progress Notes documented by Building Stonecutter have been reviewed. I CONCUR W/DRYWALL WORKER NOTE Reviewed/Co-Signed by: Jovanna Verma, PT Documentation Done by: ASHLEE STEVEN PTA PT WEEKLY SUMMARY Pt CONT TO DEMO WEAKNESS AND GAIT INSTABILITY, REQUIRING MAX ASSIST X 2 IN MOST MOBILITY; WILL BENEFIT TO CONT WITH CURRENT POC; ONCE DAILY 5X/WK X1 WEEK, DRYWALL WORKER UPDATED. Addendum: 10/23/17 at 1532 by Jovanna Verma PT Amended: Links added.
--- NOTE | 2017-10-23 16:40 | NUR ---
TYLENOL PATIENT C/O BILAT LEG PAIN; REFUSED ICE PACKS, REPOSITIONED FOR COMFORT AND MEDICATED ORDERED; NILE WELL. ALL NEEDS MET. CALL LIGHT IN REACH. CONT TO MONITOR.
--- NOTE | 2017-10-23 16:40 | NUR ---
DC planning: Nurse Zoe made aware home health and home IV abx for Rocephin has already been arranged for pt per GARLAND Rocha. Home Health agency is [facility]. IDA TURNER
--- NOTE | 2017-10-23 17:35 | NUR ---
PATIENT SEEN AND EXAMINED BY AT BEDSIDE. WILL DISCHARGE PATIENT. WENT OVER HOME MEDICATIONS AND DISCHARGE MEDICATIONS WITH PATIENT AND PATIENTS DAUGHTER. ALL NEEDS MET. CONT TO MONITOR. CALL LIGHT IN REACH
[2017-10-23 17:59] VITALS: BP_SYST 129
--- NOTE | 2017-10-23 18:11 | NUR ---
BLOOD SUGAR PATIENT BLOOD SUGAR WAS 330 WITH 8 UNITS OF INSULIN ADMINISTERED ORDERED, NILE WELL. NO S/SX HYPER/HYPOGLYCEMIA NOTED. ALL NEEDS MET. CONT TO MONITOR. CALL LIGHT IN REACH.
--- NOTE | 2017-10-23 19:00 | NUR ---
D/C Patient Patient given medication reconciliation form and D/C instructions. Exit Care provided. Patient verbalized understanding. MD discussed with patient the results and treatment provided. Ambulatory with steady gait for discharge to home. Patient in stable condition, ID band removed. Midline to right upper arm in place due to continuing with IV Rocephin at home with home health; Midline in place and flushes freely covered with clean, dry transparent dressing. Abraham cath intact per for neurogenic bladder. Rx of Doxycycline, Remeron and Levemir given. Patient educated on pain management. All belongings sent with patient. Teaching to patient and daughter done at bedside regarding Midline, Abraham catheter and f/u PCP; verbalized understanding. Addendum: 10/23/17 at 1938 by Zoe Carreno RN Patient is not "ambulatory with steady gait". Patient is weak and is ambulatory with assist.
== END 2017-10-23 19:00 | disposition home health service (06) | DRG 871 ==
LOC: SED 00:13 → STU 03:04 → SMU 10-20 09:33
PROVIDERS: ADMIT Internal Medicine; ATTEND Internal Medicine
PROC: 05HY33Z Insertion of Infusion Device into Upper Vein, Percutaneous Approach (ICD-10-PCS; principal; 2017-10-22)
DX: A41.9 Sepsis, unspecified organism (principal); G92 Toxic encephalopathy; E43 Unspecified severe protein-calorie malnutrition; N39.0 Urinary tract infection, site not specified; D68.59 Other primary thrombophilia; I10 Essential (primary) hypertension; G89.4 Chronic pain syndrome; D46.9 Myelodysplastic syndrome, unspecified; D69.6 Thrombocytopenia, unspecified; E03.9 Hypothyroidism, unspecified; E11.40 Type 2 diabetes mellitus with diabetic neuropathy, unspecified; E66.9 Obesity, unspecified; J44.9 Chronic obstructive pulmonary disease, unspecified; K52.89 Other specified noninfective gastroenteritis and colitis; M54.42 Lumbago with sciatica, left side; M54.41 Lumbago with sciatica, right side; M47.896 Other spondylosis, lumbar region; M16.12 Unilateral primary osteoarthritis, left hip; E88.09 Other disorders of plasma-protein metabolism, not elsewhere classified; D63.8 Anemia in other chronic diseases classified elsewhere; I49.1 Atrial premature depolarization; F32.9 Major depressive disorder, single episode, unspecified; G93.0 Cerebral cysts; K57.90 Diverticulosis of intestine, part unspecified, without perforation or abscess without bleeding; G25.81 Restless legs syndrome; E80.6 Other disorders of bilirubin metabolism; E78.5 Hyperlipidemia, unspecified; M10.9 Gout, unspecified; I25.10 Atherosclerotic heart disease of native coronary artery without angina pectoris; I48.0 Paroxysmal atrial fibrillation; K59.00 Constipation, unspecified; N31.9 Neuromuscular dysfunction of bladder, unspecified; Z87.440 Personal history of urinary (tract) infections; Z87.891 Personal history of nicotine dependence; Z79.899 Other long term (current) drug therapy; Z79.82 Long term (current) use of aspirin; Z95.5 Presence of coronary angioplasty implant and graft; Z86.73 Personal history of transient ischemic attack (TIA), and cerebral infarction without residual deficits; Z68.35 Body mass index [BMI] 35.0-35.9, adult
CPT/HCPCS: 36415; 36600; 71045; 71250-TC; 74018; 80048; 80053; 80074; 81000-TC; 82150-TC; 82272; 82607; 82728; 82746; 82803-TC; 82962; 83036; 83540-TC; 83550-TC; 83605; 83690-TC; 83735-TC; 84100-TC; 84443-TC; 84550-TC; 85007; 85025; 85027; 85384-TC; 85610-TC; 85730-TC; 87040-TC; 87081; 87086; 87449; 93005; 93306; 93970; 94640; 94760; 96365; 97110-GP; 97116-GP; 97530-GP; 97535-GP; 99291; C1751; J0696; J0885; J1815; J1940; J2405; J2543; J2765; J3490; J7030; J7040; J7060; J7620; Q0162

== ENCOUNTER 2017-11-28 09:22 | Inpatient (IN) | payer OTHER, MEDICAID ==
[~2017-11-28] VITALS: Ht 157.5 cm; Wt 65.8 kg
[2017-11-28 09:22] VITALS: BP_SYST 96
[~2017-11-28 09:22] MED LIST changes: -BACL10TA PO; -CEPH250C PO; -DOCU-144 PO; -HYDR-3610 PO; -METF10004 PO; -MONT10TA22
[2017-11-28] MEDS ORDERED: KETOROLAC TROMETHAMINE 15 MG VIAL IVP ONE (10:15)
[2017-11-28] MEDS ORDERED: NACL 0.9% 1,000 ML IV ONE (10:15)
[2017-11-28 10:37] LABS: ANION GAP 8 (5-15); BASOPHILS % (AUTO) 0.8 % (0.0-2.0); CALCIUM 8.8 mg/dL (8.4-11.0); CHLORIDE 89 mmol/L (98-107); CREATININE 0.44 mg/dL (0.55-1.30); EOSINOPHILS # (AUTO) 0.1 K/uL (0.0-0.4); EOSINOPHILS % (AUTO) 1.6 % (0.0-4.0); GLUCOSE 114 mg/dL (70-99); HEMATOCRIT 29.2 % (36-48); HEMOGLOBIN 9.4 g/dL (12.0-16.0); LYMPHOCYTES # (AUTO) 1.9 K/uL (1.0-5.5); MEAN CORPUSCULAR HEMOGLOBIN 31 pg (27-31); MEAN CORPUSCULAR HGB CONC 32 % (32-36); MEAN CORPUSCULAR VOLUME 95 fL (79.0-98.0); MONOCYTES # (AUTO) 0.7 K/uL (0.0-1.0); NEUTROPHILS # (AUTO) 3.4 K/uL (1.8-7.7); NEUTROPHILS % (AUTO) 55.6 % (40.0-70.0); PLATELET COUNT (AUTO) 230 K/uL (130-430); POTASSIUM 3.8 mmol/L (3.5-5.1); RED BLOOD CELL COUNT(AUTO) 3.07 MIL/uL (4.2-6.2); RED CELL DISTRIBUTION WIDTH 14.7 % (9.0-15.0); SODIUM SERUM 122 mmol/L (136-145); UREA NITROGEN, BLOOD 8 mg/dL (8-21); WHITE BLOOD COUNT (AUTO) 6.1 K/uL (4.8-10.8)
[2017-11-28 10:42] LABS: ALANINE AMINOTRANSFERASE 17 U/L (12-78); ALBUMIN 3.1 g/dL (3.4-4.8); ASPARTATE AMINOTRANSFERASE 27 U/L (10-37); TOTAL BILIRUBIN 1.5 mg/dL (0.0-1.0)
[2017-11-28] MEDS ORDERED: BACL10TA PO (12:07)
[2017-11-28] MEDS ORDERED: INSNLG7030 SUBCUT (12:07)
[2017-11-28] MEDS ORDERED: FLUT16SP16 NS (12:07)
[2017-11-28] MEDS ORDERED: LEVO50TA8 PO (12:07)
[2017-11-28 12:52] VITALS: BP_SYST 131
[2017-11-28] MEDS ORDERED: SODIUM CHLORIDE 3% *HI-ALERT* 300 ML IV ONE (14:15)
[2017-11-28] MEDS ORDERED: DEXTROSE 50% JECT 50 ML DISP.SYRIN IVP PRN (14:15)
[2017-11-28] MEDS ORDERED: FLUTICASONE PROPIONATE 50 mCg/SPRAY 16 GM NS PRN (14:15)
[2017-11-28] MEDS ORDERED: INSULIN REGULAR, HUMAN 100 UNITS/ML, 10 ML VIAL (novoLIN R) SUBCUT PRN (14:15)
[2017-11-28] MEDS: ACETAMINOPHEN 325 MG TABLET PO PRN (14:22)
[2017-11-28] MEDS: BACLOFEN 10 MG TABLET PO SCH ×2 (14:33→21:01)
[2017-11-28] MEDS ORDERED: PREGABALIN 25 MG CAPSULE (LYRICA) PO ONE (14:45)
[2017-11-28 16:54] VITALS: BP_SYST 130
[2017-11-28 17:34] LABS: BILIRUBIN,URINE 1+ (NEGATIVE); BLOOD, URINE NEGATIVE (NEGATIVE); CLARITY/URINE CLEAR (CLEAR); COLOR,URINE YELLOW (YELLOW); GLUCOSE,URINE NEGATIVE (NEGATIVE); KETONES,URINE TRACE (NEGATIVE); LEUKOCYTE ESTERASE ,URINE TRACE (NEGATIVE); NITRITE, URINE NEGATIVE (NEGATIVE); PROTEIN URINE 2+ (NEGATIVE); UROBILINOGEN,URINE 0.2 (0.2-1.0)
[2017-11-28 17:42] LABS: BACTERIA,URINE MODERATE /HPF (None Seen); RBC,URINE 0-3 /HPF (0-3)
[2017-11-28 19:55] VITALS: BP_SYST 133
[2017-11-28] MEDS: METOPROLOL TARTRATE 25 MG TABLET PO SCH (21:01)
[2017-11-28] MEDS: PREGABALIN 25 MG CAPSULE (LYRICA) PO SCH (21:02)
[2017-11-28] MEDS: roPINIRole HCL 0.25 MG ( REQUIP )TABLET PO SCH (21:02)
[2017-11-28] MEDS: PROMETHAZINE-DM 6.25 MG-15 MG/5 ML UDC PO SCH (21:03)
[2017-11-28 23:20] VITALS: BP_SYST 144
[2017-11-29] MEDS: ACETAMINOPHEN 325 MG TABLET PO PRN (06:09)
[2017-11-29] MEDS: LEVOTHYROXINE SODIUM 0.05 MG TABLET PO SCH (06:09)
[2017-11-29 06:34] LABS: EOSINOPHILS # (AUTO) 0.1 K/uL (0.0-0.4); HEMATOCRIT 25.5 % (36-48); LYMPHOCYTES # (AUTO) 1.5 K/uL (1.0-5.5)
[2017-11-29 06:48] LABS: ANION GAP 7 (5-15); CALCIUM 8.4 mg/dL (8.4-11.0); CHLORIDE 96 mmol/L (98-107); CREATININE 0.44 mg/dL (0.55-1.30); GLUCOSE 136 mg/dL (70-99); POTASSIUM 4.2 mmol/L (3.5-5.1); SODIUM SERUM 128 mmol/L (136-145); UREA NITROGEN, BLOOD 5 mg/dL (8-21)
[2017-11-29 06:50] LABS: BASOPHILS % (AUTO) 0.8 % (0.0-2.0); EOSINOPHILS % (AUTO) 2.9 % (0.0-4.0); HEMOGLOBIN 8.4 g/dL (12.0-16.0); LYMPHOCYTES % (AUTO) 32.3 % (20.5-51.5); MEAN CORPUSCULAR HEMOGLOBIN 31 pg (27-31); MEAN CORPUSCULAR HGB CONC 33 % (32-36); MEAN CORPUSCULAR VOLUME 95 fL (79.0-98.0); MONOCYTES # (AUTO) 0.4 K/uL (0.0-1.0); MONOCYTES % (AUTO) 9.1 % (1.7-9.3); NEUTROPHILS # (AUTO) 2.8 K/uL (1.8-7.7); NEUTROPHILS % (AUTO) 54.9 % (40.0-70.0); PLATELET COUNT (AUTO) 228 K/uL (130-430); RED CELL DISTRIBUTION WIDTH 14.5 % (9.0-15.0); WHITE BLOOD COUNT (AUTO) 4.8 K/uL (4.8-10.8)
[2017-11-29 08:09] VITALS: BP_SYST 141
[2017-11-29] MEDS: BACLOFEN 10 MG TABLET PO SCH ×3 (08:50→20:05)
[2017-11-29] MEDS: ASPIRIN 81 MG TAB.CHEW PO SCH (08:50)
[2017-11-29] MEDS: PREGABALIN 25 MG CAPSULE (LYRICA) PO SCH ×2 (08:51→20:05)
[2017-11-29] MEDS: FENOFIBRATE NANOCRYSTALLIZED 48 MG TABLET (TRICOR) PO SCH (08:51)
[2017-11-29] MEDS: PANTOPRAZOLE SODIUM 40 MG TAB PO SCH (08:51)
[2017-11-29] MEDS: FERROUS SULFATE 325 MG TABLET.DR PO SCH (08:51)
[2017-11-29] MEDS: METOPROLOL TARTRATE 25 MG TABLET PO SCH ×2 (08:52→20:06)
[2017-11-29] MEDS: PROMETHAZINE-DM 6.25 MG-15 MG/5 ML UDC PO SCH ×3 (08:53→20:07)
[2017-11-29] MEDS ORDERED: MENTHOL/ZINC OXIDE 113 GM OINT. TP PRN (12:00)
[2017-11-29 12:22] VITALS: BP_SYST 127
[2017-11-29] MEDS ORDERED: SODIUM CHLORIDE 3% *HI-ALERT* 200 ML IV ONE (13:45)
[2017-11-29] MEDS: SODIUM CHLORIDE 500 MG TABLET PO SCH ×2 (14:31→20:05)
[2017-11-29 17:03] VITALS: BP_SYST 133
[2017-11-29 20:00] VITALS: BP_SYST 155
[2017-11-29] MEDS: roPINIRole HCL 0.25 MG ( REQUIP )TABLET PO SCH (20:05)
[2017-11-29] MEDS: INSULIN ASPART 100 UNITS/ML, 10 ML VIAL (NovoLOG) SUBCUT PRN (20:10)
[2017-11-30] MEDS: ACETAMINOPHEN 325 MG TABLET PO PRN ×3 (00:34→14:21)
[2017-11-30 03:21] VITALS: BP_SYST 142
[2017-11-30] MEDS: LEVOTHYROXINE SODIUM 0.05 MG TABLET PO SCH (06:06)
[2017-11-30 07:13] LABS: BASOPHILS % (AUTO) 0.7 % (0.0-2.0); EOSINOPHILS # (AUTO) 0.2 K/uL (0.0-0.4); EOSINOPHILS % (AUTO) 3.8 % (0.0-4.0); HEMATOCRIT 25.6 % (36-48); HEMOGLOBIN 8.7 g/dL (12.0-16.0); LYMPHOCYTES # (AUTO) 1.5 K/uL (1.0-5.5); LYMPHOCYTES % (AUTO) 35.3 % (20.5-51.5); MEAN CORPUSCULAR HEMOGLOBIN 32 pg (27-31); MEAN CORPUSCULAR HGB CONC 34 % (32-36); MEAN CORPUSCULAR VOLUME 95 fL (79.0-98.0); MONOCYTES # (AUTO) 0.5 K/uL (0.0-1.0); MONOCYTES % (AUTO) 12.1 % (1.7-9.3); NEUTROPHILS % (AUTO) 48.1 % (40.0-70.0); PLATELET COUNT (AUTO) 237 K/uL (130-430); RED CELL DISTRIBUTION WIDTH 14.7 % (9.0-15.0); WHITE BLOOD COUNT (AUTO) 4.2 K/uL (4.8-10.8)
[2017-11-30 07:19] LABS: ANION GAP 8 (5-15); CHLORIDE 93 mmol/L (98-107); CREATININE 0.39 mg/dL (0.55-1.30); GLUCOSE 124 mg/dL (70-99); POTASSIUM 3.8 mmol/L (3.5-5.1); SODIUM SERUM 125 mmol/L (136-145); UREA NITROGEN, BLOOD 3 mg/dL (8-21)
[2017-11-30 08:12] VITALS: BP_SYST 131
[2017-11-30] MEDS: PREGABALIN 25 MG CAPSULE (LYRICA) PO SCH ×2 (09:23→21:29)
[2017-11-30] MEDS: SODIUM CHLORIDE 500 MG TABLET PO SCH ×3 (09:23→21:29)
[2017-11-30] MEDS: BACLOFEN 10 MG TABLET PO SCH ×3 (09:24→21:30)
[2017-11-30] MEDS: ASPIRIN 81 MG TAB.CHEW PO SCH (09:25)
[2017-11-30] MEDS: FENOFIBRATE NANOCRYSTALLIZED 48 MG TABLET (TRICOR) PO SCH (09:25)
[2017-11-30] MEDS: PANTOPRAZOLE SODIUM 40 MG TAB PO SCH (09:26)
[2017-11-30] MEDS: FERROUS SULFATE 325 MG TABLET.DR PO SCH (09:26)
[2017-11-30] MEDS: METOPROLOL TARTRATE 25 MG TABLET PO SCH ×2 (09:26→21:29)
[2017-11-30] MEDS: PROMETHAZINE-DM 6.25 MG-15 MG/5 ML UDC PO SCH ×3 (09:31→21:30)
[2017-11-30 11:27] VITALS: BP_SYST 126
[2017-11-30] MEDS ORDERED: SODIUM CHLORIDE 3% *HI-ALERT* 300 ML IV ONE (14:00)
[2017-11-30 15:28] VITALS: BP_SYST 128
[2017-11-30] MEDS ORDERED: ERTAPENEM SODIUM 1 GM in NS 50 ML IV ONE (18:00)
[2017-11-30 20:00] VITALS: BP_SYST 153
[2017-11-30] MEDS: roPINIRole HCL 0.25 MG ( REQUIP )TABLET PO SCH (21:30)
[2017-11-30] MEDS: INSULIN ASPART 100 UNITS/ML, 10 ML VIAL (NovoLOG) SUBCUT PRN (21:37)
[2017-12-01] MEDS: ACETAMINOPHEN 325 MG TABLET PO PRN ×4 (00:31→23:23)
[2017-12-01] MEDS: LEVOTHYROXINE SODIUM 0.05 MG TABLET PO SCH (06:10)
[2017-12-01 07:25] LABS: EOSINOPHILS # (AUTO) 0.2 K/uL (0.0-0.4); EOSINOPHILS % (AUTO) 4.8 % (0.0-4.0); HEMATOCRIT 30.1 % (36-48); HEMOGLOBIN 10.6 g/dL (12.0-16.0); LYMPHOCYTES # (AUTO) 1.3 K/uL (1.0-5.5); MEAN CORPUSCULAR HEMOGLOBIN 33 pg (27-31); MEAN CORPUSCULAR HGB CONC 35 % (32-36); MONOCYTES # (AUTO) 0.4 K/uL (0.0-1.0); MONOCYTES % (AUTO) 10.9 % (1.7-9.3); NEUTROPHILS % (AUTO) 49.3 % (40.0-70.0); PLATELET COUNT (AUTO) 197 K/uL (130-430); RED BLOOD CELL COUNT(AUTO) 3.23 MIL/uL (4.2-6.2); RED CELL DISTRIBUTION WIDTH 15.3 % (9.0-15.0); WHITE BLOOD COUNT (AUTO) 3.9 K/uL (4.8-10.8)
[2017-12-01 07:27] LABS: MEAN CORPUSCULAR VOLUME 93 fL (79.0-98.0)
[2017-12-01 07:37] LABS: ANION GAP 10 (5-15); CALCIUM 8.4 mg/dL (8.4-11.0); CHLORIDE 93 mmol/L (98-107); CREATININE 0.43 mg/dL (0.55-1.30); GLUCOSE 128 mg/dL (70-99); POTASSIUM 3.6 mmol/L (3.5-5.1); SODIUM SERUM 127 mmol/L (136-145); UREA NITROGEN, BLOOD 2 mg/dL (8-21)
[2017-12-01 08:05] VITALS: BP_SYST 156
[2017-12-01] MEDS: ASPIRIN 81 MG TAB.CHEW PO SCH (09:36)
[2017-12-01] MEDS: PREGABALIN 25 MG CAPSULE (LYRICA) PO SCH ×2 (09:36→20:58)
[2017-12-01] MEDS: SODIUM CHLORIDE 500 MG TABLET PO SCH ×3 (09:36→20:57)
[2017-12-01] MEDS: BACLOFEN 10 MG TABLET PO SCH ×3 (09:36→20:58)
[2017-12-01] MEDS: FERROUS SULFATE 325 MG TABLET.DR PO SCH (09:37)
[2017-12-01] MEDS: PANTOPRAZOLE SODIUM 40 MG TAB PO SCH (09:37)
[2017-12-01] MEDS: FENOFIBRATE NANOCRYSTALLIZED 48 MG TABLET (TRICOR) PO SCH (09:37)
[2017-12-01] MEDS: METOPROLOL TARTRATE 25 MG TABLET PO SCH ×2 (09:37→20:58)
[2017-12-01] MEDS: PROMETHAZINE-DM 6.25 MG-15 MG/5 ML UDC PO SCH ×4 (09:38→20:56)
[2017-12-01] MEDS: INSULIN ASPART 100 UNITS/ML, 10 ML VIAL (NovoLOG) SUBCUT PRN ×3 (11:36→21:00)
[2017-12-01 12:00] VITALS: BP_SYST 113
[2017-12-01] MEDS ORDERED: ONDA4TAB5 PO (14:52)
[2017-12-01] MEDS ORDERED: BUDE6HFA INH ×2 (14:52→14:54)
[2017-12-01] MEDS ORDERED: MONT10TA25 PO (14:53)
[2017-12-01] MEDS ORDERED: SODIUM CHLORIDE 3% *HI-ALERT* 300 ML IV ONE (15:15)
[2017-12-01 16:00] VITALS: BP_SYST 110
[2017-12-01] MEDS: MONTELUKAST 10 MG TABLET PO SCH (17:15)
[2017-12-01 20:00] VITALS: BP_SYST 151
[2017-12-01] MEDS: ERTAPENEM SODIUM 1 GM in NS 50 ML IV SCH (20:56)
[2017-12-01] MEDS: roPINIRole HCL 0.25 MG ( REQUIP )TABLET PO SCH (20:57)
[2017-12-01] MEDS ORDERED: PREGABALIN 25 MG CAPSULE (LYRICA) PO SCH (21:00)
[2017-12-02 00:20] VITALS: BP_SYST 141
[2017-12-02] MEDS: ACETAMINOPHEN 325 MG TABLET PO PRN ×3 (03:20→13:04)
[2017-12-02] MEDS: LEVOTHYROXINE SODIUM 0.05 MG TABLET PO SCH (06:25)
[2017-12-02] MEDS: INSULIN ASPART 100 UNITS/ML, 10 ML VIAL (NovoLOG) SUBCUT PRN ×2 (06:28→17:38)
[2017-12-02 06:31] LABS: ANION GAP 6 (5-15); CALCIUM 8.5 mg/dL (8.4-11.0); CHLORIDE 99 mmol/L (98-107); CREATININE 0.49 mg/dL (0.55-1.30); GLUCOSE 151 mg/dL (70-99); SODIUM SERUM 131 mmol/L (136-145); UREA NITROGEN, BLOOD 4 mg/dL (8-21)
[2017-12-02 06:34] LABS: BASOPHILS % (AUTO) 0.7 % (0.0-2.0); EOSINOPHILS # (AUTO) 0.1 K/uL (0.0-0.4); EOSINOPHILS % (AUTO) 3.6 % (0.0-4.0); HEMATOCRIT 28.4 % (36-48); HEMOGLOBIN 9.6 g/dL (12.0-16.0); LYMPHOCYTES # (AUTO) 1.3 K/uL (1.0-5.5); LYMPHOCYTES % (AUTO) 35.1 % (20.5-51.5); MEAN CORPUSCULAR HEMOGLOBIN 32 pg (27-31); MEAN CORPUSCULAR HGB CONC 34 % (32-36); MEAN CORPUSCULAR VOLUME 93 fL (79.0-98.0); MONOCYTES # (AUTO) 0.5 K/uL (0.0-1.0); MONOCYTES % (AUTO) 12.9 % (1.7-9.3); NEUTROPHILS # (AUTO) 1.8 K/uL (1.8-7.7); NEUTROPHILS % (AUTO) 47.7 % (40.0-70.0); PLATELET COUNT (AUTO) 213 K/uL (130-430); RED BLOOD CELL COUNT(AUTO) 3.04 MIL/uL (4.2-6.2); WHITE BLOOD COUNT (AUTO) 3.7 K/uL (4.8-10.8)
[2017-12-02 08:06] VITALS: BP_SYST 130
[2017-12-02] MEDS: FENOFIBRATE NANOCRYSTALLIZED 48 MG TABLET (TRICOR) PO SCH (08:07)
[2017-12-02] MEDS: PREGABALIN 25 MG CAPSULE (LYRICA) PO SCH ×3 (08:09→20:29)
[2017-12-02] MEDS: SODIUM CHLORIDE 500 MG TABLET PO SCH ×3 (08:09→20:29)
[2017-12-02] MEDS: FERROUS SULFATE 325 MG TABLET.DR PO SCH (08:09)
[2017-12-02] MEDS: BACLOFEN 10 MG TABLET PO SCH ×3 (08:10→20:29)
[2017-12-02] MEDS: ASPIRIN 81 MG TAB.CHEW PO SCH (08:10)
[2017-12-02] MEDS: PANTOPRAZOLE SODIUM 40 MG TAB PO SCH (08:10)
[2017-12-02] MEDS: PROMETHAZINE-DM 6.25 MG-15 MG/5 ML UDC PO SCH ×3 (08:11→20:30)
[2017-12-02] MEDS: METOPROLOL TARTRATE 25 MG TABLET PO SCH ×2 (08:11→20:28)
[2017-12-02] MEDS ORDERED: PREGABALIN 25 MG CAPSULE (LYRICA) PO ONE (10:45)
[2017-12-02 12:35] VITALS: BP_SYST 129
[2017-12-02 16:40] VITALS: BP_SYST 122
[2017-12-02 18:24] LABS: BILIRUBIN,URINE NEGATIVE (NEGATIVE); BLOOD, URINE NEGATIVE (NEGATIVE); CLARITY/URINE CLEAR (CLEAR); COLOR,URINE YELLOW (YELLOW); GLUCOSE,URINE TRACE (NEGATIVE); KETONES,URINE NEGATIVE (NEGATIVE); LEUKOCYTE ESTERASE ,URINE NEGATIVE (NEGATIVE); NITRITE, URINE NEGATIVE (NEGATIVE); PROTEIN URINE NEGATIVE (NEGATIVE); UROBILINOGEN,URINE 0.2 (0.2-1.0)
[2017-12-02] MEDS: MONTELUKAST 10 MG TABLET PO SCH (18:54)
[2017-12-02 20:00] VITALS: BP_SYST 142
[2017-12-02] MEDS: roPINIRole HCL 0.25 MG ( REQUIP )TABLET PO SCH (20:29)
[2017-12-02] MEDS: ERTAPENEM SODIUM 1 GM in NS 50 ML IV SCH (20:36)
[2017-12-02] MEDS: traMADol HCL HCL 50 MG TABLET (ULTRAM) PO PRN (23:01)
[2017-12-03 00:34] VITALS: BP_SYST 138
[2017-12-03] MEDS: ACETAMINOPHEN 325 MG TABLET PO PRN ×3 (01:33→16:56)
[2017-12-03] MEDS: LEVOTHYROXINE SODIUM 0.05 MG TABLET PO SCH (06:23)
[2017-12-03] MEDS: traMADol HCL HCL 50 MG TABLET (ULTRAM) PO PRN (06:29)
[2017-12-03 06:47] LABS: BASOPHILS % (AUTO) 0.8 % (0.0-2.0); EOSINOPHILS # (AUTO) 0.1 K/uL (0.0-0.4); HEMATOCRIT 28.6 % (36-48); HEMOGLOBIN 9.7 g/dL (12.0-16.0); LYMPHOCYTES # (AUTO) 1.4 K/uL (1.0-5.5); LYMPHOCYTES % (AUTO) 39.5 % (20.5-51.5); MEAN CORPUSCULAR HEMOGLOBIN 32 pg (27-31); MEAN CORPUSCULAR HGB CONC 34 % (32-36); MEAN CORPUSCULAR VOLUME 94 fL (79.0-98.0); MONOCYTES # (AUTO) 0.4 K/uL (0.0-1.0); MONOCYTES % (AUTO) 10.4 % (1.7-9.3); NEUTROPHILS # (AUTO) 1.7 K/uL (1.8-7.7); NEUTROPHILS % (AUTO) 45.3 % (40.0-70.0); PLATELET COUNT (AUTO) 216 K/uL (130-430); RED BLOOD CELL COUNT(AUTO) 3.04 MIL/uL (4.2-6.2); RED CELL DISTRIBUTION WIDTH 15.1 % (9.0-15.0); WHITE BLOOD COUNT (AUTO) 3.6 K/uL (4.8-10.8)
[2017-12-03 06:52] LABS: ANION GAP 7 (5-15); CALCIUM 8.7 mg/dL (8.4-11.0); CHLORIDE 97 mmol/L (98-107); CREATININE 0.46 mg/dL (0.55-1.30); GLUCOSE 111 mg/dL (70-99); SODIUM SERUM 131 mmol/L (136-145); UREA NITROGEN, BLOOD 5 mg/dL (8-21)
[2017-12-03 07:04] LABS: THYROID STIMULATING HORMONE 0.02 uIu/mL (0.36-3.74)
[2017-12-03 08:00] VITALS: BP_SYST 130
[2017-12-03] MEDS: BACLOFEN 10 MG TABLET PO SCH ×2 (09:37→15:01)
[2017-12-03] MEDS: PANTOPRAZOLE SODIUM 40 MG TAB PO SCH (09:37)
[2017-12-03] MEDS: FERROUS SULFATE 325 MG TABLET.DR PO SCH (09:38)
[2017-12-03] MEDS: FENOFIBRATE NANOCRYSTALLIZED 48 MG TABLET (TRICOR) PO SCH (09:38)
[2017-12-03] MEDS: PREGABALIN 25 MG CAPSULE (LYRICA) PO SCH ×2 (09:38→15:01)
[2017-12-03] MEDS: SODIUM CHLORIDE 500 MG TABLET PO SCH ×2 (09:38→15:01)
[2017-12-03] MEDS: METOPROLOL TARTRATE 25 MG TABLET PO SCH (09:39)
[2017-12-03] MEDS: ASPIRIN 81 MG TAB.CHEW PO SCH (09:39)
[2017-12-03] MEDS: PROMETHAZINE-DM 6.25 MG-15 MG/5 ML UDC PO SCH ×2 (09:39→15:02)
[2017-12-03] MEDS: INSULIN ASPART 100 UNITS/ML, 10 ML VIAL (NovoLOG) SUBCUT PRN ×2 (11:34→16:46)
[2017-12-03 12:45] VITALS: BP_SYST 126
[2017-12-03 16:19] VITALS: BP_SYST 141
[2017-12-03 16:45] VITALS: BP_SYST 141
[2017-12-03] MEDS ORDERED: ERTAPENEM SODIUM 1 GM in NS 50 ML IV SCH (17:00)
[2017-12-04] MEDS ORDERED: LEVOTHYROXINE SODIUM 0.05 MG TABLET PO SCH (07:00)
== END 2017-12-03 18:50 | disposition home health service (06) | DRG 193 ==
LOC: SED 09:22 → STU 12:09 → SMU 11-29 14:22
PROVIDERS: ADMIT Internal Medicine; ATTEND Internal Medicine
PROC: 30233N1 Transfusion of Nonautologous Red Blood Cells into Peripheral Vein, Percutaneous Approach (ICD-10-PCS; 2017-11-30)
PROC: 05HY33Z Insertion of Infusion Device into Upper Vein, Percutaneous Approach (ICD-10-PCS; principal; 2017-12-02)
PROC: B54NZZA Ultrasonography of Left Upper Extremity Veins, Guidance (ICD-10-PCS; 2017-12-02)
DX: J18.9 Pneumonia, unspecified organism (principal); G93.41 Metabolic encephalopathy; N39.0 Urinary tract infection, site not specified; J44.0 Chronic obstructive pulmonary disease with (acute) lower respiratory infection; E87.1 Hypo-osmolality and hyponatremia; D68.59 Other primary thrombophilia; E44.1 Mild protein-calorie malnutrition; B96.20 Unspecified Escherichia coli [E. coli] as the cause of diseases classified elsewhere; E03.9 Hypothyroidism, unspecified; E78.5 Hyperlipidemia, unspecified; G89.4 Chronic pain syndrome; M10.9 Gout, unspecified; D46.9 Myelodysplastic syndrome, unspecified; M16.12 Unilateral primary osteoarthritis, left hip; I48.0 Paroxysmal atrial fibrillation; K57.90 Diverticulosis of intestine, part unspecified, without perforation or abscess without bleeding; J20.9 Acute bronchitis, unspecified; G47.00 Insomnia, unspecified; M54.42 Lumbago with sciatica, left side; M54.41 Lumbago with sciatica, right side; D63.8 Anemia in other chronic diseases classified elsewhere; K59.00 Constipation, unspecified; F32.9 Major depressive disorder, single episode, unspecified; G25.81 Restless legs syndrome; K21.9 Gastro-esophageal reflux disease without esophagitis; M47.896 Other spondylosis, lumbar region; Z16.12 Extended spectrum beta lactamase (ESBL) resistance; Z16.24 Resistance to multiple antibiotics; I10 Essential (primary) hypertension; E11.42 Type 2 diabetes mellitus with diabetic polyneuropathy; R53.82 Chronic fatigue, unspecified; N31.9 Neuromuscular dysfunction of bladder, unspecified; F41.9 Anxiety disorder, unspecified; E66.9 Obesity, unspecified; Z86.73 Personal history of transient ischemic attack (TIA), and cerebral infarction without residual deficits; Z87.440 Personal history of urinary (tract) infections; Z68.26 Body mass index [BMI] 26.0-26.9, adult; Z79.899 Other long term (current) drug therapy; Z95.5 Presence of coronary angioplasty implant and graft; Z79.82 Long term (current) use of aspirin
CPT/HCPCS: 36415; 71045; 80048; 80053; 81000-TC; 81003; 82962; 83605; 83735-TC; 83930-TC; 83935-TC; 84302-TC; 84443-TC; 84484; 85025; 86886; 86900; 86901; 86920; 87040-TC; 87086; 87186-TC; 93005; 96361; 96374; 97110-GP; 97116-GP; 97530-GP; 99285; C1751; J1335; J1815; J1885; J3490; J7040; J7050; P9021

== ENCOUNTER 2017-12-04 06:50 | Emergency (ER) | payer OTHER, MEDICAID ==
[~2017-12-04] VITALS: Ht 152.4 cm; Wt 72.6 kg
[2017-12-04 06:50] VITALS: BP_SYST 146
[~2017-12-04 06:50] MED LIST changes: +BACL10TA PO; +BUDE6HFA INH; -FENO48TA4 PO; +FLUT16SP16 NS; -GLIP10TA3 PO; +INSNLG7030 SUBCUT; +LEVO50TA8 PO; -LORA1TAB PO; +MONT10TA25 PO; -ONDA4TAB22 PO; +ONDA4TAB5 PO; -SPIR25TA6 PO
[2017-12-04 07:30] VITALS: BP_SYST 131
== END 2017-12-04 07:30 | disposition home or self-care (01) ==
LOC: SED 06:50
DX: T85.638A Leakage of other specified internal prosthetic devices, implants and grafts, initial encounter (principal); E11.40 Type 2 diabetes mellitus with diabetic neuropathy, unspecified; J45.909 Unspecified asthma, uncomplicated; J44.9 Chronic obstructive pulmonary disease, unspecified; I10 Essential (primary) hypertension; E78.00 Pure hypercholesterolemia, unspecified; M10.9 Gout, unspecified; Z79.899 Other long term (current) drug therapy
CPT/HCPCS: 99282; J7030

== ENCOUNTER 2018-01-17 21:18 | Emergency (ER) | payer OTHER, MEDICAID ==
[~2018-01-17] VITALS: Ht 154.9 cm; Wt 71.7 kg
[~2018-01-17 21:18] MED LIST changes: +DIF100 PO; +GLIP10TA3 PO; +HYDR20TA PO; +LORA1TAB PO; +NITR-85 PO; -PRO40 PO
[2018-01-17 21:24] VITALS: BP_SYST 150
[2018-01-17] MEDS ORDERED: PIPERACILLIN/TAZO 3.38 GM in NS 50 ML IV ONE (21:45)
[2018-01-17] MEDS ORDERED: MORPHINE 4 MG/ML INJ. SYRINGE IVP ONE (21:45)
[2018-01-17] MEDS ORDERED: DIPHENHYDRAMINE INJ 50 MG/ML VIAL IVP ONE (21:45)
[2018-01-17] MEDS ORDERED: PIPERACILLIN/TAZOBACTAM 3.375 GM/VIAL (ZOSYN) IV ONE (21:55)
[2018-01-17 22:01] LABS: BILIRUBIN,URINE NEGATIVE (NEGATIVE); BLOOD, URINE 3+ (NEGATIVE); CLARITY/URINE SL CLOUDY (CLEAR); COLOR,URINE YELLOW (YELLOW); GLUCOSE,URINE NEGATIVE (NEGATIVE); KETONES,URINE NEGATIVE (NEGATIVE); LEUKOCYTE ESTERASE ,URINE 3+ (NEGATIVE); NITRITE, URINE POSITIVE (NEGATIVE); PROTEIN URINE NEGATIVE (NEGATIVE); UROBILINOGEN,URINE 0.2 (0.2-1.0)
[2018-01-17 22:07] LABS: BACTERIA,URINE MANY /HPF (None Seen); RBC,URINE >100 /HPF (0-3); WBC,URINE >100 /HPF (0-3)
[2018-01-17 22:08] LABS: MUCUS,URINE None Seen /LPF (None Seen)
[2018-01-17 22:19] LABS: BASOPHILS % (AUTO) 0.6 % (0.0-2.0); EOSINOPHILS # (AUTO) 0.2 K/uL (0.0-0.4); EOSINOPHILS % (AUTO) 2.3 % (0.0-4.0); HEMATOCRIT 31.8 % (36-48); HEMOGLOBIN 10.8 g/dL (12.0-16.0); LYMPHOCYTES # (AUTO) 2.5 K/uL (1.0-5.5); LYMPHOCYTES % (AUTO) 30.9 % (20.5-51.5); MEAN CORPUSCULAR HEMOGLOBIN 34 pg (27-31); MEAN CORPUSCULAR HGB CONC 34 % (32-36); MEAN CORPUSCULAR VOLUME 99 fL (79.0-98.0); MONOCYTES # (AUTO) 0.6 K/uL (0.0-1.0); MONOCYTES % (AUTO) 7.7 % (1.7-9.3); NEUTROPHILS # (AUTO) 4.6 K/uL (1.8-7.7); NEUTROPHILS % (AUTO) 58.5 % (40.0-70.0); PLATELET COUNT (AUTO) 211 K/uL (130-430); RED BLOOD CELL COUNT(AUTO) 3.22 MIL/uL (4.2-6.2); RED CELL DISTRIBUTION WIDTH 15.4 % (9.0-15.0); WHITE BLOOD COUNT (AUTO) 7.9 K/uL (4.8-10.8)
[2018-01-17 22:28] LABS: PROTHROMBIN TIME 10.5 SECS (9.5-12.5)
[2018-01-17 22:32] LABS: ANION GAP 7 (5-15); CALCIUM 9.3 mg/dL (8.4-11.0); CHLORIDE 103 mmol/L (98-107); CREATININE 0.81 mg/dL (0.55-1.30); GLUCOSE 170 mg/dL (70-99); POTASSIUM 3.7 mmol/L (3.5-5.1); SODIUM SERUM 138 mmol/L (136-145); UREA NITROGEN, BLOOD 28 mg/dL (8-21)
[2018-01-17 22:36] LABS: ALANINE AMINOTRANSFERASE 27 U/L (12-78); ALBUMIN 3.4 g/dL (3.4-4.8); ASPARTATE AMINOTRANSFERASE 31 U/L (10-37); LIPASE 125 U/L (73-393); TOTAL BILIRUBIN 0.4 mg/dL (0.0-1.0)
[2018-01-17] MEDS ORDERED: MAGNESIUM CITRATE 300 ML ORAL SOLUTION PO ONE (23:30)
[2018-01-17 23:57] VITALS: BP_SYST 130
== END 2018-01-17 23:57 | disposition home or self-care (01) ==
LOC: SED 21:18
DX: R33.9 Retention of urine, unspecified (principal); J44.9 Chronic obstructive pulmonary disease, unspecified; E11.40 Type 2 diabetes mellitus with diabetic neuropathy, unspecified; E78.00 Pure hypercholesterolemia, unspecified; I10 Essential (primary) hypertension; M10.9 Gout, unspecified; M19.90 Unspecified osteoarthritis, unspecified site; Z95.5 Presence of coronary angioplasty implant and graft; Z79.899 Other long term (current) drug therapy
CPT/HCPCS: 36415; 71045; 74176; 80053; 81000; 83605; 83690; 85025; 85610; 87040; 87086; 87186; 93005; 96365; 96375; 99285; J1200; J2270; J2543; J7030

== ENCOUNTER 2018-01-20 19:37 | Inpatient (IN) | payer OTHER, MEDICAID ==
[~2018-01-20] VITALS: Ht 154.9 cm; Wt 62.6 kg
--- NOTE | 2018-01-20 19:54 | NUR ---
ADMISSION NOTE Received patient from ER via gurney. Patient admitted with diagnosis of Complicated UTI. Patient is awake, alert, oriented X 3. Patient oriented to hospital room, call light, toileting, pain management and safety-teach back done. Patient informed that JOHNNY Ortiz & JOHNNY Mejia will be primary nurses and that their room number is 119b. Personal belongings checked and Belongings List documented. Call light within reach.
--- NOTE | 2018-01-20 19:59 | NUR ---
CONSULT REASON FOR CONSULT: COMPLICARED UTI PERSON I SPOKE WITH: CASSIA CONSULTING PHYSICIAN: DR. FOX REACTOR FUELING SUPERVISOR PHONE NUMBER: [phone] ORDERING PHYSICIAN: DR. WELLS
[2018-01-20] MEDS ORDERED: DEXTROSE 50% JECT 50 ML DISP.SYRIN IVP PRN (20:00)
[2018-01-20 20:05] VITALS: BP_SYST 128
[2018-01-20] MEDS ORDERED: ZOLPIDEM TARTRATE 5 MG TABLET PO PRN (20:15)
[2018-01-20 20:26] LABS: BASOPHILS # (AUTO) 0.1 K/uL (0.0-0.2); EOSINOPHILS # (AUTO) 0.2 K/uL (0.0-0.4); EOSINOPHILS % (AUTO) 2.8 % (0.0-4.0); LYMPHOCYTES # (AUTO) 2.9 K/uL (1.0-5.5); MEAN CORPUSCULAR HEMOGLOBIN 33 pg (27-31); MEAN CORPUSCULAR HGB CONC 33 % (32-36); MEAN CORPUSCULAR VOLUME 99 fL (79.0-98.0); MONOCYTES # (AUTO) 0.7 K/uL (0.0-1.0); MONOCYTES % (AUTO) 10.5 % (1.7-9.3); NEUTROPHILS # (AUTO) 2.9 K/uL (1.8-7.7); NEUTROPHILS % (AUTO) 43.7 % (40.0-70.0); PLATELET COUNT (AUTO) 229 K/uL (130-430); RED BLOOD CELL COUNT(AUTO) 3.04 MIL/uL (4.2-6.2); RED CELL DISTRIBUTION WIDTH 15.2 % (9.0-15.0); WHITE BLOOD COUNT (AUTO) 6.8 K/uL (4.8-10.8)
--- NOTE | 2018-01-20 20:36 | NUR ---
CONSULT REASON FOR CONSULT: DM PERSON I SPOKE WITH: SHIRIN CONSULTING PHYSICIAN: DR. ARREAGA YARDAGE ESTIMATOR PHONE NUMBER: [phone] ORDERING PHYSICIAN: DR. WELLS
[2018-01-20 20:37] LABS: INR 1.1 (0.8-1.2); PROTHROMBIN TIME 10.8 SECS (9.5-12.5)
[2018-01-20 20:39] LABS: ALANINE AMINOTRANSFERASE 27 U/L (12-78); ALBUMIN 3.3 g/dL (3.4-4.8); ANION GAP 6 (5-15); ASPARTATE AMINOTRANSFERASE 30 U/L (10-37); CALCIUM 8.4 mg/dL (8.4-11.0); CHLORIDE 100 mmol/L (98-107); CREATININE 0.87 mg/dL (0.55-1.30); GLUCOSE 167 mg/dL (70-99); POTASSIUM 4.5 mmol/L (3.5-5.1); SODIUM SERUM 136 mmol/L (136-145); TOTAL BILIRUBIN 0.4 mg/dL (0.0-1.0)
[2018-01-20 20:48] LABS: UREA NITROGEN, BLOOD 24 mg/dL (8-21)
[2018-01-20] MEDS: METOPROLOL TARTRATE 25 MG TABLET PO SCH (21:00)
[2018-01-20] MEDS ORDERED: TRAM50TA2 PO (21:29)
[2018-01-20] MEDS ORDERED: SENN-104 PO (21:29)
[2018-01-20] MEDS ORDERED: FENO160 PO (21:29)
[2018-01-20] MEDS ORDERED: CIPR-211 PO (21:29)
[2018-01-20 21:51] LABS: BILIRUBIN,URINE NEGATIVE (NEGATIVE); BLOOD, URINE NEGATIVE (NEGATIVE); CLARITY/URINE CLEAR (CLEAR); COLOR,URINE YELLOW (YELLOW); GLUCOSE,URINE NEGATIVE (NEGATIVE); KETONES,URINE NEGATIVE (NEGATIVE); LEUKOCYTE ESTERASE ,URINE 1+ (NEGATIVE); NITRITE, URINE NEGATIVE (NEGATIVE); PROTEIN URINE NEGATIVE (NEGATIVE); UROBILINOGEN,URINE 0.2 (0.2-1.0)
[2018-01-20] MEDS: BACLOFEN 10 MG TABLET PO SCH (22:02)
[2018-01-20] MEDS: PREGABALIN 25 MG CAPSULE (LYRICA) PO SCH (22:02)
[2018-01-20] MEDS: roPINIRole HCL 0.25 MG ( REQUIP )TABLET PO SCH (22:04)
[2018-01-20] MEDS: HYDROCORTISONE 10 MG TABLET (CORTEF) PO SCH (22:05)
[2018-01-20] MEDS: INSULIN REGULAR, HUMAN 100 UNITS/ML, 10 ML VIAL (novoLIN R) SUBCUT PRN (22:14)
[2018-01-20] MEDS: LR 1,000 ML IV SCH (22:17)
--- NOTE | 2018-01-20 22:20 | NUR ---
ROUNDS Patient was resting in bed and watching t.v. in no sign of distress. She was administered her scheduled medications. Accucheck level was 153 and 2 units of Regular insulin was administered as ordered. The daughter is resting on a chair at bedside. She was provided with another blanket and the lights were turned low. Safety measures in place and call light w/in reach. Will monitor.
[2018-01-20 22:31] LABS: BACTERIA,URINE FEW /HPF (None Seen); MUCUS,URINE None Seen /LPF (None Seen); RBC,URINE 0-3 /HPF (0-3)
[2018-01-20 23:06] VITALS: BP_SYST 126
[2018-01-20] MEDS ORDERED: PIPERACILLIN/TAZOBACTAM 3.375 GM/VIAL (ZOSYN) IV ONE (23:33)
[2018-01-21] MEDS: PIPERACILLIN/TAZO 3.375/DEX-IS 50 ML IV SCH ×3 (00:04→11:21)
--- NOTE | 2018-01-21 00:55 | NUR ---
ROUNDS Patient resting, awake, nonlabored breathing noted. She was administered antibiotic as ordered and reviewed indication and side effects with her; she verbalized understanding. She had a bowel movement and was cleaned/changed. Daughter remains at bedside. Safety measures in place and call light w/in reach.
--- NOTE | 2018-01-21 02:00 | NUR ---
ROUNDS Patient resting, symmetrical rise and fall of chest, no sign of distress noted. Daughter remains at bedside. Safety measures remain in place.
--- NOTE | 2018-01-21 04:39 | NUR ---
ROUNDS Patient resting at this time, eyes closed, and symmetrical rise and fall of chest. Lights are dime and daughter resting on chair at bedside. Bed to low position, alarm on, and call light w/in reach. Will monitor.
[2018-01-21] MEDS: ACETAMINOPHEN 325 MG TABLET PO PRN ×3 (05:55→19:04)
--- NOTE | 2018-01-21 06:13 | NUR ---
CONSULT REASON FOR CONSULT: URINARY RETENTION PERSON I SPOKE WITH: ESME CONSULTING PHYSICIAN: DR. FORD LABORATORY INSPECTOR PHONE NUMBER: [phone] ORDERING PHYSICIAN: DR. WELLS
[2018-01-21] MEDS: LEVOTHYROXINE SODIUM 0.05 MG TABLET PO SCH (06:36)
[2018-01-21] MEDS: INSULIN REGULAR, HUMAN 100 UNITS/ML, 10 ML VIAL (novoLIN R) SUBCUT PRN ×2 (06:48→11:23)
--- NOTE | 2018-01-21 06:52 | NUR ---
CLOSING NOTE Patient resting, eyes closed. Morning antibiotic was hung and patient tolerated. Morning accucheck was 171 and 2 units of regular insulin administered as ordered. at bedsided. Needs met throughout shift, safety measures remain in place and call light w/in reach. Will endorse care to morning nurse.
--- NOTE | 2018-01-21 07:54 | NUR ---
OPENING NOTE: MORNING REPORT WAS TAKEN FROM ENTRY LEVEL BUYER NURSE. PATIENT IS AWAKE WATCHING TV. PATIENT IS ALERT AND ORIENTED X4. AT BEDSIDE. PATIENT NOT COMPLAINING OF PAIN OR SHORTNESS OF BREATH. PATIENT ON ROOM AIR. PATIENT NOT COMPLAINING OF CONSTIPATION OR NAUSEA AND VOMITING. PATIENT HAS HUYNH HANGING TO GRAVITY. PATIENT HAS FLUIDS INFUSING. BED ALARM IS ON AND CALL LIGHT IS IN REACH. BED IS IN LOWEST POSITION WITH SIDE RAILS UP. WILL CONTINUE TO MONITOR.
[2018-01-21 08:00] VITALS: BP_SYST 132
[2018-01-21] MEDS ORDERED: ASPIRIN 81 MG PO SCH (09:00)
[2018-01-21] MEDS: METOPROLOL TARTRATE 25 MG TABLET PO SCH ×2 (09:00→21:00)
[2018-01-21] MEDS: ASPIRIN 81 MG TABLET(ECOTRIN) PO SCH (09:19)
[2018-01-21] MEDS: FERROUS SULFATE 325 MG TABLET.DR PO SCH (09:19)
[2018-01-21] MEDS: PREGABALIN 25 MG CAPSULE (LYRICA) PO SCH ×3 (09:20→21:16)
[2018-01-21] MEDS: HYDROCORTISONE 10 MG TABLET (CORTEF) PO SCH ×2 (09:20→21:17)
[2018-01-21] MEDS: BACLOFEN 10 MG TABLET PO SCH ×3 (09:20→21:16)
--- NOTE | 2018-01-21 09:39 | NUR ---
NOTE: GAVE PATIENT MORNING MEDICATIONS. PATIENT SWALLOWED WITH OUT DIFFICULTIES. PATIENT REFUSED METOPROLOL BECAUSE PATIENT SAID DR TOLD HER TO STOP TAKING BP MEDICATIONS. DAUGHTER SAID BP MEDS WERE LOWERING HEART RATE SO THEY STOPPED. WILL CONTINUE TO MONITOR.
[2018-01-21] MEDS: LR 1,000 ML IV SCH (11:21)
--- NOTE | 2018-01-21 11:30 | NUR ---
NOTE: CHECKED PATIENT'S SUGAR AND WAS 242. GAVE INSULIN TO COVER. HUNG NEW BAG OF FLUIDS. PATIENT SITTING AT BEDSIDE WAITING TO WORK WITH PHYSICAL THERAPY. FAMILY AT BEDSIDE. WILL CONTINUE TO MONITOR.
[2018-01-21 12:34] VITALS: BP_SYST 125
--- NOTE | 2018-01-21 13:15 | NUR ---
NOTE: PATIENT WAS COMPLAINING OF PAIN. GAVE PATIENT PATIENT TYLENOL. PATIENT WAS COMPLAINING OF DISCOMFORT IN IV. NEW IV WAS STARTED ON RIGHT ARM 22G. FLUIDS ARE INFUSING. DAUGHTER AT BEDSIDE. PATIENT LAYING DOWN IN BED. WILL CONTINUE TO MONITOR.
--- NOTE | 2018-01-21 15:24 | NUR ---
NOTE: HELPED PATIENT BACK TO BED FROM BEDSIDE COMMODE. GAVE PATIENT SCHEDULED MEDICATIONS. DAUGHTER ASKING IF PATIENT WILL GET FENOFIBRATE. WILL CALL AND ASK DR TO SEE IF HE WANTS TO CONTINUE IT. PATIENT HAS NO FURTHER REQUESTS. WILL CONTINUE TO MONITOR.
[2018-01-21 16:45] VITALS: BP_SYST 149
[2018-01-21] MEDS: MONTELUKAST 10 MG TABLET PO SCH (17:20)
[2018-01-21] MEDS: INSULIN ASPART 100 UNITS/ML, 10 ML VIAL (NovoLOG) SUBCUT PRN ×2 (17:20→21:23)
--- NOTE | 2018-01-21 17:24 | NUR ---
NOTE: CHECKED PATIENT'S BLOOD SUGAR AND WAS 239. GAVE PATIENT INSULIN TO COVER. GAVE PATIENT SCHEDULED MEDICATION. DAUGHTERS AT BEDSIDE. WILL CONTINUE TO MONITOR.
[2018-01-21] MEDS ORDERED: FLUCONAZOLE 100 MG TABLET (DIFLUCAN) PO ONE (18:30)
[2018-01-21] MEDS: ERTAPENEM SODIUM 1 GM in NS 50 ML IV SCH (19:03)
[2018-01-21 19:10] VITALS: BP_SYST 144
--- NOTE | 2018-01-21 19:10 | NUR ---
CLOSING NOTE: PATIENT SITTING ON BEDSIDE COMMODE. DAUGHTER AT BEDSIDE. GAVE PATIENT SCHEDULED MEDICATIONS. PATIENT COMPLAINING OF PAIN. GAVE TYLENOL. EMPTIED PATIENT'S HUYNH. FLUIDS ARE INFUSING. PATIENT ON ROOM AIR NOT COMPLAINING OF SHORTNESS OF BREATH. WILL GIVE REPORT TO MANAGER VIDEO NURSE.
--- NOTE | 2018-01-21 19:10 | NUR ---
OPENING NOTE RECEIVED ENDORSEMENT REPORT FROM DAY SHIFT NURSE JESSICA AT BEDSIDE. PT IS AOX4, RESTING COMFORTABLY IN BED WITH EYES OPEN. PT'S DTR AT BEDSIDE. CHEST RISE EVEN AND UNLABORED. NO SOB NOTED, NO DISTRESS NOTED. PT DENIED PAIN AT THIS TIME. PT'S IV ON RIGHT FA 22 G, IV CLEAN DRY AND INTACT. IVF INFUSING WELL. BEDSIDE COMMODE AT BEDSIDE. PT'S SKIN DRY, CLEAN AND INTACT. FC CLEAN , DRY AND INTACT. EMPTYING TO GRAVITY. PT INSTRUCTED HOW TO USE CALL LIGHT AND ROOM PHONE, PT VERBALIZED UNDERSTANDING. PT ORIENTED TO HOSPITAL ROOM AND EDUCATED ON SAFETY, PT INSTRUCTED TO USE CALL LIGHT TO CALL FOR ASSISTANCE, PT VERBALIZED UNDERSTANDING. SAFETY MEASURES IN PLACE CALL LIGHT/ROOM PHONE WITHIN REACH, BEDSIDE TABLE WITHIN REACH, BED WHEELS LOCKED, BED IN LOWEST POSITION, BED RAILS UP X3 AND BED ALARM ON. WILL CONTINUE TO MONITOR PT AND CONTINUE POC.
--- NOTE | 2018-01-21 19:48 | NUR ---
: DR WELLS CALLED BACK. LET HIM KNOW PATIENT COMPLAINING OF SEVERE PAIN. CONTINUED ULTRAM FROM HOME. ALSO CONTINUED FENOFIBRATE BECAUSE FAMILY WAS ASKING FOR IT FOR PATIENT.
[2018-01-21] MEDS: roPINIRole HCL 0.25 MG ( REQUIP )TABLET PO SCH (21:16)
[2018-01-21] MEDS: traMADol HCL HCL 50 MG TABLET (ULTRAM) PO PRN (21:33)
--- NOTE | 2018-01-21 21:33 | NUR ---
RN ROUNDS PT RESTING COMFORTABLY IN BED WITH EYES OPEN. PT'S DTR AT BEDSIDE. CHEST RISE EVEN AND UNLABORED. NO SOB NOTED, NO DISTRESS NOTED. PT REPORTS 10/10 GENERALIZED PAIN, PRN ULTRAM ADMINISTERED SCHEDULED. SCHEDULED MEDICATIONS ADMINISTERED ORDERED, PT TOLERATED WELL. BS 184, 2 UN NOVOLOG ADMINISTERED. IVF INFUSING WELL. BEDSIDE COMMODE AT BEDSIDE. PT'S SKIN DRY, CLEAN AND INTACT. FC CLEAN , DRY AND INTACT. EMPTYING TO GRAVITY. SAFETY MEASURES IN PLACE CALL LIGHT/ROOM PHONE WITHIN REACH, BEDSIDE TABLE WITHIN REACH, BED WHEELS LOCKED, BED IN LOWEST POSITION, BED RAILS UP X3 AND BED ALARM ON. WILL CONTINUE TO MONITOR PT AND CONTINUE POC.
--- NOTE | 2018-01-21 23:15 | NUR ---
RN ROUNDS PT RESTING COMFORTABLY IN BED WITH EYES CLOSED. PT'S DTR AT BEDSIDE. CHEST RISE EVEN AND UNLABORED. NO SOB NOTED, NO DISTRESS NOTED. NO S/S OF PAIN AT THIS TIME. SAFETY MEASURES IN PLACE. WILL CONTINUE TO MONITOR PT AND CONTINUE POC.
[2018-01-21 23:55] VITALS: BP_SYST 135
--- NOTE | 2018-01-22 00:54 | NUR ---
RN ROUNDS PT RESTING COMFORTABLY IN BED WITH EYES OPEN. PT'S DTR AT BEDSIDE. CHEST RISE EVEN AND UNLABORED. NO SOB NOTED, NO DISTRESS NOTED. PT REPORTS DIFFICULTY SLEEPING, PRN AMBIEN ADMINISTERED ORDERED FOR INSOMNIA. PT TOLERATED WELL. SAFETY MEASURES IN PLACE CALL LIGHT/ROOM PHONE WITHIN REACH, BEDSIDE TABLE WITHIN REACH, BED WHEELS LOCKED, BED IN LOWEST POSITION, BED RAILS UP X3 AND BED ALARM ON. WILL CONTINUE TO MONITOR PT AND CONTINUE POC.
--- NOTE | 2018-01-22 02:19 | NUR ---
JOHNNY NOLASCO PT RESTING COMFORTABLY IN BED WITH EYES CLOSED. PT'S DTR AT BEDSIDE. CHEST RISE EVEN AND UNLABORED. NO SOB NOTED, NO DISTRESS NOTED. NO S/S OF PAIN AT THIS TIME. SAFETY MEASURES IN PLACE. WILL CONTINUE TO MONITOR PT AND CONTINUE POC.
[2018-01-22] MEDS: LR 1,000 ML IV SCH (02:40)
[2018-01-22] MEDS: ACETAMINOPHEN 325 MG TABLET PO PRN (02:41)
--- NOTE | 2018-01-22 04:51 | NUR ---
RN ROUNDS PT RESTING COMFORTABLY IN BED WITH EYES CLOSED. CHEST RISE EVEN AND UNLABORED. NO SOB NOTED NO DISTRESS NOTED. NO S/S OF PAIN NOTED. NO NEEDS AT THIS TIME. SAFETY MEASURES IN PLACE CALL LIGHT/ROOM PHONE WITHIN REACH, BEDSIDE TABLE WITHIN REACH, BED WHEELS LOCKED, BED IN LOWEST POSITION, BED RAILS UP X3 AND BED ALARM ON. WILL CONTINUE TO MONITOR PT AND CONTINUE POC.
[2018-01-22] MEDS: LEVOTHYROXINE SODIUM 0.05 MG TABLET PO SCH (06:08)
[2018-01-22] MEDS: INSULIN ASPART 100 UNITS/ML, 10 ML VIAL (NovoLOG) SUBCUT PRN ×3 (06:15→17:19)
--- NOTE | 2018-01-22 06:21 | NUR ---
Med pass. Blood sugar 248. Administered scheduled NPH insulin 15 units SQ, as ordered. Administered PRN regular insulin 4 units SQ per prn insulin sliding scale.
[2018-01-22 06:24] LABS: BASOPHILS % (AUTO) 0.3 % (0.0-2.0); EOSINOPHILS % (AUTO) 0.8 % (0.0-4.0); HEMATOCRIT 28.6 % (36-48); HEMOGLOBIN 9.5 g/dL (12.0-16.0); LYMPHOCYTES # (AUTO) 1.4 K/uL (1.0-5.5); LYMPHOCYTES % (AUTO) 27.6 % (20.5-51.5); MEAN CORPUSCULAR HEMOGLOBIN 33 pg (27-31); MEAN CORPUSCULAR HGB CONC 33 % (32-36); MEAN CORPUSCULAR VOLUME 99 fL (79.0-98.0); MONOCYTES # (AUTO) 0.5 K/uL (0.0-1.0); MONOCYTES % (AUTO) 10.2 % (1.7-9.3); NEUTROPHILS # (AUTO) 3.3 K/uL (1.8-7.7); NEUTROPHILS % (AUTO) 61.1 % (40.0-70.0); PLATELET COUNT (AUTO) 204 K/uL (130-430); RED CELL DISTRIBUTION WIDTH 14.7 % (9.0-15.0); WHITE BLOOD COUNT (AUTO) 5.2 K/uL (4.8-10.8)
[2018-01-22 06:48] LABS: ANION GAP 5 (5-15); CALCIUM 8.9 mg/dL (8.4-11.0); CHLORIDE 106 mmol/L (98-107); CREATININE 0.61 mg/dL (0.55-1.30); GLUCOSE 281 mg/dL (70-99); POTASSIUM 4.1 mmol/L (3.5-5.1); SODIUM SERUM 140 mmol/L (136-145); UREA NITROGEN, BLOOD 14 mg/dL (8-21)
[2018-01-22] MEDS ORDERED: INSULIN NPH/REGULAR 70-30, 100 UNITS/ML, 10 ML VIAL SUBCUT SCH ×2 (07:00→18:00)
[2018-01-22 07:06] LABS: FREE T4 (FREE THYROXINE) 0.5 ng/dL (0.6-1.6); THYROID STIMULATING HORMONE < 0.01 uIu/mL (0.34-4.82)
--- NOTE | 2018-01-22 07:38 | NUR ---
CLOSING NOTE ENDORSED PT REPORT TO DAY SHIFT NURSE CE AT BEDSIDE. PT IS AOX4, RESTING COMFORTABLY IN BED WITH EYES OPEN. CHEST RISE EVEN AND UNLABORED. NO SOB NOTED NO DISTRESS NOTED. PT DENIED PAIN AT THIS TIME. PT'S IVF INFUSING WELL. ALL NEEDS MET THROUGHOUT SHIFT. ALL SCHEDULED MEDICATIONS ADMINISTERED ORDERED. NO OTHER NEEDS AT THIS TIME. SAFETY MEASURES IN PLACE CALL LIGHT/ROOM PHONE WITHIN REACH, BEDSIDE TABLE WITHIN REACH, BED WHEELS LOCKED, BED IN LOWEST POSITION, BED RAILS UP X3 AND BED ALARM ON. PT CARE ENDORSED.
[2018-01-22 08:00] VITALS: BP_SYST 151
--- NOTE | 2018-01-22 08:00 | NUR ---
Note Pt sitting on side of bed and eating her breakfast. No SOB/resp distress or severe pain/discomfort noted at this time. Pt's IV in right forearm intact and patent at this time. Pt's Abraham intact and draining well at this time. Pt's at bedside at this time. Call light within reach.
[2018-01-22] MEDS: PREGABALIN 25 MG CAPSULE (LYRICA) PO SCH ×2 (08:58→14:44)
[2018-01-22] MEDS: ASPIRIN 81 MG TABLET(ECOTRIN) PO SCH (08:58)
[2018-01-22] MEDS: HYDROCORTISONE 10 MG TABLET (CORTEF) PO SCH (08:58)
[2018-01-22] MEDS: BACLOFEN 10 MG TABLET PO SCH ×2 (08:58→14:44)
[2018-01-22] MEDS: METOPROLOL TARTRATE 25 MG TABLET PO SCH (08:58)
[2018-01-22] MEDS: FERROUS SULFATE 325 MG TABLET.DR PO SCH (08:59)
[2018-01-22] MEDS ORDERED: FLUCONAZOLE 100 MG TABLET (DIFLUCAN) PO SCH (09:00)
[2018-01-22] MEDS ORDERED: FENOFIBRATE 160 MG TABLET PO SCH (09:00)
--- NOTE | 2018-01-22 10:17 | NUR ---
Nutrition Update David Scale 18 noted. Pt admitted for complication of UTI. Diet: [facility] BMI: 26.1 kg/m2 RD to follow per nutrition care standards.
--- NOTE | 2018-01-22 12:00 | NUR ---
Note Pt has been ambulating in room with her IV pole and her /staff member at bedside. Pt's gait weak at this time. No SOB/resp distress or needs noted at this time. Pt was seen by Dr Stephens at 11.45am. Discharge orders written and being carried out at this time. Pt sitting at bedside eating her lunch. Pt's daughter Shanna at bedside at this time. Pain medication to be given now at this time. Call light within reach.
--- NOTE | 2018-01-22 12:01 | NUR ---
Case mgt: Rec'd dc planning orders for Home Health-abx per Dr. Wilkinson. I requested nurse Elena to call Dr. Wilkinson for antibiotic orders. His notes recommend 7 days of IV Invanz and today is day#2. Pt has saline lock and viable veins but she will check if pt needs PICC line or not. Next dose Invanz due at 1800 tonight.
[2018-01-22] MEDS: traMADol HCL HCL 50 MG TABLET (ULTRAM) PO PRN (12:06)
--- NOTE | 2018-01-22 12:25 | NUR ---
Case mgt: Rec'd call back from daughter Shanna who confirmed she wants to use [facility] out of [place] as pt has been on service with them already and is aware of dc order but pt will receive dose of IV Invanz here at 6:00pm. Shannan, dc coordinator, has contacted [facility] and will fax orders for IV abx once we receive the orders from Dr. Wilkinson. IDA TURNER
[2018-01-22 12:46] VITALS: BP_SYST 142
--- NOTE | 2018-01-22 13:30 | NUR ---
Note Pt sitting on side of bed looking out of the window. No needs noted. IVF's infusing well at this time. Call light within reach.
--- NOTE | 2018-01-22 14:56 | NUR ---
Discharge Planning: DCP faxed pt referral to [facility] (f [phone] p [phone]); Manohar stated home health would resume. [facility] (f [phone] p [phone]): per Vivien they will provide IV medication.
[2018-01-22 16:40] VITALS: BP_SYST 154
--- NOTE | 2018-01-22 17:00 | NUR ---
Note Pt's daughter notified of discharge home today after Invanz IVPB at 1800 and home health set up for IVPB antibiotics scheduled for next 5 days Q24'.
[2018-01-22] MEDS: MONTELUKAST 10 MG TABLET PO SCH (17:12)
[2018-01-22] MEDS: ERTAPENEM SODIUM 1 GM in NS 50 ML IV SCH (17:12)
[2018-01-22 17:58] VITALS: BP_SYST 135
--- NOTE | 2018-01-22 19:00 | NUR ---
Note Pt's IVPB dose of Invanz 1gm was completed. Pt's IV was saline locked and wrapped in gauze for home. Pt's family request as pt will be having daily IVPB dose of Invanz q24' for 5 days. Pt dressed in street clothes and all belongings were packed by family. Pt denies any SOB/resp distress or severe pain/discomfort in legs or generalized at this time. Pt stable at this time. Pt was checked on q1' and PRN all shift for needs and care. No needs noted. Discharge instructions given to pt and her daughter Shanna - questions/concerns were answered at this time. Pt off the floor via wheelchair to private car with all her belongings and discharge paperwork. Pt's Abraham catheter was emptied before discharge. Pt's Abraham intact and draining well all shift.
[2018-01-23] MEDS ORDERED: LEVOTHYROXINE SODIUM 0.025 MG TABLET PO SCH (07:00)
--- NOTE | 2018-01-24 15:01 | NUR ---
Discharge Follow Up Phone Call Reservations Sales Agent phoned patient, , on 01/23/18 and left a voicemail message. HVAC TECHNICIAN phoned patient's daughter, Shanna [phone]. Shanna stated that patient is fine. The IV antibiotics were delivered and [facility] has resumed services. They have made a follow up appointment with Dr Stephens. They have no questions or concerns. No further calls will be made.
== END 2018-01-22 19:00 | disposition home health service (06) | DRG 690 ==
LOC: SMU 19:37
PROVIDERS: ADMIT Internal Medicine; ATTEND Internal Medicine
DX: N39.0 Urinary tract infection, site not specified (principal); E44.1 Mild protein-calorie malnutrition; E27.40 Unspecified adrenocortical insufficiency; E87.1 Hypo-osmolality and hyponatremia; B37.89 Other sites of candidiasis; B96.20 Unspecified Escherichia coli [E. coli] as the cause of diseases classified elsewhere; D46.9 Myelodysplastic syndrome, unspecified; D69.6 Thrombocytopenia, unspecified; E03.9 Hypothyroidism, unspecified; E11.9 Type 2 diabetes mellitus without complications; E78.5 Hyperlipidemia, unspecified; G25.81 Restless legs syndrome; G89.4 Chronic pain syndrome; I10 Essential (primary) hypertension; J44.9 Chronic obstructive pulmonary disease, unspecified; N28.9 Disorder of kidney and ureter, unspecified; N31.9 Neuromuscular dysfunction of bladder, unspecified; Z16.12 Extended spectrum beta lactamase (ESBL) resistance; E66.9 Obesity, unspecified; F32.9 Major depressive disorder, single episode, unspecified; K57.90 Diverticulosis of intestine, part unspecified, without perforation or abscess without bleeding; Z16.24 Resistance to multiple antibiotics; M47.9 Spondylosis, unspecified; I48.0 Paroxysmal atrial fibrillation; D63.8 Anemia in other chronic diseases classified elsewhere; K59.00 Constipation, unspecified; Z68.26 Body mass index [BMI] 26.0-26.9, adult; Z79.4 Long term (current) use of insulin; Z86.19 Personal history of other infectious and parasitic diseases; Z86.73 Personal history of transient ischemic attack (TIA), and cerebral infarction without residual deficits; Z87.440 Personal history of urinary (tract) infections
CPT/HCPCS: 36415; 80048; 80053; 81000-TC; 82962; 83036; 84439; 84443-TC; 85025; 85610-TC; 87040-TC; 87086; 87186-TC; J1335; J1815; J2543; J7030; J7120

== ENCOUNTER 2018-02-02 19:15 | Inpatient (IN) | payer OTHER, MEDICAID ==
[~2018-02-02] VITALS: Ht 157.5 cm; Wt 63.5 kg
[~2018-02-02 19:15] MED LIST changes: +FENO160 PO; -NITR-85 PO; +SENN-104 PO; +TRAM50TA2 PO
[2018-02-02 19:20] VITALS: BP_SYST 126
[2018-02-02] MEDS ORDERED: NACL 0.9% 1,000 ML IV ONE (21:45)
[2018-02-02] MEDS ORDERED: MORPHINE 2 MG/ML INJ. SYRINGE IVP ONE (22:00)
[2018-02-02 22:07] LABS: ANION GAP 6 (5-15); CALCIUM 8.6 mg/dL (8.4-11.0); CHLORIDE 104 mmol/L (98-107); CREATININE 0.75 mg/dL (0.55-1.30); GLUCOSE 237 mg/dL (70-99); POTASSIUM 4.2 mmol/L (3.5-5.1); SODIUM SERUM 138 mmol/L (136-145); UREA NITROGEN, BLOOD 24 mg/dL (8-21)
[2018-02-02 22:10] LABS: HEMATOCRIT 26.5 % (36-48); HEMOGLOBIN 8.9 g/dL (12.0-16.0); MEAN CORPUSCULAR HEMOGLOBIN 33 pg (27-31); MEAN CORPUSCULAR HGB CONC 34 % (32-36); MEAN CORPUSCULAR VOLUME 98 fL (79.0-98.0); PLATELET COUNT (AUTO) 178 K/uL (130-430); RED CELL DISTRIBUTION WIDTH 14.5 % (9.0-15.0); WHITE BLOOD COUNT (AUTO) 5.8 K/uL (4.8-10.8)
[2018-02-02 22:11] LABS: BILIRUBIN,URINE NEGATIVE (NEGATIVE); BLOOD, URINE NEGATIVE (NEGATIVE); CLARITY/URINE CLEAR (CLEAR); COLOR,URINE YELLOW (YELLOW); GLUCOSE,URINE NEGATIVE (NEGATIVE); KETONES,URINE NEGATIVE (NEGATIVE); LEUKOCYTE ESTERASE ,URINE NEGATIVE (NEGATIVE); NITRITE, URINE NEGATIVE (NEGATIVE); PH,URINE 6.5 (5.0-8.0); PROTEIN URINE NEGATIVE (NEGATIVE)
[2018-02-02 22:12] LABS: ALANINE AMINOTRANSFERASE 30 U/L (12-78); ASPARTATE AMINOTRANSFERASE 31 U/L (10-37); TOTAL BILIRUBIN 0.6 mg/dL (0.0-1.0)
[2018-02-02 23:17] LABS: ATYPICAL LYMPHOCYTES % 1 % (0-0); BAND % (MANUAL) 7 % (0-6); BASOPHILS % (MANUAL) 0 % (0-2); EOSINOPHILS % (MANUAL) 0 % (0-7); LYMPHOCYTES % (MANUAL) 38 % (20-46); METAMYELOCYTES % 1 % (0-0); MONOCYTES % (MANUAL) 5 % (0-11); MYELOCYTES % 0 % (0-0)
[2018-02-03] MEDS ORDERED: ONDANSETRON HCL 4 MG/2 ML VIAL IVP ONE (00:45)
[2018-02-03 01:15] VITALS: BP_SYST 157
[2018-02-03 01:18] LABS: PROTHROMBIN TIME 10.4 SECS (9.5-12.5)
[2018-02-03] MEDS: ACETAMINOPHEN 325 MG TABLET PO PRN ×2 (06:04→15:40)
[2018-02-03 07:45] VITALS: BP_SYST 122
[2018-02-03] MEDS ORDERED: FLUTICASONE PROPIONATE 50 mCg/SPRAY 16 GM NS SCH (08:45)
[2018-02-03] MEDS ORDERED: traMADol HCL HCL 50 MG TABLET (ULTRAM) PO ONE (08:45)
[2018-02-03] MEDS ORDERED: FLUCONAZOLE 100 MG TABLET (DIFLUCAN) PO SCH (09:00)
[2018-02-03] MEDS ORDERED: INSULIN REGULAR, HUMAN 100 UNITS/ML, 10 ML VIAL (novoLIN R) SUBCUT PRN (09:00)
[2018-02-03] MEDS ORDERED: BACLOFEN 10 MG TABLET PO ONE (09:00)
[2018-02-03] MEDS ORDERED: METOPROLOL TARTRATE 25 MG TABLET PO SCH (09:00)
[2018-02-03] MEDS ORDERED: HYDROCORTISONE 10 MG TABLET (CORTEF) PO SCH (09:00)
[2018-02-03] MEDS: FENOFIBRATE 160 MG TABLET PO SCH (09:43)
[2018-02-03] MEDS: SENNOSIDES/DOCUSATE SODIUM 1 TAB TABLET(SENOKOT-S) PO SCH ×2 (09:43→20:59)
[2018-02-03] MEDS: PREGABALIN 25 MG CAPSULE (LYRICA) PO SCH ×3 (09:43→20:58)
[2018-02-03] MEDS: FERROUS SULFATE 325 MG TABLET.DR PO SCH (09:44)
[2018-02-03] MEDS: ASPIRIN 81 MG TABLET(ECOTRIN) PO SCH (09:44)
[2018-02-03] MEDS ORDERED: LEVOTHYROXINE SODIUM 0.05 MG TABLET PO ONE (09:45)
[2018-02-03] MEDS: HYDROCORTISONE 10 MG TABLET (CORTEF) PO SCH ×2 (09:45→20:58)
[2018-02-03 12:16] VITALS: BP_SYST 104
[2018-02-03] MEDS ORDERED: traMADol HCL HCL 50 MG TABLET (ULTRAM) PO PRN (13:00)
[2018-02-03] MEDS ORDERED: LEVOTHYROXINE SODIUM 0.05 MG TABLET PO SCH (13:00)
[2018-02-03 14:47] LABS: BASOPHILS % (AUTO) 0.3 % (0.0-2.0); EOSINOPHILS # (AUTO) 0.1 K/uL (0.0-0.4); EOSINOPHILS % (AUTO) 0.7 % (0.0-4.0); HEMATOCRIT 28.4 % (36-48); HEMOGLOBIN 9.4 g/dL (12.0-16.0); LYMPHOCYTES # (AUTO) 1.4 K/uL (1.0-5.5); LYMPHOCYTES % (AUTO) 17.8 % (20.5-51.5); MEAN CORPUSCULAR HEMOGLOBIN 32 pg (27-31); MEAN CORPUSCULAR HGB CONC 33 % (32-36); MEAN CORPUSCULAR VOLUME 97 fL (79.0-98.0); MONOCYTES # (AUTO) 0.7 K/uL (0.0-1.0); MONOCYTES % (AUTO) 9.5 % (1.7-9.3); NEUTROPHILS # (AUTO) 5.6 K/uL (1.8-7.7); NEUTROPHILS % (AUTO) 71.7 % (40.0-70.0); PLATELET COUNT (AUTO) 164 K/uL (130-430); RED BLOOD CELL COUNT(AUTO) 2.93 MIL/uL (4.2-6.2); RED CELL DISTRIBUTION WIDTH 14.9 % (9.0-15.0); WHITE BLOOD COUNT (AUTO) 7.8 K/uL (4.8-10.8)
[2018-02-03 14:52] LABS: ANION GAP 7 (5-15); CALCIUM 8.1 mg/dL (8.4-11.0); CHLORIDE 101 mmol/L (98-107); CREATININE 0.87 mg/dL (0.55-1.30); GLUCOSE 260 mg/dL (70-99); POTASSIUM 4.5 mmol/L (3.5-5.1); SODIUM SERUM 134 mmol/L (136-145); UREA NITROGEN, BLOOD 19 mg/dL (8-21)
[2018-02-03] MEDS ORDERED: LORazepam 1 MG TABLET PO ONE (15:30)
[2018-02-03] MEDS: BACLOFEN 10 MG TABLET PO SCH ×2 (15:39→20:58)
[2018-02-03 16:51] VITALS: BP_SYST 112
[2018-02-03] MEDS ORDERED: DEXTROSE 50% JECT 50 ML DISP.SYRIN IVP PRN (17:45)
[2018-02-03] MEDS ORDERED: INSULIN NPH/REGULAR 70-30, 100 UNITS/ML, 10 ML VIAL SUBCUT ONE (17:45)
[2018-02-03] MEDS ORDERED: MINERAL OIL 30 ML UDC PO ONE (19:30)
[2018-02-03] MEDS ORDERED: MILK OF MAGNESIA 30 ML UDC PO ONE (19:30)
[2018-02-03] MEDS: MONTELUKAST 10 MG TABLET PO SCH (20:25)
[2018-02-03 20:30] VITALS: BP_SYST 125
[2018-02-03] MEDS ORDERED: roPINIRole HCL 0.25 MG ( REQUIP )TABLET PO SCH (21:00)
[2018-02-04 02:08] VITALS: BP_SYST 117
[2018-02-04] MEDS ORDERED: LEVOTHYROXINE SODIUM 0.05 MG TABLET PO SCH (06:00)
[2018-02-04] MEDS ORDERED: MILK OF MAGNESIA 30 ML UDC PO PRN (06:00)
[2018-02-04] MEDS: INSULIN ASPART 100 UNITS/ML, 10 ML VIAL (NovoLOG) SUBCUT PRN ×3 (06:21→17:26)
[2018-02-04] MEDS: INSULIN NPH/REGULAR 70-30, 100 UNITS/ML, 10 ML VIAL SUBCUT SCH ×2 (06:21→17:27)
[2018-02-04 07:12] LABS: THYROID STIMULATING HORMONE < 0.01 uIu/mL (0.36-3.74)
[2018-02-04] MEDS: PREGABALIN 25 MG CAPSULE (LYRICA) PO SCH ×2 (08:16→14:21)
[2018-02-04] MEDS: FENOFIBRATE 160 MG TABLET PO SCH (08:17)
[2018-02-04] MEDS: HYDROCORTISONE 10 MG TABLET (CORTEF) PO SCH (08:17)
[2018-02-04] MEDS: BACLOFEN 10 MG TABLET PO SCH ×2 (08:17→14:21)
[2018-02-04] MEDS: FERROUS SULFATE 325 MG TABLET.DR PO SCH (08:17)
[2018-02-04] MEDS: ASPIRIN 81 MG TABLET(ECOTRIN) PO SCH (08:17)
[2018-02-04] MEDS: SENNOSIDES/DOCUSATE SODIUM 1 TAB TABLET(SENOKOT-S) PO SCH (08:17)
[2018-02-04 08:30] VITALS: BP_SYST 125
[2018-02-04] MEDS ORDERED: MINERAL OIL 30 ML UDC PO SCH (09:00)
[2018-02-04] MEDS: ACETAMINOPHEN 325 MG TABLET PO PRN (09:41)
[2018-02-04 12:36] VITALS: BP_SYST 118
[2018-02-04 14:19] LABS: BASOPHILS % (AUTO) 0.4 % (0.0-2.0); EOSINOPHILS % (AUTO) 0.5 % (0.0-4.0); HEMATOCRIT 28.8 % (36-48); HEMOGLOBIN 9.8 g/dL (12.0-16.0); LYMPHOCYTES # (AUTO) 1.1 K/uL (1.0-5.5); LYMPHOCYTES % (AUTO) 16.7 % (20.5-51.5); MEAN CORPUSCULAR HEMOGLOBIN 33 pg (27-31); MEAN CORPUSCULAR HGB CONC 34 % (32-36); MEAN CORPUSCULAR VOLUME 98 fL (79.0-98.0); MONOCYTES # (AUTO) 0.7 K/uL (0.0-1.0); MONOCYTES % (AUTO) 11.5 % (1.7-9.3); NEUTROPHILS # (AUTO) 4.5 K/uL (1.8-7.7); NEUTROPHILS % (AUTO) 70.9 % (40.0-70.0); PLATELET COUNT (AUTO) 150 K/uL (130-430); RED BLOOD CELL COUNT(AUTO) 2.96 MIL/uL (4.2-6.2); RED CELL DISTRIBUTION WIDTH 15.1 % (9.0-15.0); WHITE BLOOD COUNT (AUTO) 6.3 K/uL (4.8-10.8)
[2018-02-04 14:31] LABS: ANION GAP 6 (5-15); CALCIUM 8.3 mg/dL (8.4-11.0); CHLORIDE 101 mmol/L (98-107); CREATININE 1.09 mg/dL (0.55-1.30); GLUCOSE 316 mg/dL (70-99); POTASSIUM 4.9 mmol/L (3.5-5.1); SODIUM SERUM 133 mmol/L (136-145); UREA NITROGEN, BLOOD 23 mg/dL (8-21)
[2018-02-04 16:30] VITALS: BP_SYST 116
[2018-02-04] MEDS: MONTELUKAST 10 MG TABLET PO SCH (17:23)
[2018-02-04] MEDS ORDERED: EPOETIN ALFA 4,000 UNITS/ML VIAL SUBCUT ONE (17:30)
[2018-02-04] MEDS ORDERED: NITR-85 PO (17:44)
[2018-02-04 18:15] VITALS: BP_SYST 116
== END 2018-02-04 18:45 | disposition home or self-care (01) | DRG 812 ==
LOC: SED 19:15 → SMU 02-03 00:53
PROVIDERS: ADMIT Internal Medicine; ATTEND Internal Medicine
PROC: 30233N1 Transfusion of Nonautologous Red Blood Cells into Peripheral Vein, Percutaneous Approach (ICD-10-PCS; principal; 2018-02-03)
DX: D46.1 Refractory anemia with ring sideroblasts (principal); E87.1 Hypo-osmolality and hyponatremia; E27.40 Unspecified adrenocortical insufficiency; E44.1 Mild protein-calorie malnutrition; D68.59 Other primary thrombophilia; M54.89 Other dorsalgia; E03.9 Hypothyroidism, unspecified; E11.42 Type 2 diabetes mellitus with diabetic polyneuropathy; E78.5 Hyperlipidemia, unspecified; G25.81 Restless legs syndrome; I10 Essential (primary) hypertension; J44.9 Chronic obstructive pulmonary disease, unspecified; N31.9 Neuromuscular dysfunction of bladder, unspecified; J45.909 Unspecified asthma, uncomplicated; E78.00 Pure hypercholesterolemia, unspecified; D69.6 Thrombocytopenia, unspecified; G47.00 Insomnia, unspecified; E79.0 Hyperuricemia without signs of inflammatory arthritis and tophaceous disease; F32.9 Major depressive disorder, single episode, unspecified; K59.00 Constipation, unspecified; K57.90 Diverticulosis of intestine, part unspecified, without perforation or abscess without bleeding; I48.0 Paroxysmal atrial fibrillation; D63.8 Anemia in other chronic diseases classified elsewhere; G89.4 Chronic pain syndrome; M16.12 Unilateral primary osteoarthritis, left hip; M17.0 Bilateral primary osteoarthritis of knee; Z79.890 Hormone replacement therapy; Z86.73 Personal history of transient ischemic attack (TIA), and cerebral infarction without residual deficits; Z95.5 Presence of coronary angioplasty implant and graft; Z68.25 Body mass index [BMI] 25.0-25.9, adult
CPT/HCPCS: 36415; 72148; 80048; 80053; 81003; 82962; 84439; 84443-TC; 85007; 85025; 85027; 85610-TC; 86886; 86900; 86901; 86920; 87081; 96361; 96374; 96375; 99285; J0885; J1815; J2270; J2405; J7030; J7050; P9021

== ENCOUNTER 2018-02-09 06:02 | Emergency (ER) | payer OTHER, MEDICAID ==
[~2018-02-09] VITALS: Ht 154.9 cm; Wt 63.5 kg
[~2018-02-09 06:02] MED LIST changes: -DIF100 PO; -GLIP10TA3 PO; -LEVO50TA8 PO; -METO25TA6 PO; +NITR-85 PO
[2018-02-09 06:16] VITALS: BP_SYST 131
[2018-02-09] MEDS ORDERED: MORPHINE 4 MG/ML INJ. SYRINGE IVP ONE (06:45)
[2018-02-09 07:43] VITALS: BP_SYST 125
[2018-02-09 07:51] LABS: ANION GAP 8 (5-15); CALCIUM 8.8 mg/dL (8.4-11.0); CHLORIDE 98 mmol/L (98-107); CREATININE 0.74 mg/dL (0.55-1.30); GLUCOSE 115 mg/dL (70-99); POTASSIUM 3.7 mmol/L (3.5-5.1); SODIUM SERUM 133 mmol/L (136-145); UREA NITROGEN, BLOOD 21 mg/dL (8-21)
[2018-02-09 07:56] LABS: ALANINE AMINOTRANSFERASE 21 U/L (12-78); ALBUMIN 3.1 g/dL (3.4-4.8); ASPARTATE AMINOTRANSFERASE 33 U/L (10-37); TOTAL BILIRUBIN 0.9 mg/dL (0.0-1.0)
[2018-02-09 07:57] LABS: BASOPHILS % (AUTO) 0.1 % (0.0-2.0); EOSINOPHILS # (AUTO) 0.1 K/uL (0.0-0.4); HEMATOCRIT 28.5 % (36-48); HEMOGLOBIN 9.4 g/dL (12.0-16.0); LYMPHOCYTES # (AUTO) 2.4 K/uL (1.0-5.5); LYMPHOCYTES % (AUTO) 37.1 % (20.5-51.5); MEAN CORPUSCULAR HEMOGLOBIN 32 pg (27-31); MEAN CORPUSCULAR HGB CONC 33 % (32-36); MEAN CORPUSCULAR VOLUME 96 fL (79.0-98.0); MONOCYTES # (AUTO) 0.8 K/uL (0.0-1.0); MONOCYTES % (AUTO) 11.7 % (1.7-9.3); NEUTROPHILS # (AUTO) 3.2 K/uL (1.8-7.7); NEUTROPHILS % (AUTO) 49.1 % (40.0-70.0); PLATELET COUNT (AUTO) 103 K/uL (130-430); RED BLOOD CELL COUNT(AUTO) 2.96 MIL/uL (4.2-6.2); RED CELL DISTRIBUTION WIDTH 15.1 % (9.0-15.0); WHITE BLOOD COUNT (AUTO) 6.5 K/uL (4.8-10.8)
[2018-02-09 08:04] LABS: BILIRUBIN,URINE NEGATIVE (NEGATIVE); BLOOD, URINE NEGATIVE (NEGATIVE); CLARITY/URINE CLEAR (CLEAR); COLOR,URINE YELLOW (YELLOW); GLUCOSE,URINE NEGATIVE (NEGATIVE); KETONES,URINE NEGATIVE (NEGATIVE); LEUKOCYTE ESTERASE ,URINE 1+ (NEGATIVE); NITRITE, URINE POSITIVE (NEGATIVE); PROTEIN URINE NEGATIVE (NEGATIVE); UROBILINOGEN,URINE 0.2 (0.2-1.0)
[2018-02-09] MEDS ORDERED: ALBUTEROL SULFATE 0.083% 2.5 MG/3 ML VIAL.NEB INH ONE (08:08)
[2018-02-09] MEDS ORDERED: IPRATROPIUM BROM 0.5 MG/2.5 ML VIAL.NEB (ATROVENT) INH ONE (08:09)
[2018-02-09 08:20] LABS: BACTERIA,URINE FEW /HPF (None Seen); RBC,URINE 0-3 /HPF (0-3)
[2018-02-09 08:21] LABS: MUCUS,URINE None Seen /LPF (None Seen)
== END 2018-02-09 07:43 | disposition home or self-care (01) ==
LOC: SED 06:02
DX: G89.29 Other chronic pain (principal); M54.9 Dorsalgia, unspecified; M25.551 Pain in right hip; M25.552 Pain in left hip; N39.0 Urinary tract infection, site not specified; J44.9 Chronic obstructive pulmonary disease, unspecified; E11.9 Type 2 diabetes mellitus without complications; I10 Essential (primary) hypertension; E78.00 Pure hypercholesterolemia, unspecified; E11.40 Type 2 diabetes mellitus with diabetic neuropathy, unspecified; M10.9 Gout, unspecified; Z95.9 Presence of cardiac and vascular implant and graft, unspecified; Z79.899 Other long term (current) drug therapy
CPT/HCPCS: 36415; 73521; 80053; 81000; 85025; 87086; 96374; 99284; J2270; J7613

== ENCOUNTER 2018-02-10 09:30 | Emergency (ER) | payer OTHER, MEDICAID ==
[~2018-02-10] VITALS: Ht 154.9 cm; Wt 63.5 kg
[2018-02-10 09:42] VITALS: BP_SYST 103
[2018-02-10 10:59] LABS: ANION GAP 7 (5-15); CALCIUM 8.7 mg/dL (8.4-11.0); CHLORIDE 99 mmol/L (98-107); CREATININE 0.78 mg/dL (0.55-1.30); GLUCOSE 86 mg/dL (70-99); POTASSIUM 4.3 mmol/L (3.5-5.1); SODIUM SERUM 131 mmol/L (136-145); UREA NITROGEN, BLOOD 23 mg/dL (8-21)
[2018-02-10 11:08] LABS: ALANINE AMINOTRANSFERASE 16 U/L (12-78); ALBUMIN 2.9 g/dL (3.4-4.8); ASPARTATE AMINOTRANSFERASE 46 U/L (10-37)
[2018-02-10 11:13] LABS: BASOPHILS % (AUTO) 0.2 % (0.0-2.0); EOSINOPHILS % (AUTO) 0.6 % (0.0-4.0); HEMATOCRIT 27.9 % (36-48); LYMPHOCYTES # (AUTO) 1.2 K/uL (1.0-5.5); LYMPHOCYTES % (AUTO) 20.4 % (20.5-51.5); MEAN CORPUSCULAR HEMOGLOBIN 31 pg (27-31); MEAN CORPUSCULAR HGB CONC 32 % (32-36); MEAN CORPUSCULAR VOLUME 97 fL (79.0-98.0); MONOCYTES # (AUTO) 0.8 K/uL (0.0-1.0); NEUTROPHILS # (AUTO) 3.9 K/uL (1.8-7.7); PLATELET COUNT (AUTO) 112 K/uL (130-430); RED BLOOD CELL COUNT(AUTO) 2.89 MIL/uL (4.2-6.2); RED CELL DISTRIBUTION WIDTH 15.5 % (9.0-15.0); WHITE BLOOD COUNT (AUTO) 5.9 K/uL (4.8-10.8)
[2018-02-10 11:30] LABS: INR 1.1 (0.8-1.2); PROTHROMBIN TIME 11.2 SECS (9.5-12.5)
[2018-02-10 11:43] LABS: NEUTROPHILS % (AUTO) 65.8 % (40.0-70.0)
[2018-02-10 12:42] LABS: BILIRUBIN,URINE NEGATIVE (NEGATIVE); BLOOD, URINE 3+ (NEGATIVE); COLOR,URINE YELLOW (YELLOW); GLUCOSE,URINE NEGATIVE (NEGATIVE); KETONES,URINE NEGATIVE (NEGATIVE); LEUKOCYTE ESTERASE ,URINE 1+ (NEGATIVE); NITRITE, URINE POSITIVE (NEGATIVE); PROTEIN URINE 2+ (NEGATIVE)
[2018-02-10 13:05] LABS: CLARITY/URINE CLOUDY (CLEAR)
[2018-02-10 13:06] LABS: BACTERIA,URINE MANY /HPF (None Seen); RBC,URINE 20-50 /HPF (0-3); WBC,URINE 20-50 /HPF (0-3)
[2018-02-10 21:40] VITALS: BP_SYST 117
== END 2018-02-10 13:29 | disposition home or self-care (01) ==
LOC: SED 09:30
DX: R41.0 Disorientation, unspecified (principal); R53.83 Other fatigue; J44.9 Chronic obstructive pulmonary disease, unspecified; E78.00 Pure hypercholesterolemia, unspecified; E11.40 Type 2 diabetes mellitus with diabetic neuropathy, unspecified; I10 Essential (primary) hypertension; Z86.79 Personal history of other diseases of the circulatory system; Z79.899 Other long term (current) drug therapy
CPT/HCPCS: 70450; 71045; 36415; 80053; 81000; 83605; 84484; 85025; 85610; 85730; 87040; 87086; 99284; J7030; 87186-TC

== ENCOUNTER 2018-02-10 18:17 | Inpatient (IN) | payer OTHER, MEDICAID ==
[~2018-02-10] VITALS: Ht 154.9 cm; Wt 63.5 kg
[2018-02-10 18:25] VITALS: BP_SYST 131
[2018-02-10] MEDS ORDERED: MORPHINE 4 MG/ML INJ. SYRINGE IVP ONE (20:30)
[2018-02-10] MEDS ORDERED: NACL 0.9% 1,000 ML IV ONE ×2 (20:30→21:00)
[2018-02-10] MEDS ORDERED: MEROPENEM 1 GM IVPB PREMIX 50 ML IV ONE (20:45)
[2018-02-10 20:48] LABS: BILIRUBIN,URINE NEGATIVE (NEGATIVE); BLOOD, URINE 2+ (NEGATIVE); CLARITY/URINE CLEAR (CLEAR); COLOR,URINE YELLOW (YELLOW); GLUCOSE,URINE NEGATIVE (NEGATIVE); KETONES,URINE NEGATIVE (NEGATIVE); LEUKOCYTE ESTERASE ,URINE 1+ (NEGATIVE); NITRITE, URINE POSITIVE (NEGATIVE); PROTEIN URINE NEGATIVE (NEGATIVE)
[2018-02-10 21:00] LABS: BACTERIA,URINE FEW /HPF (None Seen); WBC,URINE 0-3 /HPF (0-3)
[2018-02-10] MEDS ORDERED: INSULIN REGULAR, HUMAN 100 UNITS/ML, 10 ML VIAL (novoLIN R) SUBCUT PRN (21:00)
[2018-02-10] MEDS ORDERED: traMADol HCL HCL 50 MG TABLET (ULTRAM) PO PRN (21:00)
[2018-02-10 21:01] LABS: MUCUS,URINE None Seen /LPF (None Seen)
[2018-02-10] MEDS ORDERED: MEROPENEM 500 MG VIAL IV ONE (21:08)
[2018-02-10 21:40] VITALS: BP_SYST 124
[2018-02-10] MEDS: PREGABALIN 25 MG CAPSULE (LYRICA) PO SCH (22:21)
[2018-02-11] MEDS: ACETAMINOPHEN 325 MG TABLET PO PRN ×3 (05:29→22:32)
[2018-02-11 06:34] VITALS: BP_SYST 144
[2018-02-11 08:00] VITALS: BP_SYST 109
[2018-02-11] MEDS: PREGABALIN 25 MG CAPSULE (LYRICA) PO SCH ×3 (09:04→22:30)
[2018-02-11] MEDS ORDERED: DEXTROSE 50% JECT 50 ML DISP.SYRIN IVP PRN (09:15)
[2018-02-11] MEDS ORDERED: HYDROCORTISONE 10 MG TABLET (CORTEF) PO ONE (09:30)
[2018-02-11] MEDS: INSULIN ASPART 100 UNITS/ML, 10 ML VIAL (NovoLOG) SUBCUT PRN ×3 (12:40→22:39)
[2018-02-11 17:52] LABS: BASOPHILS % (AUTO) 0.2 % (0.0-2.0); EOSINOPHILS % (AUTO) 0.2 % (0.0-4.0); HEMATOCRIT 23.9 % (36-48); HEMOGLOBIN 7.9 g/dL (12.0-16.0); LYMPHOCYTES # (AUTO) 1.3 K/uL (1.0-5.5); LYMPHOCYTES % (AUTO) 23.5 % (20.5-51.5); MEAN CORPUSCULAR HEMOGLOBIN 32 pg (27-31); MEAN CORPUSCULAR HGB CONC 33 % (32-36); MEAN CORPUSCULAR VOLUME 96 fL (79.0-98.0); MONOCYTES # (AUTO) 0.7 K/uL (0.0-1.0); MONOCYTES % (AUTO) 13.6 % (1.7-9.3); NEUTROPHILS # (AUTO) 3.4 K/uL (1.8-7.7); NEUTROPHILS % (AUTO) 62.5 % (40.0-70.0); PLATELET COUNT (AUTO) 106 K/uL (130-430); RED BLOOD CELL COUNT(AUTO) 2.48 MIL/uL (4.2-6.2); RED CELL DISTRIBUTION WIDTH 15.3 % (9.0-15.0); WHITE BLOOD COUNT (AUTO) 5.4 K/uL (4.8-10.8)
[2018-02-11] MEDS ORDERED: LORazepam 1 MG TABLET PO PRN (19:15)
[2018-02-11] MEDS ORDERED: roPINIRole HCL 0.25 MG ( REQUIP )TABLET PO SCH (19:15)
[2018-02-11] MEDS ORDERED: FLUCONAZOLE 100 MG TABLET (DIFLUCAN) PO ONE (20:00)
[2018-02-11] MEDS ORDERED: EPOETIN ALFA 4,000 UNITS/ML VIAL SUBCUT ONE (20:00)
[2018-02-11 20:30] VITALS: BP_SYST 118
[2018-02-11] MEDS: traMADol HCL HCL 50 MG TABLET (ULTRAM) PO PRN (20:30)
[2018-02-11] MEDS: CLOTRIMAZOLE/BETAMETHASONE 45 GM TOPICAL CREAM TP SCH (21:00)
[2018-02-11] MEDS ORDERED: HYDROCORTISONE 10 MG TABLET (CORTEF) PO SCH (21:00)
[2018-02-11] MEDS: CEFEPIME 1 GM in D5W 50 ML IV SCH (22:29)
[2018-02-11] MEDS: BACLOFEN 10 MG TABLET PO SCH (22:30)
[2018-02-11] MEDS: HYDROCORTISONE 10 MG TABLET (CORTEF) PO SCH (22:31)
[2018-02-12 01:31] VITALS: BP_SYST 130
[2018-02-12 04:00] VITALS: BP_SYST 124
[2018-02-12] MEDS: traMADol HCL HCL 50 MG TABLET (ULTRAM) PO PRN ×2 (06:05→18:43)
[2018-02-12] MEDS: INSULIN ASPART 100 UNITS/ML, 10 ML VIAL (NovoLOG) SUBCUT PRN ×4 (06:45→22:31)
[2018-02-12 08:00] VITALS: BP_SYST 116
[2018-02-12 08:01] LABS: BASOPHILS % (AUTO) 0.2 % (0.0-2.0); EOSINOPHILS % (AUTO) 0.5 % (0.0-4.0); HEMATOCRIT 24.1 % (36-48); LYMPHOCYTES # (AUTO) 1.7 K/uL (1.0-5.5); LYMPHOCYTES % (AUTO) 28.6 % (20.5-51.5); MEAN CORPUSCULAR HEMOGLOBIN 32 pg (27-31); MEAN CORPUSCULAR HGB CONC 33 % (32-36); MEAN CORPUSCULAR VOLUME 96 fL (79.0-98.0); MONOCYTES # (AUTO) 0.6 K/uL (0.0-1.0); MONOCYTES % (AUTO) 10.4 % (1.7-9.3); NEUTROPHILS # (AUTO) 3.5 K/uL (1.8-7.7); NEUTROPHILS % (AUTO) 60.3 % (40.0-70.0); PLATELET COUNT (AUTO) 100 K/uL (130-430); RED BLOOD CELL COUNT(AUTO) 2.51 MIL/uL (4.2-6.2); RED CELL DISTRIBUTION WIDTH 15.1 % (9.0-15.0)
[2018-02-12 08:02] LABS: ANION GAP 11 (5-15); CALCIUM 7.8 mg/dL (8.4-11.0); CHLORIDE 98 mmol/L (98-107); CREATININE 0.71 mg/dL (0.55-1.30); GLUCOSE 251 mg/dL (70-99); POTASSIUM 3.9 mmol/L (3.5-5.1); SODIUM SERUM 133 mmol/L (136-145); UREA NITROGEN, BLOOD 17 mg/dL (8-21)
[2018-02-12 08:07] LABS: WHITE BLOOD COUNT (AUTO) 5.8 K/uL (4.8-10.8)
[2018-02-12] MEDS: FLUCONAZOLE 100 MG TABLET (DIFLUCAN) PO SCH (09:25)
[2018-02-12] MEDS: BACLOFEN 10 MG TABLET PO SCH ×3 (09:25→22:20)
[2018-02-12] MEDS: HYDROCORTISONE 10 MG TABLET (CORTEF) PO SCH ×2 (09:25→22:20)
[2018-02-12] MEDS: CEFEPIME 1 GM in D5W 50 ML IV SCH ×2 (09:25→22:20)
[2018-02-12] MEDS: PREGABALIN 25 MG CAPSULE (LYRICA) PO SCH ×3 (09:26→22:20)
[2018-02-12] MEDS: CLOTRIMAZOLE/BETAMETHASONE 45 GM TOPICAL CREAM TP SCH ×2 (09:26→22:29)
[2018-02-12] MEDS: FENOFIBRATE 160 MG TABLET PO SCH (09:26)
[2018-02-12] MEDS ORDERED: EPOETIN ALFA 4,000 UNITS/ML VIAL SUBCUT ONE (10:00)
[2018-02-12 11:27] VITALS: BP_SYST 122
[2018-02-12 16:56] VITALS: BP_SYST 112
[2018-02-12] MEDS: MONTELUKAST 10 MG TABLET PO SCH (17:31)
[2018-02-12] MEDS: INSULIN NPH/REGULAR 70-30, 100 UNITS/ML, 10 ML VIAL SUBCUT SCH (17:33)
[2018-02-12] MEDS ORDERED: COMMUNICATION ORDER XX ONE (20:15)
[2018-02-13] VITALS: BP_SYST 136
[2018-02-13] MEDS: INSULIN NPH/REGULAR 70-30, 100 UNITS/ML, 10 ML VIAL SUBCUT SCH ×2 (06:23→18:24)
[2018-02-13] MEDS: INSULIN ASPART 100 UNITS/ML, 10 ML VIAL (NovoLOG) SUBCUT PRN ×4 (06:25→22:39)
[2018-02-13 07:13] LABS: BASOPHILS % (AUTO) 0.1 % (0.0-2.0); EOSINOPHILS % (AUTO) 0.2 % (0.0-4.0); HEMATOCRIT 24.7 % (36-48); LYMPHOCYTES # (AUTO) 1.8 K/uL (1.0-5.5); LYMPHOCYTES % (AUTO) 31.4 % (20.5-51.5); MEAN CORPUSCULAR HEMOGLOBIN 31 pg (27-31); MEAN CORPUSCULAR HGB CONC 33 % (32-36); MEAN CORPUSCULAR VOLUME 95 fL (79.0-98.0); MONOCYTES # (AUTO) 0.8 K/uL (0.0-1.0); MONOCYTES % (AUTO) 14.2 % (1.7-9.3); NEUTROPHILS # (AUTO) 3.2 K/uL (1.8-7.7); PLATELET COUNT (AUTO) 121 K/uL (130-430); RED BLOOD CELL COUNT(AUTO) 2.59 MIL/uL (4.2-6.2); RED CELL DISTRIBUTION WIDTH 15.9 % (9.0-15.0); WHITE BLOOD COUNT (AUTO) 5.8 K/uL (4.8-10.8)
[2018-02-13 07:29] LABS: ANION GAP 9 (5-15); CALCIUM 8.3 mg/dL (8.4-11.0); CHLORIDE 97 mmol/L (98-107); CREATININE 0.73 mg/dL (0.55-1.30); GLUCOSE 252 mg/dL (70-99); POTASSIUM 4.1 mmol/L (3.5-5.1); SODIUM SERUM 130 mmol/L (136-145); UREA NITROGEN, BLOOD 16 mg/dL (8-21)
[2018-02-13 08:00] VITALS: BP_SYST 120
[2018-02-13] MEDS: CLOTRIMAZOLE/BETAMETHASONE 45 GM TOPICAL CREAM TP SCH ×2 (09:00→22:07)
[2018-02-13] MEDS: CEFEPIME 1 GM in D5W 50 ML IV SCH ×2 (09:27→22:03)
[2018-02-13] MEDS: HYDROCORTISONE 10 MG TABLET (CORTEF) PO SCH ×2 (09:28→22:02)
[2018-02-13] MEDS: BACLOFEN 10 MG TABLET PO SCH ×3 (09:28→22:02)
[2018-02-13] MEDS: FLUCONAZOLE 100 MG TABLET (DIFLUCAN) PO SCH (09:28)
[2018-02-13] MEDS: FENOFIBRATE 160 MG TABLET PO SCH (09:28)
[2018-02-13] MEDS: PREGABALIN 25 MG CAPSULE (LYRICA) PO SCH ×3 (09:28→22:02)
[2018-02-13 11:21] LABS: NEUTROPHILS % (AUTO) 54.1 % (40.0-70.0)
[2018-02-13 11:54] VITALS: BP_SYST 163
[2018-02-13 11:56] VITALS: BP_SYST 120
[2018-02-13] MEDS: traMADol HCL HCL 50 MG TABLET (ULTRAM) PO PRN (13:33)
[2018-02-13 17:16] VITALS: BP_SYST 119
[2018-02-13] MEDS: MONTELUKAST 10 MG TABLET PO SCH (18:16)
[2018-02-13] MEDS: ACETAMINOPHEN 325 MG TABLET PO PRN (18:16)
[2018-02-14 00:50] VITALS: BP_SYST 120
[2018-02-14] MEDS: traMADol HCL HCL 50 MG TABLET (ULTRAM) PO PRN (06:00)
[2018-02-14] MEDS: INSULIN ASPART 100 UNITS/ML, 10 ML VIAL (NovoLOG) SUBCUT PRN ×3 (06:41→17:49)
[2018-02-14] MEDS: INSULIN NPH/REGULAR 70-30, 100 UNITS/ML, 10 ML VIAL SUBCUT SCH ×2 (06:43→17:48)
[2018-02-14 08:04] VITALS: BP_SYST 125
[2018-02-14] MEDS: FLUCONAZOLE 100 MG TABLET (DIFLUCAN) PO SCH (08:26)
[2018-02-14] MEDS: FENOFIBRATE 160 MG TABLET PO SCH (08:27)
[2018-02-14] MEDS: BACLOFEN 10 MG TABLET PO SCH ×2 (08:27→15:40)
[2018-02-14] MEDS: PREGABALIN 25 MG CAPSULE (LYRICA) PO SCH ×2 (08:27→15:40)
[2018-02-14] MEDS: ACETAMINOPHEN 325 MG TABLET PO PRN (08:28)
[2018-02-14] MEDS: CEFEPIME 1 GM in D5W 50 ML IV SCH (08:28)
[2018-02-14] MEDS: HYDROCORTISONE 10 MG TABLET (CORTEF) PO SCH (08:28)
[2018-02-14] MEDS: CLOTRIMAZOLE/BETAMETHASONE 45 GM TOPICAL CREAM TP SCH (08:29)
[2018-02-14] MEDS ORDERED: EPOETIN ALFA 4,000 UNITS/ML VIAL SUBCUT ONE (10:00)
[2018-02-14 10:36] LABS: BASOPHILS % (AUTO) 0.2 % (0.0-2.0); EOSINOPHILS % (AUTO) 0.5 % (0.0-4.0); HEMATOCRIT 23.5 % (36-48); HEMOGLOBIN 7.8 g/dL (12.0-16.0); LYMPHOCYTES # (AUTO) 1.4 K/uL (1.0-5.5); LYMPHOCYTES % (AUTO) 28.6 % (20.5-51.5); MEAN CORPUSCULAR HEMOGLOBIN 32 pg (27-31); MEAN CORPUSCULAR HGB CONC 33 % (32-36); MEAN CORPUSCULAR VOLUME 96 fL (79.0-98.0); MONOCYTES # (AUTO) 0.7 K/uL (0.0-1.0); MONOCYTES % (AUTO) 13.7 % (1.7-9.3); NEUTROPHILS # (AUTO) 2.9 K/uL (1.8-7.7); PLATELET COUNT (AUTO) 115 K/uL (130-430); RED BLOOD CELL COUNT(AUTO) 2.45 MIL/uL (4.2-6.2); RED CELL DISTRIBUTION WIDTH 15.8 % (9.0-15.0)
[2018-02-14 10:48] LABS: ANION GAP 6 (5-15); CHLORIDE 99 mmol/L (98-107); CREATININE 0.88 mg/dL (0.55-1.30); GLUCOSE 271 mg/dL (70-99); POTASSIUM 3.8 mmol/L (3.5-5.1); SODIUM SERUM 132 mmol/L (136-145); UREA NITROGEN, BLOOD 21 mg/dL (8-21)
[2018-02-14 12:06] VITALS: BP_SYST 110
[2018-02-14] MEDS ORDERED: ACETAMINOPHEN 325 MG TABLET PO PRN (15:45)
[2018-02-14 16:02] VITALS: BP_SYST 125
[2018-02-14] MEDS: MONTELUKAST 10 MG TABLET PO SCH (17:50)
[2018-02-14 18:11] VITALS: BP_SYST 125
[2018-02-15] MEDS ORDERED: INSULIN NPH/REGULAR 70-30, 100 UNITS/ML, 10 ML VIAL SUBCUT SCH (07:00)
== END 2018-02-14 18:50 | disposition home health service (06) | DRG 689 ==
LOC: SED 18:17 → SMU 20:46
PROVIDERS: ADMIT Internal Medicine; ATTEND Internal Medicine
DX: N39.0 Urinary tract infection, site not specified (principal); G93.41 Metabolic encephalopathy; E27.40 Unspecified adrenocortical insufficiency; D68.59 Other primary thrombophilia; E44.1 Mild protein-calorie malnutrition; E87.1 Hypo-osmolality and hyponatremia; G89.4 Chronic pain syndrome; D46.9 Myelodysplastic syndrome, unspecified; E03.9 Hypothyroidism, unspecified; E78.5 Hyperlipidemia, unspecified; B96.20 Unspecified Escherichia coli [E. coli] as the cause of diseases classified elsewhere; Z16.20 Resistance to unspecified antibiotic; I11.0 Hypertensive heart disease with heart failure; I50.9 Heart failure, unspecified; J44.9 Chronic obstructive pulmonary disease, unspecified; N31.9 Neuromuscular dysfunction of bladder, unspecified; D89.9 Disorder involving the immune mechanism, unspecified; K57.90 Diverticulosis of intestine, part unspecified, without perforation or abscess without bleeding; R33.9 Retention of urine, unspecified; E11.42 Type 2 diabetes mellitus with diabetic polyneuropathy; M16.12 Unilateral primary osteoarthritis, left hip; M47.896 Other spondylosis, lumbar region; I48.0 Paroxysmal atrial fibrillation; J45.909 Unspecified asthma, uncomplicated; D63.8 Anemia in other chronic diseases classified elsewhere; G25.81 Restless legs syndrome; E66.9 Obesity, unspecified; K59.00 Constipation, unspecified; F32.9 Major depressive disorder, single episode, unspecified; G47.00 Insomnia, unspecified; Z87.81 Personal history of (healed) traumatic fracture; Z79.899 Other long term (current) drug therapy; Z79.4 Long term (current) use of insulin; Z79.82 Long term (current) use of aspirin; Z68.26 Body mass index [BMI] 26.0-26.9, adult
CPT/HCPCS: 36415; 80048; 81000-TC; 82962; 85025; 87040-TC; 87081; 87086; 96365; 96375; 97110-GP; 97116-GP; 97530-GP; 99285; J0692; J0885; J1815; J2185; J2270; J7030; J7060

== ENCOUNTER 2018-02-20 18:49 | Inpatient (IN) | payer OTHER, MEDICAID ==
[~2018-02-20] VITALS: Ht 154.9 cm; Wt 64.0 kg
[2018-02-20 18:56] VITALS: BP_SYST 135
[2018-02-20] MEDS ORDERED: ASPIRIN 81 MG TAB.CHEW PO ONE (19:15)
[2018-02-20 19:58] LABS: BASOPHILS % (AUTO) 0.2 % (0.0-2.0); EOSINOPHILS % (AUTO) 0.4 % (0.0-4.0); HEMATOCRIT 26.8 % (36-48); HEMOGLOBIN 9.3 g/dL (12.0-16.0); LYMPHOCYTES # (AUTO) 1.5 K/uL (1.0-5.5); LYMPHOCYTES % (AUTO) 30.6 % (20.5-51.5); MEAN CORPUSCULAR HEMOGLOBIN 33 pg (27-31); MEAN CORPUSCULAR HGB CONC 35 % (32-36); MEAN CORPUSCULAR VOLUME 94 fL (79.0-98.0); MONOCYTES # (AUTO) 0.6 K/uL (0.0-1.0); MONOCYTES % (AUTO) 11.4 % (1.7-9.3); NEUTROPHILS # (AUTO) 2.8 K/uL (1.8-7.7); NEUTROPHILS % (AUTO) 57.4 % (40.0-70.0); RED BLOOD CELL COUNT(AUTO) 2.85 MIL/uL (4.2-6.2); RED CELL DISTRIBUTION WIDTH 16.1 % (9.0-15.0); WHITE BLOOD COUNT (AUTO) 4.9 K/uL (4.8-10.8)
[2018-02-20] MEDS ORDERED: LORazepam 2 MG/ML VIAL (FOR ER USE) IVP ONE (20:00)
[2018-02-20] MEDS ORDERED: NS 500 ML IV ONE (20:00)
[2018-02-20 20:08] LABS: ANION GAP 6 (5-15); CALCIUM 8.7 mg/dL (8.4-11.0); CHLORIDE 93 mmol/L (98-107); CREATININE 0.95 mg/dL (0.55-1.30); GLUCOSE 252 mg/dL (70-99); POTASSIUM 4.9 mmol/L (3.5-5.1); SODIUM SERUM 130 mmol/L (136-145); UREA NITROGEN, BLOOD 20 mg/dL (8-21)
[2018-02-20 20:10] LABS: INR 1.1 (0.8-1.2); PROTHROMBIN TIME 10.9 SECS (9.5-12.5)
[2018-02-20 20:13] LABS: ALANINE AMINOTRANSFERASE 17 U/L (12-78); ALBUMIN 2.9 g/dL (3.4-4.8); ASPARTATE AMINOTRANSFERASE 46 U/L (10-37); TOTAL BILIRUBIN 0.9 mg/dL (0.0-1.0)
[2018-02-20 20:31] LABS: PLATELET COUNT (AUTO) 76 K/uL (130-430)
[2018-02-20 22:05] VITALS: BP_SYST 131
[2018-02-20 22:31] LABS: BILIRUBIN,URINE NEGATIVE (NEGATIVE); BLOOD, URINE NEGATIVE (NEGATIVE); CLARITY/URINE CLEAR (CLEAR); COLOR,URINE YELLOW (YELLOW); GLUCOSE,URINE NEGATIVE (NEGATIVE); KETONES,URINE NEGATIVE (NEGATIVE); LEUKOCYTE ESTERASE ,URINE TRACE (NEGATIVE); NITRITE, URINE NEGATIVE (NEGATIVE); PH,URINE 6.5 (5.0-8.0); PROTEIN URINE NEGATIVE (NEGATIVE); UROBILINOGEN,URINE 0.2 (0.2-1.0)
[2018-02-20] MEDS ORDERED: CYAN100070 PO (22:41)
[2018-02-20] MEDS ORDERED: LACT1CAP62 PO (22:41)
[2018-02-20] MEDS ORDERED: ACET325T53 PO (22:41)
[2018-02-20] MEDS ORDERED: ONDANSETRON 4 MG ODT TAB PO PRN (23:00)
[2018-02-20] MEDS ORDERED: DEXTROSE 50% JECT 50 ML DISP.SYRIN IVP PRN (23:00)
[2018-02-20] MEDS ORDERED: roPINIRole HCL 0.25 MG ( REQUIP )TABLET PO SCH (23:00)
[2018-02-20] MEDS ORDERED: INSULIN REGULAR, HUMAN 100 UNITS/ML, 10 ML VIAL (novoLIN R) SUBCUT PRN (23:00)
[2018-02-20] MEDS ORDERED: ACETAMINOPHEN 325 MG TABLET PO PRN (23:00)
[2018-02-20] MEDS ORDERED: LORazepam 1 MG TABLET PO PRN (23:00)
[2018-02-20] MEDS ORDERED: PREGABALIN 25 MG CAPSULE (LYRICA) PO ONE (23:15)
[2018-02-20 23:17] LABS: BACTERIA,URINE FEW /HPF (None Seen); RBC,URINE 0-3 /HPF (0-3)
[2018-02-20] MEDS ORDERED: roPINIRole HCL 0.25 MG ( REQUIP )TABLET PO ONE (23:45)
[2018-02-21 00:34] VITALS: BP_SYST 131
[2018-02-21 07:16] LABS: BASOPHILS % (AUTO) 0.5 % (0.0-2.0); EOSINOPHILS # (AUTO) 0.1 K/uL (0.0-0.4); EOSINOPHILS % (AUTO) 0.9 % (0.0-4.0); HEMATOCRIT 27.1 % (36-48); HEMOGLOBIN 9.1 g/dL (12.0-16.0); LYMPHOCYTES # (AUTO) 2.2 K/uL (1.0-5.5); LYMPHOCYTES % (AUTO) 36.6 % (20.5-51.5); MEAN CORPUSCULAR HEMOGLOBIN 32 pg (27-31); MEAN CORPUSCULAR HGB CONC 34 % (32-36); MEAN CORPUSCULAR VOLUME 95 fL (79.0-98.0); MONOCYTES # (AUTO) 0.8 K/uL (0.0-1.0); MONOCYTES % (AUTO) 12.9 % (1.7-9.3); NEUTROPHILS # (AUTO) 2.8 K/uL (1.8-7.7); PLATELET COUNT (AUTO) 82 K/uL (130-430); RED BLOOD CELL COUNT(AUTO) 2.84 MIL/uL (4.2-6.2); RED CELL DISTRIBUTION WIDTH 16.8 % (9.0-15.0); WHITE BLOOD COUNT (AUTO) 5.9 K/uL (4.8-10.8)
[2018-02-21 07:41] LABS: ANION GAP 7 (5-15); CALCIUM 8.3 mg/dL (8.4-11.0); CHLORIDE 96 mmol/L (98-107); CREATININE 0.83 mg/dL (0.55-1.30); GLUCOSE 114 mg/dL (70-99); POTASSIUM 4.6 mmol/L (3.5-5.1); SODIUM SERUM 133 mmol/L (136-145); UREA NITROGEN, BLOOD 18 mg/dL (8-21)
[2018-02-21 07:56] LABS: ALANINE AMINOTRANSFERASE 11 U/L (12-78); ALBUMIN 2.7 g/dL (3.4-4.8); ASPARTATE AMINOTRANSFERASE 52 U/L (10-37); FREE T4 (FREE THYROXINE) 0.7 ng/dl (0.8-1.5); PHOSPHORUS 3.1 mg/dL (2.7-4.5); THYROID STIMULATING HORMONE 0.05 uIu/mL (0.36-3.74); TOTAL BILIRUBIN 0.8 mg/dL (0.0-1.0)
[2018-02-21] MEDS: BACLOFEN 10 MG TABLET PO SCH ×3 (08:29→22:17)
[2018-02-21] MEDS: FENOFIBRATE 160 MG TABLET PO SCH (08:29)
[2018-02-21] MEDS: PREGABALIN 25 MG CAPSULE (LYRICA) PO SCH ×3 (08:29→22:16)
[2018-02-21] MEDS: HYDROCORTISONE 10 MG TABLET (CORTEF) PO SCH ×2 (08:29→22:17)
[2018-02-21 08:30] VITALS: BP_SYST 115
[2018-02-21] MEDS: ASPIRIN 81 MG TABLET(ECOTRIN) PO SCH (08:30)
[2018-02-21] MEDS: SENNOSIDES/DOCUSATE SODIUM 1 TAB TABLET(SENOKOT-S) PO SCH ×2 (08:30→22:16)
[2018-02-21 08:35] LABS: CHOLESTEROL 119 mg/dL (<200); HDL CHOLESTEROL 8 mg/dL (>55); LDL CHOLESTEROL 47 mg/dL (<100); TRIGLYCERIDES 549 mg/dL (30-150)
[2018-02-21 08:40] LABS: TOTAL IRON BIND. CAPACITY 250 ug/dL (250-450)
[2018-02-21] MEDS ORDERED: [UNRECOGNIZED DRUG - OTHER] PO SCH (09:00)
[2018-02-21] MEDS: traMADol HCL HCL 50 MG TABLET (ULTRAM) PO PRN (09:24)
[2018-02-21] MEDS ORDERED: METOPROLOL SUCCINATE 25 MG TAB.SR.24H (TOPROL XL) PO ONE (10:45)
[2018-02-21 10:51] LABS: NEUTROPHILS % (AUTO) 49.1 % (40.0-70.0)
[2018-02-21 12:30] VITALS: BP_SYST 126
[2018-02-21] MEDS ORDERED: DEXTROSE 50% JECT 50 ML DISP.SYRIN IVP PRN (14:15)
[2018-02-21] MEDS: ACETAMINOPHEN 325 MG TABLET PO PRN (14:24)
[2018-02-21 16:07] VITALS: BP_SYST 117
[2018-02-21] MEDS: MONTELUKAST 10 MG TABLET PO SCH (17:10)
[2018-02-21] MEDS: INSULIN ASPART 100 UNITS/ML, 10 ML VIAL (NovoLOG) SUBCUT PRN ×2 (17:14→22:31)
[2018-02-21] MEDS ORDERED: MENTHOL/ZINC OXIDE 113 GM OINT. TP ONE (19:15)
[2018-02-21 20:25] VITALS: BP_SYST 94
[2018-02-21] MEDS: MENTHOL/ZINC OXIDE 113 GM OINT. TP SCH (21:00)
[2018-02-21] MEDS: roPINIRole HCL 0.25 MG ( REQUIP )TABLET PO SCH (22:17)
[2018-02-21 23:18] VITALS: BP_SYST 120
[2018-02-22 06:46] LABS: HEMATOCRIT 26.3 % (36-48); HEMOGLOBIN 8.7 g/dL (12.0-16.0); MEAN CORPUSCULAR HEMOGLOBIN 31 pg (27-31); MEAN CORPUSCULAR HGB CONC 33 % (32-36); MEAN CORPUSCULAR VOLUME 95 fL (79.0-98.0); PLATELET COUNT (AUTO) 86 K/uL (130-430); RED BLOOD CELL COUNT(AUTO) 2.77 MIL/uL (4.2-6.2); RED CELL DISTRIBUTION WIDTH 17.1 % (9.0-15.0); WHITE BLOOD COUNT (AUTO) 6.4 K/uL (4.8-10.8)
[2018-02-22] MEDS: INSULIN NPH/REGULAR 70-30, 100 UNITS/ML, 10 ML VIAL SUBCUT SCH (06:57)
[2018-02-22] MEDS: INSULIN ASPART 100 UNITS/ML, 10 ML VIAL (NovoLOG) SUBCUT PRN ×2 (06:58→11:51)
[2018-02-22 07:30] VITALS: BP_SYST 129
[2018-02-22 07:36] LABS: ANION GAP 7 (5-15); CALCIUM 8.5 mg/dL (8.4-11.0); CHLORIDE 95 mmol/L (98-107); CREATININE 0.95 mg/dL (0.55-1.30); GLUCOSE 159 mg/dL (70-99); POTASSIUM 4.9 mmol/L (3.5-5.1); SODIUM SERUM 132 mmol/L (136-145); UREA NITROGEN, BLOOD 21 mg/dL (8-21)
[2018-02-22 07:37] LABS: TOTAL IRON BIND. CAPACITY 239 ug/dL (250-450)
[2018-02-22 08:00] LABS: BAND % (MANUAL) 2 % (0-6); BASOPHILS % (MANUAL) 0 % (0-2); EOSINOPHILS % (MANUAL) 0 % (0-7); LYMPHOCYTES % (MANUAL) 24 % (20-46); MONOCYTES % (MANUAL) 8 % (0-11)
[2018-02-22] MEDS: ASPIRIN 81 MG TABLET(ECOTRIN) PO SCH (08:26)
[2018-02-22] MEDS: SENNOSIDES/DOCUSATE SODIUM 1 TAB TABLET(SENOKOT-S) PO SCH ×2 (08:26→22:01)
[2018-02-22] MEDS: BACLOFEN 10 MG TABLET PO SCH ×3 (08:27→22:01)
[2018-02-22] MEDS: PREGABALIN 25 MG CAPSULE (LYRICA) PO SCH ×3 (08:27→22:00)
[2018-02-22] MEDS: FENOFIBRATE 160 MG TABLET PO SCH (08:27)
[2018-02-22] MEDS: METOPROLOL SUCCINATE 25 MG TAB.SR.24H (TOPROL XL) PO SCH (08:28)
[2018-02-22] MEDS: HYDROCORTISONE 10 MG TABLET (CORTEF) PO SCH ×2 (08:28→22:01)
[2018-02-22 12:00] VITALS: BP_SYST 125
[2018-02-22] MEDS: MENTHOL/ZINC OXIDE 113 GM OINT. TP SCH ×4 (14:59→22:02)
[2018-02-22 16:00] VITALS: BP_SYST 114
[2018-02-22] MEDS: EPOETIN ALFA 10,000 UNITS/ML VIAL SUBCUT SCH (17:14)
[2018-02-22] MEDS: MONTELUKAST 10 MG TABLET PO SCH (17:15)
[2018-02-22 20:00] VITALS: BP_SYST 126
[2018-02-22] MEDS: roPINIRole HCL 0.25 MG ( REQUIP )TABLET PO SCH (22:01)
[2018-02-23 00:51] VITALS: BP_SYST 125
[2018-02-23] MEDS: INSULIN ASPART 100 UNITS/ML, 10 ML VIAL (NovoLOG) SUBCUT PRN ×4 (06:43→20:39)
[2018-02-23] MEDS: INSULIN NPH/REGULAR 70-30, 100 UNITS/ML, 10 ML VIAL SUBCUT SCH (06:44)
[2018-02-23 07:30] VITALS: BP_SYST 117
[2018-02-23] MEDS: HYDROCORTISONE 10 MG TABLET (CORTEF) PO SCH ×2 (08:58→20:26)
[2018-02-23] MEDS: PREGABALIN 25 MG CAPSULE (LYRICA) PO SCH ×3 (08:58→20:26)
[2018-02-23] MEDS: ASPIRIN 81 MG TABLET(ECOTRIN) PO SCH (08:58)
[2018-02-23] MEDS: SENNOSIDES/DOCUSATE SODIUM 1 TAB TABLET(SENOKOT-S) PO SCH ×2 (08:58→20:28)
[2018-02-23] MEDS: BACLOFEN 10 MG TABLET PO SCH ×3 (08:58→20:26)
[2018-02-23] MEDS: FENOFIBRATE 160 MG TABLET PO SCH (08:58)
[2018-02-23] MEDS: METOPROLOL SUCCINATE 25 MG TAB.SR.24H (TOPROL XL) PO SCH (08:59)
[2018-02-23] MEDS: MENTHOL/ZINC OXIDE 113 GM OINT. TP SCH ×4 (09:00→20:27)
[2018-02-23] MEDS: NACL 0.9% 1,000 ML IV SCH ×2 (11:57→20:27)
[2018-02-23 12:00] VITALS: BP_SYST 98
[2018-02-23 16:00] VITALS: BP_SYST 102
[2018-02-23] MEDS: MONTELUKAST 10 MG TABLET PO SCH (17:30)
[2018-02-23] MEDS: traMADol HCL HCL 50 MG TABLET (ULTRAM) PO PRN (20:25)
[2018-02-23] MEDS: roPINIRole HCL 0.25 MG ( REQUIP )TABLET PO SCH (20:26)
[2018-02-23] MEDS: ACETAMINOPHEN 325 MG TABLET PO PRN (22:37)
[2018-02-24 00:30] VITALS: BP_SYST 131
[2018-02-24] MEDS: traMADol HCL HCL 50 MG TABLET (ULTRAM) PO PRN ×3 (05:01→21:36)
[2018-02-24] MEDS: NACL 0.9% 1,000 ML IV SCH ×2 (06:45→11:51)
[2018-02-24] MEDS: INSULIN ASPART 100 UNITS/ML, 10 ML VIAL (NovoLOG) SUBCUT PRN ×3 (06:47→21:46)
[2018-02-24] MEDS: INSULIN NPH/REGULAR 70-30, 100 UNITS/ML, 10 ML VIAL SUBCUT SCH (06:49)
[2018-02-24 07:59] LABS: ANION GAP 11 (5-15); CALCIUM 7.5 mg/dL (8.4-11.0); CHLORIDE 102 mmol/L (98-107); CREATININE 0.75 mg/dL (0.55-1.30); GLUCOSE 204 mg/dL (70-99); POTASSIUM 3.7 mmol/L (3.5-5.1); SODIUM SERUM 138 mmol/L (136-145); UREA NITROGEN, BLOOD 20 mg/dL (8-21)
[2018-02-24 08:00] VITALS: BP_SYST 107
[2018-02-24 08:15] LABS: BASOPHILS % (AUTO) 0.2 % (0.0-2.0); EOSINOPHILS % (AUTO) 0.3 % (0.0-4.0); HEMATOCRIT 22.1 % (36-48); HEMOGLOBIN 7.4 g/dL (12.0-16.0); LYMPHOCYTES # (AUTO) 1.4 K/uL (1.0-5.5); MEAN CORPUSCULAR HEMOGLOBIN 32 pg (27-31); MEAN CORPUSCULAR HGB CONC 33 % (32-36); MEAN CORPUSCULAR VOLUME 96 fL (79.0-98.0); MONOCYTES # (AUTO) 0.4 K/uL (0.0-1.0); MONOCYTES % (AUTO) 9.5 % (1.7-9.3); NEUTROPHILS # (AUTO) 2.8 K/uL (1.8-7.7); RED BLOOD CELL COUNT(AUTO) 2.31 MIL/uL (4.2-6.2); RED CELL DISTRIBUTION WIDTH 17.9 % (9.0-15.0); WHITE BLOOD COUNT (AUTO) 4.6 K/uL (4.8-10.8)
[2018-02-24] MEDS: SENNOSIDES/DOCUSATE SODIUM 1 TAB TABLET(SENOKOT-S) PO SCH ×2 (08:52→21:35)
[2018-02-24] MEDS: BACLOFEN 10 MG TABLET PO SCH ×3 (08:56→21:36)
[2018-02-24] MEDS: HYDROCORTISONE 10 MG TABLET (CORTEF) PO SCH ×2 (08:57→21:36)
[2018-02-24] MEDS: PREGABALIN 25 MG CAPSULE (LYRICA) PO SCH ×3 (08:57→21:36)
[2018-02-24] MEDS: METOPROLOL SUCCINATE 25 MG TAB.SR.24H (TOPROL XL) PO SCH (08:57)
[2018-02-24] MEDS: FENOFIBRATE 160 MG TABLET PO SCH (08:57)
[2018-02-24] MEDS: ASPIRIN 81 MG TABLET(ECOTRIN) PO SCH (08:57)
[2018-02-24] MEDS: MENTHOL/ZINC OXIDE 113 GM OINT. TP SCH ×4 (09:00→21:36)
[2018-02-24 10:50] LABS: PLATELET COUNT (AUTO) 84 K/uL (130-430)
[2018-02-24 12:00] VITALS: BP_SYST 114
[2018-02-24] MEDS ORDERED: EPOETIN ALFA 4,000 UNITS/ML VIAL SUBCUT ONE (14:00)
[2018-02-24] MEDS: MONTELUKAST 10 MG TABLET PO SCH (17:21)
[2018-02-24 17:25] VITALS: BP_SYST 97
[2018-02-24 20:27] VITALS: BP_SYST 115
[2018-02-24] MEDS: roPINIRole HCL 0.25 MG ( REQUIP )TABLET PO SCH (21:36)
[2018-02-25] MEDS: ACETAMINOPHEN 325 MG TABLET PO PRN ×3 (00:48→15:32)
[2018-02-25 03:07] VITALS: BP_SYST 107
[2018-02-25] MEDS: traMADol HCL HCL 50 MG TABLET (ULTRAM) PO PRN (03:47)
[2018-02-25] MEDS: NACL 0.9% 1,000 ML IV SCH ×2 (03:47→15:32)
[2018-02-25] MEDS: INSULIN NPH/REGULAR 70-30, 100 UNITS/ML, 10 ML VIAL SUBCUT SCH (06:14)
[2018-02-25] MEDS: INSULIN ASPART 100 UNITS/ML, 10 ML VIAL (NovoLOG) SUBCUT PRN ×2 (06:15→12:12)
[2018-02-25 07:50] LABS: FOLATE (FOLIC ACID) >20.0 ng/mL (>3.0)
[2018-02-25 07:59] VITALS: BP_SYST 125
[2018-02-25] MEDS: HYDROCORTISONE 10 MG TABLET (CORTEF) PO SCH (08:38)
[2018-02-25] MEDS: PREGABALIN 25 MG CAPSULE (LYRICA) PO SCH ×2 (08:39→15:32)
[2018-02-25] MEDS: ASPIRIN 81 MG TABLET(ECOTRIN) PO SCH (08:39)
[2018-02-25] MEDS: SENNOSIDES/DOCUSATE SODIUM 1 TAB TABLET(SENOKOT-S) PO SCH (08:39)
[2018-02-25] MEDS: FENOFIBRATE 160 MG TABLET PO SCH (08:39)
[2018-02-25] MEDS: BACLOFEN 10 MG TABLET PO SCH ×2 (08:39→15:32)
[2018-02-25] MEDS: MENTHOL/ZINC OXIDE 113 GM OINT. TP SCH ×2 (08:39→15:32)
[2018-02-25] MEDS ORDERED: METOPROLOL SUCCINATE 25 MG TAB.SR.24H (TOPROL XL) PO SCH (09:00)
[2018-02-25 09:10] LABS: BASOPHILS % (AUTO) 0.2 % (0.0-2.0); EOSINOPHILS % (AUTO) 0.4 % (0.0-4.0); HEMATOCRIT 24.2 % (36-48); HEMOGLOBIN 7.9 g/dL (12.0-16.0); LYMPHOCYTES # (AUTO) 1.4 K/uL (1.0-5.5); LYMPHOCYTES % (AUTO) 34.4 % (20.5-51.5); MEAN CORPUSCULAR HEMOGLOBIN 32 pg (27-31); MEAN CORPUSCULAR HGB CONC 33 % (32-36); MEAN CORPUSCULAR VOLUME 96 fL (79.0-98.0); MONOCYTES # (AUTO) 0.4 K/uL (0.0-1.0); MONOCYTES % (AUTO) 8.9 % (1.7-9.3); NEUTROPHILS # (AUTO) 2.3 K/uL (1.8-7.7); PLATELET COUNT (AUTO) 70 K/uL (130-430); RED BLOOD CELL COUNT(AUTO) 2.52 MIL/uL (4.2-6.2); RED CELL DISTRIBUTION WIDTH 17.3 % (9.0-15.0); WHITE BLOOD COUNT (AUTO) 4.1 K/uL (4.8-10.8)
[2018-02-25 12:19] LABS: NEUTROPHILS % (AUTO) 56.1 % (40.0-70.0)
[2018-02-25 12:30] VITALS: BP_SYST 108
[2018-02-25] MEDS ORDERED: EPOETIN ALFA 4,000 UNITS/ML VIAL SUBCUT ONE (14:00)
[2018-02-25 15:49] LABS: FERRITIN 2835 ng/mL (15-150)
[2018-02-25] MEDS: EPOETIN ALFA 10,000 UNITS/ML VIAL SUBCUT SCH (16:10)
[2018-02-25 16:19] VITALS: BP_SYST 112
== END 2018-02-25 16:20 | disposition home health service (06) | DRG 811 ==
LOC: SED 18:49 → STU 21:20 → SMU 02-23 17:26
PROVIDERS: ADMIT Internal Medicine; ATTEND Internal Medicine
DX: D46.9 Myelodysplastic syndrome, unspecified (principal); G93.41 Metabolic encephalopathy; E44.1 Mild protein-calorie malnutrition; E87.1 Hypo-osmolality and hyponatremia; E27.40 Unspecified adrenocortical insufficiency; D68.59 Other primary thrombophilia; D69.3 Immune thrombocytopenic purpura; R07.89 Other chest pain; E03.9 Hypothyroidism, unspecified; E11.65 Type 2 diabetes mellitus with hyperglycemia; M16.12 Unilateral primary osteoarthritis, left hip; M47.896 Other spondylosis, lumbar region; M54.42 Lumbago with sciatica, left side; M54.41 Lumbago with sciatica, right side; D63.8 Anemia in other chronic diseases classified elsewhere; I48.0 Paroxysmal atrial fibrillation; D89.9 Disorder involving the immune mechanism, unspecified; E11.43 Type 2 diabetes mellitus with diabetic autonomic (poly)neuropathy; F03.90 Unspecified dementia, unspecified severity, without behavioral disturbance, psychotic disturbance, mood disturbance, and anxiety; G25.81 Restless legs syndrome; K59.00 Constipation, unspecified; F32.9 Major depressive disorder, single episode, unspecified; B34.9 Viral infection, unspecified; G47.00 Insomnia, unspecified; N31.9 Neuromuscular dysfunction of bladder, unspecified; N39.498 Other specified urinary incontinence; G89.4 Chronic pain syndrome; E11.42 Type 2 diabetes mellitus with diabetic polyneuropathy; M10.9 Gout, unspecified; J44.9 Chronic obstructive pulmonary disease, unspecified; E66.9 Obesity, unspecified; E86.0 Dehydration; I10 Essential (primary) hypertension; F41.9 Anxiety disorder, unspecified; E78.5 Hyperlipidemia, unspecified; K57.90 Diverticulosis of intestine, part unspecified, without perforation or abscess without bleeding; E78.1 Pure hyperglyceridemia; Z79.890 Hormone replacement therapy; Z79.899 Other long term (current) drug therapy; Z95.5 Presence of coronary angioplasty implant and graft; Z79.82 Long term (current) use of aspirin; Z87.440 Personal history of urinary (tract) infections; Z86.73 Personal history of transient ischemic attack (TIA), and cerebral infarction without residual deficits; Z68.26 Body mass index [BMI] 26.0-26.9, adult
CPT/HCPCS: 36415; 70450-TC; 71045; 80048; 80053; 80061; 81000-TC; 82272; 82550-TC; 82607; 82728; 82746; 82962; 83540-TC; 83550-TC; 83735-TC; 84100-TC; 84439; 84443-TC; 84484; 85007; 85025; 85027; 85379; 85610-TC; 85730-TC; 87040-TC; 87081; 87086; 93005; 93970; 96374; 99285; G0378; J0885; J1815; J2060; J7030; J7040; J7120

== ENCOUNTER 2018-03-01 10:36 | Emergency (ER) | payer OTHER, MEDICAID ==
[~2018-03-01] VITALS: Ht 157.5 cm; Wt 63.5 kg
[~2018-03-01 10:36] MED LIST changes: +ACET325T53 PO; +CYAN100070 PO; +LACT1CAP62 PO
[2018-03-01 10:44] VITALS: BP_SYST 122
[2018-03-01 11:25] LABS: WHITE BLOOD COUNT (AUTO) 4.9 K/uL (4.8-10.8)
[2018-03-01 11:26] LABS: BASOPHILS % (AUTO) 0.2 % (0.0-2.0); EOSINOPHILS % (AUTO) 0.7 % (0.0-4.0); HEMATOCRIT 25.2 % (36-48); HEMOGLOBIN 8.4 g/dL (12.0-16.0); LYMPHOCYTES # (AUTO) 1.7 K/uL (1.0-5.5); LYMPHOCYTES % (AUTO) 34.2 % (20.5-51.5); MEAN CORPUSCULAR HEMOGLOBIN 33 pg (27-31); MEAN CORPUSCULAR HGB CONC 34 % (32-36); MEAN CORPUSCULAR VOLUME 97 fL (79.0-98.0); MONOCYTES # (AUTO) 0.5 K/uL (0.0-1.0); MONOCYTES % (AUTO) 10.7 % (1.7-9.3); NEUTROPHILS # (AUTO) 2.7 K/uL (1.8-7.7); PLATELET COUNT (AUTO) 81 K/uL (130-430); RED BLOOD CELL COUNT(AUTO) 2.59 MIL/uL (4.2-6.2); RED CELL DISTRIBUTION WIDTH 19.2 % (9.0-15.0)
[2018-03-01 11:30] LABS: ANION GAP 7 (5-15); CALCIUM 7.5 mg/dL (8.4-11.0); CHLORIDE 98 mmol/L (98-107); CREATININE 0.77 mg/dL (0.55-1.30); GLUCOSE 168 mg/dL (70-99); POTASSIUM 4.1 mmol/L (3.5-5.1); SODIUM SERUM 134 mmol/L (136-145); UREA NITROGEN, BLOOD 14 mg/dL (8-21)
[2018-03-01] MEDS ORDERED: ONDANSETRON HCL 4 MG/2 ML VIAL IVP ONE (11:30)
[2018-03-01 11:34] LABS: INR 1.1 (0.8-1.2); PROTHROMBIN TIME 11.4 SECS (9.5-12.5)
[2018-03-01 11:36] LABS: ALANINE AMINOTRANSFERASE 11 U/L (12-78); ALBUMIN 2.4 g/dL (3.4-4.8); ASPARTATE AMINOTRANSFERASE 43 U/L (10-37); TOTAL BILIRUBIN 0.7 mg/dL (0.0-1.0)
[2018-03-01 12:05] VITALS: BP_SYST 128
[2018-03-01 12:14] LABS: NEUTROPHILS % (AUTO) 54.2 % (40.0-70.0)
== END 2018-03-01 12:05 | disposition home or self-care (01) ==
LOC: SED 10:36
DX: D53.9 Nutritional anemia, unspecified (principal); D69.6 Thrombocytopenia, unspecified; J45.909 Unspecified asthma, uncomplicated; E11.9 Type 2 diabetes mellitus without complications; I10 Essential (primary) hypertension; E78.00 Pure hypercholesterolemia, unspecified; M19.90 Unspecified osteoarthritis, unspecified site; M10.9 Gout, unspecified; Z79.899 Other long term (current) drug therapy; Z95.5 Presence of coronary angioplasty implant and graft
CPT/HCPCS: 36415; 80053; 85025; 85610; 85730; 86886; 86900; 86901; 96374; 99283; J2405

== ENCOUNTER 2018-03-02 10:28 | Inpatient (IN) | payer OTHER, MEDICAID ==
[~2018-03-02] VITALS: Ht 154.9 cm; Wt 69.4 kg
[2018-03-02 10:45] VITALS: BP_SYST 142
[2018-03-02 11:46] LABS: BILIRUBIN,URINE NEGATIVE (NEGATIVE); CLARITY/URINE CLEAR (CLEAR); COLOR,URINE YELLOW (YELLOW); GLUCOSE,URINE NEGATIVE (NEGATIVE); KETONES,URINE NEGATIVE (NEGATIVE); LEUKOCYTE ESTERASE ,URINE 2+ (NEGATIVE); NITRITE, URINE POSITIVE (NEGATIVE); PROTEIN URINE NEGATIVE (NEGATIVE); UROBILINOGEN,URINE 0.2 (0.2-1.0)
[2018-03-02 11:47] LABS: HEMATOCRIT 26.8 % (36-48); HEMOGLOBIN 8.6 g/dL (12.0-16.0); MEAN CORPUSCULAR HEMOGLOBIN 32 pg (27-31); MEAN CORPUSCULAR HGB CONC 32 % (32-36); MEAN CORPUSCULAR VOLUME 98 fL (79.0-98.0); PLATELET COUNT (AUTO) 80 K/uL (130-430); RED BLOOD CELL COUNT(AUTO) 2.72 MIL/uL (4.2-6.2); RED CELL DISTRIBUTION WIDTH 19.5 % (9.0-15.0); WHITE BLOOD COUNT (AUTO) 4.9 K/uL (4.8-10.8)
[2018-03-02 11:54] LABS: BLOOD, URINE TRACE (NEGATIVE)
[2018-03-02 11:58] LABS: ANION GAP 5 (5-15); CALCIUM 7.9 mg/dL (8.4-11.0); CHLORIDE 97 mmol/L (98-107); CREATININE 0.84 mg/dL (0.55-1.30); GLUCOSE 232 mg/dL (70-99); POTASSIUM 4.3 mmol/L (3.5-5.1); SODIUM SERUM 132 mmol/L (136-145); UREA NITROGEN, BLOOD 16 mg/dL (8-21)
[2018-03-02 12:02] LABS: INR 1.1 (0.8-1.2); PROTHROMBIN TIME 11.2 SECS (9.5-12.5)
[2018-03-02 12:04] LABS: ALANINE AMINOTRANSFERASE 12 U/L (12-78); ALBUMIN 2.6 g/dL (3.4-4.8); ASPARTATE AMINOTRANSFERASE 43 U/L (10-37); LIPASE 113 U/L (73-393); TOTAL BILIRUBIN 0.8 mg/dL (0.0-1.0)
[2018-03-02 12:05] LABS: BACTERIA,URINE MODERATE /HPF (None Seen); WBC,URINE 20-50 /HPF (0-3)
[2018-03-02] MEDS ORDERED: cefTRIAXone 1 GM IVPB PREMIX 50 ML IV ONE (12:15)
[2018-03-02] MEDS ORDERED: NACL 0.9% 1,000 ML IV ONE (12:30)
[2018-03-02 12:31] LABS: ATYPICAL LYMPHOCYTES % 3 % (0-0); BAND % (MANUAL) 1 % (0-6); BASOPHILS % (MANUAL) 0 % (0-2); EOSINOPHILS % (MANUAL) 0 % (0-7); LYMPHOCYTES % (MANUAL) 28 % (20-46); MONOCYTES % (MANUAL) 6 % (0-11)
[2018-03-02 12:56] VITALS: BP_SYST 135
[2018-03-02 16:00] VITALS: BP_SYST 118
[2018-03-02] MEDS ORDERED: DEXTROSE 50% JECT 50 ML DISP.SYRIN IVP PRN (16:30)
[2018-03-02] MEDS ORDERED: ONDANSETRON 4 MG ODT TAB PO PRN (16:30)
[2018-03-02] MEDS ORDERED: METOPROLOL TARTRATE 25 MG TABLET PO ONE (16:45)
[2018-03-02] MEDS ORDERED: ALPRAZolam 0.25 MG TABLET PO PRN (17:00)
[2018-03-02] MEDS: MONTELUKAST 10 MG TABLET PO SCH (17:41)
[2018-03-02 19:55] VITALS: BP_SYST 119
[2018-03-02] MEDS: traMADol HCL HCL 50 MG TABLET (ULTRAM) PO PRN (20:30)
[2018-03-02] MEDS: PREGABALIN 25 MG CAPSULE (LYRICA) PO SCH (20:33)
[2018-03-02] MEDS: roPINIRole HCL 0.25 MG ( REQUIP )TABLET PO SCH (20:33)
[2018-03-02] MEDS: SENNOSIDES/DOCUSATE SODIUM 1 TAB TABLET(SENOKOT-S) PO SCH (20:33)
[2018-03-02] MEDS: METOPROLOL TARTRATE 25 MG TABLET PO SCH (20:35)
[2018-03-02] MEDS: BACLOFEN 10 MG TABLET PO SCH (20:35)
[2018-03-02] MEDS: HYDROCORTISONE 10 MG TABLET (CORTEF) PO SCH (20:46)
[2018-03-02] MEDS: CEFEPIME 1 GM in D5W 50 ML IV SCH (21:00)
[2018-03-03 05:46] VITALS: BP_SYST 101
[2018-03-03] MEDS: INSULIN REGULAR, HUMAN 100 UNITS/ML, 10 ML VIAL (novoLIN R) SUBCUT PRN ×3 (06:02→23:33)
[2018-03-03 07:11] LABS: HEMATOCRIT 24.5 % (36-48); HEMOGLOBIN 8.1 g/dL (12.0-16.0); MEAN CORPUSCULAR HEMOGLOBIN 32 pg (27-31); MEAN CORPUSCULAR HGB CONC 33 % (32-36); MEAN CORPUSCULAR VOLUME 98 fL (79.0-98.0); RED BLOOD CELL COUNT(AUTO) 2.49 MIL/uL (4.2-6.2); WHITE BLOOD COUNT (AUTO) 4.8 K/uL (4.8-10.8)
[2018-03-03 07:40] LABS: PLATELET COUNT (AUTO) 77 K/uL (130-430)
[2018-03-03 07:56] LABS: ANION GAP 5 (5-15); CALCIUM 7.2 mg/dL (8.4-11.0); CHLORIDE 99 mmol/L (98-107); CREATININE 0.81 mg/dL (0.55-1.30); GLUCOSE 183 mg/dL (70-99); POTASSIUM 4.8 mmol/L (3.5-5.1); SODIUM SERUM 132 mmol/L (136-145); UREA NITROGEN, BLOOD 17 mg/dL (8-21)
[2018-03-03 08:00] VITALS: BP_SYST 107
[2018-03-03 08:06] LABS: PHOSPHORUS 3.2 mg/dL (2.7-4.5)
[2018-03-03] MEDS ORDERED: ASPIRIN 81 MG PO SCH (09:00)
[2018-03-03] MEDS ORDERED: FENOFIBRATE 160 MG TABLET PO SCH (09:00)
[2018-03-03] MEDS ORDERED: ASPIRIN 81 MG TAB.CHEW PO SCH (09:00)
[2018-03-03] MEDS ORDERED: CYANOCOBALAMIN 1000 MCG PO SCH (09:00)
[2018-03-03] MEDS: CEFEPIME 1 GM in D5W 50 ML IV SCH ×2 (09:37→20:09)
[2018-03-03] MEDS: NEPHROVITE, (FOLIC ACID/VITAMIN B COMP W-C 1 TAB) PO SCH (09:39)
[2018-03-03] MEDS: HYDROCORTISONE 10 MG TABLET (CORTEF) PO SCH ×2 (09:39→20:12)
[2018-03-03] MEDS: METOPROLOL TARTRATE 25 MG TABLET PO SCH ×2 (09:39→20:12)
[2018-03-03] MEDS: LACTOBACILLUS RHAMNOSUS GG 1 CAP CAPSULE PO SCH (09:40)
[2018-03-03] MEDS: SENNOSIDES/DOCUSATE SODIUM 1 TAB TABLET(SENOKOT-S) PO SCH ×2 (09:40→20:13)
[2018-03-03] MEDS: FENOFIBRATE NANOCRYSTALLIZED 48 MG TABLET (TRICOR) PO SCH (09:40)
[2018-03-03] MEDS: BACLOFEN 10 MG TABLET PO SCH ×3 (09:41→20:09)
[2018-03-03] MEDS: CHOLECALCIFEROL (VITAMIN D3) 2,000 UNIT TABLET PO SCH (09:41)
[2018-03-03] MEDS: CYANOCOBALAMIN 1000 mCg TABLET PO SCH (09:41)
[2018-03-03] MEDS: PREGABALIN 25 MG CAPSULE (LYRICA) PO SCH ×2 (09:41→20:13)
[2018-03-03 10:54] VITALS: BP_SYST 103
[2018-03-03] MEDS: traMADol HCL HCL 50 MG TABLET (ULTRAM) PO PRN ×2 (11:31→16:01)
[2018-03-03 11:47] LABS: BASOPHILS % (MANUAL) 0 % (0-2); EOSINOPHILS % (MANUAL) 0 % (0-7); LYMPHOCYTES % (MANUAL) 34 % (20-46); MONOCYTES % (MANUAL) 4 % (0-11)
[2018-03-03 15:41] VITALS: BP_SYST 101
[2018-03-03] MEDS: EPOETIN ALFA 10,000 UNITS/ML VIAL SUBCUT SCH (17:14)
[2018-03-03] MEDS: MONTELUKAST 10 MG TABLET PO SCH (18:17)
[2018-03-03 20:00] VITALS: BP_SYST 119
[2018-03-03] MEDS: ACETAMINOPHEN 325 MG TABLET PO PRN (20:11)
[2018-03-03] MEDS: roPINIRole HCL 0.25 MG ( REQUIP )TABLET PO SCH (20:13)
[2018-03-03] MEDS ORDERED: PREGABALIN 25 MG CAPSULE (LYRICA) PO SCH (21:00)
[2018-03-04] MEDS: traMADol HCL HCL 50 MG TABLET (ULTRAM) PO PRN ×3 (03:16→21:01)
[2018-03-04 03:54] VITALS: BP_SYST 122
[2018-03-04] MEDS: INSULIN REGULAR, HUMAN 100 UNITS/ML, 10 ML VIAL (novoLIN R) SUBCUT PRN ×4 (06:08→21:13)
[2018-03-04] MEDS: ACETAMINOPHEN 325 MG TABLET PO PRN (06:27)
[2018-03-04 06:54] LABS: BASOPHILS % (AUTO) 0.3 % (0.0-2.0); EOSINOPHILS % (AUTO) 0.7 % (0.0-4.0); HEMATOCRIT 24.7 % (36-48); HEMOGLOBIN 8.4 g/dL (12.0-16.0); LYMPHOCYTES # (AUTO) 1.3 K/uL (1.0-5.5); LYMPHOCYTES % (AUTO) 31.7 % (20.5-51.5); MEAN CORPUSCULAR HEMOGLOBIN 34 pg (27-31); MEAN CORPUSCULAR HGB CONC 34 % (32-36); MEAN CORPUSCULAR VOLUME 99 fL (79.0-98.0); MONOCYTES # (AUTO) 0.4 K/uL (0.0-1.0); MONOCYTES % (AUTO) 9.4 % (1.7-9.3); NEUTROPHILS # (AUTO) 2.5 K/uL (1.8-7.7); PLATELET COUNT (AUTO) 54 K/uL (130-430); RED BLOOD CELL COUNT(AUTO) 2.51 MIL/uL (4.2-6.2); RED CELL DISTRIBUTION WIDTH 19.3 % (9.0-15.0); WHITE BLOOD COUNT (AUTO) 4.2 K/uL (4.8-10.8)
[2018-03-04 08:13] VITALS: BP_SYST 120
[2018-03-04] MEDS ORDERED: NITROFURANTOIN MONOHYD/M-CRYST 100 MG CAPSULE PO SCH (09:00)
[2018-03-04] MEDS: NEPHROVITE, (FOLIC ACID/VITAMIN B COMP W-C 1 TAB) PO SCH (09:04)
[2018-03-04] MEDS: SENNOSIDES/DOCUSATE SODIUM 1 TAB TABLET(SENOKOT-S) PO SCH ×2 (09:04→21:00)
[2018-03-04] MEDS: CEFEPIME 1 GM in D5W 50 ML IV SCH (09:04)
[2018-03-04] MEDS: BACLOFEN 10 MG TABLET PO SCH ×3 (09:04→21:00)
[2018-03-04] MEDS: HYDROCORTISONE 10 MG TABLET (CORTEF) PO SCH ×2 (09:05→20:58)
[2018-03-04] MEDS: FENOFIBRATE NANOCRYSTALLIZED 48 MG TABLET (TRICOR) PO SCH (09:05)
[2018-03-04] MEDS: METOPROLOL TARTRATE 25 MG TABLET PO SCH ×2 (09:06→21:00)
[2018-03-04] MEDS: LACTOBACILLUS RHAMNOSUS GG 1 CAP CAPSULE PO SCH (09:06)
[2018-03-04] MEDS: CHOLECALCIFEROL (VITAMIN D3) 2,000 UNIT TABLET PO SCH (09:06)
[2018-03-04] MEDS: CYANOCOBALAMIN 1000 mCg TABLET PO SCH (09:06)
[2018-03-04] MEDS: PREGABALIN 25 MG CAPSULE (LYRICA) PO SCH ×3 (09:06→21:01)
[2018-03-04 09:48] LABS: NEUTROPHILS % (AUTO) 57.9 % (40.0-70.0)
[2018-03-04 12:11] VITALS: BP_SYST 108
[2018-03-04 16:00] VITALS: BP_SYST 125
[2018-03-04] MEDS: MONTELUKAST 10 MG TABLET PO SCH (17:31)
[2018-03-04] MEDS ORDERED: ERTAPENEM SODIUM 1 GM in NS 50 ML IV SCH (20:00)
[2018-03-04 20:21] VITALS: BP_SYST 134
[2018-03-04] MEDS ORDERED: ERTAPENEM SODIUM 1 GM/VIAL (INVANZ) ONE (20:45)
[2018-03-04] MEDS: roPINIRole HCL 0.25 MG ( REQUIP )TABLET PO SCH (20:59)
[2018-03-05] VITALS: BP_SYST 90
[2018-03-05] MEDS: traMADol HCL HCL 50 MG TABLET (ULTRAM) PO PRN ×2 (05:46→16:24)
[2018-03-05] MEDS: INSULIN REGULAR, HUMAN 100 UNITS/ML, 10 ML VIAL (novoLIN R) SUBCUT PRN ×3 (06:28→21:53)
[2018-03-05 06:46] LABS: BASOPHILS % (AUTO) 0.3 % (0.0-2.0); HEMATOCRIT 25.7 % (36-48); HEMOGLOBIN 8.6 g/dL (12.0-16.0); LYMPHOCYTES # (AUTO) 1.2 K/uL (1.0-5.5); LYMPHOCYTES % (AUTO) 33.2 % (20.5-51.5); MEAN CORPUSCULAR HEMOGLOBIN 33 pg (27-31); MEAN CORPUSCULAR HGB CONC 34 % (32-36); MEAN CORPUSCULAR VOLUME 97 fL (79.0-98.0); MONOCYTES # (AUTO) 0.3 K/uL (0.0-1.0); MONOCYTES % (AUTO) 7.8 % (1.7-9.3); NEUTROPHILS # (AUTO) 2.2 K/uL (1.8-7.7); NEUTROPHILS % (AUTO) 57.7 % (40.0-70.0); RED BLOOD CELL COUNT(AUTO) 2.65 MIL/uL (4.2-6.2); RED CELL DISTRIBUTION WIDTH 18.4 % (9.0-15.0); WHITE BLOOD COUNT (AUTO) 3.7 K/uL (4.8-10.8)
[2018-03-05 07:25] LABS: ANION GAP 8 (5-15); CALCIUM 7.2 mg/dL (8.4-11.0); CHLORIDE 97 mmol/L (98-107); CREATININE 0.76 mg/dL (0.55-1.30); GLUCOSE 203 mg/dL (70-99); POTASSIUM 3.9 mmol/L (3.5-5.1); SODIUM SERUM 130 mmol/L (136-145); UREA NITROGEN, BLOOD 12 mg/dL (8-21)
[2018-03-05 07:35] LABS: ALANINE AMINOTRANSFERASE 14 U/L (12-78); ALBUMIN 2.3 g/dL (3.4-4.8); ASPARTATE AMINOTRANSFERASE 40 U/L (10-37); TOTAL BILIRUBIN 0.5 mg/dL (0.0-1.0)
[2018-03-05 08:36] VITALS: BP_SYST 112
[2018-03-05] MEDS: PREGABALIN 25 MG CAPSULE (LYRICA) PO SCH ×3 (09:34→21:07)
[2018-03-05] MEDS: SENNOSIDES/DOCUSATE SODIUM 1 TAB TABLET(SENOKOT-S) PO SCH ×2 (09:34→21:08)
[2018-03-05] MEDS: HYDROCORTISONE 10 MG TABLET (CORTEF) PO SCH ×2 (09:34→21:07)
[2018-03-05] MEDS: LACTOBACILLUS RHAMNOSUS GG 1 CAP CAPSULE PO SCH (09:35)
[2018-03-05] MEDS: NEPHROVITE, (FOLIC ACID/VITAMIN B COMP W-C 1 TAB) PO SCH (09:35)
[2018-03-05] MEDS: CYANOCOBALAMIN 1000 mCg TABLET PO SCH (09:35)
[2018-03-05] MEDS: CHOLECALCIFEROL (VITAMIN D3) 2,000 UNIT TABLET PO SCH (09:35)
[2018-03-05] MEDS: METOPROLOL TARTRATE 25 MG TABLET PO SCH ×2 (09:35→21:08)
[2018-03-05] MEDS: BACLOFEN 10 MG TABLET PO SCH ×3 (09:36→21:07)
[2018-03-05] MEDS: FENOFIBRATE NANOCRYSTALLIZED 48 MG TABLET (TRICOR) PO SCH (09:36)
[2018-03-05 10:23] LABS: PLATELET COUNT (AUTO) 40 K/uL (130-430)
[2018-03-05 16:16] VITALS: BP_SYST 119
[2018-03-05] MEDS: MONTELUKAST 10 MG TABLET PO SCH (17:10)
[2018-03-05] MEDS: EPOETIN ALFA 10,000 UNITS/ML VIAL SUBCUT SCH (17:11)
[2018-03-05 20:00] VITALS: BP_SYST 115
[2018-03-05] MEDS ORDERED: ERTAPENEM SODIUM 0.5 GM in NS 50 ML IV SCH (20:00)
[2018-03-05] MEDS: roPINIRole HCL 0.25 MG ( REQUIP )TABLET PO SCH (21:07)
[2018-03-06] VITALS: BP_SYST 96
[2018-03-06] MEDS: traMADol HCL HCL 50 MG TABLET (ULTRAM) PO PRN ×2 (00:46→09:46)
[2018-03-06 01:50] VITALS: BP_SYST 109
[2018-03-06 06:56] LABS: ANION GAP 8 (5-15); CALCIUM 7.8 mg/dL (8.4-11.0); CHLORIDE 95 mmol/L (98-107); CREATININE 0.72 mg/dL (0.55-1.30); GLUCOSE 193 mg/dL (70-99); POTASSIUM 4.1 mmol/L (3.5-5.1); SODIUM SERUM 130 mmol/L (136-145); UREA NITROGEN, BLOOD 12 mg/dL (8-21)
[2018-03-06] MEDS: INSULIN REGULAR, HUMAN 100 UNITS/ML, 10 ML VIAL (novoLIN R) SUBCUT PRN ×2 (07:04→11:43)
[2018-03-06 08:10] VITALS: BP_SYST 103
[2018-03-06 08:16] LABS: BASOPHILS % (AUTO) 0.3 % (0.0-2.0); EOSINOPHILS % (AUTO) 0.4 % (0.0-4.0); HEMATOCRIT 26.7 % (36-48); HEMOGLOBIN 8.8 g/dL (12.0-16.0); LYMPHOCYTES # (AUTO) 1.5 K/uL (1.0-5.5); MEAN CORPUSCULAR HEMOGLOBIN 33 pg (27-31); MEAN CORPUSCULAR HGB CONC 33 % (32-36); MEAN CORPUSCULAR VOLUME 98 fL (79.0-98.0); MONOCYTES # (AUTO) 0.4 K/uL (0.0-1.0); MONOCYTES % (AUTO) 8.9 % (1.7-9.3); NEUTROPHILS # (AUTO) 2.2 K/uL (1.8-7.7); PLATELET COUNT (AUTO) 56 K/uL (130-430); RED BLOOD CELL COUNT(AUTO) 2.72 MIL/uL (4.2-6.2); RED CELL DISTRIBUTION WIDTH 18.4 % (9.0-15.0); WHITE BLOOD COUNT (AUTO) 4.1 K/uL (4.8-10.8)
[2018-03-06] MEDS: METOPROLOL TARTRATE 25 MG TABLET PO SCH (09:28)
[2018-03-06] MEDS: CYANOCOBALAMIN 1000 mCg TABLET PO SCH (09:28)
[2018-03-06] MEDS: HYDROCORTISONE 10 MG TABLET (CORTEF) PO SCH (09:29)
[2018-03-06] MEDS: SENNOSIDES/DOCUSATE SODIUM 1 TAB TABLET(SENOKOT-S) PO SCH (09:29)
[2018-03-06] MEDS: PREGABALIN 25 MG CAPSULE (LYRICA) PO SCH (09:29)
[2018-03-06] MEDS: NEPHROVITE, (FOLIC ACID/VITAMIN B COMP W-C 1 TAB) PO SCH (09:29)
[2018-03-06] MEDS: FENOFIBRATE NANOCRYSTALLIZED 48 MG TABLET (TRICOR) PO SCH (09:29)
[2018-03-06] MEDS: LACTOBACILLUS RHAMNOSUS GG 1 CAP CAPSULE PO SCH (09:29)
[2018-03-06] MEDS: CHOLECALCIFEROL (VITAMIN D3) 2,000 UNIT TABLET PO SCH (09:29)
[2018-03-06] MEDS: BACLOFEN 10 MG TABLET PO SCH (09:30)
[2018-03-06 10:35] LABS: NEUTROPHILS % (AUTO) 52.4 % (40.0-70.0)
[2018-03-06 12:59] VITALS: BP_SYST 145
[2018-03-06 13:09] VITALS: BP_SYST 145
== END 2018-03-06 14:10 | disposition home health service (06) | DRG 872 ==
LOC: SED 10:28 → STU 12:18
PROVIDERS: ADMIT Internal Medicine; ATTEND Internal Medicine
PROC: 05HY33Z Insertion of Infusion Device into Upper Vein, Percutaneous Approach (ICD-10-PCS; principal; 2018-03-06)
PROC: B54NZZA Ultrasonography of Left Upper Extremity Veins, Guidance (ICD-10-PCS; 2018-03-06)
DX: A41.9 Sepsis, unspecified organism (principal); N39.0 Urinary tract infection, site not specified; E44.1 Mild protein-calorie malnutrition; D61.818 Other pancytopenia; E87.1 Hypo-osmolality and hyponatremia; D68.59 Other primary thrombophilia; D46.9 Myelodysplastic syndrome, unspecified; B96.20 Unspecified Escherichia coli [E. coli] as the cause of diseases classified elsewhere; E03.9 Hypothyroidism, unspecified; G89.4 Chronic pain syndrome; E11.42 Type 2 diabetes mellitus with diabetic polyneuropathy; N31.9 Neuromuscular dysfunction of bladder, unspecified; Z16.12 Extended spectrum beta lactamase (ESBL) resistance; E66.9 Obesity, unspecified; I11.0 Hypertensive heart disease with heart failure; I50.9 Heart failure, unspecified; J44.9 Chronic obstructive pulmonary disease, unspecified; E78.00 Pure hypercholesterolemia, unspecified; M10.9 Gout, unspecified; D69.6 Thrombocytopenia, unspecified; I48.0 Paroxysmal atrial fibrillation; J45.909 Unspecified asthma, uncomplicated; D63.8 Anemia in other chronic diseases classified elsewhere; F32.9 Major depressive disorder, single episode, unspecified; F41.9 Anxiety disorder, unspecified; G47.00 Insomnia, unspecified; M16.12 Unilateral primary osteoarthritis, left hip; K59.00 Constipation, unspecified; M47.9 Spondylosis, unspecified; E78.5 Hyperlipidemia, unspecified; K57.90 Diverticulosis of intestine, part unspecified, without perforation or abscess without bleeding; Z86.19 Personal history of other infectious and parasitic diseases; Z86.73 Personal history of transient ischemic attack (TIA), and cerebral infarction without residual deficits; Z87.440 Personal history of urinary (tract) infections; Z78.9 Other specified health status; Z68.28 Body mass index [BMI] 28.0-28.9, adult; Z79.899 Other long term (current) drug therapy; Z79.82 Long term (current) use of aspirin
CPT/HCPCS: 36415; 71045; 74018; 80048; 80053; 81000-TC; 82550-TC; 82962; 83605; 83690-TC; 83735-TC; 83880; 84100-TC; 84484; 85007; 85025; 85027; 85379; 85610-TC; 85730-TC; 86886; 86900; 86901; 87040-TC; 87081; 87086; 87186-TC; 93005; 96361; 96365; 96374; 99285; C1751; G0378; J0692; J0696; J0885; J1335; J1815; J2405; J7030; J7060

== ENCOUNTER 2018-03-12 10:17 | Inpatient (IN) | payer OTHER, MEDICAID ==
[~2018-03-12] VITALS: Ht 154.9 cm; Wt 65.8 kg
[~2018-03-12 10:17] MED LIST changes: -FERR-57 PO
[2018-03-12] MEDS ORDERED: NACL 0.9% 1,000 ML IV ONE (10:34)
[2018-03-12 10:36] VITALS: BP_SYST 114
[2018-03-12] MEDS ORDERED: ASPIRIN 81 MG TAB.CHEW PO ONE (10:45)
[2018-03-12] MEDS ORDERED: ONDANSETRON HCL 4 MG/2 ML VIAL IVP ONE (10:45)
[2018-03-12 11:37] LABS: BASOPHILS # (AUTO) 0.1 K/uL (0.0-0.2); BASOPHILS % (AUTO) 0.7 % (0.0-2.0); EOSINOPHILS % (AUTO) 0.4 % (0.0-4.0); HEMATOCRIT 29.5 % (36-48); HEMOGLOBIN 9.7 g/dL (12.0-16.0); LYMPHOCYTES # (AUTO) 1.4 K/uL (1.0-5.5); LYMPHOCYTES % (AUTO) 17.9 % (20.5-51.5); MEAN CORPUSCULAR HEMOGLOBIN 32 pg (27-31); MEAN CORPUSCULAR HGB CONC 33 % (32-36); MEAN CORPUSCULAR VOLUME 96 fL (79.0-98.0); MONOCYTES # (AUTO) 0.5 K/uL (0.0-1.0); MONOCYTES % (AUTO) 6.3 % (1.7-9.3); NEUTROPHILS # (AUTO) 5.9 K/uL (1.8-7.7); PLATELET COUNT (AUTO) 51 K/uL (130-430); RED BLOOD CELL COUNT(AUTO) 3.06 MIL/uL (4.2-6.2); RED CELL DISTRIBUTION WIDTH 18.9 % (9.0-15.0); WHITE BLOOD COUNT (AUTO) 7.9 K/uL (4.8-10.8)
[2018-03-12 11:41] LABS: ANION GAP 10 (5-15); CALCIUM 8.4 mg/dL (8.4-11.0); CHLORIDE 98 mmol/L (98-107); CREATININE 1.07 mg/dL (0.55-1.30); GLUCOSE 114 mg/dL (70-99); POTASSIUM 5.1 mmol/L (3.5-5.1); SODIUM SERUM 133 mmol/L (136-145); UREA NITROGEN, BLOOD 20 mg/dL (8-21)
[2018-03-12 11:45] LABS: INR 1.3 (0.8-1.2); PROTHROMBIN TIME 12.9 SECS (9.5-12.5)
[2018-03-12 11:46] LABS: ALANINE AMINOTRANSFERASE 10 U/L (12-78); ALBUMIN 2.1 g/dL (3.4-4.8); ASPARTATE AMINOTRANSFERASE 67 U/L (10-37); LIPASE 59 U/L (73-393); TOTAL BILIRUBIN 0.5 mg/dL (0.0-1.0)
[2018-03-12 12:01] LABS: NEUTROPHILS % (AUTO) 74.7 % (40.0-70.0)
[2018-03-12] MEDS ORDERED: cefTRIAXone 1 GM IVPB PREMIX 50 ML IV ONE (12:30)
[2018-03-12] MEDS ORDERED: NACL 0.9% 2,000 ML IV ONE (12:30)
[2018-03-12] MEDS ORDERED: METO25TA3 PO (13:13)
[2018-03-12] MEDS ORDERED: MAGN400T10 PO (13:13)
[2018-03-12] MEDS ORDERED: ASCO500C18 PO (13:13)
[2018-03-12 13:45] VITALS: BP_SYST 92
[2018-03-12 17:06] LABS: BILIRUBIN,URINE NEGATIVE (NEGATIVE); BLOOD, URINE 3+ (NEGATIVE); CLARITY/URINE CLEAR (CLEAR); COLOR,URINE YELLOW (YELLOW); GLUCOSE,URINE NEGATIVE (NEGATIVE); KETONES,URINE NEGATIVE (NEGATIVE); LEUKOCYTE ESTERASE ,URINE 1+ (NEGATIVE); NITRITE, URINE NEGATIVE (NEGATIVE); PH,URINE 6.5 (5.0-8.0); PROTEIN URINE NEGATIVE (NEGATIVE); UROBILINOGEN,URINE 0.2 (0.2-1.0)
[2018-03-12 17:12] LABS: BACTERIA,URINE FEW /HPF (None Seen)
[2018-03-12] MEDS ORDERED: DEXTROSE 50% JECT 50 ML DISP.SYRIN IVP PRN ×2 (17:15→19:30)
[2018-03-12] MEDS ORDERED: ACETAMINOPHEN 325 MG TABLET PO PRN ×2 (17:15→17:30)
[2018-03-12] MEDS ORDERED: INSULIN REGULAR, HUMAN 100 UNITS/ML, 10 ML VIAL (novoLIN R) SUBCUT PRN (17:15)
[2018-03-12] MEDS ORDERED: CEFEPIME 1 GM in D5W 50 ML IV ONE (17:30)
[2018-03-12] MEDS ORDERED: GENTAMICIN 100 mg/50 mL NS 50 ML IV ONE (17:30)
[2018-03-12] MEDS: NACL 0.9% 1,000 ML IV SCH (18:55)
[2018-03-12] MEDS: MONTELUKAST 10 MG TABLET PO SCH (18:56)
[2018-03-12] MEDS ORDERED: HYDROCORTISONE 10 MG TABLET (CORTEF) PO SCH (21:00)
[2018-03-12 21:07] VITALS: BP_SYST 95
[2018-03-12] MEDS: BACLOFEN 10 MG TABLET PO SCH (21:20)
[2018-03-12] MEDS: PREGABALIN 25 MG CAPSULE (LYRICA) PO SCH (21:21)
[2018-03-12] MEDS: MAGNESIUM OXIDE 400 MG TABLET PO SCH (21:21)
[2018-03-12] MEDS: roPINIRole HCL 0.25 MG ( REQUIP )TABLET PO SCH (21:21)
[2018-03-12] MEDS: SENNOSIDES/DOCUSATE SODIUM 1 TAB TABLET(SENOKOT-S) PO SCH (21:22)
[2018-03-12] MEDS: HYDROCORTISONE SOD SUCC 100 MG/2 ML VIAL IVP SCH (21:30)
[2018-03-12] MEDS: FLUTICASONE PROPIONATE 50 mCg/SPRAY 16 GM NS SCH (21:34)
[2018-03-12] MEDS: traMADol HCL HCL 50 MG TABLET (ULTRAM) PO PRN (23:50)
[2018-03-13 00:53] VITALS: BP_SYST 113
[2018-03-13] MEDS: HYDROCORTISONE SOD SUCC 100 MG/2 ML VIAL IVP SCH ×2 (05:43→21:38)
[2018-03-13 06:21] LABS: HEMATOCRIT 23.3 % (36-48); HEMOGLOBIN 7.6 g/dL (12.0-16.0); MEAN CORPUSCULAR HEMOGLOBIN 32 pg (27-31); MEAN CORPUSCULAR HGB CONC 33 % (32-36); MEAN CORPUSCULAR VOLUME 97 fL (79.0-98.0); RED BLOOD CELL COUNT(AUTO) 2.39 MIL/uL (4.2-6.2); RED CELL DISTRIBUTION WIDTH 18.9 % (9.0-15.0); WHITE BLOOD COUNT (AUTO) 5.2 K/uL (4.8-10.8)
[2018-03-13 06:27] LABS: PLATELET COUNT (AUTO) 49 K/uL (130-430)
[2018-03-13 06:32] LABS: ANION GAP 8 (5-15); CALCIUM 7.5 mg/dL (8.4-11.0); CHLORIDE 105 mmol/L (98-107); CREATININE 0.81 mg/dL (0.55-1.30); GLUCOSE 143 mg/dL (70-99); POTASSIUM 4.6 mmol/L (3.5-5.1); SODIUM SERUM 138 mmol/L (136-145); UREA NITROGEN, BLOOD 19 mg/dL (8-21)
[2018-03-13 06:56] LABS: FREE T4 (FREE THYROXINE) 0.6 ng/dl (0.8-1.5); THYROID STIMULATING HORMONE 0.02 uIu/mL (0.36-3.74)
[2018-03-13 07:30] VITALS: BP_SYST 106
[2018-03-13 08:36] LABS: BASOPHILS % (MANUAL) 0 % (0-2); EOSINOPHILS % (MANUAL) 0 % (0-7); LYMPHOCYTES % (MANUAL) 17 % (20-46); MONOCYTES % (MANUAL) 7 % (0-11)
[2018-03-13] MEDS: CEFEPIME 1 GM in D5W 50 ML IV SCH ×2 (08:48→21:39)
[2018-03-13] MEDS: FENOFIBRATE NANOCRYSTALLIZED 48 MG TABLET (TRICOR) PO SCH (08:48)
[2018-03-13] MEDS: PREGABALIN 25 MG CAPSULE (LYRICA) PO SCH ×3 (08:48→21:37)
[2018-03-13] MEDS: LACTOBACILLUS RHAMNOSUS GG 1 CAP CAPSULE PO SCH (08:48)
[2018-03-13] MEDS: MAGNESIUM OXIDE 400 MG TABLET PO SCH ×3 (08:49→21:37)
[2018-03-13] MEDS: SENNOSIDES/DOCUSATE SODIUM 1 TAB TABLET(SENOKOT-S) PO SCH ×2 (08:49→21:37)
[2018-03-13] MEDS: BACLOFEN 10 MG TABLET PO SCH ×3 (08:49→21:37)
[2018-03-13] MEDS: ASCORBIC ACID 500 MG TABLET PO SCH (08:49)
[2018-03-13] MEDS: CYANOCOBALAMIN 1000 mCg TABLET PO SCH (08:49)
[2018-03-13] MEDS: FLUTICASONE PROPIONATE 50 mCg/SPRAY 16 GM NS SCH ×2 (08:50→21:39)
[2018-03-13] MEDS ORDERED: MAGNESIUM OXIDE 400 MG TABLET PO SCH (09:00)
[2018-03-13] MEDS: ASPIRIN 81 MG TAB.CHEW PO SCH (11:31)
[2018-03-13] MEDS: EPOETIN ALFA 10,000 UNITS/ML VIAL SUBCUT SCH (11:31)
[2018-03-13] MEDS: INSULIN ASPART 100 UNITS/ML, 10 ML VIAL (NovoLOG) SUBCUT PRN ×3 (11:38→21:44)
[2018-03-13 12:02] VITALS: BP_SYST 98
[2018-03-13] MEDS: GENTAMICIN SULFATE 200 MG in NS 100 ML IV SCH (13:12)
[2018-03-13] MEDS: NACL 0.9% 1,000 ML IV SCH (13:12)
[2018-03-13 16:02] VITALS: BP_SYST 105
[2018-03-13] MEDS: MONTELUKAST 10 MG TABLET PO SCH (17:12)
[2018-03-13] MEDS: ACETAMINOPHEN 325 MG TABLET PO PRN (17:13)
[2018-03-13] MEDS: traMADol HCL HCL 50 MG TABLET (ULTRAM) PO PRN (19:11)
[2018-03-13] MEDS: roPINIRole HCL 0.25 MG ( REQUIP )TABLET PO SCH (21:38)
[2018-03-14] MEDS: ACETAMINOPHEN 325 MG TABLET PO PRN ×4 (00:03→22:50)
[2018-03-14] MEDS: GENTAMICIN SULFATE 200 MG in NS 100 ML IV SCH ×2 (01:30→13:38)
[2018-03-14] MEDS: traMADol HCL HCL 50 MG TABLET (ULTRAM) PO PRN ×3 (01:37→19:22)
[2018-03-14] MEDS: INSULIN ASPART 100 UNITS/ML, 10 ML VIAL (NovoLOG) SUBCUT PRN ×4 (05:53→22:31)
[2018-03-14 08:29] LABS: ANION GAP 8 (5-15); CHLORIDE 102 mmol/L (98-107); POTASSIUM 4.2 mmol/L (3.5-5.1); SODIUM SERUM 135 mmol/L (136-145)
[2018-03-14 08:30] LABS: ALANINE AMINOTRANSFERASE 11 U/L (12-78); ASPARTATE AMINOTRANSFERASE 41 U/L (10-37); CALCIUM 7.5 mg/dL (8.4-11.0); CREATININE 0.95 mg/dL (0.55-1.30); GLUCOSE 259 mg/dL (70-99); TOTAL BILIRUBIN 0.4 mg/dL (0.0-1.0); UREA NITROGEN, BLOOD 21 mg/dL (8-21)
[2018-03-14 08:31] LABS: ALBUMIN 1.9 g/dL (3.4-4.8)
[2018-03-14 08:45] VITALS: BP_SYST 106
[2018-03-14 09:16] LABS: HEMATOCRIT 24.1 % (36-48); HEMOGLOBIN 7.9 g/dL (12.0-16.0); MEAN CORPUSCULAR HEMOGLOBIN 32 pg (27-31); MEAN CORPUSCULAR HGB CONC 33 % (32-36); MEAN CORPUSCULAR VOLUME 97 fL (79.0-98.0); RED BLOOD CELL COUNT(AUTO) 2.48 MIL/uL (4.2-6.2); RED CELL DISTRIBUTION WIDTH 18.9 % (9.0-15.0); WHITE BLOOD COUNT (AUTO) 4.5 K/uL (4.8-10.8)
[2018-03-14 09:20] LABS: PLATELET COUNT (AUTO) 49 K/uL (130-430)
[2018-03-14] MEDS: CEFEPIME 1 GM in D5W 50 ML IV SCH ×2 (09:29→22:15)
[2018-03-14] MEDS: NACL 0.9% 1,000 ML IV SCH (09:30)
[2018-03-14] MEDS: HYDROCORTISONE SOD SUCC 100 MG/2 ML VIAL IVP SCH (09:31)
[2018-03-14] MEDS: SENNOSIDES/DOCUSATE SODIUM 1 TAB TABLET(SENOKOT-S) PO SCH ×2 (09:32→22:16)
[2018-03-14] MEDS: CYANOCOBALAMIN 1000 mCg TABLET PO SCH (09:32)
[2018-03-14] MEDS: PREGABALIN 25 MG CAPSULE (LYRICA) PO SCH ×3 (09:32→22:17)
[2018-03-14] MEDS: LACTOBACILLUS RHAMNOSUS GG 1 CAP CAPSULE PO SCH (09:32)
[2018-03-14] MEDS: ASPIRIN 81 MG TAB.CHEW PO SCH (09:32)
[2018-03-14] MEDS: MAGNESIUM OXIDE 400 MG TABLET PO SCH ×3 (09:32→22:16)
[2018-03-14] MEDS: BACLOFEN 10 MG TABLET PO SCH ×3 (09:32→22:17)
[2018-03-14] MEDS: FLUTICASONE PROPIONATE 50 mCg/SPRAY 16 GM NS SCH ×2 (09:32→22:16)
[2018-03-14] MEDS: FENOFIBRATE NANOCRYSTALLIZED 48 MG TABLET (TRICOR) PO SCH (09:33)
[2018-03-14] MEDS: ASCORBIC ACID 500 MG TABLET PO SCH (09:33)
[2018-03-14 09:53] LABS: BASOPHILS % (AUTO) 0.2 % (0.0-2.0); EOSINOPHILS % (AUTO) 0.2 % (0.0-4.0); LYMPHOCYTES # (AUTO) 1.1 K/uL (1.0-5.5); LYMPHOCYTES % (AUTO) 24.4 % (20.5-51.5); MONOCYTES # (AUTO) 0.3 K/uL (0.0-1.0); MONOCYTES % (AUTO) 6.5 % (1.7-9.3); NEUTROPHILS # (AUTO) 3.1 K/uL (1.8-7.7)
[2018-03-14 09:54] LABS: NEUTROPHILS % (AUTO) 68.7 % (40.0-70.0)
[2018-03-14] MEDS ORDERED: EPOETIN ALFA 4,000 UNITS/ML VIAL SUBCUT ONE (10:00)
[2018-03-14 12:55] VITALS: BP_SYST 114
[2018-03-14] MEDS ORDERED: FUROSEMIDE 20 MG/2 ML VIAL IVP ONE (14:15)
[2018-03-14 16:58] VITALS: BP_SYST 135
[2018-03-14] MEDS: MONTELUKAST 10 MG TABLET PO SCH (17:00)
[2018-03-14 19:56] VITALS: BP_SYST 127
[2018-03-14] MEDS ORDERED: BISACODYL 10 MG/SUPPOSITORY RC PRN (20:45)
[2018-03-14] MEDS: roPINIRole HCL 0.25 MG ( REQUIP )TABLET PO SCH (22:16)
[2018-03-14] MEDS: HYDROCORTISONE 10 MG TABLET (CORTEF) PO SCH (22:17)
[2018-03-14] MEDS: ONDANSETRON HCL 4 MG/2 ML VIAL IVP PRN (22:39)
[2018-03-15 00:30] VITALS: BP_SYST 129
[2018-03-15] MEDS: GENTAMICIN SULFATE 200 MG in NS 100 ML IV SCH ×2 (00:52→01:00)
[2018-03-15] MEDS: INSULIN NPH/REGULAR 70-30, 100 UNITS/ML, 10 ML VIAL SUBCUT SCH ×2 (06:53→17:08)
[2018-03-15] MEDS: INSULIN ASPART 100 UNITS/ML, 10 ML VIAL (NovoLOG) SUBCUT PRN ×4 (06:54→22:06)
[2018-03-15 07:49] LABS: ANION GAP 10 (5-15); CALCIUM 7.7 mg/dL (8.4-11.0); CHLORIDE 102 mmol/L (98-107); CREATININE 1.35 mg/dL (0.55-1.30); GLUCOSE 210 mg/dL (70-99); POTASSIUM 4.6 mmol/L (3.5-5.1); SODIUM SERUM 135 mmol/L (136-145); UREA NITROGEN, BLOOD 29 mg/dL (8-21)
[2018-03-15 07:59] LABS: HEMOGLOBIN 7.4 g/dL (12.0-16.0); RED BLOOD CELL COUNT(AUTO) 2.32 MIL/uL (4.2-6.2); WHITE BLOOD COUNT (AUTO) 7.9 K/uL (4.8-10.8)
[2018-03-15 08:00] LABS: HEMATOCRIT 22.5 % (36-48); MEAN CORPUSCULAR HEMOGLOBIN 32 pg (27-31); MEAN CORPUSCULAR HGB CONC 33 % (32-36); MEAN CORPUSCULAR VOLUME 97 fL (79.0-98.0); RED CELL DISTRIBUTION WIDTH 18.5 % (9.0-15.0)
[2018-03-15 08:07] LABS: PLATELET COUNT (AUTO) 40 K/uL (130-430)
[2018-03-15 08:19] VITALS: BP_SYST 110
[2018-03-15 08:57] LABS: BAND % (MANUAL) 3 % (0-6); BASOPHILS % (MANUAL) 0 % (0-2); EOSINOPHILS % (MANUAL) 0 % (0-7); LYMPHOCYTES % (MANUAL) 25 % (20-46); MONOCYTES % (MANUAL) 2 % (0-11)
[2018-03-15 08:58] LABS: CORRECTED WHITE BLOOD COUNT 7.9 K/uL (4.5-11.0)
[2018-03-15] MEDS: PREGABALIN 25 MG CAPSULE (LYRICA) PO SCH ×3 (09:52→22:08)
[2018-03-15] MEDS: SENNOSIDES/DOCUSATE SODIUM 1 TAB TABLET(SENOKOT-S) PO SCH ×2 (09:52→22:08)
[2018-03-15] MEDS: FENOFIBRATE NANOCRYSTALLIZED 48 MG TABLET (TRICOR) PO SCH (09:52)
[2018-03-15] MEDS: CYANOCOBALAMIN 1000 mCg TABLET PO SCH (09:52)
[2018-03-15] MEDS: BACLOFEN 10 MG TABLET PO SCH ×3 (09:52→22:08)
[2018-03-15] MEDS: LACTOBACILLUS RHAMNOSUS GG 1 CAP CAPSULE PO SCH (09:52)
[2018-03-15] MEDS: HYDROCORTISONE 10 MG TABLET (CORTEF) PO SCH ×2 (09:52→22:08)
[2018-03-15] MEDS: ASCORBIC ACID 500 MG TABLET PO SCH (09:53)
[2018-03-15] MEDS: MAGNESIUM OXIDE 400 MG TABLET PO SCH ×3 (09:53→22:08)
[2018-03-15] MEDS: ASPIRIN 81 MG TAB.CHEW PO SCH (09:53)
[2018-03-15] MEDS: EPOETIN ALFA 10,000 UNITS/ML VIAL SUBCUT SCH (09:54)
[2018-03-15] MEDS: CEFEPIME 1 GM in D5W 50 ML IV SCH ×2 (09:54→22:07)
[2018-03-15] MEDS: FLUTICASONE PROPIONATE 50 mCg/SPRAY 16 GM NS SCH ×2 (09:55→22:07)
[2018-03-15 11:42] VITALS: BP_SYST 109
[2018-03-15] MEDS: NACL 0.9% 1,000 ML IV SCH (14:34)
[2018-03-15 15:37] VITALS: BP_SYST 105
[2018-03-15] MEDS: FLUCONAZOLE 100 mg/ NS 50 ML IV SCH (15:59)
[2018-03-15] MEDS: MONTELUKAST 10 MG TABLET PO SCH (17:10)
[2018-03-15 19:55] VITALS: BP_SYST 112
[2018-03-15] MEDS: roPINIRole HCL 0.25 MG ( REQUIP )TABLET PO SCH (22:08)
[2018-03-15 23:19] VITALS: BP_SYST 123
[2018-03-16] MEDS: NACL 0.9% 1,000 ML IV SCH ×2 (05:54→22:04)
[2018-03-16] MEDS: traMADol HCL HCL 50 MG TABLET (ULTRAM) PO PRN ×2 (06:58→18:38)
[2018-03-16] MEDS: INSULIN ASPART 100 UNITS/ML, 10 ML VIAL (NovoLOG) SUBCUT PRN ×4 (06:59→22:08)
[2018-03-16] MEDS: INSULIN NPH/REGULAR 70-30, 100 UNITS/ML, 10 ML VIAL SUBCUT SCH ×2 (07:00→17:12)
[2018-03-16 08:00] VITALS: BP_SYST 115
[2018-03-16] MEDS: CEFEPIME 1 GM in D5W 50 ML IV SCH ×2 (09:18→22:05)
[2018-03-16] MEDS: PREGABALIN 25 MG CAPSULE (LYRICA) PO SCH ×3 (09:19→22:09)
[2018-03-16] MEDS: MAGNESIUM OXIDE 400 MG TABLET PO SCH ×3 (09:19→22:09)
[2018-03-16] MEDS: FLUTICASONE PROPIONATE 50 mCg/SPRAY 16 GM NS SCH ×2 (09:19→22:09)
[2018-03-16] MEDS: HYDROCORTISONE 10 MG TABLET (CORTEF) PO SCH ×2 (09:19→22:08)
[2018-03-16] MEDS: BACLOFEN 10 MG TABLET PO SCH ×3 (09:20→22:08)
[2018-03-16] MEDS: CYANOCOBALAMIN 1000 mCg TABLET PO SCH (09:20)
[2018-03-16] MEDS: SENNOSIDES/DOCUSATE SODIUM 1 TAB TABLET(SENOKOT-S) PO SCH ×2 (09:20→22:09)
[2018-03-16] MEDS: LACTOBACILLUS RHAMNOSUS GG 1 CAP CAPSULE PO SCH (09:20)
[2018-03-16] MEDS: FENOFIBRATE NANOCRYSTALLIZED 48 MG TABLET (TRICOR) PO SCH (09:21)
[2018-03-16] MEDS: ASCORBIC ACID 500 MG TABLET PO SCH (09:21)
[2018-03-16 09:56] LABS: WHITE BLOOD COUNT (AUTO) 5.3 K/uL (4.8-10.8)
[2018-03-16 09:57] LABS: HEMATOCRIT 23.4 % (36-48); HEMOGLOBIN 7.4 g/dL (12.0-16.0); MEAN CORPUSCULAR HEMOGLOBIN 31 pg (27-31); MEAN CORPUSCULAR HGB CONC 32 % (32-36); MEAN CORPUSCULAR VOLUME 97 fL (79.0-98.0); RED BLOOD CELL COUNT(AUTO) 2.41 MIL/uL (4.2-6.2); RED CELL DISTRIBUTION WIDTH 19.3 % (9.0-15.0)
[2018-03-16 09:58] LABS: BASOPHILS % (AUTO) 0.1 % (0.0-2.0); EOSINOPHILS % (AUTO) 0.3 % (0.0-4.0); LYMPHOCYTES % (AUTO) 28.3 % (20.5-51.5); MONOCYTES % (AUTO) 3.8 % (1.7-9.3); PLATELET COUNT (AUTO) 37 K/uL (130-430)
[2018-03-16 09:59] LABS: LYMPHOCYTES # (AUTO) 1.5 K/uL (1.0-5.5); MONOCYTES # (AUTO) 0.2 K/uL (0.0-1.0); NEUTROPHILS # (AUTO) 3.6 K/uL (1.8-7.7)
[2018-03-16 11:33] VITALS: BP_SYST 108
[2018-03-16] MEDS ORDERED: BISACODYL 5 MG TABLET.DR (DULCOLAX) PO ONE (12:30)
[2018-03-16 12:41] LABS: NEUTROPHILS % (AUTO) 67.5 % (40.0-70.0)
[2018-03-16] MEDS ORDERED: GENTAMICIN SULFATE 140 MG in NS 100 ML IV SCH (15:00)
[2018-03-16 15:25] VITALS: BP_SYST 128
[2018-03-16] MEDS: FLUCONAZOLE 100 mg/ NS 50 ML IV SCH (15:51)
[2018-03-16] MEDS: NS IV SCH (16:58)
[2018-03-16] MEDS: GENTAMICIN SULFATE IV SCH (16:58)
[2018-03-16] MEDS: MONTELUKAST 10 MG TABLET PO SCH (17:06)
[2018-03-16 19:45] VITALS: BP_SYST 105
[2018-03-16] MEDS: roPINIRole HCL 0.25 MG ( REQUIP )TABLET PO SCH (22:09)
[2018-03-17] VITALS: BP_SYST 139
[2018-03-17] MEDS: traMADol HCL HCL 50 MG TABLET (ULTRAM) PO PRN ×2 (00:58→18:57)
[2018-03-17 03:24] VITALS: BP_SYST 0
[2018-03-17] MEDS: INSULIN NPH/REGULAR 70-30, 100 UNITS/ML, 10 ML VIAL SUBCUT SCH (06:05)
[2018-03-17] MEDS: INSULIN ASPART 100 UNITS/ML, 10 ML VIAL (NovoLOG) SUBCUT PRN ×4 (06:06→20:38)
[2018-03-17 08:00] VITALS: BP_SYST 122
[2018-03-17] MEDS: CEFEPIME 1 GM in D5W 50 ML IV SCH ×2 (08:49→20:35)
[2018-03-17] MEDS: LACTOBACILLUS RHAMNOSUS GG 1 CAP CAPSULE PO SCH (08:50)
[2018-03-17] MEDS: FLUTICASONE PROPIONATE 50 mCg/SPRAY 16 GM NS SCH ×2 (08:50→20:32)
[2018-03-17] MEDS: PREGABALIN 25 MG CAPSULE (LYRICA) PO SCH ×3 (08:50→20:31)
[2018-03-17] MEDS: ASCORBIC ACID 500 MG TABLET PO SCH (08:50)
[2018-03-17] MEDS: HYDROCORTISONE 10 MG TABLET (CORTEF) PO SCH ×2 (08:50→20:30)
[2018-03-17] MEDS: SENNOSIDES/DOCUSATE SODIUM 1 TAB TABLET(SENOKOT-S) PO SCH ×2 (08:50→20:32)
[2018-03-17] MEDS: BACLOFEN 10 MG TABLET PO SCH ×3 (08:50→20:31)
[2018-03-17] MEDS: FENOFIBRATE NANOCRYSTALLIZED 48 MG TABLET (TRICOR) PO SCH (08:51)
[2018-03-17] MEDS: CYANOCOBALAMIN 1000 mCg TABLET PO SCH (08:51)
[2018-03-17] MEDS: MAGNESIUM OXIDE 400 MG TABLET PO SCH ×3 (08:51→20:31)
[2018-03-17] MEDS: EPOETIN ALFA 10,000 UNITS/ML VIAL SUBCUT SCH (08:51)
[2018-03-17] MEDS: NACL 0.9% 1,000 ML IV SCH ×2 (08:54→22:56)
[2018-03-17 11:41] LABS: HEMATOCRIT 26.2 % (36-48); HEMOGLOBIN 8.1 g/dL (12.0-16.0); MEAN CORPUSCULAR HEMOGLOBIN 31 pg (27-31); MEAN CORPUSCULAR HGB CONC 31 % (32-36); MEAN CORPUSCULAR VOLUME 99 fL (79.0-98.0); RED BLOOD CELL COUNT(AUTO) 2.64 MIL/uL (4.2-6.2); RED CELL DISTRIBUTION WIDTH 19.5 % (9.0-15.0); WHITE BLOOD COUNT (AUTO) 5.9 K/uL (4.8-10.8)
[2018-03-17 11:43] LABS: PLATELET COUNT (AUTO) 39 K/uL (130-430)
[2018-03-17 12:15] VITALS: BP_SYST 124
[2018-03-17 16:05] LABS: BASOPHILS % (MANUAL) 0 % (0-2); EOSINOPHILS % (MANUAL) 1 % (0-7); LYMPHOCYTES % (MANUAL) 18 % (20-46); MONOCYTES % (MANUAL) 9 % (0-11)
[2018-03-17] MEDS: FLUCONAZOLE 100 mg/ NS 50 ML IV SCH (16:26)
[2018-03-17 16:53] VITALS: BP_SYST 122
[2018-03-17] MEDS ORDERED: INSULIN NPH/REGULAR 70-30, 100 UNITS/ML, 10 ML VIAL SUBCUT SCH (17:00)
[2018-03-17] MEDS ORDERED: LACTULOSE 20 GM/30 ML UDC PO ONE (17:00)
[2018-03-17] MEDS: MONTELUKAST 10 MG TABLET PO SCH (17:13)
[2018-03-17 19:51] VITALS: BP_SYST 122
[2018-03-17] MEDS: roPINIRole HCL 0.25 MG ( REQUIP )TABLET PO SCH (20:30)
[2018-03-18] VITALS: BP_SYST 139
[2018-03-18] MEDS: traMADol HCL HCL 50 MG TABLET (ULTRAM) PO PRN ×2 (00:35→22:34)
[2018-03-18] MEDS: INSULIN ASPART 100 UNITS/ML, 10 ML VIAL (NovoLOG) SUBCUT PRN ×4 (06:42→20:19)
[2018-03-18] MEDS: INSULIN NPH/REGULAR 70-30, 100 UNITS/ML, 10 ML VIAL SUBCUT SCH ×2 (06:45→17:39)
[2018-03-18 08:00] VITALS: BP_SYST 132
[2018-03-18] MEDS: FLUTICASONE PROPIONATE 50 mCg/SPRAY 16 GM NS SCH ×2 (09:27→20:10)
[2018-03-18] MEDS: ASCORBIC ACID 500 MG TABLET PO SCH (09:27)
[2018-03-18] MEDS: CEFEPIME 1 GM in D5W 50 ML IV SCH ×2 (09:27→20:10)
[2018-03-18] MEDS: SENNOSIDES/DOCUSATE SODIUM 1 TAB TABLET(SENOKOT-S) PO SCH ×2 (09:28→20:11)
[2018-03-18] MEDS: CYANOCOBALAMIN 1000 mCg TABLET PO SCH (09:28)
[2018-03-18] MEDS: HYDROCORTISONE 10 MG TABLET (CORTEF) PO SCH (09:28)
[2018-03-18] MEDS: PREGABALIN 25 MG CAPSULE (LYRICA) PO SCH ×3 (09:28→20:10)
[2018-03-18] MEDS: MAGNESIUM OXIDE 400 MG TABLET PO SCH ×3 (09:28→20:11)
[2018-03-18] MEDS: BACLOFEN 10 MG TABLET PO SCH ×3 (09:28→20:10)
[2018-03-18] MEDS: FENOFIBRATE NANOCRYSTALLIZED 48 MG TABLET (TRICOR) PO SCH (09:28)
[2018-03-18] MEDS: LACTOBACILLUS RHAMNOSUS GG 1 CAP CAPSULE PO SCH (09:28)
[2018-03-18 10:07] LABS: HEMOGLOBIN 8.1 g/dL (12.0-16.0); MEAN CORPUSCULAR HEMOGLOBIN 32 pg (27-31); MEAN CORPUSCULAR HGB CONC 32 % (32-36); MEAN CORPUSCULAR VOLUME 99 fL (79.0-98.0); RED BLOOD CELL COUNT(AUTO) 2.54 MIL/uL (4.2-6.2); RED CELL DISTRIBUTION WIDTH 19.3 % (9.0-15.0)
[2018-03-18 10:10] LABS: BASOPHILS % (AUTO) 0.1 % (0.0-2.0); EOSINOPHILS % (AUTO) 0.6 % (0.0-4.0); LYMPHOCYTES # (AUTO) 1.4 K/uL (1.0-5.5); LYMPHOCYTES % (AUTO) 26.5 % (20.5-51.5); MONOCYTES # (AUTO) 0.4 K/uL (0.0-1.0); MONOCYTES % (AUTO) 7.7 % (1.7-9.3); NEUTROPHILS # (AUTO) 3.5 K/uL (1.8-7.7); NEUTROPHILS % (AUTO) 65.1 % (40.0-70.0); PLATELET COUNT (AUTO) 30 K/uL (130-430)
[2018-03-18 11:28] VITALS: BP_SYST 146
[2018-03-18 12:42] LABS: WHITE BLOOD COUNT (AUTO) 5.3 K/uL (4.8-10.8)
[2018-03-18] MEDS: NACL 0.9% 1,000 ML IV SCH (13:41)
[2018-03-18] MEDS: GENTAMICIN SULFATE IV SCH (15:14)
[2018-03-18] MEDS: NS IV SCH (15:14)
[2018-03-18 15:52] VITALS: BP_SYST 158
[2018-03-18] MEDS: FLUCONAZOLE 100 mg/ NS 50 ML IV SCH (16:35)
[2018-03-18] MEDS: methylPREDNISolone SOD SUCC/PF 62.5 MG/ML VIAL IVP SCH (17:37)
[2018-03-18] MEDS: MONTELUKAST 10 MG TABLET PO SCH (17:37)
[2018-03-18 19:36] VITALS: BP_SYST 146
[2018-03-18] MEDS: roPINIRole HCL 0.25 MG ( REQUIP )TABLET PO SCH (20:11)
[2018-03-18] MEDS: ONDANSETRON HCL 4 MG/2 ML VIAL IVP PRN (22:34)
[2018-03-19] VITALS: BP_SYST 151
[2018-03-19] MEDS: methylPREDNISolone SOD SUCC/PF 62.5 MG/ML VIAL IVP SCH ×4 (00:15→17:19)
[2018-03-19] MEDS: NACL 0.9% 1,000 ML IV SCH ×2 (03:21→17:33)
[2018-03-19] MEDS: INSULIN ASPART 100 UNITS/ML, 10 ML VIAL (NovoLOG) SUBCUT PRN ×4 (06:12→21:48)
[2018-03-19] MEDS ORDERED: INSULIN NPH/REGULAR 70-30, 100 UNITS/ML, 10 ML VIAL SUBCUT SCH (07:00)
[2018-03-19 08:00] VITALS: BP_SYST 143
[2018-03-19 08:06] LABS: ANION GAP 7 (5-15); CHLORIDE 105 mmol/L (98-107); GLUCOSE 172 mg/dL (70-99); SODIUM SERUM 139 mmol/L (136-145)
[2018-03-19 08:07] LABS: CALCIUM 7.6 mg/dL (8.4-11.0); UREA NITROGEN, BLOOD 18 mg/dL (8-21)
[2018-03-19 08:13] LABS: WHITE BLOOD COUNT (AUTO) 3.9 K/uL (4.8-10.8)
[2018-03-19 08:14] LABS: HEMATOCRIT 23.7 % (36-48); HEMOGLOBIN 7.5 g/dL (12.0-16.0); MEAN CORPUSCULAR HEMOGLOBIN 31 pg (27-31); MEAN CORPUSCULAR HGB CONC 32 % (32-36); MEAN CORPUSCULAR VOLUME 99 fL (79.0-98.0); RED CELL DISTRIBUTION WIDTH 20.4 % (9.0-15.0)
[2018-03-19] MEDS: FENOFIBRATE NANOCRYSTALLIZED 48 MG TABLET (TRICOR) PO SCH (09:00)
[2018-03-19] MEDS: CYANOCOBALAMIN 1000 mCg TABLET PO SCH (09:00)
[2018-03-19] MEDS: SENNOSIDES/DOCUSATE SODIUM 1 TAB TABLET(SENOKOT-S) PO SCH ×2 (09:00→21:44)
[2018-03-19] MEDS: PREGABALIN 25 MG CAPSULE (LYRICA) PO SCH ×3 (09:00→21:46)
[2018-03-19] MEDS: ASCORBIC ACID 500 MG TABLET PO SCH (09:00)
[2018-03-19] MEDS: LACTOBACILLUS RHAMNOSUS GG 1 CAP CAPSULE PO SCH (09:00)
[2018-03-19] MEDS: MAGNESIUM OXIDE 400 MG TABLET PO SCH ×3 (09:00→21:44)
[2018-03-19] MEDS: BACLOFEN 10 MG TABLET PO SCH ×3 (09:00→22:06)
[2018-03-19] MEDS ORDERED: DIATR MEGLU/DIATRIZ SOD 30 ML SOLUTION PO ONE (09:12)
[2018-03-19] MEDS: CEFEPIME 1 GM in D5W 50 ML IV SCH (09:54)
[2018-03-19] MEDS: FLUTICASONE PROPIONATE 50 mCg/SPRAY 16 GM NS SCH ×2 (09:55→21:44)
[2018-03-19 10:58] LABS: BAND % (MANUAL) 5 % (0-6)
[2018-03-19 10:59] LABS: ATYPICAL LYMPHOCYTES % 0 % (0-0); LYMPHOCYTES % (MANUAL) 15 % (20-46); PLATELET COUNT (AUTO) 37 K/uL (130-430)
[2018-03-19 11:00] LABS: BASOPHILS % (MANUAL) 0 % (0-2); EOSINOPHILS % (MANUAL) 0 % (0-7); MONOCYTES % (MANUAL) 2 % (0-11)
[2018-03-19 11:30] VITALS: BP_SYST 143
[2018-03-19] MEDS ORDERED: IOHEXOL 100 ML IV ONE (11:37)
[2018-03-19] MEDS ORDERED: POTASSIUM CHLORIDE 20 MEQ TAB.PRT.SR PO ONE ×2 (13:30→17:30)
[2018-03-19 15:39] VITALS: BP_SYST 156
[2018-03-19 16:38] LABS: CLARITY/URINE CLEAR (CLEAR); COLOR,URINE YELLOW (YELLOW); GLUCOSE,URINE 3+ (NEGATIVE); KETONES,URINE NEGATIVE (NEGATIVE); PH,URINE 8.5 (5.0-8.0); PROTEIN URINE 2+ (NEGATIVE)
[2018-03-19 16:39] LABS: BILIRUBIN,URINE NEGATIVE (NEGATIVE); BLOOD, URINE TRACE (NEGATIVE); LEUKOCYTE ESTERASE ,URINE NEGATIVE (NEGATIVE); NITRITE, URINE NEGATIVE (NEGATIVE); UROBILINOGEN,URINE 0.2 (0.2-1.0)
[2018-03-19 17:08] LABS: BACTERIA,URINE FEW /HPF (None Seen); MUCUS,URINE None Seen /LPF (None Seen)
[2018-03-19] MEDS: FLUCONAZOLE 100 mg/ NS 50 ML IV SCH (17:15)
[2018-03-19] MEDS: MONTELUKAST 10 MG TABLET PO SCH (17:15)
[2018-03-19] MEDS: traMADol HCL HCL 50 MG TABLET (ULTRAM) PO PRN (17:15)
[2018-03-19] MEDS: INSULIN NPH/REGULAR 70-30, 100 UNITS/ML, 10 ML VIAL SUBCUT SCH (17:27)
[2018-03-19 20:00] VITALS: BP_SYST 139
[2018-03-19] MEDS ORDERED: CEFEPIME 1 GM in D5W 50 ML IV SCH (21:00)
[2018-03-19] MEDS ORDERED: FUROSEMIDE 20 MG TABLET PO SCH (21:00)
[2018-03-19] MEDS: POTASSIUM CHLORIDE 20 MEQ TAB.PRT.SR PO SCH (21:44)
[2018-03-19] MEDS: roPINIRole HCL 0.25 MG ( REQUIP )TABLET PO SCH (21:44)
[2018-03-19] MEDS: SPIRONOLACTONE 25 MG TABLET (ALDACTONE) PO SCH (21:46)
[2018-03-20] MEDS: methylPREDNISolone SOD SUCC/PF 62.5 MG/ML VIAL IVP SCH ×4 (01:00→17:17)
[2018-03-20 01:05] VITALS: BP_SYST 136
[2018-03-20] MEDS: INSULIN ASPART 100 UNITS/ML, 10 ML VIAL (NovoLOG) SUBCUT PRN ×4 (06:29→22:29)
[2018-03-20] MEDS ORDERED: INSULIN NPH/REGULAR 70-30, 100 UNITS/ML, 10 ML VIAL SUBCUT SCH (07:00)
[2018-03-20 07:36] LABS: INR 1.2 (0.8-1.2); PROTHROMBIN TIME 12.1 SECS (9.5-12.5)
[2018-03-20 07:55] LABS: TOTAL IRON BIND. CAPACITY 250 ug/dL (250-450)
[2018-03-20 08:00] VITALS: BP_SYST 147
[2018-03-20 08:04] LABS: ALANINE AMINOTRANSFERASE 12 U/L (12-78); ANION GAP 8 (5-15); ASPARTATE AMINOTRANSFERASE 42 U/L (10-37); CHLORIDE 100 mmol/L (98-107); CREATININE 1.21 mg/dL (0.55-1.30); GLUCOSE 200 mg/dL (70-99); HEMOGLOBIN 9.3 g/dL (12.0-16.0); MEAN CORPUSCULAR VOLUME 99 fL (79.0-98.0); POTASSIUM 3.3 mmol/L (3.5-5.1); RED BLOOD CELL COUNT(AUTO) 2.92 MIL/uL (4.2-6.2); SODIUM SERUM 134 mmol/L (136-145); TOTAL BILIRUBIN 0.7 mg/dL (0.0-1.0); UREA NITROGEN, BLOOD 22 mg/dL (8-21)
[2018-03-20 08:05] LABS: ALBUMIN 2.3 g/dL (3.4-4.8); MEAN CORPUSCULAR HEMOGLOBIN 32 pg (27-31); MEAN CORPUSCULAR HGB CONC 32 % (32-36); RED CELL DISTRIBUTION WIDTH 20.4 % (9.0-15.0)
[2018-03-20 08:06] LABS: LYMPHOCYTES % (AUTO) 10.8 % (20.5-51.5); MONOCYTES % (AUTO) 7.7 % (1.7-9.3); NEUTROPHILS % (AUTO) 81.2 % (40.0-70.0)
[2018-03-20 08:07] LABS: BASOPHILS % (AUTO) 0.2 % (0.0-2.0); EOSINOPHILS % (AUTO) 0.1 % (0.0-4.0); LYMPHOCYTES # (AUTO) 0.5 K/uL (1.0-5.5); MONOCYTES # (AUTO) 0.4 K/uL (0.0-1.0); NEUTROPHILS # (AUTO) 4.1 K/uL (1.8-7.7); PLATELET COUNT (AUTO) 29 K/uL (130-430)
[2018-03-20] MEDS: FLUTICASONE PROPIONATE 50 mCg/SPRAY 16 GM NS SCH ×2 (10:34→22:22)
[2018-03-20] MEDS: FENOFIBRATE NANOCRYSTALLIZED 48 MG TABLET (TRICOR) PO SCH (10:34)
[2018-03-20] MEDS: MAGNESIUM OXIDE 400 MG TABLET PO SCH ×3 (10:35→22:21)
[2018-03-20] MEDS: ASCORBIC ACID 500 MG TABLET PO SCH (10:35)
[2018-03-20] MEDS: EPOETIN ALFA 10,000 UNITS/ML VIAL SUBCUT SCH (10:35)
[2018-03-20] MEDS: LACTULOSE 20 GM/30 ML UDC PO SCH ×3 (10:35→21:00)
[2018-03-20] MEDS: SENNOSIDES/DOCUSATE SODIUM 1 TAB TABLET(SENOKOT-S) PO SCH ×2 (10:35→22:21)
[2018-03-20] MEDS: BACLOFEN 10 MG TABLET PO SCH ×3 (10:35→22:21)
[2018-03-20] MEDS: LACTOBACILLUS RHAMNOSUS GG 1 CAP CAPSULE PO SCH (10:36)
[2018-03-20] MEDS: POTASSIUM CHLORIDE 20 MEQ TAB.PRT.SR PO SCH ×2 (10:36→22:21)
[2018-03-20] MEDS: PREGABALIN 25 MG CAPSULE (LYRICA) PO SCH ×3 (10:36→22:21)
[2018-03-20] MEDS: SPIRONOLACTONE 25 MG TABLET (ALDACTONE) PO SCH ×2 (10:36→22:21)
[2018-03-20] MEDS: CYANOCOBALAMIN 1000 mCg TABLET PO SCH (10:37)
[2018-03-20 12:02] VITALS: BP_SYST 136
[2018-03-20 16:02] VITALS: BP_SYST 124
[2018-03-20] MEDS: GENTAMICIN SULFATE IV SCH (16:18)
[2018-03-20] MEDS: NS IV SCH (16:18)
[2018-03-20] MEDS: MONTELUKAST 10 MG TABLET PO SCH (17:17)
[2018-03-20] MEDS: INSULIN NPH/REGULAR 70-30, 100 UNITS/ML, 10 ML VIAL SUBCUT SCH (17:20)
[2018-03-20] MEDS: roPINIRole HCL 0.25 MG ( REQUIP )TABLET PO SCH (22:21)
[2018-03-21] MEDS: methylPREDNISolone SOD SUCC/PF 62.5 MG/ML VIAL IVP SCH ×4 (00:33→17:36)
[2018-03-21 01:44] VITALS: BP_SYST 141
[2018-03-21] MEDS: INSULIN ASPART 100 UNITS/ML, 10 ML VIAL (NovoLOG) SUBCUT PRN ×4 (06:29→21:48)
[2018-03-21 06:54] LABS: ALANINE AMINOTRANSFERASE 14 U/L (12-78); ALBUMIN 2.3 g/dL (3.4-4.8); ANION GAP 7 (5-15); ASPARTATE AMINOTRANSFERASE 43 U/L (10-37); CALCIUM 8.3 mg/dL (8.4-11.0); CHLORIDE 107 mmol/L (98-107); CREATININE 1.32 mg/dL (0.55-1.30); GLUCOSE 164 mg/dL (70-99); POTASSIUM 3.3 mmol/L (3.5-5.1); SODIUM SERUM 139 mmol/L (136-145); TOTAL BILIRUBIN 0.7 mg/dL (0.0-1.0); UREA NITROGEN, BLOOD 25 mg/dL (8-21)
[2018-03-21 06:56] LABS: BASOPHILS % (AUTO) 0.3 % (0.0-2.0); HEMATOCRIT 31.3 % (36-48); HEMOGLOBIN 9.9 g/dL (12.0-16.0); LYMPHOCYTES # (AUTO) 0.7 K/uL (1.0-5.5); LYMPHOCYTES % (AUTO) 12.7 % (20.5-51.5); MEAN CORPUSCULAR HEMOGLOBIN 32 pg (27-31); MEAN CORPUSCULAR HGB CONC 31 % (32-36); MEAN CORPUSCULAR VOLUME 101 fL (79.0-98.0); MONOCYTES # (AUTO) 0.4 K/uL (0.0-1.0); MONOCYTES % (AUTO) 8.4 % (1.7-9.3); NEUTROPHILS # (AUTO) 4.1 K/uL (1.8-7.7); NEUTROPHILS % (AUTO) 78.6 % (40.0-70.0); RED BLOOD CELL COUNT(AUTO) 3.11 MIL/uL (4.2-6.2); RED CELL DISTRIBUTION WIDTH 20.8 % (9.0-15.0); WHITE BLOOD COUNT (AUTO) 5.2 K/uL (4.8-10.8)
[2018-03-21 07:09] LABS: PLATELET COUNT (AUTO) 25 K/uL (130-430)
[2018-03-21 08:00] VITALS: BP_SYST 128
[2018-03-21] MEDS: INSULIN NPH/REGULAR 70-30, 100 UNITS/ML, 10 ML VIAL SUBCUT SCH ×2 (09:32→17:34)
[2018-03-21] MEDS: FLUTICASONE PROPIONATE 50 mCg/SPRAY 16 GM NS SCH ×2 (09:34→21:40)
[2018-03-21] MEDS: MAGNESIUM OXIDE 400 MG TABLET PO SCH ×3 (09:35→21:31)
[2018-03-21] MEDS: BACLOFEN 10 MG TABLET PO SCH ×3 (09:35→21:28)
[2018-03-21] MEDS: FENOFIBRATE NANOCRYSTALLIZED 48 MG TABLET (TRICOR) PO SCH (09:35)
[2018-03-21] MEDS: CYANOCOBALAMIN 1000 mCg TABLET PO SCH (09:35)
[2018-03-21] MEDS: LACTULOSE 20 GM/30 ML UDC PO SCH ×3 (09:35→21:28)
[2018-03-21] MEDS: ASCORBIC ACID 500 MG TABLET PO SCH (09:36)
[2018-03-21] MEDS: LACTOBACILLUS RHAMNOSUS GG 1 CAP CAPSULE PO SCH (09:36)
[2018-03-21] MEDS: PREGABALIN 25 MG CAPSULE (LYRICA) PO SCH ×3 (09:36→21:31)
[2018-03-21] MEDS: SENNOSIDES/DOCUSATE SODIUM 1 TAB TABLET(SENOKOT-S) PO SCH ×2 (09:36→21:41)
[2018-03-21] MEDS: SPIRONOLACTONE 25 MG TABLET (ALDACTONE) PO SCH ×2 (09:36→21:31)
[2018-03-21] MEDS: POTASSIUM CHLORIDE 20 MEQ TAB.PRT.SR PO SCH ×2 (09:37→21:31)
[2018-03-21] MEDS ORDERED: POTASSIUM CHLORIDE 20 MEQ TAB.PRT.SR PO ONE (10:00)
[2018-03-21 11:21] VITALS: BP_SYST 158
[2018-03-21 12:08] LABS: AFP, TUMOR MARKER 2.5 ng/mL (0.0-8.3)
[2018-03-21] MEDS: traMADol HCL HCL 50 MG TABLET (ULTRAM) PO PRN (12:47)
[2018-03-21] MEDS ORDERED: FUROSEMIDE 20 MG TABLET PO ONE (14:15)
[2018-03-21 15:39] VITALS: BP_SYST 144
[2018-03-21] MEDS: MONTELUKAST 10 MG TABLET PO SCH (17:36)
[2018-03-21 19:45] VITALS: BP_SYST 148
[2018-03-21 21:07] LABS: ANTI NUCLEAR AB WITH REFLEX Negative (Negative)
[2018-03-21] MEDS: roPINIRole HCL 0.25 MG ( REQUIP )TABLET PO SCH (21:28)
[2018-03-21] MEDS: LINEZOLID 300 ML IV SCH (21:32)
[2018-03-22] MEDS: traMADol HCL HCL 50 MG TABLET (ULTRAM) PO PRN ×2 (00:16→21:22)
[2018-03-22] MEDS: methylPREDNISolone SOD SUCC/PF 62.5 MG/ML VIAL IVP SCH ×5 (00:16→23:58)
[2018-03-22 02:57] VITALS: BP_SYST 148
[2018-03-22] MEDS: INSULIN ASPART 100 UNITS/ML, 10 ML VIAL (NovoLOG) SUBCUT PRN ×4 (07:00→21:15)
[2018-03-22] MEDS: INSULIN NPH/REGULAR 70-30, 100 UNITS/ML, 10 ML VIAL SUBCUT SCH ×2 (07:01→17:39)
[2018-03-22 07:05] LABS: ANION GAP 13 (5-15); CALCIUM 8.3 mg/dL (8.4-11.0); CHLORIDE 107 mmol/L (98-107); CREATININE 1.23 mg/dL (0.55-1.30); GLUCOSE 219 mg/dL (70-99); POTASSIUM 3.6 mmol/L (3.5-5.1); SODIUM SERUM 142 mmol/L (136-145); UREA NITROGEN, BLOOD 30 mg/dL (8-21)
[2018-03-22 07:08] LABS: BASOPHILS % (AUTO) 0.1 % (0.0-2.0); EOSINOPHILS % (AUTO) 0.4 % (0.0-4.0); HEMATOCRIT 31.6 % (36-48); LYMPHOCYTES # (AUTO) 0.7 K/uL (1.0-5.5); LYMPHOCYTES % (AUTO) 15.1 % (20.5-51.5); MEAN CORPUSCULAR HEMOGLOBIN 32 pg (27-31); MEAN CORPUSCULAR HGB CONC 32 % (32-36); MEAN CORPUSCULAR VOLUME 101 fL (79.0-98.0); MONOCYTES # (AUTO) 0.3 K/uL (0.0-1.0); MONOCYTES % (AUTO) 6.5 % (1.7-9.3); NEUTROPHILS # (AUTO) 3.6 K/uL (1.8-7.7); RED BLOOD CELL COUNT(AUTO) 3.14 MIL/uL (4.2-6.2); RED CELL DISTRIBUTION WIDTH 21.4 % (9.0-15.0); WHITE BLOOD COUNT (AUTO) 4.6 K/uL (4.8-10.8)
[2018-03-22 07:10] LABS: PHOSPHORUS 1.6 mg/dL (2.7-4.5)
[2018-03-22 07:30] VITALS: BP_SYST 149
[2018-03-22 07:55] LABS: PLATELET COUNT (AUTO) 28 K/uL (130-430)
[2018-03-22] MEDS: LINEZOLID 300 ML IV SCH ×2 (08:37→21:21)
[2018-03-22] MEDS: SPIRONOLACTONE 25 MG TABLET (ALDACTONE) PO SCH ×2 (08:38→21:19)
[2018-03-22] MEDS: FUROSEMIDE 20 MG TABLET PO SCH (08:38)
[2018-03-22] MEDS: ASCORBIC ACID 500 MG TABLET PO SCH (08:38)
[2018-03-22] MEDS: MAGNESIUM OXIDE 400 MG TABLET PO SCH ×3 (08:39→21:21)
[2018-03-22] MEDS: CYANOCOBALAMIN 1000 mCg TABLET PO SCH (08:39)
[2018-03-22] MEDS: SENNOSIDES/DOCUSATE SODIUM 1 TAB TABLET(SENOKOT-S) PO SCH ×2 (08:39→21:19)
[2018-03-22] MEDS: FENOFIBRATE NANOCRYSTALLIZED 48 MG TABLET (TRICOR) PO SCH (08:39)
[2018-03-22] MEDS: LACTOBACILLUS RHAMNOSUS GG 1 CAP CAPSULE PO SCH (08:39)
[2018-03-22] MEDS: RIFAXIMIN 550 MG TABLET PO SCH ×2 (08:39→21:18)
[2018-03-22] MEDS: BACLOFEN 10 MG TABLET PO SCH ×3 (08:39→21:17)
[2018-03-22] MEDS: EPOETIN ALFA 10,000 UNITS/ML VIAL SUBCUT SCH (08:40)
[2018-03-22] MEDS: LACTULOSE 20 GM/30 ML UDC PO SCH ×3 (08:40→21:17)
[2018-03-22] MEDS: PREGABALIN 25 MG CAPSULE (LYRICA) PO SCH ×3 (08:40→21:19)
[2018-03-22] MEDS: POTASSIUM CHLORIDE 20 MEQ TAB.PRT.SR PO SCH ×2 (08:40→21:18)
[2018-03-22] MEDS: FLUTICASONE PROPIONATE 50 mCg/SPRAY 16 GM NS SCH ×2 (08:48→21:16)
[2018-03-22 10:36] LABS: RETICULOCYTE COUNT 12.9 % (0.5-1.5)
[2018-03-22 10:42] LABS: NEUTROPHILS % (AUTO) 77.9 % (40.0-70.0)
[2018-03-22 11:21] VITALS: BP_SYST 140
[2018-03-22] MEDS: ACETAMINOPHEN 325 MG TABLET PO PRN (11:24)
[2018-03-22 12:08] LABS: ATYPICAL pANCA <1:20 titer (Neg:<1:20); CYTOPLASMIC (C-ANCA) <1:20 titer (Neg:<1:20); CYTOPLASMIC (P-ANCA) <1:20 titer (Neg:<1:20)
[2018-03-22] MEDS ORDERED: K PHOS 15 MM in NS 250 ML IV ONE (14:00)
[2018-03-22] MEDS ORDERED: FLUCONAZOLE 100 MG TABLET (DIFLUCAN) PO ONE (14:45)
[2018-03-22 15:29] VITALS: BP_SYST 127
[2018-03-22] MEDS: MONTELUKAST 10 MG TABLET PO SCH (17:29)
[2018-03-22] MEDS: NAPH,MB-DB/K PH,MBDB 250 MG TAB PO SCH ×2 (17:29→21:18)
[2018-03-22 20:00] VITALS: BP_SYST 143
[2018-03-22] MEDS: roPINIRole HCL 0.25 MG ( REQUIP )TABLET PO SCH (21:17)
[2018-03-23 01:59] VITALS: BP_SYST 158
[2018-03-23] MEDS: methylPREDNISolone SOD SUCC/PF 62.5 MG/ML VIAL IVP SCH ×3 (06:21→17:11)
[2018-03-23] MEDS: INSULIN ASPART 100 UNITS/ML, 10 ML VIAL (NovoLOG) SUBCUT PRN ×4 (06:23→21:35)
[2018-03-23] MEDS: INSULIN NPH/REGULAR 70-30, 100 UNITS/ML, 10 ML VIAL SUBCUT SCH (06:24)
[2018-03-23 08:10] VITALS: BP_SYST 132
[2018-03-23] MEDS: ASCORBIC ACID 500 MG TABLET PO SCH (08:20)
[2018-03-23] MEDS: CYANOCOBALAMIN 1000 mCg TABLET PO SCH (08:20)
[2018-03-23] MEDS: LINEZOLID 300 ML IV SCH ×2 (08:20→21:25)
[2018-03-23] MEDS: LACTULOSE 20 GM/30 ML UDC PO SCH ×3 (08:20→21:26)
[2018-03-23] MEDS: SPIRONOLACTONE 25 MG TABLET (ALDACTONE) PO SCH ×2 (08:21→21:27)
[2018-03-23] MEDS: LACTOBACILLUS RHAMNOSUS GG 1 CAP CAPSULE PO SCH (08:21)
[2018-03-23] MEDS: NAPH,MB-DB/K PH,MBDB 250 MG TAB PO SCH ×4 (08:21→21:26)
[2018-03-23] MEDS: BACLOFEN 10 MG TABLET PO SCH ×3 (08:21→21:27)
[2018-03-23] MEDS: RIFAXIMIN 550 MG TABLET PO SCH ×2 (08:21→21:27)
[2018-03-23] MEDS: FLUCONAZOLE 100 MG TABLET (DIFLUCAN) PO SCH (08:21)
[2018-03-23] MEDS: MAGNESIUM OXIDE 400 MG TABLET PO SCH ×3 (08:22→21:26)
[2018-03-23] MEDS: SENNOSIDES/DOCUSATE SODIUM 1 TAB TABLET(SENOKOT-S) PO SCH ×2 (08:22→21:27)
[2018-03-23] MEDS: FUROSEMIDE 20 MG TABLET PO SCH (08:22)
[2018-03-23] MEDS: PREGABALIN 25 MG CAPSULE (LYRICA) PO SCH ×3 (08:22→21:27)
[2018-03-23] MEDS: FLUTICASONE PROPIONATE 50 mCg/SPRAY 16 GM NS SCH ×2 (08:23→21:26)
[2018-03-23] MEDS: POTASSIUM CHLORIDE 20 MEQ TAB.PRT.SR PO SCH ×2 (08:23→21:26)
[2018-03-23] MEDS: FENOFIBRATE NANOCRYSTALLIZED 48 MG TABLET (TRICOR) PO SCH (08:23)
[2018-03-23 10:00] LABS: BASOPHILS % (AUTO) 0.1 % (0.0-2.0); HEMATOCRIT 33.1 % (36-48); HEMOGLOBIN 10.6 g/dL (12.0-16.0); LYMPHOCYTES # (AUTO) 0.7 K/uL (1.0-5.5); LYMPHOCYTES % (AUTO) 12.7 % (20.5-51.5); MEAN CORPUSCULAR HEMOGLOBIN 33 pg (27-31); MEAN CORPUSCULAR HGB CONC 32 % (32-36); MEAN CORPUSCULAR VOLUME 103 fL (79.0-98.0); MONOCYTES # (AUTO) 0.4 K/uL (0.0-1.0); MONOCYTES % (AUTO) 7.3 % (1.7-9.3); NEUTROPHILS # (AUTO) 4.3 K/uL (1.8-7.7); NEUTROPHILS % (AUTO) 79.9 % (40.0-70.0); RED BLOOD CELL COUNT(AUTO) 3.23 MIL/uL (4.2-6.2); RED CELL DISTRIBUTION WIDTH 21.4 % (9.0-15.0); WHITE BLOOD COUNT (AUTO) 5.4 K/uL (4.8-10.8)
[2018-03-23 11:01] LABS: PLATELET COUNT (AUTO) 30 K/uL (130-430)
[2018-03-23 12:30] VITALS: BP_SYST 142
[2018-03-23] MEDS: traMADol HCL HCL 50 MG TABLET (ULTRAM) PO PRN (16:00)
[2018-03-23 16:18] VITALS: BP_SYST 138
[2018-03-23] MEDS ORDERED: INSULIN NPH/REGULAR 70-30, 100 UNITS/ML, 10 ML VIAL SUBCUT SCH (17:00)
[2018-03-23] MEDS: MONTELUKAST 10 MG TABLET PO SCH (17:11)
[2018-03-23] MEDS: ACETAMINOPHEN 325 MG TABLET PO PRN (17:12)
[2018-03-23 21:20] VITALS: BP_SYST 144
[2018-03-23] MEDS: roPINIRole HCL 0.25 MG ( REQUIP )TABLET PO SCH (21:26)
[2018-03-23 23:08] VITALS: BP_SYST 152
[2018-03-24] MEDS: methylPREDNISolone SOD SUCC/PF 62.5 MG/ML VIAL IVP SCH ×4 (01:29→18:42)
[2018-03-24] MEDS: INSULIN ASPART 100 UNITS/ML, 10 ML VIAL (NovoLOG) SUBCUT PRN ×4 (06:28→20:49)
[2018-03-24] MEDS ORDERED: INSULIN NPH/REGULAR 70-30, 100 UNITS/ML, 10 ML VIAL SUBCUT SCH ×2 (07:00→17:00)
[2018-03-24 07:10] LABS: LYMPHOCYTES # (AUTO) 0.6 K/uL (1.0-5.5); MONOCYTES # (AUTO) 0.2 K/uL (0.0-1.0); NEUTROPHILS # (AUTO) 3.8 K/uL (1.8-7.7)
[2018-03-24 07:21] LABS: BASOPHILS % (AUTO) 0.2 % (0.0-2.0); EOSINOPHILS % (AUTO) 0.1 % (0.0-4.0); HEMATOCRIT 31.3 % (36-48); HEMOGLOBIN 9.8 g/dL (12.0-16.0); MEAN CORPUSCULAR HEMOGLOBIN 32 pg (27-31); MEAN CORPUSCULAR HGB CONC 31 % (32-36); MEAN CORPUSCULAR VOLUME 101 fL (79.0-98.0); MONOCYTES % (AUTO) 4.3 % (1.7-9.3); NEUTROPHILS % (AUTO) 82.4 % (40.0-70.0); RED CELL DISTRIBUTION WIDTH 21.3 % (9.0-15.0)
[2018-03-24 07:40] LABS: PLATELET COUNT (AUTO) 26 K/uL (130-430)
[2018-03-24 08:00] VITALS: BP_SYST 162
[2018-03-24] MEDS: FENOFIBRATE NANOCRYSTALLIZED 48 MG TABLET (TRICOR) PO SCH (08:17)
[2018-03-24] MEDS: NAPH,MB-DB/K PH,MBDB 250 MG TAB PO SCH ×4 (08:17→20:42)
[2018-03-24] MEDS: CYANOCOBALAMIN 1000 mCg TABLET PO SCH (08:17)
[2018-03-24] MEDS: LACTULOSE 20 GM/30 ML UDC PO SCH ×3 (08:17→21:00)
[2018-03-24] MEDS: BACLOFEN 10 MG TABLET PO SCH ×3 (08:18→20:42)
[2018-03-24] MEDS: POTASSIUM CHLORIDE 20 MEQ TAB.PRT.SR PO SCH ×2 (08:18→20:43)
[2018-03-24] MEDS: SPIRONOLACTONE 25 MG TABLET (ALDACTONE) PO SCH ×2 (08:18→20:44)
[2018-03-24] MEDS: RIFAXIMIN 550 MG TABLET PO SCH ×2 (08:18→20:41)
[2018-03-24] MEDS: ASCORBIC ACID 500 MG TABLET PO SCH (08:18)
[2018-03-24] MEDS: MAGNESIUM OXIDE 400 MG TABLET PO SCH ×3 (08:18→20:41)
[2018-03-24] MEDS: PREGABALIN 25 MG CAPSULE (LYRICA) PO SCH ×3 (08:18→20:43)
[2018-03-24] MEDS: LACTOBACILLUS RHAMNOSUS GG 1 CAP CAPSULE PO SCH (08:18)
[2018-03-24] MEDS: SENNOSIDES/DOCUSATE SODIUM 1 TAB TABLET(SENOKOT-S) PO SCH ×2 (08:18→20:43)
[2018-03-24] MEDS: FUROSEMIDE 20 MG TABLET PO SCH (08:19)
[2018-03-24] MEDS: FLUTICASONE PROPIONATE 50 mCg/SPRAY 16 GM NS SCH ×2 (08:19→20:43)
[2018-03-24] MEDS: FLUCONAZOLE 100 MG TABLET (DIFLUCAN) PO SCH (08:22)
[2018-03-24 09:19] LABS: ANION GAP 13 (5-15); CALCIUM 7.8 mg/dL (8.4-11.0); CHLORIDE 106 mmol/L (98-107); GLUCOSE 234 mg/dL (70-99); POTASSIUM 3.6 mmol/L (3.5-5.1); SODIUM SERUM 141 mmol/L (136-145); UREA NITROGEN, BLOOD 25 mg/dL (8-21)
[2018-03-24 09:36] LABS: WHITE BLOOD COUNT (AUTO) 4.6 K/uL (4.8-10.8)
[2018-03-24] MEDS: EPOETIN ALFA 10,000 UNITS/ML VIAL SUBCUT SCH (09:52)
[2018-03-24] MEDS: LINEZOLID 300 ML IV SCH ×2 (09:53→20:43)
[2018-03-24 13:11] LABS: FERRITIN 1965 ng/mL (15-150)
[2018-03-24 13:12] LABS: ALPHA-1-ANTITRYPSIN, S 207 mg/dL (90-200)
[2018-03-24 13:16] LABS: ANTI-SMOOTH MUSCLE AB 33 Units (0-19)
[2018-03-24 15:19] VITALS: BP_SYST 151
[2018-03-24] MEDS: traMADol HCL HCL 50 MG TABLET (ULTRAM) PO PRN (16:25)
[2018-03-24] MEDS: MONTELUKAST 10 MG TABLET PO SCH (18:42)
[2018-03-24 20:00] VITALS: BP_SYST 162
[2018-03-24] MEDS: roPINIRole HCL 0.25 MG ( REQUIP )TABLET PO SCH (20:41)
[2018-03-24] MEDS: ACETAMINOPHEN 325 MG TABLET PO PRN (20:43)
[2018-03-25] MEDS: methylPREDNISolone SOD SUCC/PF 62.5 MG/ML VIAL IVP SCH ×4 (00:12→18:10)
[2018-03-25 02:04] VITALS: BP_SYST 128
[2018-03-25] MEDS: INSULIN ASPART 100 UNITS/ML, 10 ML VIAL (NovoLOG) SUBCUT PRN ×3 (06:06→18:21)
[2018-03-25] MEDS ORDERED: INSULIN NPH/REGULAR 70-30, 100 UNITS/ML, 10 ML VIAL SUBCUT SCH ×2 (07:00→17:00)
[2018-03-25 07:27] LABS: BASOPHILS % (AUTO) 0.1 % (0.0-2.0); HEMATOCRIT 28.1 % (36-48); LYMPHOCYTES # (AUTO) 0.6 K/uL (1.0-5.5); LYMPHOCYTES % (AUTO) 14.6 % (20.5-51.5); MEAN CORPUSCULAR HEMOGLOBIN 32 pg (27-31); MEAN CORPUSCULAR HGB CONC 32 % (32-36); MEAN CORPUSCULAR VOLUME 101 fL (79.0-98.0); MONOCYTES # (AUTO) 0.2 K/uL (0.0-1.0); MONOCYTES % (AUTO) 3.9 % (1.7-9.3); NEUTROPHILS # (AUTO) 3.4 K/uL (1.8-7.7); NEUTROPHILS % (AUTO) 81.4 % (40.0-70.0); RED CELL DISTRIBUTION WIDTH 21.1 % (9.0-15.0); WHITE BLOOD COUNT (AUTO) 4.2 K/uL (4.8-10.8)
[2018-03-25 07:35] LABS: ANION GAP 12 (5-15); CALCIUM 7.3 mg/dL (8.4-11.0); CHLORIDE 105 mmol/L (98-107); CREATININE 0.94 mg/dL (0.55-1.30); GLUCOSE 204 mg/dL (70-99); POTASSIUM 3.7 mmol/L (3.5-5.1); SODIUM SERUM 140 mmol/L (136-145); UREA NITROGEN, BLOOD 27 mg/dL (8-21)
[2018-03-25 07:45] LABS: PLATELET COUNT (AUTO) 31 K/uL (130-430)
[2018-03-25 08:00] VITALS: BP_SYST 118
[2018-03-25] MEDS: FLUTICASONE PROPIONATE 50 mCg/SPRAY 16 GM NS SCH (09:00)
[2018-03-25 09:11] LABS: RETICULOCYTE COUNT 7.7 % (0.5-1.5)
[2018-03-25] MEDS: LINEZOLID 300 ML IV SCH (10:08)
[2018-03-25] MEDS: LACTOBACILLUS RHAMNOSUS GG 1 CAP CAPSULE PO SCH (10:08)
[2018-03-25] MEDS: LACTULOSE 20 GM/30 ML UDC PO SCH ×2 (10:08→18:10)
[2018-03-25] MEDS: RIFAXIMIN 550 MG TABLET PO SCH (10:09)
[2018-03-25] MEDS: BACLOFEN 10 MG TABLET PO SCH ×2 (10:09→18:11)
[2018-03-25] MEDS: FENOFIBRATE NANOCRYSTALLIZED 48 MG TABLET (TRICOR) PO SCH (10:09)
[2018-03-25] MEDS: POTASSIUM CHLORIDE 20 MEQ TAB.PRT.SR PO SCH (10:09)
[2018-03-25] MEDS: SENNOSIDES/DOCUSATE SODIUM 1 TAB TABLET(SENOKOT-S) PO SCH (10:10)
[2018-03-25] MEDS: PREGABALIN 25 MG CAPSULE (LYRICA) PO SCH ×2 (10:10→18:12)
[2018-03-25] MEDS: SPIRONOLACTONE 25 MG TABLET (ALDACTONE) PO SCH (10:10)
[2018-03-25] MEDS: FUROSEMIDE 20 MG TABLET PO SCH (10:11)
[2018-03-25] MEDS: traMADol HCL HCL 50 MG TABLET (ULTRAM) PO PRN (10:12)
[2018-03-25] MEDS: CYANOCOBALAMIN 1000 mCg TABLET PO SCH (10:12)
[2018-03-25] MEDS: FLUCONAZOLE 100 MG TABLET (DIFLUCAN) PO SCH (10:12)
[2018-03-25] MEDS: MAGNESIUM OXIDE 400 MG TABLET PO SCH ×2 (10:12→18:12)
[2018-03-25] MEDS: ASCORBIC ACID 500 MG TABLET PO SCH (10:12)
[2018-03-25] MEDS: NAPH,MB-DB/K PH,MBDB 250 MG TAB PO SCH ×3 (11:32→18:10)
[2018-03-25 12:12] VITALS: BP_SYST 143
[2018-03-25] MEDS ORDERED: DIF100 PO (15:21)
[2018-03-25] MEDS ORDERED: LINE600T PO (15:22)
[2018-03-25] MEDS ORDERED: PRED10TA PO (15:23)
[2018-03-25] MEDS ORDERED: SPIR25TA PO (15:24)
[2018-03-25] MEDS ORDERED: LACT10SO6 PO (15:26)
[2018-03-25 15:30] VITALS: BP_SYST 122
[2018-03-25 16:37] VITALS: BP_SYST 140
[2018-03-25] MEDS: MONTELUKAST 10 MG TABLET PO SCH (18:13)
[2018-03-26] MEDS ORDERED: INSULIN NPH/REGULAR 70-30, 100 UNITS/ML, 10 ML VIAL SUBCUT SCH (07:00)
== END 2018-03-25 19:05 | disposition home health service (06) | DRG 871 ==
LOC: SED 10:17 → STU 12:57 → SMU 03-15 18:20
PROVIDERS: ADMIT Internal Medicine; ATTEND Internal Medicine
DX: A41.9 Sepsis, unspecified organism (principal); G93.41 Metabolic encephalopathy; E43 Unspecified severe protein-calorie malnutrition; J96.90 Respiratory failure, unspecified, unspecified whether with hypoxia or hypercapnia; N39.0 Urinary tract infection, site not specified; D68.9 Coagulation defect, unspecified; E27.40 Unspecified adrenocortical insufficiency; E87.2 Acidosis; E87.1 Hypo-osmolality and hyponatremia; D46.9 Myelodysplastic syndrome, unspecified; D63.8 Anemia in other chronic diseases classified elsewhere; D69.6 Thrombocytopenia, unspecified; E03.9 Hypothyroidism, unspecified; E11.42 Type 2 diabetes mellitus with diabetic polyneuropathy; E78.5 Hyperlipidemia, unspecified; G89.4 Chronic pain syndrome; I10 Essential (primary) hypertension; I48.0 Paroxysmal atrial fibrillation; J44.9 Chronic obstructive pulmonary disease, unspecified; N31.9 Neuromuscular dysfunction of bladder, unspecified; E78.00 Pure hypercholesterolemia, unspecified; M10.9 Gout, unspecified; B96.20 Unspecified Escherichia coli [E. coli] as the cause of diseases classified elsewhere; M47.896 Other spondylosis, lumbar region; K57.90 Diverticulosis of intestine, part unspecified, without perforation or abscess without bleeding; E66.9 Obesity, unspecified; G25.81 Restless legs syndrome; F32.9 Major depressive disorder, single episode, unspecified; F41.9 Anxiety disorder, unspecified; G47.00 Insomnia, unspecified; K59.00 Constipation, unspecified; M79.2 Neuralgia and neuritis, unspecified; D75.9 Disease of blood and blood-forming organs, unspecified; R16.1 Splenomegaly, not elsewhere classified; K76.0 Fatty (change of) liver, not elsewhere classified; K80.20 Calculus of gallbladder without cholecystitis without obstruction; E87.6 Hypokalemia; E83.39 Other disorders of phosphorus metabolism; K74.60 Unspecified cirrhosis of liver; Z78.9 Other specified health status; Z86.73 Personal history of transient ischemic attack (TIA), and cerebral infarction without residual deficits; Z87.440 Personal history of urinary (tract) infections; Z68.27 Body mass index [BMI] 27.0-27.9, adult; Z95.5 Presence of coronary angioplasty implant and graft; Z79.899 Other long term (current) drug therapy; Z79.82 Long term (current) use of aspirin
CPT/HCPCS: 36415; 71045; 76700-TC; 78226; 80048; 80053; 80170-TC; 81000-TC; 82103; 82105; 82140-TC; 82550-TC; 82728; 82962; 83516; 83540-TC; 83550-TC; 83605; 83690-TC; 83735-TC; 83880; 84100-TC; 84439; 84443-TC; 84484; 85007; 85025; 85027; 85044-TC; 85379; 85384-TC; 85610-TC; 85730-TC; 86038; 86256; 86710; 87040-TC; 87081; 87086; 87186-TC; 93005; 96365; 96375; 97110-GP; 97116-GP; 97530-GP; 99285; A9537; G0378; J0692; J0696; J0885; J1450; J1580; J1720; J1815; J1940; J2020; J2405; J2930; J7030; J7050; J7060; Q9964; Q9967

== ENCOUNTER 2018-03-30 17:54 | Inpatient (IN) | payer OTHER, MEDICAID ==
[~2018-03-30] VITALS: Ht 157.5 cm; Wt 81.6 kg
[~2018-03-30 17:54] MED LIST changes: +ASCO500C18 PO; +DIF100 PO; +LACT10SO6 PO; +LINE600T PO; +MAGN400T10 PO; +METO25TA3 PO; -ONDA4TAB5 PO; +PRED10TA PO; +SPIR25TA PO
[2018-03-30 18:13] VITALS: BP_SYST 139
[2018-03-30] MEDS ORDERED: NACL 0.9% 1,000 ML IV ONE (18:13)
[2018-03-30] MEDS ORDERED: ONDANSETRON HCL 4 MG/2 ML VIAL IVP ONE (18:15)
[2018-03-30] MEDS ORDERED: LEVOFLOXACIN 500 MG/D5W 100 ML IV ONE (18:15)
[2018-03-30 19:03] LABS: BILIRUBIN,URINE NEGATIVE (NEGATIVE); BLOOD, URINE 1+ (NEGATIVE); CLARITY/URINE CLEAR (CLEAR); COLOR,URINE YELLOW (YELLOW); GLUCOSE,URINE 3+ (NEGATIVE); KETONES,URINE NEGATIVE (NEGATIVE); LEUKOCYTE ESTERASE ,URINE NEGATIVE (NEGATIVE); NITRITE, URINE NEGATIVE (NEGATIVE); PROTEIN URINE 1+ (NEGATIVE); UROBILINOGEN,URINE 0.2 (0.2-1.0)
[2018-03-30 19:16] LABS: ANION GAP 6 (5-15); CALCIUM 8.4 mg/dL (8.4-11.0); CHLORIDE 100 mmol/L (98-107); CREATININE 1.23 mg/dL (0.55-1.30); GLUCOSE 251 mg/dL (70-99); POTASSIUM 5.1 mmol/L (3.5-5.1); SODIUM SERUM 132 mmol/L (136-145); UREA NITROGEN, BLOOD 33 mg/dL (8-21)
[2018-03-30 19:18] LABS: BARBITURATE, URINE NEGATIVE (NEG <=200); BENZODIAZEPINE, URINE NEGATIVE (NEG <=150); CANNABINOID, URINE NEGATIVE (NEG <=50); COCAINE, URINE NEGATIVE (NEG <=150); LYMPHOCYTES # (AUTO) 0.8 K/uL (1.0-5.5); MEAN CORPUSCULAR HGB CONC 32 % (32-36); METHAMPHETAMINES SCREEN,URINE NEGATIVE (NEG <=500); OPIATE, URINE NEGATIVE (NEG <=100); PHENCYCLIDINE SCREEN,URINE NEGATIVE (NEG <=25); RED CELL DISTRIBUTION WIDTH 21.2 % (9.0-15.0); UR TRICYCLIC ANTIDEPRESSANTS NEGATIVE (NEG <=300); URINE AMPHETAMINE NEGATIVE (NEG <=500); URINE METHADONE NEGATIVE (NEG <=200); URINE OXYCODONE SCREEN NEGATIVE (NEG <=100); URINE PROPOXYPHENE SCREEN NEGATIVE (NEG <=300)
[2018-03-30 19:19] LABS: ACETAMINOPHEN 1 ug/mL (1-30); PROTHROMBIN TIME 10.7 SECS (9.5-12.5)
[2018-03-30 19:21] LABS: ALANINE AMINOTRANSFERASE 21 U/L (12-78); ALBUMIN 2.5 g/dL (3.4-4.8); AMYLASE 37 U/L (0-100); ASPARTATE AMINOTRANSFERASE 27 U/L (10-37); LIPASE 104 U/L (73-393); TOTAL BILIRUBIN 0.7 mg/dL (0.0-1.0)
[2018-03-30 19:22] LABS: ALCOHOL, BLOOD < 3 mg/dL (<10)
[2018-03-30] MEDS ORDERED: SENN-104 PO (20:08)
[2018-03-30] MEDS ORDERED: ONDA4TAB5 PO (20:08)
[2018-03-30 20:11] LABS: BACTERIA,URINE MODERATE /HPF (None Seen)
[2018-03-30 20:12] LABS: MUCUS,URINE None Seen /LPF (None Seen)
[2018-03-30 20:15] VITALS: BP_SYST 123
[2018-03-30 20:30] VITALS: BP_SYST 123
[2018-03-30] MEDS ORDERED: LORazepam 1 MG TABLET PO PRN (20:30)
[2018-03-30] MEDS ORDERED: ACETAMINOPHEN 325 MG TABLET PO PRN (20:30)
[2018-03-30] MEDS ORDERED: DEXTROSE 50% JECT 50 ML DISP.SYRIN IVP PRN (20:30)
[2018-03-30 20:31] VITALS: BP_SYST 127
[2018-03-30] MEDS ORDERED: FUROSEMIDE 20 MG/2 ML VIAL IVP SCH (21:00)
[2018-03-30] MEDS: BACLOFEN 10 MG TABLET PO SCH (22:17)
[2018-03-30] MEDS: SPIRONOLACTONE 25 MG TABLET (ALDACTONE) PO SCH (22:17)
[2018-03-30] MEDS: INSULIN REGULAR, HUMAN 100 UNITS/ML, 10 ML VIAL (novoLIN R) SUBCUT PRN (22:20)
[2018-03-30 23:32] LABS: MONOCYTES # (AUTO) 0.2 K/uL (0.0-1.0); NEUTROPHILS # (AUTO) 4.2 K/uL (1.8-7.7)
[2018-03-30 23:37] LABS: RED BLOOD CELL COUNT(AUTO) 2.89 MIL/uL (4.2-6.2); WHITE BLOOD COUNT (AUTO) 5.2 K/uL (4.8-10.8)
[2018-03-30 23:38] LABS: HEMATOCRIT 29.4 % (36-48); HEMOGLOBIN 9.4 g/dL (12.0-16.0); MEAN CORPUSCULAR VOLUME 102 fL (79.0-98.0)
[2018-03-30 23:41] LABS: MEAN CORPUSCULAR HEMOGLOBIN 33 pg (27-31)
[2018-03-30 23:44] LABS: BASOPHILS % (AUTO) 0.5 % (0.0-2.0); EOSINOPHILS % (AUTO) 0.5 % (0.0-4.0); LYMPHOCYTES % (AUTO) 15.8 % (20.5-51.5); MONOCYTES % (AUTO) 4.2 % (1.7-9.3)
[2018-03-30 23:46] LABS: PLATELET COUNT (AUTO) 54 K/uL (130-430)
[2018-03-31 00:49] VITALS: BP_SYST 115
[2018-03-31] MEDS: INSULIN REGULAR, HUMAN 100 UNITS/ML, 10 ML VIAL (novoLIN R) SUBCUT PRN ×2 (06:25→11:49)
[2018-03-31 07:42] LABS: ANION GAP 9 (5-15); CALCIUM 8.4 mg/dL (8.4-11.0); CHLORIDE 102 mmol/L (98-107); CREATININE 1.27 mg/dL (0.55-1.30); GLUCOSE 264 mg/dL (70-99); POTASSIUM 4.9 mmol/L (3.5-5.1); SODIUM SERUM 138 mmol/L (136-145); UREA NITROGEN, BLOOD 36 mg/dL (8-21)
[2018-03-31] MEDS ORDERED: PREDNISONE 10 MG TABLET PO SCH (08:00)
[2018-03-31 08:11] VITALS: BP_SYST 119
[2018-03-31 08:17] LABS: BASOPHILS % (AUTO) 0.1 % (0.0-2.0); EOSINOPHILS % (AUTO) 0.9 % (0.0-4.0); HEMATOCRIT 31.1 % (36-48); LYMPHOCYTES # (AUTO) 1.5 K/uL (1.0-5.5); LYMPHOCYTES % (AUTO) 27.9 % (20.5-51.5); MEAN CORPUSCULAR HEMOGLOBIN 33 pg (27-31); MEAN CORPUSCULAR HGB CONC 32 % (32-36); MEAN CORPUSCULAR VOLUME 103 fL (79.0-98.0); MONOCYTES # (AUTO) 0.3 K/uL (0.0-1.0); MONOCYTES % (AUTO) 5.6 % (1.7-9.3); NEUTROPHILS # (AUTO) 3.7 K/uL (1.8-7.7); RED BLOOD CELL COUNT(AUTO) 3.01 MIL/uL (4.2-6.2); WHITE BLOOD COUNT (AUTO) 5.5 K/uL (4.8-10.8)
[2018-03-31] MEDS: CYANOCOBALAMIN 1000 mCg TABLET PO SCH (08:18)
[2018-03-31] MEDS: FLUCONAZOLE 100 MG TABLET (DIFLUCAN) PO SCH (08:18)
[2018-03-31] MEDS: BACLOFEN 10 MG TABLET PO SCH ×3 (08:19→20:19)
[2018-03-31] MEDS: METOPROLOL SUCCINATE 25 MG TAB.SR.24H (TOPROL XL) PO SCH (08:19)
[2018-03-31] MEDS: SPIRONOLACTONE 25 MG TABLET (ALDACTONE) PO SCH ×2 (08:20→20:19)
[2018-03-31] MEDS: LACTOBACILLUS RHAMNOSUS GG 1 CAP CAPSULE PO SCH (08:20)
[2018-03-31] MEDS: LINEZOLID 600 MG TABLET PO SCH ×2 (08:22→20:13)
[2018-03-31] MEDS: LACTULOSE 20 GM/30 ML UDC PO SCH ×3 (08:22→20:19)
[2018-03-31] MEDS: PREGABALIN 25 MG CAPSULE (LYRICA) PO SCH ×3 (08:22→20:12)
[2018-03-31 08:23] LABS: PLATELET COUNT (AUTO) 47 K/uL (130-430)
[2018-03-31 11:03] LABS: NEUTROPHILS % (AUTO) 65.5 % (40.0-70.0)
[2018-03-31 11:16] VITALS: BP_SYST 104
[2018-03-31] MEDS: traMADol HCL HCL 50 MG TABLET (ULTRAM) PO PRN ×2 (13:47→20:39)
[2018-03-31 15:32] VITALS: BP_SYST 126
[2018-03-31] MEDS: HYDROCORTISONE 10 MG TABLET (CORTEF) PO SCH ×2 (16:00→20:12)
[2018-03-31] MEDS ORDERED: HYDROCORTISONE 10 MG TABLET (CORTEF) PO ONE (17:15)
[2018-03-31] MEDS: MONTELUKAST 10 MG TABLET PO SCH (17:16)
[2018-03-31] MEDS: INSULIN ASPART 100 UNITS/ML, 10 ML VIAL (NovoLOG) SUBCUT PRN ×2 (17:22→20:27)
[2018-03-31] MEDS: INSULIN NPH/REGULAR 70-30, 100 UNITS/ML, 10 ML VIAL SUBCUT SCH (17:23)
[2018-03-31 20:00] VITALS: BP_SYST 120
[2018-03-31] MEDS: roPINIRole HCL 0.25 MG ( REQUIP )TABLET PO SCH (20:13)
[2018-04-01 00:18] VITALS: BP_SYST 104
[2018-04-01] MEDS: INSULIN NPH/REGULAR 70-30, 100 UNITS/ML, 10 ML VIAL SUBCUT SCH ×2 (06:11→17:25)
[2018-04-01] MEDS: INSULIN ASPART 100 UNITS/ML, 10 ML VIAL (NovoLOG) SUBCUT PRN ×4 (06:14→21:11)
[2018-04-01 07:02] LABS: BASOPHILS % (AUTO) 0.5 % (0.0-2.0); EOSINOPHILS % (AUTO) 0.3 % (0.0-4.0); HEMOGLOBIN 9.3 g/dL (12.0-16.0); LYMPHOCYTES # (AUTO) 1.2 K/uL (1.0-5.5); LYMPHOCYTES % (AUTO) 22.6 % (20.5-51.5); MEAN CORPUSCULAR HEMOGLOBIN 33 pg (27-31); MEAN CORPUSCULAR HGB CONC 32 % (32-36); MEAN CORPUSCULAR VOLUME 102 fL (79.0-98.0); MONOCYTES # (AUTO) 0.3 K/uL (0.0-1.0); MONOCYTES % (AUTO) 6.3 % (1.7-9.3); NEUTROPHILS # (AUTO) 3.6 K/uL (1.8-7.7); NEUTROPHILS % (AUTO) 70.3 % (40.0-70.0); PLATELET COUNT (AUTO) 63 K/uL (130-430); RED BLOOD CELL COUNT(AUTO) 2.85 MIL/uL (4.2-6.2); RED CELL DISTRIBUTION WIDTH 21.3 % (9.0-15.0); WHITE BLOOD COUNT (AUTO) 5.1 K/uL (4.8-10.8)
[2018-04-01 07:58] LABS: ANION GAP 9 (5-15); CALCIUM 8.1 mg/dL (8.4-11.0); CHLORIDE 102 mmol/L (98-107); GLUCOSE 169 mg/dL (70-99); POTASSIUM 4.5 mmol/L (3.5-5.1); SODIUM SERUM 138 mmol/L (136-145); UREA NITROGEN, BLOOD 36 mg/dL (8-21)
[2018-04-01 08:14] VITALS: BP_SYST 128
[2018-04-01] MEDS: LACTULOSE 20 GM/30 ML UDC PO SCH ×3 (08:51→20:58)
[2018-04-01] MEDS: LACTOBACILLUS RHAMNOSUS GG 1 CAP CAPSULE PO SCH (08:51)
[2018-04-01] MEDS: HYDROCORTISONE 10 MG TABLET (CORTEF) PO SCH ×2 (08:52→17:21)
[2018-04-01] MEDS: METOPROLOL SUCCINATE 25 MG TAB.SR.24H (TOPROL XL) PO SCH (08:52)
[2018-04-01] MEDS: PREGABALIN 25 MG CAPSULE (LYRICA) PO SCH ×3 (08:52→20:58)
[2018-04-01] MEDS: LINEZOLID 600 MG TABLET PO SCH ×2 (08:52→20:58)
[2018-04-01] MEDS: BACLOFEN 10 MG TABLET PO SCH ×3 (08:52→20:58)
[2018-04-01] MEDS: FLUCONAZOLE 100 MG TABLET (DIFLUCAN) PO SCH (08:52)
[2018-04-01] MEDS: CYANOCOBALAMIN 1000 mCg TABLET PO SCH (08:53)
[2018-04-01] MEDS: SPIRONOLACTONE 25 MG TABLET (ALDACTONE) PO SCH ×2 (08:53→20:57)
[2018-04-01] MEDS ORDERED: LIDOCAINE 2%, 20 ML MDV INJ ONE (10:30)
[2018-04-01 12:30] VITALS: BP_SYST 111
[2018-04-01] MEDS: traMADol HCL HCL 50 MG TABLET (ULTRAM) PO PRN ×2 (15:25→23:50)
[2018-04-01 17:18] VITALS: BP_SYST 120
[2018-04-01] MEDS: MONTELUKAST 10 MG TABLET PO SCH (17:21)
[2018-04-01 20:08] VITALS: BP_SYST 120
[2018-04-01 20:50] VITALS: BP_SYST 115
[2018-04-01] MEDS: roPINIRole HCL 0.25 MG ( REQUIP )TABLET PO SCH (20:58)
[2018-04-02 00:10] VITALS: BP_SYST 116
[2018-04-02] MEDS: INSULIN NPH/REGULAR 70-30, 100 UNITS/ML, 10 ML VIAL SUBCUT SCH ×2 (07:03→17:54)
[2018-04-02 07:29] LABS: ANION GAP 10 (5-15); CALCIUM 8.3 mg/dL (8.4-11.0); CHLORIDE 101 mmol/L (98-107); CREATININE 0.93 mg/dL (0.55-1.30); GLUCOSE 138 mg/dL (70-99); POTASSIUM 3.9 mmol/L (3.5-5.1); SODIUM SERUM 137 mmol/L (136-145); UREA NITROGEN, BLOOD 28 mg/dL (8-21)
[2018-04-02 07:30] LABS: BASOPHILS % (AUTO) 0.2 % (0.0-2.0); HEMOGLOBIN 9.3 g/dL (12.0-16.0); LYMPHOCYTES # (AUTO) 1.5 K/uL (1.0-5.5); MEAN CORPUSCULAR HEMOGLOBIN 33 pg (27-31); MEAN CORPUSCULAR HGB CONC 32 % (32-36); MEAN CORPUSCULAR VOLUME 103 fL (79.0-98.0); MONOCYTES # (AUTO) 0.3 K/uL (0.0-1.0); NEUTROPHILS # (AUTO) 2.8 K/uL (1.8-7.7); NEUTROPHILS % (AUTO) 60.8 % (40.0-70.0); RED BLOOD CELL COUNT(AUTO) 2.83 MIL/uL (4.2-6.2); RED CELL DISTRIBUTION WIDTH 21.5 % (9.0-15.0); WHITE BLOOD COUNT (AUTO) 4.6 K/uL (4.8-10.8)
[2018-04-02 07:46] LABS: PLATELET COUNT (AUTO) 49 K/uL (130-430)
[2018-04-02 08:04] VITALS: BP_SYST 127
[2018-04-02] MEDS: PREGABALIN 25 MG CAPSULE (LYRICA) PO SCH ×2 (09:01→14:32)
[2018-04-02] MEDS: LACTULOSE 20 GM/30 ML UDC PO SCH ×2 (09:01→14:31)
[2018-04-02] MEDS: FLUCONAZOLE 100 MG TABLET (DIFLUCAN) PO SCH (09:01)
[2018-04-02] MEDS: CYANOCOBALAMIN 1000 mCg TABLET PO SCH (09:02)
[2018-04-02] MEDS: BACLOFEN 10 MG TABLET PO SCH ×2 (09:02→14:31)
[2018-04-02] MEDS: LACTOBACILLUS RHAMNOSUS GG 1 CAP CAPSULE PO SCH (09:02)
[2018-04-02] MEDS: LINEZOLID 600 MG TABLET PO SCH (09:02)
[2018-04-02] MEDS: HYDROCORTISONE 10 MG TABLET (CORTEF) PO SCH ×2 (09:02→17:40)
[2018-04-02] MEDS: SPIRONOLACTONE 25 MG TABLET (ALDACTONE) PO SCH (09:03)
[2018-04-02] MEDS: METOPROLOL SUCCINATE 25 MG TAB.SR.24H (TOPROL XL) PO SCH (09:03)
[2018-04-02 11:18] VITALS: BP_SYST 126
[2018-04-02] MEDS: INSULIN ASPART 100 UNITS/ML, 10 ML VIAL (NovoLOG) SUBCUT PRN ×2 (11:45→17:52)
[2018-04-02] MEDS: traMADol HCL HCL 50 MG TABLET (ULTRAM) PO PRN (12:46)
[2018-04-02] MEDS ORDERED: BALSAM PERU/CASTOR OIL 60 GM OINT...G. TP ONE (14:00)
[2018-04-02 15:49] VITALS: BP_SYST 122
[2018-04-02] MEDS ORDERED: EPOETIN ALFA 10,000 UNITS/ML VIAL SUBCUT SCH (17:00)
[2018-04-02] MEDS: MONTELUKAST 10 MG TABLET PO SCH (17:40)
[2018-04-02 19:42] VITALS: BP_SYST 134
[2018-04-03] MEDS ORDERED: BALSAM PERU/CASTOR OIL 60 GM OINT...G. TP SCH (09:00)
== END 2018-04-02 20:38 | disposition home health service (06) | DRG 840 ==
LOC: SED 17:54 → STU 19:45
PROVIDERS: ADMIT Internal Medicine; ATTEND Internal Medicine
PROC: 07DR3ZX Extraction of Iliac Bone Marrow, Percutaneous Approach, Diagnostic (ICD-10-PCS; principal; 2018-04-01)
DX: C85.10 Unspecified B-cell lymphoma, unspecified site (principal); G93.41 Metabolic encephalopathy; E87.1 Hypo-osmolality and hyponatremia; N39.0 Urinary tract infection, site not specified; E44.1 Mild protein-calorie malnutrition; E27.40 Unspecified adrenocortical insufficiency; D68.59 Other primary thrombophilia; D46.9 Myelodysplastic syndrome, unspecified; B95.2 Enterococcus as the cause of diseases classified elsewhere; D69.6 Thrombocytopenia, unspecified; E03.9 Hypothyroidism, unspecified; E11.42 Type 2 diabetes mellitus with diabetic polyneuropathy; E11.65 Type 2 diabetes mellitus with hyperglycemia; J44.9 Chronic obstructive pulmonary disease, unspecified; K74.60 Unspecified cirrhosis of liver; Z16.21 Resistance to vancomycin; M10.9 Gout, unspecified; E66.9 Obesity, unspecified; I10 Essential (primary) hypertension; E78.00 Pure hypercholesterolemia, unspecified; M19.90 Unspecified osteoarthritis, unspecified site; M47.9 Spondylosis, unspecified; G89.4 Chronic pain syndrome; I48.0 Paroxysmal atrial fibrillation; D63.8 Anemia in other chronic diseases classified elsewhere; E78.5 Hyperlipidemia, unspecified; F32.9 Major depressive disorder, single episode, unspecified; F41.9 Anxiety disorder, unspecified; K59.00 Constipation, unspecified; G25.81 Restless legs syndrome; N31.9 Neuromuscular dysfunction of bladder, unspecified; Z78.9 Other specified health status; Z86.19 Personal history of other infectious and parasitic diseases; Z87.440 Personal history of urinary (tract) infections; Z68.32 Body mass index [BMI] 32.0-32.9, adult; Z79.899 Other long term (current) drug therapy; Z95.5 Presence of coronary angioplasty implant and graft; Z86.73 Personal history of transient ischemic attack (TIA), and cerebral infarction without residual deficits; Z79.82 Long term (current) use of aspirin
CPT/HCPCS: 36415; 38221; 70450-TC; 71045; 80048; 80053; 80307; 81000-TC; 82140-TC; 82150-TC; 82550-TC; 82962; 83605; 83690-TC; 84484; 85025; 85060; 85610-TC; 85730-TC; 87040-TC; 87081; 87086; 88305; 88311; 88313; 88341; 88342; 88361; 93005; 99285; G0378; G0463; G0480; G0481; G0482; J0885; J1815; J1940; J1956; J2001; J2405; J7512

== ENCOUNTER 2018-04-06 19:53 | Inpatient (IN) | payer OTHER, MEDICAID ==
[~2018-04-06] VITALS: Ht 157.5 cm; Wt 76.7 kg
[~2018-04-06 19:53] MED LIST changes: -FLUT16SP16 NS; +ONDA4TAB5 PO
[2018-04-06 20:00] VITALS: BP_SYST 123
--- NOTE | 2018-04-06 20:30 | NUR ---
Pt placed to ER bed 08, to gown, to electronics engineering manager. BIB daughter with c/o weakness, lethargy, and decreased LOC. Pt admitted last Saturday until Saturday for same s/s. Daughter states that Weakness return this past Saturday and was more alert yesterday. However, today her s/s became worse. Pt arouses to tactile and verbal stimuli, then drifts to sleep. Daughter states that she usually c/o pain to BLE r/t neuropathy, but today no c/o pain. F/C was placed last Saturday r/t neurogenic bladder. Patent, secure, draining clear yellow urine.
--- NOTE | 2018-04-06 20:35 | NUR ---
# 22 gauge angiocath placed to RHA. Use of asceptic technique. Opsite placed over site. Blood return noted. Blood for lab drawn from site. Flushed with 10 cc of normal saline. No evidence of infiltration noted. Patient tolerated well.
--- NOTE | 2018-04-06 21:15 | NUR ---
# 16 FR Elena catheter with use of sterile technique. Immediate return of 8 cc of clear yellow urine noted. Bedside drainage bag placed below level of bladder. Urine sample collected and sent to lab. Pt tolerated procedure well. Patient arrived with elena in place, changed due to standard of practice prior to admission. Patient unable to toilet self. Pt with eyes closed, no response upon insertion of F/C.
--- NOTE | 2018-04-06 21:30 | NUR ---
Pt resting quietly, even and non-labored respirations. Daughter at bedside.
[2018-04-06 21:44] LABS: BILIRUBIN,URINE NEGATIVE (NEGATIVE); BLOOD, URINE 3+ (NEGATIVE); CLARITY/URINE CLEAR (CLEAR); COLOR,URINE YELLOW (YELLOW); GLUCOSE,URINE 1+ (NEGATIVE); KETONES,URINE NEGATIVE (NEGATIVE); LEUKOCYTE ESTERASE ,URINE 1+ (NEGATIVE); NITRITE, URINE POSITIVE (NEGATIVE); PROTEIN URINE 1+ (NEGATIVE); UROBILINOGEN,URINE 0.2 (0.2-1.0)
--- NOTE | 2018-04-06 21:45 | NUR ---
Dr. Smiley at bedside.
[2018-04-06 21:52] LABS: BACTERIA,URINE MODERATE /HPF (None Seen); WBC,URINE 20-50 /HPF (0-3)
[2018-04-06 21:57] LABS: ANION GAP 9 (5-15); CALCIUM 7.8 mg/dL (8.4-11.0); CHLORIDE 96 mmol/L (98-107); GLUCOSE 232 mg/dL (70-99); POTASSIUM 4.9 mmol/L (3.5-5.1); SODIUM SERUM 129 mmol/L (136-145); UREA NITROGEN, BLOOD 27 mg/dL (8-21)
[2018-04-06 21:58] LABS: BARBITURATE, URINE NEGATIVE (NEG <=200); BENZODIAZEPINE, URINE NEGATIVE (NEG <=150); CANNABINOID, URINE NEGATIVE (NEG <=50); COCAINE, URINE NEGATIVE (NEG <=150); METHAMPHETAMINES SCREEN,URINE NEGATIVE (NEG <=500); OPIATE, URINE NEGATIVE (NEG <=100); PHENCYCLIDINE SCREEN,URINE NEGATIVE (NEG <=25); UR TRICYCLIC ANTIDEPRESSANTS NEGATIVE (NEG <=300); URINE AMPHETAMINE NEGATIVE (NEG <=500); URINE METHADONE NEGATIVE (NEG <=200); URINE OXYCODONE SCREEN NEGATIVE (NEG <=100); URINE PROPOXYPHENE SCREEN NEGATIVE (NEG <=300)
[2018-04-06 21:59] LABS: INR 1.1 (0.8-1.2); PROTHROMBIN TIME 11.1 SECS (9.5-12.5)
[2018-04-06 22:01] LABS: ALANINE AMINOTRANSFERASE 24 U/L (12-78); ALBUMIN 2.6 g/dL (3.4-4.8); ASPARTATE AMINOTRANSFERASE 47 U/L (10-37); HEMOGLOBIN 9.6 g/dL (12.0-16.0); MEAN CORPUSCULAR HEMOGLOBIN 34 pg (27-31); MEAN CORPUSCULAR HGB CONC 32 % (32-36); MEAN CORPUSCULAR VOLUME 104 fL (79.0-98.0); RED BLOOD CELL COUNT(AUTO) 2.87 MIL/uL (4.2-6.2); TOTAL BILIRUBIN 0.8 mg/dL (0.0-1.0); WHITE BLOOD COUNT (AUTO) 4.9 K/uL (4.8-10.8)
[2018-04-06 22:05] LABS: BASOPHILS % (AUTO) 0.7 % (0.0-2.0); EOSINOPHILS % (AUTO) 0.1 % (0.0-4.0); LYMPHOCYTES # (AUTO) 1.3 K/uL (1.0-5.5); LYMPHOCYTES % (AUTO) 26.7 % (20.5-51.5); MONOCYTES # (AUTO) 0.2 K/uL (0.0-1.0); MONOCYTES % (AUTO) 4.7 % (1.7-9.3); NEUTROPHILS # (AUTO) 3.3 K/uL (1.8-7.7); NEUTROPHILS % (AUTO) 67.8 % (40.0-70.0); PLATELET COUNT (AUTO) 35 K/uL (130-430)
[2018-04-06] MEDS ORDERED: cefTRIAXone 1 GM IVPB PREMIX 50 ML IV ONE (22:30)
--- NOTE | 2018-04-06 23:00 | NUR ---
Pt resting quietly, even and non-labored respirations, VSS. Daughter at bedside.
--- NOTE | 2018-04-06 23:23 | NUR ---
Medication reconciliation completed with information provided by daughter. Any prior medication reconciliation on file was reviewed and corrected.
[2018-04-07] MEDS ORDERED: LINEZOLID 300 ML IV ONE
[2018-04-07] MEDS ORDERED: INSULIN REGULAR, HUMAN 100 UNITS/ML, 10 ML VIAL (novoLIN R) SUBCUT PRN (00:15)
--- NOTE | 2018-04-07 00:30 | NUR ---
Informed Dr. Smiley Lactic Acid results. No fluids ordered. Antibiotics IVPB only.
--- NOTE | 2018-04-07 00:40 | NUR ---
Patient will be admitted to care of Dr. Stephens. Admitted to Tele unit. Will go to room 116B. Belongings list completed. Summary report printed. Report will be given at bedside.
--- NOTE | 2018-04-07 01:22 | NUR ---
ADMISSION: The patient, RYANNE BUNN, 72 y/o, F admitted by CHRISTA WELLS MD,WITH THE DIAGNOSIS OF ALOC TO ROOM 116 B ; DAUGHTER AT BEDSIDE , was given written information regarding hospital policies, unit procedures and contact persons.
[2018-04-07 01:37] VITALS: BP_SYST 123
[2018-04-07] MEDS: NACL 0.9% 1,000 ML IV SCH ×3 (02:37→20:15)
--- NOTE | 2018-04-07 02:41 | NUR ---
CONSULT: CONSULT CALLED FOR DR. DINERO I SPOKE WITH JOHN HOGAN REASON FOR CONSULT: MYELODYSPLASTIC LYMPHOMA REQUESTING CONSULT: DR. WELLS COMMODITY MERCHANT PHONE NUMBER: [phone]
--- NOTE | 2018-04-07 02:43 | NUR ---
CONSULT: CONSULT CALLED FOR DR. MILLAN I SPOKE WITH ALEXI HOGAN REASON FOR CONSULT: MYELODYSPLASTIC LYMPHOMA REQUESTING CONSULT: DR. WELLS IMPACT RETAIL SERVICE MERCHANDISER PHONE NUMBER: [phone]
--- NOTE | 2018-04-07 02:45 | NUR ---
ADMIT NOTE Received pt from ER to the floor with a diagnosis of ALOC. Admission process initiated. patient oriented to pain management, safety and call light-teach back done PROCEDURES EXPLAINED , FAMILY @ the bedside call posada with patient bed to low position .
--- NOTE | 2018-04-07 05:13 | NUR ---
PICTURES PHOTOS TAKEN OF SACRAL WOUND 80 % RED 20 % PINK 4CM X 4 CM & PUT IN MEDICAL RECORD .
--- NOTE | 2018-04-07 07:04 | NUR ---
Nutrition Update David Scale 12 noted. Pt admitted for ALOC Diet: [facility] diet BMI: 27.5 kg/m2 RD to follow per nutrition care standards.
--- NOTE | 2018-04-07 07:50 | NUR ---
OPENING NOTE patient is resting in bed, A&Ox3, assessment completed, educated marine electronics technician light system and plan of care, patient verbalized understanding, patient had a BM so jazmin care and linens were changed, no other needs at this time, bed in the lowest position, bed alarm on, call light within reach, two side rails up, IV line intact, elena intact.
[2018-04-07 08:36] VITALS: BP_SYST 134
[2018-04-07] MEDS ORDERED: METOPROLOL TARTRATE 25 MG TABLET PO ONE (09:00)
[2018-04-07] MEDS ORDERED: LINEZOLID 300 ML IV SCH (09:00)
[2018-04-07] MEDS ORDERED: GENTAMICIN 100 mg/50 mL NS 50 ML IV ONE (09:00)
[2018-04-07] MEDS ORDERED: cefTRIAXone 1 GM in D5W 50 ML IV ONE (09:00)
[2018-04-07] MEDS ORDERED: CYANOCOBALAMIN 1000 mCg TABLET PO ONE (10:15)
[2018-04-07] MEDS ORDERED: BACLOFEN 10 MG TABLET PO ONE (10:15)
[2018-04-07] MEDS ORDERED: HYDROCORTISONE 10 MG TABLET (CORTEF) PO ONE (10:15)
[2018-04-07] MEDS ORDERED: METOPROLOL SUCCINATE 25 MG TAB.SR.24H (TOPROL XL) PO SCH (10:15)
[2018-04-07] MEDS ORDERED: FLUCONAZOLE 100 MG TABLET (DIFLUCAN) PO ONE (10:15)
--- NOTE | 2018-04-07 10:19 | NUR ---
CONSULTATION PAGED REASON FOR CONSULTATION:DM WAS CONSULT CALLED?Y PERSON WHO WAS NOTIFIED:JASVIR CONSULTING PHYSICIAN:LOIDA CURIEL FLOORPERSON SPECIALTY:ENDO FLOORPERSON PHONE NUMBER:[phone] REQUESTING PHYSICIAN:BAYLEE THOMAS
--- NOTE | 2018-04-07 10:28 | NUR ---
DC Planning: Received transfer to [facility] for chemotherapy from dr. Stephens. CM s/w with Bertha via phone # [phone] inquiring authorization for the transfer. Per Bertha and Shanna they want to speak with dr. Anaya to get a clear prognosis before making decision for the transfer. -- JOHNNY Aguirre made aware.
[2018-04-07 10:33] LABS: HEMATOCRIT 30.1 % (36-48); HEMOGLOBIN 9.6 g/dL (12.0-16.0); MEAN CORPUSCULAR HEMOGLOBIN 33 pg (27-31); MEAN CORPUSCULAR HGB CONC 32 % (32-36); MEAN CORPUSCULAR VOLUME 103 fL (79.0-98.0); RED BLOOD CELL COUNT(AUTO) 2.92 MIL/uL (4.2-6.2); RED CELL DISTRIBUTION WIDTH 20.7 % (9.0-15.0); WHITE BLOOD COUNT (AUTO) 6.2 K/uL (4.8-10.8)
[2018-04-07 10:40] LABS: ANION GAP 11 (5-15); CALCIUM 7.6 mg/dL (8.4-11.0); CHLORIDE 97 mmol/L (98-107); CREATININE 1.09 mg/dL (0.55-1.30); GLUCOSE 156 mg/dL (70-99); POTASSIUM 4.8 mmol/L (3.5-5.1); SODIUM SERUM 132 mmol/L (136-145); UREA NITROGEN, BLOOD 25 mg/dL (8-21)
[2018-04-07 10:44] LABS: LACTATE DEHYDROGENASE 724 U/L (81-234); PHOSPHORUS 2.4 mg/dL (2.7-4.5)
[2018-04-07 10:48] LABS: PLATELET COUNT (AUTO) 42 K/uL (130-430)
[2018-04-07] MEDS: traMADol HCL HCL 50 MG TABLET (ULTRAM) PO PRN ×2 (10:51→18:39)
--- NOTE | 2018-04-07 10:56 | NUR ---
medications patient is resting in bed, MD put new orders of home medications to be given, educated on medication use and side effects, patient verbalized understanding, no other needs at this time, bed in the lowest position, bed alarm on, call light within reach, two side rails up, IV line intact, elena intact.
[2018-04-07] MEDS: PREGABALIN 25 MG CAPSULE (LYRICA) PO PRN ×2 (11:08→20:52)
--- NOTE | 2018-04-07 11:08 | NUR ---
Ilir patient is resting in bed, complaining of neuropathy pain, educated on medication use and side effects, patient verbalized understanding, no other needs at this time, bed in the lowest position, bed alarm on, call light within reach, two side rails up, IV line intact, elena intact. Addendum: 04/07/18 at 1415 by Carla Sifuentes RN Rocephin also administered
[2018-04-07 11:20] LABS: ATYPICAL LYMPHOCYTES % 2 % (0-0); BASOPHILS % (MANUAL) 0 % (0-2); EOSINOPHILS % (MANUAL) 1 % (0-7); LYMPHOCYTES % (MANUAL) 47 % (20-46); MONOCYTES % (MANUAL) 5 % (0-11)
[2018-04-07] MEDS: LEVOFLOXACIN 250 MG/D5W 50 ML IV SCH (11:58)
[2018-04-07] MEDS: ONDANSETRON 4 MG ODT TAB PO SCH ×2 (11:58→20:38)
--- NOTE | 2018-04-07 11:58 | NUR ---
lalo patient is resting in bed, accuchek done and no sliding scale needed at this time, educated on medication use and side effects, patient verbalized understanding, no other needs at this time, bed in the lowest position, bed alarm on, call light within reach, two side rails up, IV line intact, elena intact. Addendum: 04/07/18 at 1416 by Carla Sifuentes RN patient complained of N/V zofran was given
[2018-04-07 12:45] VITALS: BP_SYST 123
--- NOTE | 2018-04-07 13:26 | NUR ---
gentamycin patient is resting in bed, educated on medication use and side effects, patient verbalized understanding, no other needs at this time, antibiotic given late d/t other antibiotics scheduled and pharmacy not having it ready, bed in the lowest position, bed alarm on, call light within reach, two side rails up, IV line intact, elena intact.
[2018-04-07] MEDS: ACETAMINOPHEN 325 MG TABLET PO PRN (13:32)
--- NOTE | 2018-04-07 13:32 | NUR ---
tylenol patient is resting in bed, complaining of lower extremities pain, educated on medication use and side effects, patient verbalized understanding, no other needs at this time, bed in the lowest position, bed alarm on, call light within reach, two side rails up, IV line intact, elena intact.
[2018-04-07] MEDS ORDERED: MAGNESIUM OXIDE 400 MG TABLET PO ONE (13:45)
[2018-04-07] MEDS: LACTULOSE 20 GM/30 ML UDC PO SCH ×2 (14:49→20:35)
[2018-04-07] MEDS: BACLOFEN 10 MG TABLET PO SCH ×2 (14:49→20:35)
--- NOTE | 2018-04-07 14:49 | NUR ---
medications patient is resting in bed, educated on medication use and side effects, patient verbalized understanding, no other needs at this time, bed in the lowest position, bed alarm on, call light within reach, two side rails up, IV line intact, elena intact.
[2018-04-07] MEDS ORDERED: DEXTROSE 50% JECT 50 ML DISP.SYRIN IVP PRN (16:30)
[2018-04-07 16:50] VITALS: BP_SYST 100
--- NOTE | 2018-04-07 17:23 | NUR ---
accuchek patient is resting in bed, accuchek done and no sliding scale needed at this time, no other needs at this time, bed in the lowest position, bed alarm on, call light within reach, two side rails up, IV line intact, elena intact.
[2018-04-07] MEDS: MONTELUKAST 10 MG TABLET PO SCH (18:39)
--- NOTE | 2018-04-07 18:39 | NUR ---
ultram and scheduled medications patient is resting in bed, complaining of lower extremities pain, educated on medication use and side effects, patient verbalized understanding, no other needs at this time, bed in the lowest position, bed alarm on, call light within reach, two side rails up, IV line intact, elena intact.
[2018-04-07] MEDS: HYDROCORTISONE 10 MG TABLET (CORTEF) PO SCH (18:40)
--- NOTE | 2018-04-07 19:20 | NUR ---
closing note patient is resting in bed, family at the bedside, report given to noc shift nurse, no other needs at this time, bed in the lowest position, bed alarm on, call light within reach, two side rails up, IV line intact, elena intact.
--- NOTE | 2018-04-07 19:35 | NUR ---
OPENING NOTES Pt and endorsement received from day shift nurse. Pt is awake, alert and lying in bed. Daughter at bedside. Pt on IVF of NS at 100ml/hr on right hand G22. Pt on elena catheter with yellow urine noted in the bag and hanged below bladder level. No complains of pain at time and no signs of acute distress noted. Encouraged to use call light when needed. Safety precautions in place with 3 side rails up, bed alarm on and lowest level. Call light with pt. Will continue to monitor.
[2018-04-07 20:32] VITALS: BP_SYST 111
[2018-04-07] MEDS: roPINIRole HCL 0.25 MG ( REQUIP )TABLET PO SCH (20:35)
[2018-04-07] MEDS: SENNOSIDES/DOCUSATE SODIUM 1 TAB TABLET(SENOKOT-S) PO SCH (20:35)
[2018-04-07] MEDS: INSULIN ASPART 100 UNITS/ML, 10 ML VIAL (NovoLOG) SUBCUT PRN (20:42)
[2018-04-07] MEDS ORDERED: cefTRIAXone 1 GM in D5W 50 ML IV SCH ×4 (21:00)
--- NOTE | 2018-04-07 21:40 | NUR ---
INCONTINENCE CARE/ WOUND CARE Pt had a bowel movement, incontinence care rendered and wound care done. Pt tolerated well. No signs of acute distress or SOB noted. Safety precautions in place and call light with pt. Will continue to monitor.
--- NOTE | 2018-04-08 00:05 | NUR ---
RESTING Pt is resting in bed with both eyes closed. With visible chest rise and fall with unlabored breathing noted. Daughter at bedside. No complains of pain and no signs of acute distress or SOB noted. Safety precautions in place and call light with pt. Will continue to monitor.
[2018-04-08 01:32] VITALS: BP_SYST 116
--- NOTE | 2018-04-08 02:15 | NUR ---
RESTING Pt is resting in bed with both eyes closed. With visible chest rise and fall with unlabored breathing noted. Daughter at bedside. No complains of pain or discomfort at this time. No signs of acute distress or SOB noted. Safety precautions in place and call light with pt. Will continue to monitor.
[2018-04-08] MEDS: NACL 0.9% 1,000 ML IV SCH ×3 (03:05→21:25)
--- NOTE | 2018-04-08 04:24 | NUR ---
RESTING Pt is resting in bed with both eyes closed. With visible chest rise and fall with unlabored breathing noted. Daughter at bedside. No signs of acute distress or SOB noted. Safety precautions in place and call light with pt. Will continue to monitor.
[2018-04-08] MEDS: INSULIN ASPART 100 UNITS/ML, 10 ML VIAL (NovoLOG) SUBCUT PRN ×2 (06:04→21:14)
--- NOTE | 2018-04-08 06:50 | NUR ---
CLOSING NOTES Pt is awake, alert and lying in bed. Daughter at bedside. No complains of pain at this time. IVF infusing well. Abraham hanged below bladder level. No signs of acute distress or SOB noted. All needs attended throughout the shift. Safety precautions maintained and call light with pt. Will endorse to day shift nurse.
[2018-04-08 07:05] LABS: BASOPHILS % (AUTO) 0.2 % (0.0-2.0); EOSINOPHILS % (AUTO) 0.8 % (0.0-4.0); HEMATOCRIT 27.5 % (36-48); HEMOGLOBIN 8.8 g/dL (12.0-16.0); LYMPHOCYTES # (AUTO) 1.6 K/uL (1.0-5.5); LYMPHOCYTES % (AUTO) 31.8 % (20.5-51.5); MEAN CORPUSCULAR HEMOGLOBIN 33 pg (27-31); MEAN CORPUSCULAR HGB CONC 32 % (32-36); MEAN CORPUSCULAR VOLUME 103 fL (79.0-98.0); MONOCYTES # (AUTO) 0.6 K/uL (0.0-1.0); MONOCYTES % (AUTO) 11.3 % (1.7-9.3); NEUTROPHILS # (AUTO) 2.9 K/uL (1.8-7.7); NEUTROPHILS % (AUTO) 55.9 % (40.0-70.0); RED BLOOD CELL COUNT(AUTO) 2.66 MIL/uL (4.2-6.2); RED CELL DISTRIBUTION WIDTH 21.4 % (9.0-15.0); WHITE BLOOD COUNT (AUTO) 5.1 K/uL (4.8-10.8)
[2018-04-08 07:38] LABS: ANION GAP 9 (5-15); CALCIUM 7.3 mg/dL (8.4-11.0); CHLORIDE 97 mmol/L (98-107); CREATININE 1.05 mg/dL (0.55-1.30); FREE T4 (FREE THYROXINE) 0.4 ng/dL (0.6-1.6); GLUCOSE 94 mg/dL (70-99); SODIUM SERUM 130 mmol/L (136-145); THYROID STIMULATING HORMONE 0.08 uIu/mL (0.34-4.82); UREA NITROGEN, BLOOD 32 mg/dL (8-21)
--- NOTE | 2018-04-08 07:45 | NUR ---
opening note patient is resting in bed, family present, eyes open, moving arms, A&Ox2, assessment completed, educated protection officer light system and plan of care, patient did not give me a verbal response, offered a new sheet and blanket because the current ones were soiled, no other needs at this time, bed in the lowest position, bed alarm on, two side rails up, call light within reach, elena intact, IV line intact, PT is present.
[2018-04-08 08:30] LABS: PLATELET COUNT (AUTO) 46 K/uL (130-430)
[2018-04-08 08:36] VITALS: BP_SYST 123
[2018-04-08] MEDS: LACTULOSE 20 GM/30 ML UDC PO SCH ×4 (08:41→21:10)
[2018-04-08] MEDS: HYDROCORTISONE 10 MG TABLET (CORTEF) PO SCH ×2 (08:41→18:23)
[2018-04-08] MEDS: PREGABALIN 25 MG CAPSULE (LYRICA) PO PRN (08:41)
[2018-04-08] MEDS: FLUCONAZOLE 100 MG TABLET (DIFLUCAN) PO SCH (08:41)
[2018-04-08] MEDS: CYANOCOBALAMIN 1000 mCg TABLET PO SCH (08:41)
[2018-04-08] MEDS: BACLOFEN 10 MG TABLET PO SCH ×3 (08:42→21:10)
[2018-04-08] MEDS: SENNOSIDES/DOCUSATE SODIUM 1 TAB TABLET(SENOKOT-S) PO SCH ×2 (08:42→21:11)
[2018-04-08] MEDS: MAGNESIUM OXIDE 400 MG TABLET PO SCH (08:42)
[2018-04-08] MEDS: METOPROLOL SUCCINATE 25 MG TAB.SR.24H (TOPROL XL) PO SCH (08:42)
[2018-04-08] MEDS: FENOFIBRATE 160 MG TABLET PO SCH (08:42)
--- NOTE | 2018-04-08 08:42 | NUR ---
medications patient is resting in bed, eyes open, moving arms, educated on medication uses and side effects, patient did not give me a verbal response, medications were given one by one to mouth and given water, no other needs at this time, bed in the lowest position, bed alarm on, two side rails up, call light within reach, elena intact, IV line intact.
[2018-04-08] MEDS ORDERED: MAGNESIUM OXIDE 400 MG TABLET PO SCH (09:00)
[2018-04-08] MEDS: traMADol HCL HCL 50 MG TABLET (ULTRAM) PO PRN ×2 (09:45→14:38)
--- NOTE | 2018-04-08 09:45 | NUR ---
pain medication patient is resting in bed, eyes open, moving arms, complaining of lower extremities pain, educated on medication use and side effects, patient verbalized understanding no other needs at this time, bed in the lowest position, bed alarm on, two side rails up, call light within reach, elena intact, IV line intact.
--- NOTE | 2018-04-08 11:00 | NUR ---
rounds patient is resting in bed, eyes open, moving arms, patient did not give me a verbal response, no needs at this time, bed in the lowest position, bed alarm on, two side rails up, call light within reach, elena intact, IV line intact, PT is present.
[2018-04-08] MEDS: LEVOFLOXACIN 250 MG/D5W 50 ML IV SCH (11:40)
[2018-04-08] MEDS: ACETAMINOPHEN 325 MG TABLET PO PRN (11:40)
--- NOTE | 2018-04-08 11:40 | NUR ---
scheduled medication and pain medication patient is resting in bed, eyes open, moving arms, complaining of headache, educated on medication use and side effects, patient verbalized understanding and tolerated well, no other needs at this time, bed in the lowest position, bed alarm on, two side rails up, call light within reach, elena intact, IV line intact, IV fluids were changed. Addendum: 04/08/18 at 1711 by Carla Sifuentes RN ACCUCHEK WAS DONE, NO SLIDING SCALE NEEDED AT THIS TIME
--- NOTE | 2018-04-08 11:53 | NUR ---
Dr Stephens rounds assessed patient in room
--- NOTE | 2018-04-08 12:10 | NUR ---
WOUND EVALUATION: Late note for 1210 secondary to patient care. Wound Consult received from Dr. Stephens. Thank you, Dr. tSephens, for the consult. Patient received in a Underwood Bed with an Isoflex SALTY mattress, low air loss therapy was initiated, awake, alert, slow to respond, and oriented x 3. Patient is able to turn in bed with minimal assist. David Score is a 13. Past medical history: Urinary retention, neurogenic bladder, adrenal insufficiency, MDS with anemia, thrombocytopenia, immune compromise, old CVA, diabetes mellitus type 2, diabetic polyneuropathy, bilateral sciatica, lumbago, degenerative joint disease of the lumbar spine, moderate degenerative joint disease of the left hip, chronic pain syndrome, asthma, paroxysmal atrial fibrillation, anemia of chronic illness, diverticulosis, hypertension, hyperlipidemia, hypothyroidism, obesity, restless leg syndrome, constipation, Tarlov cysts, hyperbilirubinemia, hypercoagulopathy, anxiety, depression, mild protein malnutrition, anasarca, hyperuricemia. Recent labs: WBC 5.1, RBC 2.66, hemoglobin 8.8, hematocrit 27.5, sodium 130, chloride 97, BUN 32, creatinine 1.05, POC glucose 102, albumin 2.6, PTT 24.8. Microbiology: Blood culture results 2 in progress. MRSA screen results negative. Urine culture results in progress. Intrinsic factors that delay wound healing: Diabetes mellitus, diabetic polyneuropathy, Immunocompromised, asthma, anemia of chronic illness, hypoalbuminemia. Extrinsic factors that delay wound healing: Decreased mobility. Wound Assessment: 1. Sacral-Coccygeal Area, Superior Wound: Re-opened scar tissue, present on admission. Wound bed has 10% dark red tissue, 15% dark discoloration, 75% yellow tissue. No odor, no drainage. Periwound intact. Surrounding tissue has scar tissue, and dark discolored tissue. Wound measures 1.4 cm x 2.7 cm. Recommend: Cleanse wound with normal saline. Apply Calmoseptine cream to periwound. Apply Venelex ointment onto wound bed. Cover with foam dressing. Perform wound care daily, and as needed for dressing soiling or dislodgement. 2. Sacral-Coccygeal Area, Inferior Wound: Re-opened scar tissue, present on admission. Wound bed has 40% pink tissue, 60% yellow tissue. No odor, no drainage. Periwound intact. Surrounding tissue has scar tissue, and dark discolored tissue. Wound measures 1.4 cm x 2.0 cm. Recommend: Cleanse wound with normal saline. Apply Calmoseptine cream to wound and periwound. Apply Venelex ointment onto any portion of wound bed not covered by Calmoseptine cream. Cover with foam dressing. Perform wound care daily, and as needed for dressing soiling or dislodgement. 3. Upper Sacral/Lower Back area, Superior to Wound 1: Area of dull red ecchymosis, present on admission. This is an old biopsy site per patient's daughter. Recommend: No dressing needed. Continue to monitor site for worsening condition. Offload site with pillows. Also recommend continue: Encourage and assist patient as needed with repositioning side to side only 2 hours with pillow support (place one pillow underneath pelvic area, and one pillow beneath thoracic area), and off-load pressure areas with pillows for pressure re-distribution. Offload, elevate and float bilateral heels with one pillow lengthwise under each extremity at all times. Perform skin care and monitor skin integrity Q shift. Use Calmoseptine cream on buttocks and other moisture susceptible areas QID and as needed for soiling. Maintain patient on a low air-loss mattress.
--- NOTE | 2018-04-08 12:10 | NUR ---
Wound care Pérez TURNER present, did wound assessment and care, zguard placed on wound and covered with foam dressing, patient tolerated well, bed in the lowest position, bed alarm on, call light within reach, two side rails up, call light within reach, elena intact, IV line intact.
[2018-04-08 12:12] VITALS: BP_SYST 119
[2018-04-08] MEDS: ONDANSETRON 4 MG ODT TAB PO SCH (12:44)
--- NOTE | 2018-04-08 12:45 | NUR ---
dimitry patient is resting in bed, cesar present, patient complaining of nausea, educated patient on medication use and side effects, patient verbalized understanding and tolerated well, bed in the lowest position, bed alarm on, call light within reach, two side rails up, call light within reach, elena intact, IV line intact.
[2018-04-08] MEDS: PREGABALIN 25 MG CAPSULE (LYRICA) PO SCH ×3 (13:09→21:10)
--- NOTE | 2018-04-08 13:10 | NUR ---
scheduled lyrica patient is resting in bed, family present, educated patient on medication use and side effects, patient verbalized understanding and tolerated well, bed in the lowest position, bed alarm on, call light within reach, two side rails up, call light within reach, elena intact, IV line intact.
[2018-04-08] MEDS ORDERED: BALSAM PERU/CASTOR OIL 60 GM OINT...G. TP ONE (13:45)
--- NOTE | 2018-04-08 14:38 | NUR ---
scheduled baclofen and pain medication patient is resting in bed, family present, patient complaining of lower extremities pain, educated patient on medication use and side effects, patient verbalized understanding and tolerated well, patient and family refused enulose at this time and might ask for it after dinner, bed in the lowest position, bed alarm on, call light within reach, two side rails up, call light within reach, elena intact, IV line intact, enulose was opened in patient's room and was wasted in the medication room.
--- NOTE | 2018-04-08 16:07 | NUR ---
paged Dr Stephens in regards to order for another pain medication
--- NOTE | 2018-04-08 16:07 | NUR ---
DC Planning: Met with mauro Otero to give update on POC for chemo. Transferring to [facility] will need dr. Anaya's determination for chemo treatment plan which may be for out patient vs inpatient. No transfer at this time. CM to f/u.
[2018-04-08] MEDS ORDERED: MENTHOL/ZINC OXIDE 113 GM OINT. TP PRN (16:30)
[2018-04-08 16:39] VITALS: BP_SYST 122
[2018-04-08] MEDS ORDERED: HYDROcodone/ACETAMIN 5-325 MG TAB (NORCO/ VICODIN) PO PRN (16:45)
--- NOTE | 2018-04-08 16:57 | NUR ---
accuchek and medications patient is resting in bed, eyes open, moving arms, complaining of lower extremities pain, educated on medication use and side effects, patient verbalized understanding and tolerated well, accuchek done and no sliding scale needed at this time, wound dressing changed and venelex was applied, no other needs at this time, bed in the lowest position, bed alarm on, two side rails up, call light within reach, elena intact, IV line intact, IV fluids were changed.
--- NOTE | 2018-04-08 17:25 | NUR ---
Dr Wilmer mobley saw patient in room
[2018-04-08] MEDS: MONTELUKAST 10 MG TABLET PO SCH (18:23)
--- NOTE | 2018-04-08 18:23 | NUR ---
SCHEDULED MEDICATIONS patient is resting in bed, eyes open, moving arms, educated on medication use and side effects, patient verbalized understanding and tolerated well, no other needs at this time, bed in the lowest position, bed alarm on, two side rails up, call light within reach, elena intact, IV line intact, IV fluids were changed.
--- NOTE | 2018-04-08 18:47 | NUR ---
closing note patient is resting in bed, eyes open, moving arms, family present, no other needs at this time, will endorse report to noc shift nurse, bed in the lowest position, bed alarm on, two side rails up, call light within reach, elena intact, IV line intact, IV fluids were changed.
--- NOTE | 2018-04-08 19:24 | NUR ---
OPENING NOTES Pt and endorsement received from day shift nurse. Pt is awake and lying in bed. Family at bedside. Pt on IVF of NS at 100ml/hr and infusing well on left forearm G22. Urine bag hanged below bladder level with yellow urine noted in the bag. No complains of pain or discomfort at this time. No signs of acute distress or SOB noted. Encouraged to use call light when needed. Safety precautions in place with 3 side rails up, bed alarm on and at lowest level. Call light with pt. Will continue to monitor.
[2018-04-08] MEDS: roPINIRole HCL 0.25 MG ( REQUIP )TABLET PO SCH (21:11)
[2018-04-08 21:30] VITALS: BP_SYST 133
--- NOTE | 2018-04-08 22:30 | NUR ---
RESTING Pt is resting in bed with both eyes closed, with visible chest rise and fall with unlabored breathing noted. Daughter at bedside. IVF infusing well. No complains of pain or discomfort. No signs of acute distress noted. Safety precautions in place and call light with pt. Will continue to monitor.
[2018-04-09 00:10] VITALS: BP_SYST 105
--- NOTE | 2018-04-09 00:51 | NUR ---
RESTING Pt is resting in bed with both eyes closed, with visible chest rise and fall with unlabored breathing noted. Daughter at bedside. IVF infusing well. No complains of pain or discomfort. No signs of acute distress or SOB noted. Safety precautions in place and call light with pt. Will continue to monitor.
--- NOTE | 2018-04-09 02:59 | NUR ---
RESTING Pt is resting in bed with both eyes closed, with visible chest rise and fall with unlabored breathing noted. Daughter at bedside. No complains of pain or discomfort. No signs of acute distress or SOB noted. Safety precautions in place and call light with pt. Will continue to monitor.
--- NOTE | 2018-04-09 05:00 | NUR ---
RESTING Pt is resting in bed with both eyes closed, with visible chest rise and fall with unlabored breathing noted. Daughter at bedside. IVF infusing well. No signs of acute distress or SOB noted. Safety precautions in place and call light with pt. Will continue to monitor.
[2018-04-09] MEDS: NACL 0.9% 1,000 ML IV SCH ×2 (06:05→16:55)
[2018-04-09] MEDS: LEVOTHYROXINE SODIUM 0.025 MG TABLET PO SCH (06:05)
[2018-04-09] MEDS: INSULIN ASPART 100 UNITS/ML, 10 ML VIAL (NovoLOG) SUBCUT PRN ×2 (06:15→17:23)
[2018-04-09 06:27] LABS: BASOPHILS % (AUTO) 0.1 % (0.0-2.0); EOSINOPHILS % (AUTO) 0.8 % (0.0-4.0); HEMATOCRIT 26.8 % (36-48); HEMOGLOBIN 8.3 g/dL (12.0-16.0); LYMPHOCYTES # (AUTO) 1.3 K/uL (1.0-5.5); LYMPHOCYTES % (AUTO) 33.3 % (20.5-51.5); MEAN CORPUSCULAR HEMOGLOBIN 32 pg (27-31); MEAN CORPUSCULAR HGB CONC 31 % (32-36); MEAN CORPUSCULAR VOLUME 104 fL (79.0-98.0); MONOCYTES # (AUTO) 0.5 K/uL (0.0-1.0); MONOCYTES % (AUTO) 12.4 % (1.7-9.3); NEUTROPHILS # (AUTO) 2.1 K/uL (1.8-7.7); RED BLOOD CELL COUNT(AUTO) 2.59 MIL/uL (4.2-6.2); RED CELL DISTRIBUTION WIDTH 21.5 % (9.0-15.0); WHITE BLOOD COUNT (AUTO) 3.9 K/uL (4.8-10.8)
--- NOTE | 2018-04-09 06:58 | NUR ---
CLOSING NOTES Pt is resting in bed with both eyes closed, with visible chest rise and fall with unlabored breathing noted. Daughter at bedside. IVF infusing well. No complains of pain or discomfort. No signs of acute distress or SOB noted. All needs attended throughout the shift. Safety precautions maintained and call light with pt. Will endorse to day shift nurse.
--- NOTE | 2018-04-09 07:43 | NUR ---
Opening Note received report from night supervisor RN, pt resting in bed, A&Ox2, respirations even and unlabored, pt reports pain is controlled at this time, no acute distress noted, IV site clean, dry, intact, and infusing well, elena catheter draining to gravity, pts at bedside, pt and pts educated on use of call light and asked to call for assistance, pt and pts verbalized understanding, call light in reach, bed in low and locked position, bed alarm on, fall, aspiration, and isolation precautions in place.
[2018-04-09 08:00] VITALS: BP_SYST 118
[2018-04-09 08:11] LABS: PLATELET COUNT (AUTO) 33 K/uL (130-430)
[2018-04-09 08:14] LABS: NEUTROPHILS % (AUTO) 53.4 % (40.0-70.0)
[2018-04-09] MEDS: PREGABALIN 25 MG CAPSULE (LYRICA) PO SCH ×4 (09:22→20:39)
[2018-04-09] MEDS: FLUCONAZOLE 100 MG TABLET (DIFLUCAN) PO SCH (09:22)
[2018-04-09] MEDS: FENOFIBRATE 160 MG TABLET PO SCH (09:22)
[2018-04-09] MEDS: HYDROCORTISONE 10 MG TABLET (CORTEF) PO SCH ×2 (09:22→17:19)
[2018-04-09] MEDS: BALSAM PERU/CASTOR OIL 60 GM OINT...G. TP SCH (09:22)
[2018-04-09] MEDS: LACTULOSE 20 GM/30 ML UDC PO SCH ×3 (09:22→20:40)
[2018-04-09] MEDS: CYANOCOBALAMIN 1000 mCg TABLET PO SCH (09:23)
[2018-04-09] MEDS: BACLOFEN 10 MG TABLET PO SCH ×3 (09:23→20:40)
[2018-04-09] MEDS: MAGNESIUM OXIDE 400 MG TABLET PO SCH (09:23)
[2018-04-09] MEDS: METOPROLOL SUCCINATE 25 MG TAB.SR.24H (TOPROL XL) PO SCH (09:23)
[2018-04-09] MEDS: SENNOSIDES/DOCUSATE SODIUM 1 TAB TABLET(SENOKOT-S) PO SCH ×2 (09:23→20:39)
--- NOTE | 2018-04-09 09:33 | NUR ---
Medication pt and pts family educted on medication use and side effects, pt and pts family verbalized understanding, tolerated medication administration well, no acute distress noted, fall, aspiration, and isolation precautions in place.
[2018-04-09 11:29] VITALS: BP_SYST 139
[2018-04-09] MEDS: LEVOFLOXACIN 250 MG/D5W 50 ML IV SCH (11:29)
--- NOTE | 2018-04-09 11:32 | NUR ---
Medication pt and pts family educated on medication use and side effects, pt and pts family verbalized understanding, tolerated medication administration well, no acute distress noted, fall, aspiration, and isolation precautions in place.
--- NOTE | 2018-04-09 13:58 | NUR ---
Medication pt and pts family educated on medication use and side effects, pt and pts family verbalized understanding, pt tolerated medicaiton administration well, no acute distress noted, family at bedside, fall, aspiration, and isolation precautions in place.
--- NOTE | 2018-04-09 14:58 | NUR ---
Dietitian Recommendations * Recommend continuing [facility] diet w/ Glucerna TID (ONS provides an additional 750 kcal/ame nd 30 gm protein/day) * Health shakes TID w/ meals (Glucerna mixed w/ yogurt, strawberries, and diet vanilla ice cream) LP, RD Please refer to Nutrition Assessment for details.
[2018-04-09 15:22] VITALS: BP_SYST 143
--- NOTE | 2018-04-09 16:17 | NUR ---
MD Rounds Dr. Stephens at bedside speaking with pt and pts daughter, MD made aware of critical lab platelets 33, informed MD that Dr. Anaya was paged this AM but has not called back, per Dr. Stephens page Dr. Anaya again to report critcal lab, second page to Dr. Anaya made at this time, awaiting call back.
[2018-04-09] MEDS: MONTELUKAST 10 MG TABLET PO SCH (17:19)
--- NOTE | 2018-04-09 17:44 | NUR ---
Wound Care pt and pts family educated on purpose and procedure for wound care, pt and pts family verbalized understanding, wound care completed per wound care orders, pt tolerated well, pt denies any pain during or after wound care, fall, aspiration, and isolation precautions in place.
[2018-04-09] MEDS: traMADol HCL HCL 50 MG TABLET (ULTRAM) PO PRN (18:15)
--- NOTE | 2018-04-09 19:09 | NUR ---
Closing Note bedside SBAR report given to maintenance technician 3rd shift RN, pt resting in bed, respirations even and unlabored on room air, pt reports pain is controlled at this time, no acute distress noted, IV site clean, dry, intact, and infusing well, elena catheter draining to gravity, pt and pts daughter educated on use of call light and asked to call for assistance, pt and pts daughter verbalized understanding, call light in reach, bed in low and locked position, bed alarm on, fall, aspiration, and isolation precautions in place, care endorsed to maintenance technician 3rd shift RN.
[2018-04-09 20:35] VITALS: BP_SYST 106
--- NOTE | 2018-04-09 20:35 | NUR ---
Opening notes Pt alert, awake, VSS, no s/s distress noted. IVF infusing as ordered L. FA no s/s infiltration noted. Сергей lower ext edema and R. arm edema noted. Abarham cath to gravity secured and intact. pt on Low airloss mattress. Sacral dressing C/D/I. Contact isolation precaution maintained. Pt's daughters at bedside. Call light within reach. To monitor.
[2018-04-09] MEDS ORDERED: roPINIRole HCL 0.25 MG ( REQUIP )TABLET PO SCH (21:00)
--- NOTE | 2018-04-09 22:20 | NUR ---
CONSULT: CONSULT CALLED FOR DR. GAUTHIER I SPOKE WITH MARICEL HOGAN REASON FOR CONSULT: LYMPHOMA REQUESTING CONSULT: DR. CORTES APPLICATION CONSULTANT PHONE NUMBER: [phone]
[2018-04-10] VITALS (7 sets, daily range): BP systolic 96–141
--- NOTE | 2018-04-10 00:20 | NUR ---
Rounds Pt asleep, no s/s distress noted. Family at bedside. Safety measures in place. Call light within reach. Will continue to monitor.
--- NOTE | 2018-04-10 02:50 | NUR ---
Rounds Pt asleep, respirations even and unlabored. IVF infusing as ordered L. FA 22G no s/s infiltration noted. Call light within reach. Pt's daughter at bedside. To monitor.
--- NOTE | 2018-04-10 04:30 | NUR ---
Rounds Pt asleep. No s/s distress noted. IV fluids infusing as ordered L. FA no s/s infiltration noted. Call light within reach. Pt's daughter at bedside. To monitor.
--- NOTE | 2018-04-10 06:20 | NUR ---
Closing notes Pt asleep, arousable. Respirations even and unlabored. No s/s distress noted. IV fluids infusing as ordered L. FA no s/s infiltration. Blood sugar checked 123, no insulin per ss protocol. Repositioned. Pt's dtr at bedside. Call light within reach. To endorse to am nurse.
[2018-04-10] MEDS: LEVOTHYROXINE SODIUM 0.025 MG TABLET PO SCH (06:26)
--- NOTE | 2018-04-10 07:20 | NUR ---
am rounds: Received patient sound asleep. Wakes up when name is called. No facial grimacing . Breathing is even, non labored. [place] 16 elena catheter with light brown clear yellow urine output to a drainage bag. On low air loss mattress for low katerin score and with existing wounds. Generalized edema noted, pitting on the lower extremities. Off loaded with pillows. Head of the bed is elevated on semi fowlers. Repositioned with pillows.
[2018-04-10 07:51] LABS: BASOPHILS % (AUTO) 0.4 % (0.0-2.0); EOSINOPHILS % (AUTO) 0.8 % (0.0-4.0); HEMATOCRIT 28.2 % (36-48); HEMOGLOBIN 9.1 g/dL (12.0-16.0); LYMPHOCYTES # (AUTO) 1.9 K/uL (1.0-5.5); LYMPHOCYTES % (AUTO) 43.1 % (20.5-51.5); MEAN CORPUSCULAR HEMOGLOBIN 34 pg (27-31); MEAN CORPUSCULAR HGB CONC 32 % (32-36); MEAN CORPUSCULAR VOLUME 105 fL (79.0-98.0); MONOCYTES # (AUTO) 0.4 K/uL (0.0-1.0); MONOCYTES % (AUTO) 9.9 % (1.7-9.3); NEUTROPHILS # (AUTO) 2.1 K/uL (1.8-7.7); RED BLOOD CELL COUNT(AUTO) 2.69 MIL/uL (4.2-6.2); RED CELL DISTRIBUTION WIDTH 22.1 % (9.0-15.0); WHITE BLOOD COUNT (AUTO) 4.4 K/uL (4.8-10.8)
[2018-04-10 07:54] LABS: ANION GAP 13 (5-15); CHLORIDE 100 mmol/L (98-107); CREATININE 1.14 mg/dL (0.55-1.30); GLUCOSE 136 mg/dL (70-99); SODIUM SERUM 133 mmol/L (136-145); UREA NITROGEN, BLOOD 30 mg/dL (8-21)
[2018-04-10] MEDS: NACL 0.9% 1,000 ML IV SCH ×2 (08:15→13:36)
[2018-04-10] MEDS: HYDROCORTISONE 10 MG TABLET (CORTEF) PO SCH ×2 (08:55→18:00)
[2018-04-10 08:56] LABS: PLATELET COUNT (AUTO) 42 K/uL (130-430)
[2018-04-10 08:58] LABS: NEUTROPHILS % (AUTO) 45.8 % (40.0-70.0)
[2018-04-10] MEDS: BACLOFEN 10 MG TABLET PO SCH ×2 (08:58→16:06)
[2018-04-10] MEDS: FLUCONAZOLE 100 MG TABLET (DIFLUCAN) PO SCH (09:00)
[2018-04-10] MEDS: PREGABALIN 25 MG CAPSULE (LYRICA) PO SCH ×3 (09:02→16:06)
[2018-04-10] MEDS: FENOFIBRATE 160 MG TABLET PO SCH (09:03)
[2018-04-10] MEDS: SENNOSIDES/DOCUSATE SODIUM 1 TAB TABLET(SENOKOT-S) PO SCH (09:04)
[2018-04-10] MEDS: MAGNESIUM OXIDE 400 MG TABLET PO SCH (09:06)
[2018-04-10] MEDS: CYANOCOBALAMIN 1000 mCg TABLET PO SCH (09:07)
[2018-04-10] MEDS: METOPROLOL SUCCINATE 25 MG TAB.SR.24H (TOPROL XL) PO SCH (09:10)
[2018-04-10] MEDS: LACTULOSE 20 GM/30 ML UDC PO SCH ×2 (09:12→16:06)
[2018-04-10] MEDS: BALSAM PERU/CASTOR OIL 60 GM OINT...G. TP SCH (11:09)
[2018-04-10] MEDS: LEVOFLOXACIN 250 MG/D5W 50 ML IV SCH (11:13)
[2018-04-10] MEDS: INSULIN ASPART 100 UNITS/ML, 10 ML VIAL (NovoLOG) SUBCUT PRN (11:13)
--- NOTE | 2018-04-10 11:15 | NUR ---
MD round: Patient was seen by Dr. Martin, Dr. Anaya and Dr. Stephens. Patient's spouse and daughters were at the bedside.
[2018-04-10] MEDS ORDERED: DILTIAZEM HCL 25 MG/5 ML VIAL IVP PRN (11:45)
--- NOTE | 2018-04-10 11:53 | NUR ---
Pt note Patient family requesting to hold therapy today stating "she is feeling more weak today"; will try again tomorrow.
--- NOTE | 2018-04-10 12:04 | NUR ---
Increased heart: Informed Dr. Stephens that patient's heart rate is on the 130's. Cardizem order noted.
[2018-04-10] MEDS: traMADol HCL HCL 50 MG TABLET (ULTRAM) PO PRN (12:28)
--- NOTE | 2018-04-10 12:30 | NUR ---
Lyrica dose for 1300: Family requested for pain med. Offered Lyrica which is duet at 1300, but prefers tramadol instead. Stated that its does not help with her pain.
--- NOTE | 2018-04-10 13:47 | NUR ---
cardizem: Heart remains at 130's, cardizem 10 mg IV given, heart rate now is 103. Explained the medication indication to patient's daughters at bedside.
--- NOTE | 2018-04-10 14:56 | NUR ---
Family concern: Informed Dina that patient's daughters want to talk to her.
--- NOTE | 2018-04-10 16:21 | NUR ---
PAGED PAGED CHRISTA THOMAS AT [phone] SPOKE WITH EYAD.
--- NOTE | 2018-04-10 16:35 | NUR ---
MD order: Received order for Transfer to [facility] under Dr. Ramirez and Dr. Martin. [facility]-case management is aware. IV fluids is discontinued due to generalized edema and not putting out good amount of urine output.
--- NOTE | 2018-04-10 17:05 | NUR ---
Discharge Planning WEBSITE PROGRAMMER assisting Dina AL. Received order for transfer to [facility]. Faxed patient's information to [facility], p [phone] f [phone]. Left note on fax that Case Management office is now closed and to call the nurses' station for follow up.
[2018-04-10] MEDS ORDERED: FUROSEMIDE 40 MG/4 ML VIAL IVP ONE (17:30)
[2018-04-10] MEDS ORDERED: IPRATROPIUM/ALBUTEROL SULFATE 3 ML AMPUL.NEB (DUONEB) INH ONE (17:30)
--- NOTE | 2018-04-10 17:57 | NUR ---
Change in condition: Patient is tachypneic at 32/min, Hr= 112/min. Wheezing and crackles noted on left upper lobe. Patient is more sleepy. Md is notified, orders received and carried out.
[2018-04-10] MEDS: MONTELUKAST 10 MG TABLET PO SCH (18:00)
--- NOTE | 2018-04-10 18:48 | NUR ---
[facility] RESULT: Results relayed to dodie Gale order of o2 at 2LI/min via nasal cannula. Addendum: 04/10/18 at 1858 by Angela Oreilly RN O2 2 li/min initiated. with saturation of 97%. Head of the bed is on semi fowlers.
[2018-04-10] MEDS ORDERED: IPRATROPIUM/ALBUTEROL SULFATE 3 ML AMPUL.NEB (DUONEB) INH SCH (19:00)
--- NOTE | 2018-04-10 19:24 | NUR ---
DNR status: Patient is non responsive , agonal breath . Call Dr. Stephens and Dr. Stephens has spoken to the family on the phone and decided to change code status to DNR, comfort measures only.
--- NOTE | 2018-04-10 19:30 | NUR ---
ROUNDS RECEIVED PATIENT NON RESPONSIVE, ON AGONAL BREATHING, ON O2 @ 2 L VIA NC. PATIENT DNR, COMFORT MEASURES ONLY. FAMILY MEMBERS AT THE BEDSIDE. NEEDS ATTENDED TO. WILL CONTINUE TO MONITOR.
--- NOTE | 2018-04-10 20:06 | NUR ---
NOTES PATIENT , HEART RHYTHM SHOWED FLAT LINE ON THE MONITOR. ASSESSMENT DONE, PATIENT NO MORE BREATHING, NO MORE PULSE AND HEART BEAT ON AUSCULTATION, BOTH PUPILS DILATED CO-WITNESSED BY ADMITTING NURSE FLAKITO MICHAEL RN.
--- NOTE | 2018-04-10 20:24 | NUR ---
[facility] CALL[facility], CHARGE NURSE DAYA SPOKE TO NOLAN, .
--- NOTE | 2018-04-10 20:25 | NUR ---
DR. RUSSELL WELLS INFORMED BY CHARGE NURSE DAYA OF PATIENT'S .
--- NOTE | 2018-04-10 20:25 | NUR ---
[facility] CALLED [facility] AND LETTING THEM KNOW THAT PT AND WE NEED SET UP A MEDICAL BILLING INSTRUCTOR. THEY WILL FAX OVER THE RELEASE FORM AND THAT NEEDS TO FAXED BACK. THEN THEY WILL GIVE US A ETA
--- NOTE | 2018-04-10 20:27 | NUR ---
[employer] LET OFF HELPER CHARGE NURSE DAYA CALLED CALENDER LET OFF HELPER'S OFFICE AND TALKED TO MUNT, NOT A CALENDER LET OFF HELPER'S CASE, NO NUMBER GIVEN.
--- NOTE | 2018-04-10 21:35 | NUR ---
SARATOGA PIEDAD SPOKE WITH ULISES AT [facility] AND SHE SAID THE HEALTH PROGRAM ANALYST WILL BE 0100 ON 04/11/18
--- NOTE | 2018-04-11 01:00 | NUR ---
MORTUARY MORTUARY CAME AND BODY WAS RELEASED CO-WITNESSED BY CHARGE NURSE DAYA.
== END 2018-04-10 20:07 | disposition expired | DRG 871 ==
LOC: SED 19:53 → STU 04-07 00:12
PROVIDERS: ADMIT Internal Medicine; ATTEND Internal Medicine
DX: A41.9 Sepsis, unspecified organism (principal); G93.41 Metabolic encephalopathy; E27.40 Unspecified adrenocortical insufficiency; N39.0 Urinary tract infection, site not specified; C85.10 Unspecified B-cell lymphoma, unspecified site; C82.90 Follicular lymphoma, unspecified, unspecified site; E44.1 Mild protein-calorie malnutrition; D68.59 Other primary thrombophilia; E03.9 Hypothyroidism, unspecified; E11.42 Type 2 diabetes mellitus with diabetic polyneuropathy; E66.9 Obesity, unspecified; E78.5 Hyperlipidemia, unspecified; F32.9 Major depressive disorder, single episode, unspecified; I10 Essential (primary) hypertension; I25.10 Atherosclerotic heart disease of native coronary artery without angina pectoris; J44.9 Chronic obstructive pulmonary disease, unspecified; I46.9 Cardiac arrest, cause unspecified; Z66 Do not resuscitate; K76.0 Fatty (change of) liver, not elsewhere classified; G25.81 Restless legs syndrome; D46.9 Myelodysplastic syndrome, unspecified; F41.9 Anxiety disorder, unspecified; K57.90 Diverticulosis of intestine, part unspecified, without perforation or abscess without bleeding; M10.9 Gout, unspecified; M19.90 Unspecified osteoarthritis, unspecified site; Z16.21 Resistance to vancomycin; E78.00 Pure hypercholesterolemia, unspecified; D69.6 Thrombocytopenia, unspecified; G89.4 Chronic pain syndrome; I48.0 Paroxysmal atrial fibrillation; K74.60 Unspecified cirrhosis of liver; K59.00 Constipation, unspecified; M16.12 Unilateral primary osteoarthritis, left hip; M47.9 Spondylosis, unspecified; Z79.4 Long term (current) use of insulin; Z87.440 Personal history of urinary (tract) infections; Z95.5 Presence of coronary angioplasty implant and graft; Z68.30 Body mass index [BMI] 30.0-30.9, adult; Z74.01 Bed confinement status; Z86.73 Personal history of transient ischemic attack (TIA), and cerebral infarction without residual deficits
CPT/HCPCS: 36415; 36600; 71045; 80048; 80053; 80307; 81000-TC; 82140-TC; 82803-TC; 82962; 83605; 83615-TC; 83735-TC; 84100-TC; 84439; 84443-TC; 84484; 85007; 85025; 85027; 85610-TC; 85730-TC; 87040-TC; 87081; 87086; 93005; 94640; 96365; 97110-GP; 97530-GP; 99285; G0378; J0696; J1580; J1815; J1940; J1956; J2020; J3490; J7030; J7060; J7620; Q0162